=== PATIENT | male | born 1935 | race Caucasian/White ===

== ENCOUNTER 2018-07-26 07:53 | Emergency (ER) | payer OTHER, MEDICARE ==
--- OUTSIDE RECORDS SUMMARY | 2018-07-26 08:00 | XMS REPORT | Clinical Summary ---
:1935 Author Organization [facility] Address [address] [place] [address] Care Team Providers Name Role Phone Provider, Unknown Primary Care Provider Unavailable Allergies Active Allergy Reactions Severity Noted Date Comments Penicillins 07/14/2015 Medications Medication Sig Dispensed Refills Start Date End Date Status folic acid TAKE BY MOUTH 3 06/21/2015 Active (FOLVITE) 1 MG 1 TABLET DAILY tablet DIRECTED choline TAKE ONE 90 capsule 3 10/11/2016 Active fenofibrate CAPSULE BY (TRILIPIX) 45 mg MOUTH EVERY capsule DAY potassium chloride TAKE 1 TABLET 90 tablet 3 10/24/2016 Active (K-DUR) 20 MEQ CR BY MOUTH EVERY tablet DAY losartan (COZAAR) TAKE 1 TABLET 90 tablet 1 04/19/2017 Active 100 MG tablet BY MOUTH EVERY DAY metoprolol TAKE 1 TABLET 90 tablet 1 09/18/2017 Active succinate XL BY MOUTH EVERY (TOPROL-XL) 25 mg DAY 24 hr tablet furosemide (LASIX) TAKE 1 TABLET 90 tablet 3 10/12/2017 Active 20 mg tablet BY MOUTH EVERY DAY XARELTO 15 mg TAKE 1 TABLET 90 tablet 3 11/02/2017 Active tablet BY MOUTH AT BEDTIME fluticasone 2 sprays (100 15.8 mL 0 02/08/2018 Active (FLONASE ALLERGY mcg total) by RELIEF) 50 Each Nare mcg/actuation route daily. nasal spray CRESTOR 5 mg Take 5 mg by 3 08/10/2015 08/24/2017 Discontinued tablet mouth once daily. XARELTO 15 mg TAKE 1 TABLET 90 tablet 4 08/31/2016 11/01/2017 Discontinued tablet BY MOUTH AT BEDTIME furosemide (LASIX) TAKE 1 TABLET 90 tablet 3 10/24/2016 10/12/2017 Discontinued 20 mg tablet BY MOUTH EVERY DAY metoprolol TAKE 1 TABLET 90 tablet 1 02/16/2017 09/17/2017 Discontinued succinate XL BY MOUTH EVERY (TOPROL-XL) 25 mg DAY 24 hr tablet levoFLOXacin Take 1 tablet 7 tablet 0 02/08/2018 02/15/2018 (LEVAQUIN) 500 MG (500 mg total) tablet by mouth daily for 7 days. fluticasone 2 sprays (100 48 mL 0 03/02/2018 05/31/2018 (FLONASE) 50 mcg total) by mcg/actuation Each Nare nasal spray route daily for 90 days. levoFLOXacin Take 1 tablet 7 tablet 0 03/27/2018 04/03/2018 (LEVAQUIN) 500 MG (500 mg total) tablet by mouth daily for 7 days. Active Problems Problem Noted Date Pleural plaque 09/13/2016 ILD (interstitial lung disease) 01/07/2016 Chronic insomnia 01/07/2016 Cough 07/14/2015 SOB (shortness of breath) 07/14/2015 Wheezing 07/14/2015 Encounters Date Type Specialty Care Team Description 03/27/2018 Telephone Pulmonology Lawrence Sharpe MD 03/02/2018 Orders Only Pulmonology Sandy Albright MA 02/14/2018 Hospital Encounter Radiology Lawrence Sharpe, ILD ( interstitial lung MD disease) ([facility]) 02/08/2018 Clinical Support Pulmonology Lawrence Sharpe, ILD ( interstitial lung MD disease) ([facility]) Kevyn Oliva 02/08/2018 Office Visit Pulmonology Lawrence Sharpe, ILD (interstitial lung disease) ([facility]) (Primary Dx); Pleural plaque; Acute sinusitis, recurrence not specified, unspecified location 11/01/2017 Refill Pulmonology Lawrence Sharpe MD 10/12/2017 Refill PulmonLawrence Su MD 09/17/2017 Refill PulmonLawrence Su MD 08/24/2017 Office Visit Pulmonology Lawrence Sharpe, ILD (interstitial lung disease) (Primary Dx); Pleural plaque after 07/25/2017 Immunizations Name Dates Previously Given Next Due FLUZONE HIGH-DOSE PF 02/08/2017, 01/07/2016 Pneumococcal Conjugate 13-Valent 05/28/2015 Family History Medical History Relation Name Comments Heart attack Brother Cancer Father Stroke Father Heart attack Sister Relation Name Status Comments Brother Father Sister Social History Tobacco Use Types Packs/Day Years Used Date Never Smoker Smokeless Tobacco: Never Used Alcohol Use Drinks/Week oz/Week Comments No Sex Assigned at Date Recorded Not on file Job Start Date Occupation Industry Not on file Not on file Not on file Travel History Travel Start Travel End No recent travel history available. Last Filed Vital Signs Vital Sign Reading Time Taken Blood Pressure 137/67 02/08/2018 2:18 PM [employer] Pulse 56 02/08/2018 2:18 PM [employer]AL [employer]GER Temperature 36.4 C (97.6 F) 02/08/2018 2:18 PM [employer]STITUTIONAL ASSET [employer]NAGER Respiratory Rate 14 02/08/2018 2:18 PM [employer]STITUTIONAL [employer]ET [employer]NAGER Oxygen Saturation 97% 02/08/2018 2:18 PM INSTITUTIONAL ASSET MANAGER Inhaled Oxygen Concentration - - Weight 90.6 kg (199 lb 12.8 oz) 02/08/2018 2:18 PM [employer]STITUTIONAL ASSET MANAGER Height 180.3 cm (5' 11") 02/08/2018 2:18 PM INSTITUTIONAL ASSET MANAGER Body Mass Index 27.87 02/08/2018 2:18 PM INSTITUTIONAL ASSET MANAGER Plan of Treatment Date Type Specialty Care Team Description 08/17/2018 Office Visit Pulmonology Lawrence Sharpe MD [address] [place] [address] [phone] Health Maintenance Due Date Last Done Comments SHINGLES VACCINES (#1) 1983 65+ PNEUMOCOCCAL VACCINE (2 of 2 - 05/27/2016 05/28/2015 PPSV23) INFLUENZA VACCINE 09/06/2018 02/08/2017, 01/07/2016, 01/17/2012 Procedures Procedure Name Priority Date/Time Associated Diagnosis Comments CT CHEST WO Routine 02/14/2018 2:37 PM ILD (interstitial Results for this CONTRAST INSTITUTIONAL ASSET MANAGER lung disease) (HCC) procedure are in the results section. after 07/25/[address] Chest Wo Contrast (02/14/2018 2:37 PM INSTITUTIONAL ASSET MANAGER) Specimen Narrative Performed At EXAMINATION: CT CHEST WO CONTRAST [facility] CLINICAL HISTORY: J84.9 Interstitial pulmonary disease TECHNIQUE: Multi-detector computed axial tomography (CAT) of the chest was performed without IV iodinated contrast. Axial maximum intensity projections of the chest, and sagittal and coronal computerized reformatted images of the chest were created at a workstation and archived for review. DOSE REDUCTION: CT imaging was performed with iterative reconstruction technique and/or automated exposure control to reduce radiation dose. COMPARISON: CT chest 02/16/2017 IMPRESSION: 1.Stable fibrocalcific scarring and focal left calcific pleural thickening. 2.Minimal cylindrical bronchiectasis of subsegmental bronchi located within the posterior basal segments of the lower lobes probably represents senescent change. No air trapping or endobronchial impaction. FINDINGS: Stable multifocal linear, branching, and curvilinear calcific scarring demonstrating a peripheral and basilar distribution. Stable partially calcified pleural thickening measuring 1.2 cm in thickness within the posterolateral aspect of the left lung base. No edema, infiltrate, or suspicious pulmonary nodule. Minimal cylindrical bronchiectasis of subsegmental bronchi located within the posterior basal segments of the lower lobes probably represents senescent change. No evidence of air trapping. No bronchial wall thickening or endobronchial impaction. Heart is normal in size. Severe coronary artery calcifications status-post midline sternotomy and CABG. No pericardial effusion. Aorta is nonaneurysmal and diffusely atherosclerotic. Pulmonary artery is normal in diameter. No mediastinal mass, thoracic lymphadenopathy, or incidental thyroid nodule. Diffuse fatty infiltration of the liver. Few cysts are present, the largest measuring 2.8 cm. Chronic bilateral rib fractures and degenerative changes in the spine. [facility]-[id number] Procedure Note Hm Interface, Radiology Results Incoming - 02/14/2018 4:24 PM INSTITUTIONAL ASSET MANAGER EXAMINATION: CT CHEST WO CONTRAST CLINICAL HISTORY: J84.9 Interstitial pulmonary disease TECHNIQUE: Multi-detector computed axial tomography (CAT) of the chest was performed without IV iodinated contrast. Axial maximum intensity projections of the chest, and sagittal and coronal computerized reformatted images of the chest were created at a workstation and archived for review. DOSE REDUCTION: CT imaging was performed with iterative reconstruction technique and/or automated exposure control to reduce radiation dose. COMPARISON: CT chest 02/16/2017 IMPRESSION: 1. Stable fibrocalcific scarring and focal left calcific pleural thickening. 2. Minimal cylindrical bronchiectasis of subsegmental bronchi located within the posterior basal segments of the lower lobes probably represents senescent change. No air trapping or endobronchial impaction. FINDINGS: Stable multifocal linear, branching, and curvilinear calcific scarring demonstrating a peripheral and basilar distribution. Stable partially calcified pleural thickening measuring 1.2 cm in thickness within the posterolateral aspect of the left lung base. No edema, infiltrate, or suspicious pulmonary nodule. Minimal cylindrical bronchiectasis of subsegmental bronchi located within the posterior basal segments of the lower lobes probably represents senescent change. No evidence of air trapping. No bronchial wall thickening or endobronchial impaction. Heart is normal in size. Severe coronary artery calcifications status-post midline sternotomy and CABG. No pericardial effusion. Aorta is nonaneurysmal and diffusely atherosclerotic. Pulmonary artery is normal in diameter. No mediastinal mass, thoracic lymphadenopathy, or incidental thyroid nodule. Diffuse fatty infiltration of the liver. Few cysts are present, the largest measuring 2.8 cm. Chronic bilateral rib fractures and degenerative changes in the spine. [facility]-[id number] Performing Organization Address City/State/Zipcode Phone Number [facility] [address] [place] [address] after 07/25/2017 Insurance Payer Benefit Plan / Subscriber ID Effective Dates Phone Address Type Group MEDICARE MEDICARE PART A xxxxxxxxxxx 1998-Present [place], [place] Medicare AND B AARP AARP SUPPLEMENT xxxxxxxxxx 2015-Present Commercial Advance Directives Patient has advance care planning documents on file. For more information, please contact:[id number] [place] [address]
--- OUTSIDE RECORDS SUMMARY | 2018-07-26 08:00 | XMS REPORT | Summary of Care ---
:1935 Author Name EZEKIEL Lazaro, YENNY Address [facility] Unavailable , Care Team Providers Name Role Phone EZEKIEL Lazaro, YENNY Unavailable Unavailable Katiuska Lazaro, Brandin Unavailable Unavailable STEPHANIE Lazaro, HANSEL Unavailable Unavailable Yenny Ramirez MD Unavailable Unavailable EZEKIEL SIMS, YENNY Mejia Unavailable Unavailable STEPHANIE SIMS [place], HANSEL Unavailable Unavailable Unavailable Unavailable Unavailable Functional Status Name Dates Details Functional status health issues are not documented Status: Name Dates Details Cognitive status health issues are not documented Status: Problems Name Dates Details Elevated creatine kinase level (790.5, R74.8) Status: Active Tremor, unspecified (781.0, R25.1) Status: Active Cerebrovascular accident, old (V12.54, Z86.73) Status: Active Heart failure (428.9, I50.9) Status: Active CABG Status: Active 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, I25.10) Status: Active IN, old (412, I25.2) Status: Active Aftercare following surgery (V58.89, Z48.89) Status: Active Shortness of breath (786.05, R06.02) Status: Active 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, 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) Status: Active Left heart failure (428.1, I50.1) Status: Active Atrial fibrillation (427.31, I48.91) Status: Active Diabetes (250.00, E11.9) Status: Active CHF (congestive heart failure) (428.0, I50.9) Status: Active Hyperlipidemia (272.4, E78.5) Status: Active Primary hypertension (401.9, I10) Status: Active Bundle branch block, right (426.4, I45.10) Status: Active Angina pectoris (413.9, I20.9) Status: Active Atherosclerotic heart disease of [place] coronary artery without angina pectoris (414.01, I25.10) Status: Active Cerebral infarction, unspecified (434.91, I63.9) Status: Active 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 Start : 10-Jul-2012 Active Losartan Potassium 100 MG Oral Tablet TAKE 1 TABLET BY MOUTH EVERY DAY Quantity: 90 Refills: 3 YENNY RAMIREZ M.D. Start : 01-Jul-2011 Active Metoprolol Succinate ER 25 MG Oral Tablet Extended Release 24 Hour TAKE 1 TABLET BY MOUTH EVERY DAY Quantity: 90 Refills: 3 YENNY RAMIREZ M.D. Start : 01-Jul-2011 Active Xarelto 15 MG Oral Tablet TAKE 1 TABLET BY MOUTH AT BEDTIME Quantity: 90 Refills: 3 YENNY RAMIREZ M.D. Start : 02-Sep-2013 Active Fenofibric Acid 45 MG Oral Capsule Delayed Release TAKE 1 CAPSULE DAILY. Quantity: 90 Refills: 3 YENNY RAMIREZ M.D. Start : 24-Jul-2014 Active OneTouch Verio In Vitro Strip USE 4 STRIPS DAILY DX CODE E11.9 Quantity: 4 Refills: 0 Brandin Harp M.D. Start : 24-Aug-2015 Active 100 Strip Box Carbidopa-Levodopa 25-100 MG Oral Tablet TAKE 2 TABLET 3 TIMES DAILY Quantity: 540 Refills: 1 HANSEL BROWN M.D. Start : 08-Aug-2016 Active Allergies and Adverse Reactions Name Dates Details Penicillins (Allergy) Status: Active Past Medical History Name Dates Details Aftercare following surgery (V58.89, Z48.89) Status: Active Atrial fibrillation (427.31, I48.91) Status: Active History of essential hypertension (V12.59, Z86.79) Status: Resolved History of Occlusion and stenosis of cerebral artery (434.90, I66.9) Status : Resolved Procedures Procedure Dates Details [QL] CBC (INCLUDES DIFF/PLT) Date: 03-May-2018 [QL] CMP W/EGFR Date: 03-May-2018 [[facility]] CREATINE KINASE, TOTAL Date: 03-May-2018 [[facility]] LIPID PANEL Date: 03-May-2018 [[facility]] TSH, 3RD GENERATION W/REFLEX TO FT4 Date: 03-May-2018 History of CABG Completed History of CABG Completed CABG Immunization Name Dates Details Influenza on: 17-Jan-2012 Lot #: [id number] Family History Name Dates Details Family history of Coronary Artery Disease (V17.49) Comments: Family History Status: Active Family history of Lung Cancer (V16.1) Comments: Family History Status: Active Name Dates Details Family history of myocardial infarction (V17.3, Z82.49) Status: Active Name Dates Details No pertinent family history (V49.89, Z78.9) Status: Active Name Dates Details Family history of cerebrovascular accident (CVA) (V17.1, Z82.3) Status: Active Social History Name Dates Details - Status: Name Dates Details Never smoker Vital Signs Date Test Result Details [id number] BP Systolic 165 mm[Hg] Status: Comments: Location: LUE; Position: Sitting BP Diastolic 80 mm[Hg] Status: Comments: Location: LUE; Position: Sitting Height 71 in Status: Weight 206.25 lb Status: Body Mass Index Calculated 28.77 kg/m2 Status: Body Surface Area Calculated 2.14 m2 Status: Heart Rate 73 /min Status: Comments: Location: L Radial; O2 SAT 95 % Status: Comments: Source: Results Date Description Value Details [id number] [[facility]] CBC (INCLUDES DIFF/PLT) WBC 5.9 {K/CMM} Range: 3.7-10.4 RBC 4.09 {M/CMM} (Below low threshold) Range: 4.70-6.10 Hgb 13.2 g/dl (Below low threshold) Range: 14.0-18.0 Hct 39.3 % (Below low threshold) Range: 42.0-54.0 MCV 96.2 fL (Above high threshold) Range: 80.0-94.0 MCH 32.4 pg (Above high threshold) Range: 27.0-31.0 MCHC 33.7 g/dl Range: 32.0-36.0 RDW 14.8 % (Above high threshold) Range: 11.5-14.5 Platelet 219 {K/CMM} Range: 133-450 Mean Platelet Volume 9.1 fL Range: 7.4-10.4 :15 [QL] Differential Segmented Neutrophils 66.8 % Range: 45.0-75.0 Monocytes 9.7 % Range: 2.0-12.0 Lymphocytes 18.3 % (Below low threshold) Range: 20.0-40.0 Eosinophils 4.4 % (Above high threshold) Range: 0.0-4.0 Basophils 0.8 % Range: 0.0-1.0 Segs-Bands # 4.0 {K/CMM} Range: 1.5-8.1 Lymphocytes # 1.1 {K/CMM} Range: 1.0-5.5 Monocytes # 0.6 {K/CMM} Range: 0.0-0.8 Eosinophils # 0.3 {K/CMM} Range: 0.0-0.5 :15 [[facility]] CMP W/EGFR Sodium Level 139 {mEq/l} Range: 135-145 Potassium Level 4.2 {mEq/l} Range: 3.5-5.1 Chloride Level 103 {mEq/l} Range: 95-109 Carbon Dioxide 27 {mEq/l} Range: 24-32 AGAP 13.2 {mEq/l} Range: 10.0-20.0 Glucose Lvl 145 mg/dl (Above high Range: 70-99 threshold) Comments: Adult reference range values reflect the clinical guidelinesof the [place] [employer]. Creatinine Lvl 1.40 mg/dl Range: 0.50-1.40 Blood Urea Nitrogen 24 mg/dl (Above high Range: 7-22 threshold) BUN/Creatinine Ratio 17 Range: 6-25 Total Protein 7.7 g/dl Range: 6.4-8.4 Albumin Lvl 4.4 g/dl Range: 3.5-5.0 Globulin 3.3 g/dl Range: 2.7-4.2 A/G Ratio 1.3 Range: 0.7-1.6 Calcium Level Total 8.8 mg/dl Range: 8.5-10.5 ALT 16 u/l Range: 0-65 AST 14 u/l Range: 0-37 Bili Total 0.4 mg/dl Range: 0.2-1.3 Alk Phos 41 u/l Range: 39-136 eGFR 45 {ML/MIN/1.7} Comments: The eGFR is calculated using the CKD-EPI formula. In most young, healthyindividuals the eGFR will be >90 mL/min/1.73m2. The eGFR declines with age. AneGFR of 60-89 may be normal in some populations, particularly the elderly, forwhom the CKD-EPI formula has not been extensively validated. Use of the eGFR isnot recommended in the following populations:Individuals with unstable creatinine concentratio ns, including patients and those with serious co-morbid conditions.Patients with extremes in muscle mass or diet.The data above are obtained from the National Kidney Disease Education Program(NK DEP) which additionally recommends that when the eGFR is used in patientswith extremes of body mass index for purposes of drug dosing, the eGFR shouldbe multiplied by the estimated BMI. :15 [QL] CREATINE KINASE, TOTAL Creatine Kinase 203 u/l (Above high threshold) Range: 12-191 :15 [[facility]] LIPID PANEL Chol 165 mg/dl Range: <=199 Trig 119 mg/dl Range: <=149 HDL Cholesterol 38 mg/dl (Below low threshold) Range: >=61 CHD Risk 4.34 Range: 4.00-7.30 LDL 103 mg/dl (Above high threshold) Range: <=99 VLDL 24 :15 [[facility]] TSH, 3RD GENERATION TSH 25.000 {uIU/ml} (Above high threshold) Range: 0.360-3.740 :15 [[facility]] LIPOPROTEIN (a) Lipoprotein (a) 4 nmol/L Range: <75 Comments: Note: Values greater than or equal to 75 nmol/L may indicate an independent risk factor for CHD, but must be evaluated with caution when applied to non- populations due to th e influence of genetic factors on Lp(a) across ethnicities.Performed At: [facility] [id number] [place], [place] [id number] Mcdonald MD Ph:[phone] Plan of Care Name Dates Details Planned Observations Planned Goals not documented Planned Encounters Appointment; HANSEL BROWN M.D. On: 03-Aug-2018 9:30 Appointment; YENNY RAMIREZ M.D. On: 01-Nov-2018 14:00 Instructions Name Dates Details Instructions not documented Encounters Appointment; SYD DIALLO M.D. On: 23-Jun-2016 13:30 Encounter Diagnosis: Problem not documented Appointment; SYD DIALLO M.D. On: 30-Jun-2016 13:00 Encounter Diagnosis: Problem not documented Appointment; HANSEL BROWN M.D. On: 08-Aug-2016 15:00 Encounter Diagnosis: Problem not documented Appointment; HANSEL BROWN M.D. On: 30-Nov-2016 14:30 Encounter Diagnosis: Problem not documented Appointment; HANSEL BROWN M.D. On: 07-Dec-2016 14:30 Encounter Diagnosis: Problem not documented Appointment; SYD DIALLO M.D. On: 12-Jan-2017 14:00 Encounter Diagnosis: Problem not documented Appointment; HANSEL BROWN M.D. On: 05-Apr-2017 14:30 Encounter Diagnosis: Problem not documented Appointment; HANSEL BROWN M.D. On: 11-Aug-2017 11:00 Encounter Diagnosis: Problem not documented Appointment; YENNY RAMIRZE M.D. On: 28-Sep-2017 15:20 Encounter Diagnosis: Problem not documented Appointment; ALONDRA NIEVES On: 26-Oct-2017 13:30 Encounter Diagnosis: Problem not documented Appointment; YENNY RAMIREZ M.D. On: 02-Nov-2017 15:40 Encounter Diagnosis: Problem not documented Appointment; HANSEL BROWN M.D. On: 16-Nov-2017 11:30 Encounter Diagnosis: Problem not documented Appointment; HANSEL BROWN M.D. On: 16-Mar-2018 10:00 Encounter Diagnosis: Problem not documented Appointment; YENNY RAMIREZ M.D. On: 03-May-2018 14:00 Encounter Diagnosis: Problem not documented
--- NOTE | 2018-07-26 08:21 | EDPHYS ---
Physician Documentation [facility] Name: Brodie Hernadez Age: 83 yrs Sex: Male : 1935 Arrival Date: 07/26/2018 Time: 07:55 Bed 18 Private MD: ED Physician Gregor Rogers HPI: 07/26 08:18 This 83 yrs old Male presents to ER via Ambulatory with complaints of Back pm1 Pain, Rash. 08:27 The rash is located on the right flank. The rash can be described as vesicular. Onset: pm1 The symptoms/episode began/occurred noticed rash this AM but has had pain in the area of the rash for the past two days. Associated signs and symptoms: Pertinent negatives: fever, urinary symptoms. Severity of symptoms: in the emergency department the symptoms are unchanged. Treatment given at home: tylenol. The patient has experienced a previous episode, many years ago, and the symptoms today are exactly the same, in his 20s. The patient has not recently seen a physician, has an appointment scheduled, new PCP tomorrow or in a few days. 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 - Social history:: Smoking status: Patient/guardian denies using tobacco. - Ebola Screening: : No symptoms or risks identified at this time. ROS: 08:27 Constitutional: Negative for fever, chills, and weight loss, Eyes: Negative for injury, pm1 pain, redness, and discharge, ENT: Negative for injury, pain, and discharge, Neck: Negative for injury, pain, and swelling, Cardiovascular: Negative for chest pain, palpitations, and edema, Respiratory: Negative for shortness of breath, cough, wheezing, and pleuritic chest pain, Abdomen/GI: Negative for abdominal pain, nausea, vomiting, diarrhea, and constipation. 08:27 : Negative for injury, bleeding, discharge, and swelling, MS/Extremity: Negative for injury and deformity. 08:27 Neuro: Negative for headache, weakness, numbness, tingling, and seizure. 08:27 Back: Positive for flank pain, on the right. 08:27 Skin: Positive for rash, of the right flank to right lower quadrant. Exam: 08:27 Constitutional: This is a well developed, well nourished patient who is awake, alert, pm1 and in no acute distress. Head/Face: Normocephalic, atraumatic. Chest/axilla: Normal chest wall appearance and motion. Nontender with no deformity. No lesions are appreciated. Cardiovascular: Regular rate and rhythm with a normal S1 and S2. No gallops, murmurs, or rubs. Normal PMI, no JVD. No pulse deficits. Respiratory: Lungs have equal breath sounds bilaterally, clear to auscultation and percussion. No rales, rhonchi or wheezes noted. No increased work of breathing, no retractions or nasal flaring. 08:27 Back: No spinal tenderness. No costovertebral tenderness. Full range of motion. 08:27 Abdomen/GI: Inspection: abdomen appears normal, ostomy present, Bowel sounds: normal, Palpation: abdomen is soft and non-tender. 08:27 Skin: consistent with zoster, on the right flank to right lower quadrant. 08:27 Neuro: Orientation: is normal, Motor: is normal, moves all fours, Sensation: is normal, no obvious gross deficits, Gait: is steady, at a normal pace, without difficulty. Vital Signs: 08:20 BP 141 / 90; Pulse 45; Resp 18; Temp 97.9; Pulse Ox 98% on R/A; Weight 90.72 kg; Height ph 5 ft. 11 in. (180.34 cm); Pain 9/10; 08:20 Body Mass Index 27.89 (90.72 kg, 180.34 cm) ph MDM: 08:18 Patient medically screened. pm1 08:18 Counseling: I had a detailed discussion with the patient and/or guardian regarding: the pm1 historical points, exam findings, and any diagnostic results supporting the discharge/admit diagnosis, the need for outpatient follow up, to return to the emergency department if symptoms worsen or persist or if there are any questions or concerns that arise at home. 08:32 Data reviewed: vital signs. Data interpreted: Pulse oximetry: on room air is 98 %. pm1 Interpretation: normal. Administered Medications: 08:31 Drug: traMADol 50 mg Route: PO; ph 08:40 Follow up: Response: No adverse reaction; Medication administered at discharge. ph Disposition: 10:50 Co-signature as Attending Physician, Gregor Rogers MD I agree with the assessment and kdr plan of care. Disposition: 07/26/18 08:21 Discharged to Home. Impression: Zoster [herpes zoster]. - Condition is Stable. - Discharge Instructions: Shingles. - Prescriptions for Valtrex 1 g Oral Tablet - take 1 tablet by ORAL route every 8 hours for 7 days; 21 tablet. Tramadol 50 mg Oral Tablet - take 1 tablet by ORAL route every 8 hours as needed; 12 tablet. - Medication Reconciliation Form, Thank You Letter, Antibiotic Education, Prescription Opioid Use form. - Follow up: Emergency Department; When: As needed; Reason: Worsening of condition. Follow up: Private Physician; When: 2 - 3 days; Reason: Recheck today's complaints, Continuance of care, Re-evaluation by your physician. - Problem is new. - Symptoms have improved. Signatures: Gregor Rogers MD MD [facility] Yolanda Pickering RN RN Casey Macias, SHA SAFETY COMPLIANCE SPECIALIST pm1 María Bro Corrections: (The following items were deleted from the chart) 08:42 08:21 07/26/2018 08:21 Discharged to Home. Impression: Zoster [herpes zoster]. eb Condition is Stable. Forms are Medication Reconciliation Form, Thank You Letter, Antibiotic Education, Prescription Opioid Use. Follow up: Emergency Department; When: As needed; Reason: Worsening of condition. Follow up: Private Physician; When: 2 - 3 days; Reason: Recheck today's complaints, Continuance of care, Re-evaluation by your physician. Problem is new. Symptoms have improved. pm1
--- NOTE | 2018-07-26 08:21 | ER ---
Nurse's Notes [facility] Name: Brodie Hernadez Age: 83 yrs Sex: Male : 1935 Arrival Date: 07/26/2018 Time: 07:55 Bed 18 Private MD: Diagnosis: Zoster [herpes zoster] Presentation: 07/26 08:18 Presenting complaint: Patient states: R low back pain that began 2 days ago and rash in ph same area that was noticed this morning, vesicular rash noted to R flank, denies fever. Transition of care: patient was not received from another setting of care. Onset of symptoms was July 26, 2018. Risk Assessment: Do you want to hurt yourself or someone else? Patient reports no desire to harm self or others. Initial Sepsis Screen: Does the patient meet any 2 criteria? No. Patient's initial sepsis screen is negative. Does the patient have a suspected source of infection? No. Patient's initial sepsis screen is negative. Care prior to arrival: None. 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 - Social history:: Smoking status: Patient/guardian denies using tobacco. - Ebola Screening: : No symptoms or risks identified at this time. Screenin:25 Abuse screen: Denies threats or abuse. Denies injuries from another. Nutritional ph screening: No deficits noted. Tuberculosis screening: No symptoms or risk factors identified. Fall Risk None identified. Assessment: 08:26 General: Appears in no apparent distress. comfortable, well groomed, Behavior is calm, ph cooperative, appropriate for age, Denies fever, feeling ill. Pain: Complains of pain in right mid back and right low back Pain radiates to anterior aspect of right lateral abdomen, posterior aspect of right lateral abdomen and right lower quadrant Pain currently is 9 out of 10 on a pain scale. Quality of pain is described as burning, aching. Neuro: Level of Consciousness is awake, alert, obeys commands, Oriented to person, place, time, situation. Cardiovascular: Capillary refill < 3 seconds in bilateral fingers Patient's skin is warm and dry. Respiratory: Airway is patent Respiratory effort is even, unlabored, Respiratory pattern is regular, symmetrical. GI: Colostomy site is clean and dry. Ostomy appliance is intact. Patient currently denies abdominal pain, diarrhea, nausea, vomiting. Derm: Skin is healthy with good turgor, Skin is pink, warm \T\ dry. Rash noted that is red, raised, vesicular, on anterior aspect of right lateral abdomen, posterior aspect of right lateral abdomen and right lower quadrant. Musculoskeletal: Circulation, motion, and sensation intact. Range of motion: intact in all extremities. Vital Signs: 08:20 BP 141 / 90; Pulse 45; Resp 18; Temp 97.9; Pulse Ox 98% on R/A; Weight 90.72 kg; Height ph 5 ft. 11 in. (180.34 cm); Pain 9/10; 08:20 Body Mass Index 27.89 (90.72 kg, 180.34 cm) ph ED Course: 07:55 Patient arrived in ED. as 08:08 Casey Macias NP is [facility]. pm1 08:08 Gregor Rogers MD is Attending Physician. pm1 08:18 Yolanda Pickering RN is Primary Nurse. ph 08:20 Triage completed. ph 08:25 Arm band placed on Patient placed in an exam room, on a stretcher. ph 08:25 Patient has correct armband on for positive identification. Call light in reach. Side ph rails up X 1. Pulse ox on. NIBP on. Door closed. Noise minimized. 08:30 No provider procedures requiring assistance completed. Patient did not have IV access ph during this emergency room visit. Administered Medications: 08:31 Drug: traMADol 50 mg Route: PO; ph 08:40 Follow up: Response: No adverse reaction; Medication administered at discharge. ph Outcome: 08:21 Discharge ordered by MD. pm1 08:42 Patient left the ED. eb 08:42 Discharged to home ambulatory, with friend. ph 08:42 Condition: good 08:42 Discharge instructions given to patient, friend, Instructed on discharge instructions, follow up and referral plans. medication usage, Demonstrated understanding of instructions, follow-up care, medications, Prescriptions given X 2. Signatures: Monica Dennis as Yolanda Pickering, SUE RN Casey Macias NP [employer] ELECT[employer]ICIAN pm1 María Bro
[2018-07-26] MEDS ORDERED: TRAMADOL HCL 50 MG TAB ONE (08:49)
== END 2018-07-26 08:42 | disposition home or self-care (01) ==
LOC: ER 07:53
DX: B02.9 Zoster without complications (principal); Z88.0 Allergy status to penicillin
CPT/HCPCS: 99283

== ENCOUNTER 2020-07-24 21:32 | Inpatient (IN) | payer OTHER, MEDICARE ==
--- OUTSIDE RECORDS SUMMARY | 2020-07-24 21:38 | XMS REPORT | Continuity of Care Document ---
:1935 Author Organization [facility] t Address [address] [place] [address] Care Team Providers Name Role Phone Provider Primary Care Physician Unavailable Nithin Pavon Attending Clinician EZEKIEL Attending Clinician Unavailable STEPHANIE Attending Clinician Unavailable EZEQUIEL Attending Clinician Unavailable RENÉ Attending Clinician Unavailable Erlin Merritt Attending Clinician [place] Attending Clinician Unavailable EZEQUIEL Attending Clinician Unavailable Problems Condition Condition Condition Status Onset Resolution Last Treating Co mments Source Name Details Category Date Date Treatment Clinician Date R41.3 - Diagnosis Active 2019-022019-12-09 Me moria OTHER - 11:30:00 l AMNESIA R41.3 - 00:01: Ravi mcmillan R25.1 - OTHER 00 TREMOR, UN AMNESIA R25.1 - TREMOR, UN Active 12/07/2019 TODD [place] Pleural Pleural Disease Active [place] plaque plaque 8-08 Methodi 00:00: st 00 I10 - Diagnosis Active 2016-07-01 Mem oria ESSENTIAL - 12:19:00 l (PRIMARY) I10 - 00:01: Ravi mcmillan HYPERTENSI ESSENTIAL 00 (PRIMARY) HYPERTENSI Active 06/30/2016 TODD [place] 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 [place] (interstit (interstit 2-01 Me thodi ial lung ial lung 00:00: st disease) disease) 00 Chronic Chronic Disease Active 2015-02 [place] insomnia insomnia 2-01 Method i 00:00: st 00 DIABETES Diagnosis Active 2015-10-07 M emoria 7- 15:50:00 l DIABETES 00:00: Ravi mcmillan 00 Active 08/07/2015 [facility] Cough Cough Disease Active [place] 07-13 Methodi 00:00: st 00 SOB SOB Disease Active [place] (shortness (shortness 07-13 Tx thodi of breath) of breath) 00:00: st 00 Wheezing Wheezing Disease Active [place] 07-13 Methodi 00:00: st 00 STERNAL Diagnosis Active 2011-05-09 Tx moria WOUND 05-06 12:47:00 l INFECTION STERNAL 00:00: Herm lauro WOUND 00 INFECTION Active 05/07/2011 [facility] ABSCESS Diagnosis Active 2011-05-07 Tx moria 05-06 14:45:00 l ABSCESS 00:00: [place] 00 Active 05/07/2011 [facility] Coronary Problem Active 2020-06-08 Mem oria artery 04-05 00:32:23 l bypass Coronary 00:00: Ravi n grafts x 3 artery 00 (procedure bypass ) grafts x 3 (procedure ) Active 04/05/2011 Problem 06/08/2020 [facility], TODD Stewart, TODD Genao CABG x 3 - Problem Active 2011-12-02 M emoria Coronary - 08:17:06 l artery CABG x 3 00:00: Ravi mcmillan bypass - Coronary 00 grafts x 3 artery bypass grafts x 3 Active 04/05/2011 Problem 12/02/2011 [facility] CARDIAC Diagnosis Active 2011-07-28 Tx moria REHAB NEW 02-06 14:54:00 l PT CARDIAC 11:11: Terry REHAB NEW 00 PT Active 1 [facility] CARDIAC Diagnosis Active 2011-11-01 Tx moria REHAB 02-06 13:34:00 l CARDIAC 11:11: Terry REHAB 00 Active 02/07/2000 [facility] CABG CABG Problem Active [facility] [place] [facility] History of History of Problem Resolve Univers essential essential d ity of hypertens[place]ens[place] Physici ans History of History of Problem Resolve Univers Occlusion Occlusion d ity of and and [place] stenosis stenosis Physic i of of ans cerebral cerebral artery artery Aftercare Aftercare Problem Active Uni vers following following ity of surgery surgery [place] [facility] ans CHF CHF Problem Active Univers (congestiv (congestiv it y of e heart e heart [place] failure) failure) Physic i ans Shortness Shortness Problem Active Uni vers of breath of breath [facility]y [facility] [place] [facility] ans Cerebral Cerebral Problem Active Unive rs thrombosis thrombosis it y of with with [place] cerebral cerebral Physic i infarction infarction an s 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 [place]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 Physic i with with ans diabetic diabetic neuropathy neuropathy , without , without long-term long-term current current use of use of insulin insulin Cerebrovas Cerebrovas Problem Active U nivers cular cular ity of accident, [place], [place] old [place] Physici ans Tremor, Tremor, Problem Active Univers unspecifie unspecifie it y of d d [place] [facility]ici ans Elevated Elevated Problem Active Unive rs creatine creatine ity of kinase kinase [place] level level Physici ans Peripheral Peripheral Problem Active U nivers neuropathy neuropathy it y of [place] [facility] [facility] [place] old [place], old Problem Active [facility] [place] [facility] Parkinson Parkinson Problem Active Uni vers disease, disease, ity of symptomati symptomati [place] ans Atheroscle Atheroscle Problem Active U nivers rotic rotic ity of heart heart [place] disease of disease of Ph ysici [place]qual[place] ans coronary coronary artery artery without without angina angina pectoris pectoris Angina Angina Problem Active Univers pectoris pectoris [facility] [place] [facility] Bundle Bundle Problem Active Univers branch branch ity of block, block, [place] right right Physici ans Cerebral Cerebral Problem Active Unive rs infarction infarction it y of , , [place] unspecifie unspecifie Ph ysici d d ans Diabetes Diabetes Problem Active Unive rs [facility] [place] [facility] Hyperlipid Hyperlipid Problem Active U nivers emia emia [facility] [place] [facility] Left heart Left heart Problem Active U nivers failure failure [facility] [place] [facility] Primary Primary Problem Active Univers hypertensi hypertensi it y of on on [place] [facility] Atrial Atrial Problem Active Univers fibrillati fibrillati it y of on on [place] [facility]ici ans Amnesia Problem Active 2020-06-08 Wilbert noe (finding) 00:32:23 l Amnesia [place] (finding) Active Problem 06/08/2020 [facility], OPID [place] Angina Problem Active 2020-06-08 Memor ia (disorder) 00:32:23 l Angina [place] (disorder) Active Problem 06/08/[address] [facility], KEENAND [place], TODD Genao Atrial Problem Active 2020-06-08 Memor ia fibrillati 00:32:23 l on Atrial [place] (disorder) fibrillati on (disorder) Active Problem 06/08/[address] [facility], TODD Stewart, TODD Genao Hypertensi Problem Active 2020-06-08 M emoria ve 00:32:23 l disorder, Terry systemic Hypertensi arterial ve (disorder) disorder, systemic arterial (disorder) Active Problem 06/08/[address] [facility], TODD Genao Hyperlipid Problem Active 2020-06-08 M emoria emia 00:32:23 l (disorder) Ravi n Hyperlipid emia (disorder) Active Problem 06/08/[address] [facility], TODD Stewart, TODD Genao Impaired Problem Active 2020-06-08 Mem oria cognition 00:32:23 l (finding) Impaired Her segura cognition (finding) Active Problem 06/08/[address] [facility] Parkinson' Problem Active 2020-06-08 M emoria s disease 00:32:23 l (disorder) Ravi n Parkinson' s disease (disorder) Active Problem 06/08/[address] [facility], TODD [place] Tremor Problem Active 2020-06-08 Memor ia (finding) 00:32:23 l Tremor [place] (finding) Active Problem 06/08/2020 [facility] TODD [place] Angina Problem Active 2011-12-02 Memor ia 08:17:06 l Angina [place] Active Problem 12/02/2011 [facility] Atrial Problem Active 2011-12-02 Memor ia fibrillati 08:17:06 l on Atrial [place] fibrillati on Active Problem 2 [facility] Hyperlipid Problem Active 2011-12-02 M emoria emia 08:17:06 l [place] Hyperlipid emia Active Problem 12/02/2011 [facility] Ileostomy Problem Active 2011-12-02 Me moria - stoma 08:17:06 l [place] Ileostomy - stoma Active Problem 12/02/2011 [facility] OTHER Diagnosis Active 2011-05-09 Mem oria POSTOP 12:47:00 l INFECTION OTHER Ravi n POSTOP INFECTION Active [facility] Allergies, Adverse Reactions, Alerts Allergy Allergy Status Severity Reaction(s) Onset Inactive Treating Comm ents Source Name Type Date Date Clinician Penicill Propensi Active [place] ins ty to 07-13 Methodi adverse 00:00: st reaction 00 s to drug Penicill Allergy Active Univers ins to drug ity of (finding [place] ) Physici ans penicill penicill Active Memori a ins ins l [place] Family History Family Member Diagnosis Comments Start Date Stop Date Source Natural Heart attack [place] brother Christianity Natural Cancer [place] father Christianity Natural Stroke [place] father Christianity Natural Heart attack [place] sister Christianity Unknown Family history of Family History Uni versity of Family Member Coronary Artery [place] Physicians Disease Unknown Family history of Family History Uni versity of Family Member Lung Cancer [place] Phys icians Sibling Family history of Univers ity of myocardial infarction Omkar as Physicians Father Family history of Univers ity of cerebrovascular [place] Phy sicians accident (CVA) Social History Social Habit Start Date Stop Date Quantity Comments Source Tobacco use and 2018-02-08 2018-02-08 Never used [facility] ethodist exposure 00:00:00 00:00:00 Alcohol intake 2018-02-08 2018-02-08 Current [facility] thodist 00:00:00 00:00:00 non-drinker of alcohol (finding) Social History 2016-07-02 2016-07-02 [facility] 04:59:00 04:59:00 Sex Ass[birth year] At [birth year] [facility] ethodist 00:00:00 00:00:00 Smoking Status Start Date Stop Date Source Never smoker [facility] Medications Ordered Filled Start Stop Current Ordering Indication Dosage Frequency Signature Comments Components Source Medication Medication Date Date Medication? 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, Weight Carbidopa 2019-02 Yes 2 tab, PO, Me moria 25 MG / 0-29 TID, # 540 l Levodopa 23:52: tab, 3 [place] 100 MG Oral 00 Refill(s), Tablet Pharmacy: [email or web address] #[id number], 177.8, cm, 12/05/19 11:00:00 CDT, Height, 90, kg, 12/05/19 11:00:00 CDT, Weight Carbidopa 2019-02 No 0 Memoria 25 MG / 0-29 Refill(s) l Levodopa 23:51: Terry 100 MG Oral 00 Tablet fenofibric 2019-02 Yes 0 Memoria acid 45 mg 0-29 Refill(s) l oral 23:51: [place] delayed 00 release capsule gabapentin 2019-02 Yes 0 Memoria 400 MG Oral 0-29 Refill(s) l Capsule 23:51: [place] 00 levothyroxi 2019-02 Yes 0 Memori a ne 88 mcg 0-29 Refill(s) l (0.088 mg) 23:51: Terry oral tablet 00 losartan 2019-02 Yes 0 Memoria 100 mg oral 0-29 Refill(s) l tablet 23:51: [place] 00 Metoprolol 2019-02 Yes 0 Memoria Succinate 0-29 Refill(s) l ER 25 mg 23:51: Terry oral 00 tablet, extended release rosuvastati 2019-02 Yes 0 Memori a n 5 mg oral 0-29 Refill(s) l tablet 23:51: [place] 00 0.5 ML 2019-02 No 0 Memoria Varicella 0-29 Refill(s) l zoster 23:51: Terry virus 00 glycoprotei n E, recombinant 0.1 MG/ML Injection [Shingrix] rivaroxaban 2019-02 Yes 0 Memori a 15 MG Oral 0-29 Refill(s) l Tablet 23:51: Terry [Xarelto] 00 DULoxetine DULoxetine Yes 1 QD TAKE 1 Univers HCl - 30 MG HCl - 30 MG 9-26 CAPSULE ity of Oral Oral 00:00: DAILY [place] Capsule Capsule 00 Physici Delayed Delayed ans Release Release Particles Particles Gabapentin Gabapentin Yes Q0.3333D TAKE 1 Univers 400 MG Oral 400 MG Oral 9-26 CAPSULE 3 ity of Capsule Capsule 00:00: TIMES 00 DAILY. Physici ans Synthroid Synthroid Yes 1 QD TAKE 1 U nivers 75 MCG Oral 75 MCG Oral 9-26 TABLET ity of Tablet Tablet 00:00: DAILY. [place] 00 Physici ans fluticasone Yes 100ug QD 2 sprays [place] (FLONASE 1-03 (100 mcg Methodi ALLERGY 00:00: total) by [facility]) 50 00 Each Nare mcg/actuati route on nasal daily. spray XARELTO 15 Yes TAKE 1 [place] mg tablet 9-27 TABLET BY Metho di 00:00: MOUTH AT st 00 BEDTIME furosemide Yes TAKE 1 [place] (LASIX) 20 9-06 TABLET BY Meth joan mg tablet 00:00: MOUTH st 00 EVERY DAY metoprolol Yes TAKE 1 [place] succinate 8-13 TABLET BY Metho di XL 00:00: MOUTH st (TOPROL-XL) 00 EVERY DAY 25 mg 24 hr tablet losartan Yes TAKE 1 [place] (COZAAR) 3-14 TABLET BY Method i 100 MG 00:00: MOUTH st tablet 00 EVERY DAY potassium Yes TAKE 1 [place] chloride 9-18 TABLET BY Method i (K-DUR) 20 00:00: MOUTH st MEQ CR 00 EVERY DAY tablet choline Yes TAKE ONE [place] fenofibrate 9-05 CAPSULE BY Tx walter (TRILIPIX) 00:00: MOUTH st 45 mg 00 EVERY DAY capsule Carbidopa-L Carbidopa-L Yes RAJA 2 Q0.3333D TAKE 2 Univers evodopa evodopa 7-03 MEHANNA TABLETS BY ity of 25-100 MG 25-100 MG 00:00: M.D. MOUTH 3 [place] Oral Tablet Oral Tablet 00 TIMES Physici DAILY ans OneTouch OneTouch Yes Brandin QD USE 4 Un kwame Verio In Verio In 7-18 Orlander STRIPS i ty of Vitro Strip Vitro Strip 00:00: M.D. DAILY DX [place] 00 CODE E11.9 Physici ans folic acid Yes TAKE BY [place] (FOLVITE) 1 5-15 MOUTH 1 Metho di MG tablet 00:00: TABLET st 00 DAILY DIRECTED Fenofibric Fenofibric Yes YENNY 1 QD TAKE 1 Univers Acid 45 MG Acid 45 MG 6-18 FALCON CAPSULE BY ity of Oral Oral 00:00: M.D. MOUTH [place] Capsule Capsule 00 EVERY DAY Phys ici Delayed Delayed ans Release Release Rosuvastati Rosuvastati 2013-02 Yes YENNY TAKE 1 Univers n Calcium 5 n Calcium 5 0-17 FALCON TABLET BY ity of MG Oral MG Oral 00:00: M.D. MOUTH [place] Tablet Tablet 00 EVERY DAY Physic i ans Xarelto 15 Xarelto 15 Yes YENNY TAKE 1 Univers MG Oral MG Oral 7-28 FALCON TABLET BY i ty of Tablet Tablet 00:00: M.D. MOUTH [place] 00 EVERYDAY Physici AT BEDTIME ans Folic Acid Folic Acid Yes YENNY TAKE 1 Univers 1 MG Oral 1 MG Oral 6-04 FALCON TABLET BY ity of Tablet Tablet 00:00: M.D. MOUTH [place] 00 EVERY DAY Physici ans Losartan Losartan Yes YENNY TAKE 1 Univers Potassium Potassium 5-25 FALCON TABLET BY ity of 100 MG Oral 100 MG Oral 00:00: M.D. MOUTH [place] Tablet Tablet 00 EVERY DAY Physic i ans Metoprolol Metoprolol Yes YENNY TAKE 1 Univers Succinate Succinate 5-25 FALCON TABLET BY ity of ER 25 MG ER 25 MG 00:00: M.D. MOUTH [place] Oral Tablet Oral Tablet 00 EVERY DAY Physici Extended Extended ans Release 24 Release 24 Hour Hour diphenhydrA Yes Agnieszka 12.5 mg, 1 Memoria MINE 12.5 4-06 Alawadi tab, PO, l mg oral 16:39: Bedtime, Ravi n tablet, 28 PRN, 14 disintegrat tab, ing insomnia, Substituti on Allowed diphenhydrA No Agnieszka 12.5 mg, Memoria MINE 25 mg 4-06 Alawadi PO, l oral 16:37: Bedtime, Terry capsule 22 PRN, 14 doses or times, Insomnia, Substituti on Allowed, CAP doxycycline Yes Agnieszka 100 mg, M emoria 20 mg oral 4-06 Alawadi PO, Q12H, l tablet 16:15: 28 doses [place] 30 or times, Substituti on Allowed [place] Yes Agnieszka 2 tab, PO, Wilbert noe 7.5/325 4-06 Alawadi Q4H, PRN, l oral tablet 16:14: 40 tab, Her segura 41 Pain, Substituti on Allowed, Maintenanc e, TAB doxycycline No Agnieszka 100 mg, M emoria 20 mg oral 4-06 Alawadi PO, Q12H, l tablet 16:14: 28 doses [place] 35 or times, Substituti on Allowed [place] No Agnieszka 2 tab, PO, Wilbert noe 7.5/325 4-06 Alawadi Q4H, PRN, l oral tablet 15:59: 40 tab, Her segura 58 Pain, Substituti on Allowed, Maintenanc e, TAB doxycycline No Agnieszka 100 mg, M emoria 20 mg oral 4-06 Alawadi PO, Q12H, l tablet 15:59: 28 doses [place] 54 or times, Substituti on Allowed doxycycline No Agnieszka 100 mg, M emoria 20 mg oral 4-06 Alawadi PO, Q12H, l tablet 15:53: 28 doses [place] 03 or times, Substituti on Allowed Plavix No Ayana 75 mg, 1 Me moria [address] tab, l 14:00: Route: PO, [place] 00 Drug form: TAB, Daily, Start date: 05/13/11 9:00:00, Duration: 30 day, Stop date: 06/11/11 9:00:00 acetaminoph No Mian 15 mL, M emoria en-hydrocod 04 Robbin Route: PO, l one 325 15:55: [place] Q4H, PRN Her segura mg-10 mg/15 00 Pain Score mL oral 4-6, Start solution date: 05/11/11 10:55:00, Duration: 30 day, Stop date: 06/10/11 10:54:00 hydromorpho No Mian 0.5 mg, Memoria ne 05-10 Robbin Route: l 15:55: [place] IVP, Terry 00 Q5Min, PRN Pain Score 4-6, Start date: 05/11/11 10:55:00, Duration: 5 doses or times, Stop date: Limited # of times fentanyl No Mian 25 Memori a 05-10 Robbin microgram, l 15:55: [place] Route: [place] 00 IVP, Q5Min, PRN Pain Score 4-6, Start date: 05/11/11 10:55:00, Duration: 4 doses or times, Stop date: Limited # of times hydrALAZINE No Mian 5 mg, Me moria 05-10 Robbin Route: l 15:55: [place] IVP, Terry 00 Q5Min, PRN Elevated BP, Start date: 05/11/11 10:55:00, Duration: 4 doses or times, Stop date: Limited # of times ondansetron No Mian 4 mg, Me moria 05-10 Robbin Route: l 15:55: [place] IVP, ONCE, Herm lauro 00 PRN Nausea & Vomiting, Start date: 05/11/11 10:55:00 flumazenil No Mian 0.2 mg, M emoria 05-10 Robbin Route: l 15:55: [place] IVP, PRN, Debbie nn 00 PRN Benzodiaze pine Reversal, Initial dose, Start date: 05/11/11 10:55:00, Duration: 30 day, Stop date: 06/10/11 10:54:00 naloxone No Mian 0.04 mg, Me moria 05-10 Robbin Route: l 15:55: [place] IVP, [place] 00 Q2MIN, PRN Narcotic Reversal, Start date: 05/11/11 10:55:00, Duration: 8 doses or times, Stop date: Limited # of times metoprolol No Mian 1 mg, Mem oria tartrate 05-10 [place] Route: l 15:55: [place] IVP, Drug Debbie nn 00 form: TAB, Q5Min, PRN Elevated BP, Start date: 05/11/11 10:55:00, Duration: 5 doses or times, Stop date: Limited # of times D5W 1/2NS + No Agnieszka 1,000 mL, Memoria KCL 20mEq/L 05-09 Alawadi Rate: 60 l 1000ml 22:48: ml/hr, [place] (Premix) 00 Infuse 1,000 mL over: 16.7 hr, Route: IV, Dosing Weight 81.818 kg, Total Volume: 1,000, Start date: 05/10/11 17:48:00, Duration: 30 day, Stop date: 06/09/11 17:47:00 temazepam No Lamin 15 mg, 1 Mem oria 05-08 Elias cap, l 04:09: Sharpe Route: PO, [place] Drug form: CAP, Bedtime, PRN Insomnia, Start date: 05/08/11 23:09:00, Duration: 30 day, Stop date: 06/07/11 23:08:00 Protonix No Viktoriya Trudi 40 mg, 1 Memoria 4-01 tab, l 21:30: Route: PO, Terry Drug form: ECTAB, Before Dinner, Start date: 05/08/11 16:30:00, Duration: 30 day, Stop date: 06/06/11 16:30:00 Sodium No Lamin 1,000 mL, Memor ia Chloride 05-07 Elias Rate: 75 l 0.9% IV 18:44: Sharpe ml/hr, Terry 1000 mL 00 Infuse over: 13.3 hr, Route: IV, kg, Total Volume: 1,000, Start date: 05/08/11 13:44:00, Duration: 30 day, Stop date: 06/07/11 13:43:00 heparin No Viktoriya Trudi 5,000 Mem oria 4-01 unit, 1 l 05:00: mL, Route: [place] 00 SUB-Q, Drug form: INJ, Q8H, Start date: 05/08/11 0:00:00, Duration: 30 day, Stop date: 06/06/11 16:00:00 vancomycin 2011- No Viktoriya Trudi 1 gm, Memoria 4-01 Route: l 03:00: IVPB, Drug [place] 00 form: INJ, [id number], Start date: 05/07/11 22:00:00, Duration: 30 day, Stop date: 06/06/11 10:00:00 diphenhydrA 2011-0 No Silvio 25 mg, 1 Memoria MINE 4- Jcarlos cap, l 02:04: Esau Route: PO, Herm lauro 00 [place] Drug form: CAP, Bedtime, PRN Insomnia, Start date: 05/07/11 21:04:00, Duration: 30 day, Stop date: 06/06/11 21:03:00 Mucomyst 2011-0 No Michelle-Apncho 600 mg, 3 Memoria oral 4 [place] mL, Route: l solution 02:00: Esparza PO, Drug H ermann (mg) 00 Pu form: SOLN, Q12H, Start date: 05/07/11 21:00:00, Duration: 4 doses or times, Stop date: 05/09/11 9:00:00 [place] 2011-0 No 2 tab, PO, Memori a 7.5/325 3-31 Q4H, PRN, l oral tablet 23:28: as needed H ermann 16 for pain, Substituti on Allowed, Maintenanc e, TAB AMIODarone 2011-0 Yes 200 mg, 1 Me moria 200 mg oral 3-31 tab, PO, l tablet 23:19: BID, 60 [place] 22 tab, Substituti on Allowed, TAB aspirin 325 2012-0 Yes 325 mg, Mem oria mg tablet 3-31 PO, Daily, l 23:18: Substituti [place] 59 on Allowed, TAB clopidogrel 2011-0 Yes 75 mg, 1 Me moria 75 mg oral 3-31 tab, PO, l tablet 23:18: Daily, 30 Ravi n 46 tab, Substituti on Allowed, TAB docusate 2012-0 Yes 100 mg, 1 Wilbert noe sodium 100 3-31 cap, BID, l mg oral 23:18: Substituti Herm lauro capsule 32 on Allowed, CAP lisinopril 2011-0 Yes 2.5 mg, Wilbert noe 2.5 mg oral 3-31 Daily, l tablet 23:18: Substituti Debbie nn 08 on Allowed, TAB metoprolol 2011-0 Yes 50 mg, PO, M emoria 50 mg oral 3-31 Daily, 30 l tablet, 23:17: tab, [place] extended 54 Substituti release on Allowed Crestor 10 Yes 10 mg, 1 Mem oria mg oral 3-31 tab, PO, l tablet 23:16: Daily, 30 Ravi n 57 tab, Substituti on Allowed, TAB 1/2NS 1,000 No Agnieszka 1,000 mL, Memoria mL 3-31 Alawadi Rate: 75 l 19:20: ml/hr, [place] 00 Infuse over: 13.3 hr, Route: IV, Total Volume: 1,000, Start date: 05/07/11 14:20:00, Duration: 30 day, Stop date: 06/06/11 14:19:00 pneumococca No SYSTEM 0.5 ml, M emoria l 23-valent 2-28 SYSTEM Route: IM, l vaccine 15:00: Drug Form: Herm lauro 00 INJ, Start date: 04/05/11 9:00:00, Stop date: 04/05/11 9:00:00 Aspirin 81 Aspirin 81 Yes Uni vers MG TABS MG [facility]S [facility] ans Immunizations Ordered Filled Immunization Date Status Comments Sour e Immunization Name Name FLUZONE HIGH-DOSE 2017-02-08 Completed [place] [facility] PF 00:00:00 FLUZONE HIGH-DOSE 2016-01-07 Completed [place] [facility] PF 00:00:00 Pneumococcal 2015-05-28 [facility] Meth odist Conjugate 13-Valent 00:00:00 Influenza 2012-01-17 [facility] 00:00:00 [place] Phys[facility] ns Vital Signs Vital Name Observation Time Observation Value Comments Source Systolic (mm Hg) 2020-06-05 [facility] rmann 19:24:00 Diastolic (mm Hg) 2020-06-05 [facility] ermann 19:24:00 Heart Rate 2020-06-05 [facility] Ravi n 19:24:00 Respitory Rate 2020-06-05 [facility] Americo lauro 19:24:00 Height 2020-06-05 180.34 cm [facility] Ravi n 19:24:00 Weight 2020-06-05 [facility] Ravi n 19:24:00 BMI Calculated 2020-06-05 [facility] lauro 19:24:00 Systolic (mm Hg) 2020 [facility] 17:47:00 Diastolic (mm Hg) 2020 [facility] ermann 17:47:00 Heart Rate 2020 [facility] Ravi n 17:47:00 Respitory Rate 2020 [facility] lauro 17:47:00 Height 2020 180.34 cm Malgorzata Driscollan n 17:47:00 Weight 2020 [facility] Ravi n 17:47:00 BMI Calculated 2020 [facility] lauro 17:47:00 Systolic (mm Hg) 2020-01-09 [facility] 19:21:00 Diastolic (mm Hg) 2020-01-09 [facility] ermann 19:21:00 Heart Rate 2020-01-09 [facility] Ravi n 19:21:00 Respitory Rate 2020-01-09 [facility] lauro 19:21:00 Height 2020-01-09 175.26 cm [facility] Ravi n 19:21:00 Weight 2020-01-09 [facility] Ravi n 19:21:00 BMI Calculated 2020-01-09 [facility] lauro 19:21:00 Systolic (mm Hg) 2019-12-05 [facility] Mike rmann 15:47:00 Diastolic (mm Hg) 2019-12-05 [facility] Dolores ermann 15:47:00 Heart Rate 2019-12-05 [facility] Ravi n 15:47:00 Respitory Rate 2019-12-05 [facility] lauro 15:47:00 Height 2019-12-05 177.8 cm [facility] Ravi n 15:47:00 Weight 2019-12-05 [facility] Ravi n 15:47:00 BMI Calculated 2019-12-05 [facility] lauro 15:47:00 BP Systolic 2018-11-01 121 mm[Hg] Location: [facility] 14:14:00 Position: [place] Physician s Sitting BP Diastolic 2018-11-01 68 mm[Hg] [facility] 14:14:[facility] Position: [place] Physician s Sitting Height 2018-11-01 71 [in_us] [facility] 14:14:00 [place] Physician s Weight 2018-11-01 193.4 [lb_av] [facility] 14:14:00 [place] Physician s Body Mass Index 2018-11-01 26.97 kg/m2 University o f Calculated 14:14:00 [place] Physician s Heart Rate 2018-11-01 65 /min Location: [facility] 14:14:00 Brachial [place] Physician s Artery; O2 SAT 2018-11-01 99 % Source: [facility] 14:14:00 [place] Physician s BP Systolic 2018-05-03 165 mm[Hg] Location: [facility]; [facility] 13:55:00 Position: [place] Physician s Sitting BP Diastolic 2018-05-03 80 mm[Hg] Location: [facility]; [facility] 13:55:00 Position: [place] Physician s Sitting Height 2018-05-03 71 [in_us] [facility] 13:55:00 [place] Physician s Weight 2018-05-03 206.25 [lb_av] [facility] 13:55:00 [place] Physician s Body Mass Index 2018-05-03 28.77 kg/m2 University o f Calculated 13:55:00 [place] Physician s Heart Rate 2018-05-03 73 /min Location: [facility] 13:55:00 Radial; [place] Physician s O2 SAT 2018-05-03 95 % Source: [facility] 13:55:00 [place] [facility] BP Systolic 2018-03-16 126 mm[Hg] [facility] 09:21:00 [place] [facility] BP Diastolic 2018-03-16 68 mm[Hg] [facility] 09:21:00 [place] [facility] Height 2018-03-16 71 [in_us] [facility] 09:21:00 [place] [facility] Weight 2018-03-16 202 [lb_av] [facility] 09:21:00 [place] [facility] Body Mass Index 2018-03-16 28.17 kg/m2 University o f Calculated 09:21:00 [place] [facility] Heart Rate 2018-03-16 55 /min [facility] 09:21:00 [place] [facility] BP Systolic 2017-11-16 119 mm[Hg] Location: [place]; [facility] 11:37:00 Position: [place] [facility] Sitting BP Diastolic 2017-11-16 61 mm[Hg] Location: [place]; [facility] 11:37:00 Position: [place] [facility] Sitting Height 2017-11-16 71 [in_us] [facility] 11:37:00 [place] [facility] Weight 2017-11-16 196 [lb_av] [facility] of 11:37:00 [place] [facility] Body Mass Index 2017-11-16 27.34 kg/m2 University o f Calculated 11:37:00 [place] [facility] Temperature 2017-11-16 97.8 [degF] [facility] 11:37:00 [place] [facility] Heart Rate 2017-11-16 51 /min [facility] 11:37:00 [place] [facility] BP Systolic 2017-11-02 134 mm[Hg] [facility] Position: [place] [facility] S[facility] BP Diastolic 2017-11-02 74 mm[Hg] [facility] 15:00:[facility] Position: [place] [facility] Height 2017-11-02 71 [in_us] [facility] 15:00:00 [place] [facility] Weight 2017-11-02 193.125 [lb_av] University o f 15:00:00 [place] [facility] Body Mass Index 2017-11-02 26.94 kg/m2 University o f Calculated 15:00:00 [place] [facility] Heart Rate 2017-11-02 75 /min Location: [facility] 15:00:00 Radial; [place] [facility] O2 SAT 2017-11-02 96 % Source: [facility] 15:00:00 [place] [facility] BP Systolic 2017-09-28 147 mm[Hg] [facility] 16:16:00 Position: [place] [facility] Sitting BP Diastolic 2017-09-28 78 mm[Hg] [facility] 16:[facility] Position: [place] [facility] S[facility] Height 2017-09-28 71 [in_us] [facility] of 16:16:00 [place] [facility] Weight 2017-09-28 192.25 [lb_av] [place] [facility] 16:16:00 [place] [facility] Body Mass Index 2017-09-28 26.81 kg/m2 University o f Calculated 16:16:00 [place] [facility] Temperature 2017-09-28 98.4 [degF] Method: Oral [place] of 16:16:00 [place] [facility] Heart Rate 2017-09-28 51 /min Location: [facility] 16:16:00 Brachial [place] [facility] Artery; O2 SAT 2017-09-28 97 % Source: [facility] 16:16:00 [place] [facility] Diastolic (mm Hg) 2011-05-13 [facility] H ermann 13:00:00 Systolic (mm Hg) 2011-05-13 [facility] rmann 13:00:00 Respitory Rate 2011-05-13 [facility] Herm lauro 13:00:00 Respitory Rate 2011-05-13 [facility] Herm lauro 11:25:00 Systolic (mm Hg) 2011-05-13 [facility] rmann 11:25:00 Diastolic (mm Hg) 2011-05-13 [facility] ermann 11:25:00 Temperature Oral 2011-05-13 98.2 F [facility] Mike rmann (F) 09:38:00 Respitory Rate 2011-05-13 [facility] lauro 09:09:00 Systolic (mm Hg) 2011-05-13 [facility] rmann 09:09:00 Diastolic (mm Hg) 2011-05-13 [facility] Dolores ermann 09:09:00 Temperature Oral 2011-05-13 98.7 F [facility] Mike rmann (F) 06:52:00 Temperature Oral 2011-05-13 98.4 F [facility] Mike rmann (F) 02:12:00 Heart Rate 2011-05-07 Malgorzata Driscollan n 23:25:00 Height 2011-05-07 180.34 cm [facility] Ravi n 16:50:00 Weight 2011-05-07 Malgorzata Ravi n 16:50:00 Procedures Procedure Date / Time Performing Clinician Source Performed [QLH] CBC (INCLUDES 2018-11-01 [facility] [QLH] CMP W/EGFR 2018-11-01 00:00:00 [facility] [QLH] CREATINE KINASE, 2018-11-01 00:00:00 Unive [facility] TOTAL Physicians [QL] LIPID PANEL 2018-11-01 00:00:00 [facility] [QLH] TSH, 3RD 2018-11-01 00:00:00 [facility] [place] GENERATION Physicians [QLH] CBC (INCLUDES 2018-05-03 00:00:00 Universi [facility] DIFF/PLT) Physicians [QLH] CMP W/EGFR 2018-05-03 00:00:00 [facility] [place] [facility] [QLH] CREATINE KINASE, 2018-05-03 00:00:00 Unive [facility] TOTAL Physicians [QLH] LIPID PANEL 2018-05-03 00:00:00 [facility] [place] [facility] [QLH] TSH, 3RD 2018-05-03 00:00:00 [facility] [place] GENERATION W/REFLEX TO Physician s FT4 [QLH] CBC (INCLUDES 2017-11-02 00:00:00 [facility]i [facility] DIFF/PLT) Physicians [QLH] CMP W/EGFR 2017-11-02 00:00:00 [facility] [place] [facility] [QLH] CREATINE KINASE, 2017-11-02 00:00:00 Unive [facility] TOTAL Physicians [QL] LIPID PANEL 2017-11-02 00:00:00 [facility] [place] [facility] [QL] TSH, 3RD 2017-11-02 00:00:00 [facility] [place] GENERATION W/REFLEX TO Physician s FT4 [QLH] LIPOPROTEIN (a) 2017-11-02 [facility] [facility] CBC (INCLUDES 2017-09-28 00:00:00 [facility] DIFF/PLT) Physicians [QLH] CMP W/EGFR 2017-09-28 00:00:00 [facility] Physicians [QLH] TSH, 3RD 2017-09-28 00:00:00 [facility] [place] GENERATION W/REFLEX TO Physician s FT4 [QLH] B TYPE 2017-09-28 00:00:00 [facility] NATRIURETIC PEPTIDE Physicians (BNP) [N] 2D Echo complete, 2017-09-28 00:00:00 [facility] with Doppler [id number] Physicians [QL] CBC (INCLUDES 2017-09-18 00:00:00 [facility] DIFF/PLT) Physicians [QLH] CMP W/EGFR 2017-09-18 00:00:00 [facility] Physicians [REPLACED BY [facility]] CREATINE KINASE, 2017-09-18 00:00:00 Unive [facility] TOTAL Physicians [REPLACED BY [facility]] LIPID PANEL 2017-09-18 00:00:00 [facility] Physicians [QL] TSH, 3RD 2017-09-18 00:00:00 [place] [facility] GENERATION Physicians CABG [facility] Physicians Plan of Care Planned Activity Planned Date Details Comments Source Future Scheduled 2020-09-06 INFLUENZA VACCINE [place] [employer] [facility] 00:00:00 [code = INFLUENZA VACCINE] Diagnostic Test 2017-10-26 [N] 2D Echo [place] Pending 00:00:00 complete, with [place] [facility] Doppler 96518 [code = [N] 2D Echo complete, with Doppler 51233] Diagnostic Test 2017-10-26 [N] 2D Echo [facility] Pending 00:00:00 complete, with [place] [facility] Doppler 17862 [code = [N] 2D Echo complete, with Doppler 09655] Future Scheduled 2016-05-27 65+ PNEUMOCOCCAL [place] [facility] Test 00:00:00 VACCINE (2 of 2 - PPSV23) [code = 65+ PNEUMOCOCCAL VACCINE (2 of 2 - PPSV23)] Future Scheduled 1983 SHINGLES VACCINES [place] [facility] 00:00:00 (#1) [code = SHINGLES VACCINES (#1)] Future Scheduled 1947 COVID-19 VACCINE (1) [facility] Test 00:00:00 [code = COVID-19 VACCINE (1)] Future Scheduled [QLH] CBC (INCLUDES ONE WEEK BEFORE U niversity of Test DIFF/PLT) [code = 05/03/18 [place] [facility] [QLH] CBC (INCLUDES DIFF/PLT)] Future Scheduled [QLH] CMP W/EGFR ONE WEEK BEFORE Univ ersity of Test [code = [QLH] CMP 05/03/18 [place] [facility] W/EGFR] Future Scheduled [QLH] CREATINE ONE WEEK BEFORE Univer sity of Test KINASE, TOTAL [code 05/03/18 [facility] [place] ysicians = [QLH] CREATINE KINASE, TOTAL] Future Scheduled [QLH] LIPID PANEL ONE WEEK BEFORE Uni versity of Test [code = [QLH] LIPID 05/03/18 [facility] [place] ysicians PANEL] Future Scheduled [QLH] TSH, 3RD ONE WEEK BEFORE Univer sity of Test GENERATION W/REFLEX 05/03/18 [facility] [place] ysicians TO FT4 [code = [QLH] TSH, 3RD GENERATION W/REFLEX TO FT4] Future Scheduled [QLH] LIPOPROTEIN ONE WEEK BEFORE Uni versity of Test (a) [code = [QLH] 05/03/18 [place] [facility] LIPOPROTEIN (a)] Future Scheduled [QLH] CBC (INCLUDES ONE WEEK BEFORE U niversity of Test DIFF/PLT) [code = 05/03/18 [place] [facility] [QLH] CBC (INCLUDES DIFF/PLT)] Future Scheduled [QLH] CMP W/EGFR ONE WEEK BEFORE Univ ersity of Test [code = [QLH] CMP 05/03/18 [place] [facility] W/EGFR] Future Scheduled [QLH] CREATINE ONE WEEK BEFORE Univer sity of Test KINASE, TOTAL [code 05/03/18 [facility] [place] ysicians = [QLH] CREATINE KINASE, TOTAL] Future Scheduled [QLH] LIPID PANEL ONE WEEK BEFORE Uni versity of Test [code = [QLH] LIPID 05/03/18 [facility] [place] ysicians PANEL] Future Scheduled [QLH] TSH, 3RD ONE WEEK BEFORE Univer sity of Test GENERATION W/REFLEX 05/03/18 [place] ysicians TO FT4 [code = [QLH] TSH, 3RD GENERATION W/REFLEX TO FT4] Future Scheduled [QLH] LIPOPROTEIN ONE WEEK BEFORE Uni versity of Test (a) [code = [QLH] 05/03/18 [place] [facility] LIPOPROTEIN (a)] Future Scheduled [QLH] CBC (INCLUDES ONE WEEK BEFORE U niversity of Test DIFF/PLT) [code = [facility] [employer] [facility] [QLH] CBC (INCLUDES DIFF/PLT)] Future Scheduled [QLH] CMP W/EGFR ONE WEEK BEFORE Univ ersity of Test [code = [QLH] CMP [facility] [employer] [facility] W/EGFR] Future Scheduled [QLH] CREATINE ONE WEEK BEFORE Univer sity of Test KINASE, TOTAL [code [facility] [employer] ysicians = [QLH] CREATINE KINASE, TOTAL] Future Scheduled [QLH] LIPID PANEL ONE WEEK BEFORE Uni versity of Test [code = [QLH] LIPID [facility] [employer] ysicians PANEL] Future Scheduled [QLH] TSH, 3RD ONE WEEK BEFORE Univer sity of Test GENERATION W/REFLEX [facility] [employer] ysicians TO FT4 [code = [QLH] TSH, 3RD GENERATION W/REFLEX TO FT4] Future Scheduled [QLH] CBC (INCLUDES ONE WEEK BEFORE U niversity of Test DIFF/PLT) [code = [facility] [employer] [facility] [QLH] CBC (INCLUDES DIFF/PLT)] Future Scheduled [QLH] CMP W/EGFR ONE WEEK BEFORE Univ ersity of Test [code = [QLH] CMP [facility] [employer] icians W/EGFR] Future Scheduled [QLH] CREATINE ONE WEEK BEFORE Univer sity of Test KINASE, TOTAL [code [facility] [employer] ysicians = [QLH] CREATINE KINASE, TOTAL] Future Scheduled [QLH] LIPID PANEL ONE WEEK BEFORE Uni versity of Test [code = [QLH] LIPID [facility] [employer] ysicians PANEL] Future Scheduled [QLH] TSH, 3RD ONE WEEK BEFORE Univer sity of Test GENERATION W/REFLEX [facility] [employer] ysicians TO FT4 [code = [QLH] TSH, 3RD GENERATION W/REFLEX TO FT4] Encounters Start End Encounter Admission Attending Care Care Encounter Source Date/Time Date/Time Type Type Clinicians Facility Department ID 2020-06-05 2020-06-05 Outpatient KELLIE PavonSCHER MHMISCHER [id number] 14:30:00 23:59:59 Elder 03 Nithin 2020 2020 Outpatient KELLIE PavonSCHER MHMISCHER [id number] 11:45:00 23:59:59 Elder Nithin 2020-01-09 2020-01-09 Outpatient KELLIE PavonSCHER MHMISCHER [id number] 13:30:00 23:59:59 Elder Nithin 2019-12-09 2019-12-09 Outpatient Savanah MHOIP MHOIP [id number] 11:20:00 23:59:00 Elder Nithin 2019-12-05 2019-12-05 Outpatient KELLIE PavonSCHER MHMISCHER [id number] 10:30:00 23:59:59 Elder 00 Nithin 2018-11-01 2018-11-01 JAMES Story Cardiology [id number] Univers 14:00:00 14:00:00 t; YENNY [facility] Shawn M.D. [facility] Physi deyanira Lazaro ans 2018-07-18 2018-07-18 JAMES Guillermo [facility] [id number] Univers 11:30:00 11:30:00 t; Tejsa HAMM [place] [facility] 2018-05-03 2018-05-03 JAMES Story Cardiology [id number] Univers 14:00:00 14:00:00 t; Shawn RAMON M.D. [facility] Physi deyanira Lazaro ans 2018-03-16 2018-03-16 JAMES Guillermo Neurology [id number] Univers 10:00:00 10:00:00 t; [place] [facility] 2017-11-16 2017-11-16 JAMES Guillermo Neurology [id number] Univers 11:30:00 11:30:00 t; [place] HAM[facility] of [place] [facility] ans 2017-11-02 2017-11-02 Appointmen JAMES FALCON Cardiology [id number] Univers 15:40:00 15:40:00 t; Shawn RAMON M.D. [place] YENNY Physi ci M.DAngi ans 2017-10-26 2017-10-26 Appointmen EZEQUIEL [facility] Cardiology [id number] Univers 13:30:00 13:30:00 t; WALESKA NIEVES1 ity of ECHO1 [place] Physici ans 2017-09-28 2017-09-28 Appointmen EZEKIEL [facility] Cardiology [id number] Univers 15:20:00 15:20:00 t; Shawn RAMON M.D. [place] YENNY Physi ci MAngiDAngi ans 2017-08-11 2017-08-11 Appointmen STEPHANIE [facility] [id number] Univers 11:00:00 11:00:00 t; [place] H[facility] of [place] [facility] [facility] ans 2017-04-05 2017-04-05 Appointmen STEPHANIE [facility] Neurology [id number] Univers 14:30:00 14:30:00 t; [place] [facility] of [place] [facility] [facility] ans 2017-01-12 2017-[facility] [id number] Univers 14:00:00 14:00:00 t; [place] V[place]ARDE [place] [facility] [facility] Physi ci ans 2016-12-07 2016-12-07 [facility] [id number] Univers 14:30:00 14:30:00 t; [place] H[facility] of [place], [place] [facility] [facility]i [facility] ans 2016-11-30 2016-11-30 Appointmen STEPHANIE [facility] [id number] Univers 14:30:00 14:30:00 t; [place] [facility] of [place], [place] [facility] [facility]i [facility] ans 2016-08-08 2016-08-08 Appointmen STEPHANIE [facility] [id number] Univers 15:00:00 15:00:00 t; [place] [facility] [facility] Physi ci ans 2016-07-01 2016-07-01 [facility] René [facility] [id number] 12:10:00 23:59:00 Donnie R 00 2016-06-30 2016-06-30 Appointmen RENÉ, JAMES UTP [id number] Univers 13:00:00 13:00:00 t; [place] V[place] [facility] [facility] Physi ci ans 2016-06-23 2016-06-23 Appointmen HAFSARADHIKA, JAMES UTP [id number] Univers 13:30:00 13:30:00 t; [place] V[place] [facility] [facility] Physi ci ans 2016-03-31 2016-03-31 [facility] JAMES UTP [id number] Univers 14:00:00 14:00:00 t; Shawn RAMON M.D. [place] YENNY Physi deyanira Lazaro ans 2016-01-08 2016-01-08 Appointmen Katiuska, JAMES UTP [id number] Univers 14:15:00 14:15:00 t; Key Ghotra M.D. [place] Esperanza Ghotra M.D. ans 2015-12-03 2015-12-03 Appointaugusto FALCON, JAMES UTP [id number] Univers 15:20:00 15:20:00 t; Shawn RAMON M.D. [place] Fabián RAMON M.D. ans 2015-08-24 2015-08-24 Appointmen Katiuska, JAMES UTP [id number] Univers 15:45:00 15:45:00 t; Key hGotra M.D. [place] Esperanza Ghotra M.D. ans 2015-07-30 2015-07-30 Appointaugusto FALCON, JAMES UTP [id number] Univers 13:40:00 13:40:00 t; Shawn RAMON M.D. [place] YENNY Physi deyanira Lazaro ans 2015-03-26 2015-03-26 Appointmen JAMES FALCON UTP [id number] Univers 14:20:00 14:20:00 t; Shawn RAMON M.D. [place] Fabián RAMON M.D. ans 2015-03-26 2015-03-26 Appointmen JAMES NIEVES UTP [id number] Univers 13:00:00 13:00:00 t; BRENNON NIEVES of [facility] Physici ans Results Test Description Test Time Test Comments Results Result Comments Source [QL] CBC (INCLUDES DIFF/PLT) 2019-04-01 09:31:01 Test Item Value Reference Range Interpretation Comme nts WBC (test code = 6690-2) 6.3 {K/CMM} 3.7-10.4 RBC; Below Low Threshold (test code = 789-8) 4.17 {M/CMM} 4.70-6.10 Hgb; Below Low Threshold (test code = 718-7) 13.3 g/dl 14.0-18.0 Hct; Below Low Threshold (test code = 74849-5) 39.4 % 42.0-54 .0 MCV; Above High Threshold (test code = 787-2) 94.5 fL 80.0-94. 0 MCH; Above High Threshold (test code = 785-6) 31.8 pg 27.0-31. 0 MCHC (test code = 786-4) 33.6 g/dl 32.0-36.0 RDW (test code = 788-0) 14.3 % 11.5-14.5 Platelet (test code = 04421-8) 225 {K/CMM} 133-450 Mean Platelet Volume (test code = 09183-3) 8.8 fL 7.4-10.4 [facility] [place] [facility][REPLACED BY [facility]] [id number] 09:31:01 Test Item Value Reference Range Interpretation Comments Segmented Neutrophils (test code 65.0 % 45.0-75.0 = 02868-1) Monocytes (test code = 81403-8) 9.7 % 2.0-12.0 Lymphocytes (test code = 66973-4) 21.9 % 20.0-40.0 Eosinophils (test code = 68688-8) 2.8 % 0.0-4.0 Basophils (test code = 706-2) 0.6 % 0.0-1.0 Segs-Bands # (test code = 4.1 {K/CMM} 1.5-8.1 89376-3) Lymphocytes # (test code = 1.4 {K/CMM} 1.0-5.5 95840-6) Monocytes # (test code = 45617-7) 0.6 {K/CMM} 0.0-0.8 Eosinophils # (test code = 0.2 {K/CMM} 0.0-0.5 64316-2) [facility] Physicians[REPLACED BY [facility]] CMP [id number] 09:31:01 Test Item Value Reference Range Interpretation Comments Sodium Level 141 {mEq/l} 135-145 (test code = 2951-2) Potassium Level 4.5 {mEq/l} 3.5-5.1 (test code = 2823-3) Chloride Level 109 {mEq/l} 95-109 (test code = 5-0) Carbon Dioxide 27 {mEq/l} 24-32 (test code = 2027-9) AGAP; Below Low 9.5 {mEq/l} 10.0-20.0 Threshold (test code = 85155-6) Glucose Lvl; 59 mg/dl 70-99 Adult reference range Below Low values reflect the Threshold (test clinical mauricio delinesof the code = 2345-7) [employer]. Creatinine Lvl; 1.50 mg/dl 0.50-1.40 Above High Threshold (test code = 2160-0) Blood Urea 23 mg/dl 7-22 Nitrogen; Above High Threshold (test code = 3094-0) BUN/Creatinine 15 6-25 Ratio (test code = 3097-3) Total Protein 7.8 g/dl 6.4-8.4 (test code = 2885-2) Albumin Lvl (test 4.2 g/dl 3.5-5.0 code = 1751-7) Globulin (test 3.6 g/dl 2.7-4.2 code = 55461-0) A/G Ratio (test 1.2 0.7-1.6 code = 1759-0) Calcium Level 9.0 mg/dl 8.5-10.5 Total (test code = 40804-9) ALT (test code = 12 u/l 0-65 1743-4) AST (test code = 19 u/l 0-37 09436-1) Alk Phos; Below 38 u/l 39-136 The pediatri c reference Low Threshold ranges for thi s test (test code = represent a 1783-0) CLSI-basedtrans ference of the CALIPER rishi abase of pediatric refer ence intervals to [facility] [place] analyzer (Clinical Biochemistry 46 (2013): 5081-0309). [facility] has not internally validated these reference ranges and therefore they should be used only in th e context of a thoroughcl inical assessment. Bili Total (test 0.7 mg/dl 0.2-1.3 code = 1975-2) eGFR (test code = 42 The eGFR i s calculated 80459-6) {ML/MIN/1.7} using the CKD-E PI formula. In mos t young, healthyindividu als the eGFR will be >9 0 mL/min/1.73m2. The eGFR declines with a ge. AneGFR of 60-89 may be normal in some population s, particularly th e elderly, forwhom the CKD -EPI formula has not been extensively meghann idated. Use of the eGFR isnot recommended in the following populations:Ind ividuals with unstable c reatinine concentrations, including patient s and those with seri ous co-morbid conditions.Beryl ents with extremes in mus cecily mass or diet.The rishi a above are obtained fr om the National Kidney Disease Education Progr am(NKDEP) which darryl al recommends that when the eGFR is used in patientswith ex tremes of body mass index for purposes of john g dosing, the eGFR should be multiplied by t he estimated BMI. [facility] Physicians[REPLACED BY [facility]] CREATINE KINASE, [id number] 09:31:01 Test Item Value Reference Range Interpretation Comments Creatine Kinase (test code = 2157-6) 166 u/l 12-191 [facility] [place] [facility][REPLACED BY [facility]] LIPID [id number] 09:31:01 Test Item Value Reference Range Interpretation Comments Chol (test code = 2093-3) 144 mg/dl <=199 Trig; Above High Threshold (test 163 mg/dl <=149 code = 2571-8) HDL Cholesterol; Below Low 31 mg/dl >=61 Threshold (test code = 2085-9) CHD Risk (test code = 20400-7) 4.65 4.00-7.30 LDL (test code = 34434-2) 80 mg/dl <=99 VLDL (test code = VLDL) 33 [facility]] TSH, 3RD [id number] 09:31:01 Test Item Value Reference Range Interpretation Comments TSH; Above High Threshold 4.950 {uIU/ml} 0.360-3.740 (test code = 85344-7) [facility]] [id number] 08:15:01 Test Item Value Reference Range Interpretation Comments Segmented Neutrophils (test code 66.8 % 45.0-75.0 = 79242-6) Monocytes (test code = 37185-6) 9.7 % 2.0-12.0 Lymphocytes; Below Low Threshold 18.3 % 20.0-40.0 (test code = 63167-0) Eosinophils; Above High Threshold 4.4 % 0.0-4.0 (test code = 59538-4) Basophils (test code = 706-2) 0.8 % 0.0-1.0 Segs-Bands # (test code = 4.0 {K/CMM} 1.5-8.1 71039-9) Lymphocytes # (test code = 1.1 {K/CMM} 1.0-5.5 87764-8) Monocytes # (test code = 61273-7) 0.6 {K/CMM} 0.0-0.8 Eosinophils # (test code = 0.3 {K/CMM} 0.0-0.5 93259-3) [facility][REPLACED BY [facility]] CMP [id number] 08:15:01 Test Item Value Reference Range Interpretation Comments Sodium Level 139 {mEq/l} 135-145 (test code = 2951-2) Potassium Level 4.2 {mEq/l} 3.5-5.1 (test code = 2823-3) Chloride Level 103 {mEq/l} 95-109 (test code = 5-0) Carbon Dioxide 27 {mEq/l} 24-32 (test code = 2027-9) AGAP (test code = 13.2 {mEq/l} 10.0-20.0 44995-1) Glucose Lvl; 145 mg/dl 70-99 Adult reference range Above High values reflect the Threshold (test clinical mauricio delinesof the code = 2345-7) [employer]. Creatinine Lvl 1.40 mg/dl 0.50-1.40 (test code = 2160-0) Blood Urea 24 mg/dl 7-22 Nitrogen; Above High Threshold (test code = 3094-0) BUN/Creatinine 17 6-25 Ratio (test code = 3097-3) Total Protein 7.7 g/dl 6.4-8.4 (test code = 2885-2) Albumin Lvl (test 4.4 g/dl 3.5-5.0 code = 1751-7) Globulin (test 3.3 g/dl 2.7-4.2 code = 58423-7) A/G Ratio (test 1.3 0.7-1.6 code = 1759-0) Calcium Level 8.8 mg/dl 8.5-10.5 Total (test code = 65307-3) ALT (test code = 16 u/l 0-65 1743-4) AST (test code = 14 u/l 0-37 48601-8) Bili Total (test 0.4 mg/dl 0.2-1.3 code = 1975-2) Alk Phos (test 41 u/l 39-136 code = 1783-0) eGFR (test code = 45 The eGFR i s calculated 69189-2) {ML/MIN/1.7} using the CKD-E PI formula. In mos t young, healthyindividu als the eGFR will be >9 0 mL/min/1.73m2. The eGFR declines with a ge. AneGFR of 60-89 may be normal in some population s, particularly th e elderly, forwhom the CKD -EPI formula has not been extensively meghann idated. Use of the eGFR isnot recommended in the following populations:Ind ividuals with unstable c reatinine concentrations, including patient s and those with seri ous co-morbid conditions.Beryl ents with extremes in mus cecily mass or diet.The rishi a above are obtained fr om the National Kidney Disease Education Progr am(NKDEP) which additiona lly recommends that when the eGFR is used in patientswith ex tremes of body mass index for purposes of john g dosing, the eGFR should be multiplied by t he estimated BMI. [facility]] CREATINE KINASE, [id number] 08:15:01 Test Item Value Reference Range Interpretation Comments Creatine Kinase; Above High Threshold 203 u/l 12-191 (test code = 2157-6) [facility]] LIPID [id number] 08:15:01 Test Item Value Reference Range Interpretation Comments Chol (test code = 2093-3) 165 mg/dl <=199 Trig (test code = 2571-8) 119 mg/dl <=149 HDL Cholesterol; Below Low 38 mg/dl >=61 Threshold (test code = 2085-9) CHD Risk (test code = 91438-6) 4.34 4.00-7.30 LDL; Above High Threshold (test 103 mg/dl <=99 code = 44431-1) VLDL (test code = VLDL) 24 [facility]] TSH, 3RD [id number] 08:15:01 Test Item Value Reference Range Interpretation Comments TSH; Above High Threshold 25.000 {uIU/ml} 0.360-3.740 (test code = 75359-0) [facility][REPLACED BY [facility]] LIPOPROTEIN (a)2018-05-02 08:15:01 Test Item Value Reference Range Interpretation Comments Lipoprotein (a) (test 4 nmol/L <75 Note: Values greater code = Lipoprotein (a)) than or equal to 75 nmol/L may indicate an independent ris k factor for CHD, but must be yaima luated with caution wh en applied t o non- populations due to the influence of genetic factors on Lp(a) across ethnicities.Per formed At: [facility] [id number] [place], [place] [id number] ra Tamara SIMS Ph:[phone] [facility][REPLACED BY [facility]] CBC (INCLUDES DIFF/PLT)2018-05-02 08:15:01 Test Item Value Reference Range Interpretation Comments WBC (test code = 6690-2) 5.9 {K/CMM} 3.7-10.4 RBC; Below Low Threshold (test 4.09 {M/CMM} 4.70-6.10 code = 789-8) Hgb; Below Low Threshold (test 13.2 g/dl 14.0-18.0 code = 718-7) Hct; Below Low Threshold (test 39.3 % 42.0-54.0 code = 72474-0) MCV; Above High Threshold (test 96.2 fL 80.0-94.0 code = 787-2) MCH; Above High Threshold (test 32.4 pg 27.0-31.0 code = 785-6) MCHC (test code = 786-4) 33.7 g/dl 32.0-36.0 RDW; Above High Threshold (test 14.8 % 11.5-14.5 code = 788-0) Platelet (test code = 19656-6) 219 {K/CMM} 133-450 Mean Platelet Volume (test code 9.1 fL 7.4-10.4 = 51972-2) [facility][REPLACED BY [facility]] CMP [id number] 10:32:01 Test Item Value Reference Range Interpretation Comments Sodium Level 139 {mEq/l} 135-145 (test code = 2951-2) Potassium Level 4.3 {mEq/l} 3.5-5.1 (test code = 2823-3) Chloride Level 106 {mEq/l} 95-109 (test code = 2075-0) Carbon Dioxide; 22 {mEq/l} 24-32 Below Low Threshold (test code = 8-9) AGAP (test code = 15.3 {mEq/l} 10.0-20.0 05334-6) Glucose Lvl; 108 mg/dl 70-99 Adult reference range Above High values reflect the Threshold (test clinical mauricio delinesof the code = 2345-7) [employer]. Creatinine Lvl; 1.60 mg/dl 0.50-1.40 Above High Threshold (test code = 2160-0) Blood Urea 29 mg/dl 7-22 Nitrogen; Above High Threshold (test code = 3094-0) BUN/Creatinine 18 6-25 Ratio (test code = 3097-3) Total Protein 7.7 g/dl 6.4-8.4 (test code = 2885-2) Albumin Lvl (test 4.3 g/dl 3.5-5.0 code = 1751-7) Globulin (test 3.4 g/dl 2.7-4.2 code = 99036-5) A/G Ratio (test 1.3 0.7-1.6 code = 1759-0) Calcium Level 9.1 mg/dl 8.5-10.5 Total (test code = 39863-3) ALT (test code = 22 u/l 0-65 1743-4) AST (test code = 14 u/l 0-37 05521-8) Alk Phos; Below 34 u/l 39-136 Low Threshold (test code = 1783-0) Bili Total (test 0.5 mg/dl 0.2-1.3 code = 1975-2) eGFR (test code = 39 The eGFR i s calculated 52509-0) {ML/MIN/1.7} using the CKD-E PI formula. In mos t young, healthyindividu als the eGFR will be >9 0 mL/min/1.73m2. The eGFR declines with a ge. AneGFR of 60-89 may be normal in some population s, particularly th e elderly, forwhom the CKD -EPI formula has not been extensively meghann idated. Use of the eGFR isnot recommended in the following populations:Ind ividuals with unstable c reatinine concentrations, including patient s and those with seri ous co-morbid conditions.Beryl ents with extremes in mus cecily mass or diet.The rishi a above are obtained fr om the National Kidney Disease Education Progr am(NKDEP) which darryl hugoy recommends that when the eGFR is used in patientswith ex tremes of body mass index for purposes of john g dosing, the eGFR should be multiplied by t he estimated BMI. [facility][REPLACED BY [facility]] TSH, 3RD GENERATION W/REFLEX TO FT4 2017-10-26 10:32:01 Test Item Value Reference Range Interpretation Comments TSH; Above High Threshold 11.300 {uIU/ml} 0.360-3.740 (test code = 29226-5) [facility][REPLACED BY [facility]] CBC (INCLUDES DIFF/PLT)2017-10-26 10:32:01 Test Item Value Reference Range Interpretation Comments WBC (test code = 6690-2) 5.6 {K/CMM} 3.7-10.4 RBC; Below Low Threshold (test 4.30 {M/CMM} 4.70-6.10 code = 789-8) Hgb; Below Low Threshold (test 13.5 g/dl 14.0-18.0 code = 718-7) Hct; Below Low Threshold (test 39.6 % 42.0-54.0 code = 63006-2) MCV (test code = 787-2) 92.2 fL 80.0-94.0 MCH; Above High Threshold (test 31.3 pg 27.0-31.0 code = 785-6) MCHC (test code = 786-4) 34.0 g/dl 32.0-36.0 RDW; Above High Threshold (test 15.2 % 11.5-14.5 code = 788-0) Platelet (test code = 30286-7) 243 {K/CMM} 133-450 Mean Platelet Volume (test code 9.1 fL 7.4-10.4 = 07396-2) [facility][REPLACED BY [facility]] Vgauhljabmla0256-38-50 10:32:01 Test Item Value Reference Range Interpretation Comments Segmented Neutrophils (test code 61.6 % 45.0-75.0 = 05765-5) Monocytes (test code = 19147-3) 9.9 % 2.0-12.0 Lymphocytes (test code = 29972-4) 24.5 % 20.0-40.0 Eosinophils (test code = 28480-9) 3.5 % 0.0-4.0 Basophils (test code = 706-2) 0.5 % 0.0-1.0 Segs-Bands # (test code = 3.5 {K/CMM} 1.5-8.1 36775-2) Lymphocytes # (test code = 1.4 {K/CMM} 1.0-5.5 38494-1) Monocytes # (test code = 41077-5) 0.6 {K/CMM} 0.0-0.8 Eosinophils # (test code = 0.2 {K/CMM} 0.0-0.5 73465-0) [facility][REPLACED BY [facility]] T4, [id number] 10:32:01 Test Item Value Reference Range Interpretation Comments T4 Free; Below Low Threshold (test 0.63 ng/dl 0.76-1.46 code = 3024-7) [facility][REPLACED BY [facility]] B TYPE NATRIURETIC PEPTIDE (BNP)2017-10-26 10:32:01 Test Item Value Reference Range Interpretation Comments Natriuretic Peptide; 184 pg/ml <=100 Elevate d results are Above High Threshold in line with (test code = 35036-9) increa sing severity ofcongestive he art failure. Minor elevations betw een 100 and 300may be s een with Myocardial Ischemia, Sodiu m retaining drugs ,and compensated/maria de jesus ated heart failure. [facility][REPLACED BY [facility]] CBC (INCLUDES DIFF/PLT)2017-09-19 10:06:01 Test Item Value Reference Range Interpretation Comments WBC (test code = 6690-2) 6.5 {K/CMM} 3.7-10.4 RBC; Below Low Threshold (test 4.28 {M/CMM} 4.70-6.10 code = 789-8) Hgb; Below Low Threshold (test 13.3 g/dl 14.0-18.0 code = 718-7) Hct; Below Low Threshold (test 39.6 % 42.0-54.0 code = 39817-7) MCV (test code = 787-2) 92.5 fL 80.0-94.0 MCH; Above High Threshold (test 31.1 pg 27.0-31.0 code = 785-6) MCHC (test code = 786-4) 33.6 g/dl 32.0-36.0 RDW; Above High Threshold (test 15.4 % 11.5-14.5 code = 788-0) Platelet (test code = 15374-5) 273 {K/CMM} 133-450 Mean Platelet Volume (test code 8.8 fL 7.4-10.4 = 10760-3) [facility]] Hyaqegdbphyd5127-95-37 10:06:01 Test Item Value Reference Range Interpretation Comments Segmented Neutrophils (test code 60.9 % 45.0-75.0 = 05103-0) Monocytes (test code = 76299-1) 8.9 % 2.0-12.0 Lymphocytes (test code = 62616-8) 27.4 % 20.0-40.0 Eosinophils (test code = 88504-0) 2.4 % 0.0-4.0 Basophils (test code = 706-2) 0.4 % 0.0-1.0 Segs-Bands # (test code = 4.0 {K/CMM} 1.5-8.1 57376-8) Lymphocytes # (test code = 1.8 {K/CMM} 1.0-5.5 24779-0) Monocytes # (test code = 72035-9) 0.6 {K/CMM} 0.0-0.8 Eosinophils # (test code = 0.2 {K/CMM} 0.0-0.5 69665-2) [facility][REPLACED BY [facility]] CMP W/[id number] 10:06:01 Test Item Value Reference Range Interpretation Comments Sodium Level 139 {mEq/l} 135-145 (test code = 2951-2) Potassium Level 4.5 {mEq/l} 3.5-5.1 (test code = 2823-3) Chloride Level 107 {mEq/l} 95-109 (test code = 5-0) Carbon Dioxide 25 {mEq/l} 24-32 (test code = 8-9) AGAP (test code = 11.5 {mEq/l} 10.0-20.0 46679-4) Glucose Lvl; 107 mg/dl 70-99 Adult reference range Above High values reflect the Threshold (test clinical mauricio delinesof the code = 2345-7) [employer]. Creatinine Lvl; 1.80 mg/dl 0.50-1.40 Above High Threshold (test code = 2160-0) Blood Urea 26 mg/dl 7-22 Nitrogen; Above High Threshold (test code = 3094-0) BUN/Creatinine 14 6-25 Ratio (test code = 3097-3) Total Protein 8.1 g/dl 6.4-8.4 (test code = 2885-2) Albumin Lvl (test 4.3 g/dl 3.5-5.0 code = 1751-7) Globulin (test 3.8 g/dl 2.7-4.2 code = 59768-6) A/G Ratio (test 1.1 0.7-1.6 code = 1759-0) Calcium Level 9.3 mg/dl 8.5-10.5 Total (test code = 37793-9) ALT (test code = 20 u/l 0-65 1743-4) AST (test code = 17 u/l 0-37 93211-2) Alk Phos (test 40 u/l 39-136 code = 1783-0) Bili Total (test 0.6 mg/dl 0.2-1.3 code = 1974-) eGFR (test code = 34 The eGFR i s calculated 67566-0) {ML/MIN/1.7} using the CKD-E PI formula. In mos t young, healthyindividu als the eGFR will be >9 0 mL/min/1.73m2. The eGFR declines with a ge. AneGFR of 60-89 may be normal in some population s, particularly th e elderly, forwhom the CKD -EPI formula has not been extensively meghann idated. Use of the eGFR isnot recommended in the following populations:Ind ividuals with unstable c reatinine concentrations, including patient s and those with seri ous co-morbid conditions.Beryl ents with extremes in mus cecily mass or diet.The rishi a above are obtained fr om the National Kidney Disease Education Progr am(NKDEP) which darryl al recommends that when the eGFR is used in patientswith ex tremes of body mass index for purposes of john g dosing, the eGFR should be multiplied by t he estimated BMI. [facility][REPLACED BY [facility]] CREATINE KINASE, [id number] 10:06:01 Test Item Value Reference Range Interpretation Comments Creatine Kinase; Above High Threshold 253 u/l 12-191 (test code = 2157-6) [facility][REPLACED BY [facility]] LIPID [id number] 10:06:01 Test Item Value Reference Range Interpretation Comments Chol (test code = 2093-3) 170 mg/dl <=199 Trig (test code = 2571-8) 148 mg/dl <=149 HDL Cholesterol; Below Low 38 mg/dl >=61 Threshold (test code = 2085-9) CHD Risk (test code = 47318-4) 4.47 4.00-7.30 LDL; Above High Threshold (test 102 mg/dl <=99 code = 94845-3) VLDL (test code = VLDL) 30 [facility]] TSH, 3RD GTSKSCYTHF0714-47-18 10:06:01 Test Item Value Reference Range Interpretation Comments TSH; Above High Threshold 7.270 {uIU/ml} 0.360-3.740 (test code = 68215-9) [facility] PXEXGPF6100-47-74 11:05:23238 [facility] DthucujWEYBUJVNF2112-19-40 10:00:97521Exvcrtaw HermannHEMATOLOGY 2011-05-13 10:00:0015.8[facility] AlgtceuEWDSRXDFBA5188-68-71 10:00:007.3[facility] AblfdnqFJRYUVSWNY1543-61-44 10:00:06393Vxhinmdi UvilnitZLCVTSJRZS7550-41-93 10:00:009.3[facility] CdgotupQBEZFNRCKQ5240-06-57 10:00:0027.6[facility] VTHMUMLRWN5108-00-80 10:00:003.19[facility] JywukfmOKADKONZKW7285-58-65 10:00:00 86.6[facility] GxwkiawFKLBGRRKPP3700-82-79 10:00:0033.6[facility] HermannHEMATOLOGY 2011-05-13 10:00:00 Test Item Value Reference Range Interpretation Comments MCH (test code = MCH) 29.1 pg 27.0-31.0 N [facility] SlfbqpuBWHQGDOMKH8321-35-41 10:00:004.8[facility] HermannHEMATOLOGY 2011-05-13 10:00:00 Test Item Value Reference Range Interpretation Comments PTT (test code = PTT) 37.3 s 22.9-35.8 H [facility] TuebszsMGKRJVDJIN0786-40-19 10:00:00 Test Item Value Reference Range Interpretation Comments PT (test code = PT) 15.1 s 12.0-14.7 H [facility] UfvttfqGUNTIAJDPI7352-44-86 10:00:001.19[facility] HermannCHEMISTRY 2011-05-13 10:00:002.1[facility] NejmzvlHJWZMYNWO3185-18-36 10:00:0015.1[facility] AbckykhPWPZGDYNV7071-36-07 10:00:007.9[facility] BmivwxpWZFVCFSAD8242-91-65 10:00:89516Vgiuonbr WovkrikTDLFGJWMX9426-77-72 10:00:0021[facility] DRMYYAXAM7615-19-34 10:00:001.1[facility] PrndmryBTMPNVIZD6422-21-95 10:00:0011 [facility] LyhdnyrTGHSJEUJY0280-22-90 10:00:42042Trebrnpp HermannCHEMISTRY 2011-05-13 10:00:004.1[facility] HermannBEDSIDE GLUCOSE YIEWILV5634-47-08 03:20:00 176[facility] HermannBEDSIDE GLUCOSE YQUEOOZ5818-93-67 22:41:53809Zvllfegp [place] BODY IRXVFY0086-37-90 20:14:00Pleural (05/12/2011 15:14:00)[facility] HermannBODY RIKPYU9569-41-17 20:14:008.34[facility] HermannBODY SXFXBU1250-65-75 20:14:00 Pleural *NA*(05/12/2011 15:14:00)[facility] HermannBODY RLCGLF0142-90-75 20:14:00 4.3[facility] HermannBODY TDTUPW3464-84-11 20:14:00Pleural (05/12/2011 15:14:00) [facility] HermannBODY KXBHAX8433-68-43 20:14:29625Ptjvbivu HermannBODY FLUIDS 2011-05-12 20:14:00xxxxxxx (05/12/2011 15:14:00)[facility] HermannBODY FLUIDS 2011-05-12 20:14:00Pleural (05/12/2011 15:14:00)[facility] HermannBODY FLUIDS 2011-05-12 20:14:00Yellow *ABN*(05/12/2011 15:14:00)[facility] HermannBODY FLUIDS 2011-05-12 20:14:00Yellow (05/12/2011 15:14:00)[facility] HermannBODY FLUIDS 2011-05-12 20:14:00Clear (05/12/2011 15:14:00)[facility] HermannBODY FLUIDS 2011-05-12 20:14:006[facility] HermannBODY IXPFPG0957-36-24 20:14:0042[facility] HermannBODY LKOTLA6819-14-62 20:14:981523Hbgkegpu HermannBODY JJDJCJ9266-75-70 20:14:0052[facility] HermannBODY OLFSFF4356-28-04 20:14:0021[facility] [place] XNINGVHVC4799-55-63 09:20:0097[facility] QiuxlawXQXCHISCC2353-49-27 09:20:007.5 [facility] XiaagtlADKVNORGF5520-56-57 09:20:0019[facility] HermannCHEMISTRY 2011-05-12 09:20:89030Hupovcks EdipzrfGRFOZAFNA3533-59-85 09:20:004.3[facility] GsouzgiAHRXQDTIE5769-80-61 09:20:34760Gqqjzmfn TdedgufLLASYEODK7876-13-85 09:20:000.9[facility] IjqpcasEFACUZILU9282-48-49 09:20:0014[facility] [place] GBHINHXSR1123-44-91 09:20:0018.3[facility] VhqphfmRJSQOHIMP8310-91-10 09:20:67409 [facility] NyrmlqrJJBMEVGCI1432-49-60 09:20:006.3[facility] HermannHEMATOLOGY 2011-05-12 09:20:000.0[facility] XhnbitnNWQBTXWDZT4082-06-82 09:20:000.1[facility] GwmmasyNOSPTUVYBC3026-53-90 09:20:000.5[facility] GagfaapXAXPYYWKMP6993-44-59 09:20:0071.0[facility] VspmmtrKCNFHPRHKK6611-60-13 09:20:0017.7[facility] XPFBCPOUFI9962-79-29 09:20:000.5[facility] NvbxvniJBERPDWKKT8278-45-60 09:20:001.6 [facility] ApbvvtuWTMAHYBMRS9223-91-37 09:20:009.2[facility] HermannHEMATOLOGY 2011-05-12 09:20:000.9[facility] OkucxjsPPVHFRSNXJ8107-97-38 09:20:003.8[facility] AsywhkvPZLZJDJVMZ6877-84-51 09:20:0086.1[facility] DqyavhwWXIWPQZNRY5221-86-70 09:20:0033.5[facility] KahjiffDEJZQLLRRY1599-24-55 09:20:00 Test Item Value Reference Range Interpretation Comments MCH (test code = MCH) 28.8 pg 27.0-31.0 N [facility] ShdxujjNFHXMAIHSD7135-33-78 09:20:16273Fqzgnnrw HermannHEMATOLOGY 2011-05-12 09:20:0016.1[facility] ZdlbahuPOHFFSUVKM6220-94-68 09:20:007.5[facility] ZaeufvpRDTMGTEIJD7906-08-67 09:20:0027.5[facility] YpvnzpfIHFMAHMUYT9764-27-13 09:20:005.3[facility] DjrzwinKZKHOZMJXL8014-01-85 09:20:009.2[facility] [place] AJLAEOOUJO0425-49-08 09:20:003.19[facility] KeobhdlVGGAZULZTK3887-71-74 08:57:00 Test Item Value Reference Range Interpretation Comments PTT (test code = PTT) 31.2 s 22.9-35.8 N [facility] FtkxpstCWDDMAQLRJ7561-79-29 08:57:00 Test Item Value Reference Range Interpretation Comments PT (test code = PT) 15.6 s 12.0-14.7 H [facility] FvgduqmTDBHSISBES6474-23-33 08:57:001.24[facility] HermannCHEMISTRY 2011-05-11 07:31:003.5[facility] VwyqjzbQRMNDGIAF5509-80-16 07:31:002.2[facility] IlgvplcZPCTVYDXL8040-51-06 07:31:35342Kgmbbxyk MuhwlxyUTWNMJJOJ9167-02-02 07:31:005.0[facility] JotmsqrMDCTQRDAI6587-66-17 07:31:008.2[facility] YHXRRXOTJ0275-82-96 07:31:0019[facility] AmypaucATBFVWIOZ1522-83-88 07:31:0013 [facility] VmqpahqAIMKUHVWE7252-59-07 07:31:0092[facility] HermannCHEMISTRY 2011-05-11 07:31:000.8[facility] HcwutazVSLDUQUKC2037-62-13 07:31:10897Jaaeucyj BhtkeaxVRXCPYLJY4785-90-54 07:31:0021.0[facility] MezpmswQBSRQHSMRS5079-69-83 07:31:000.0[facility] YbxdlhyLIWIRGLPNP2747-06-77 07:31:000.5[facility] [place] IQYOQIGSGR2215-96-14 07:31:000.2[facility] FqbdspjCFRWASXXSM2590-44-16 07:31:001.5 [facility] CpjdycbRSISGMJZRN2818-34-22 07:31:004.3[facility] HermannHEMATOLOGY 2011-05-11 07:31:002.5[facility] GqkzkgnPRZEQATDUM3091-26-64 07:31:000.5[facility] PkpcpwqOJMUMPDWZW3711-69-87 07:31:0022.8[facility] YtkgqgoNNBIMDYYGC0816-31-68 07:31:008.1[facility] PlkowgpZRLLEFOCRT4565-16-18 07:31:0066.1[facility] NVBIRXRZPH6881-82-75 07:31:00 Test Item Value Reference Range Interpretation Comments MCH (test code = MCH) 29.2 pg 27.0-31.0 N [facility] VmzofgbOCQQVGCHKR0074-04-00 07:31:007.9[facility] HermannHEMATOLOGY 2011-05-11 07:31:0033.3[facility] WsojwzbXKEKTZNROT8908-13-77 07:31:0016.1[facility] VuyjjuuKZYAHTSYCL0415-76-40 07:31:59564Sxdzmtyq VyacxkmMTCGJJSBVV2160-21-79 07:31:0031.9[facility] EpzvgpzKFXCJNVROP3430-85-35 07:31:0087.6[facility] SNYQUVDTUM7542-46-00 07:31:006.6[facility] GtyevkiJAPODQCGJI9436-41-90 07:31:00 3.65[facility] OkerzktBIPPPNBJBT8317-85-34 07:31:0010.6[facility]annBLOOD BANK ZUYYTLB6165-47-91 07:00:00Positive (05/11/2011 02:00:00)[facility]BL[facility] BANK DICNIGM7747-17-99 21:57:00Product available (05/10/2011 16:57:00)[facility]BL[facility] JMWGLDZ4032-87-37 21:57:00Product available (05/10/2011 16:57:00)[facility] XoxmplrIBNHISPPGZ3805-61-18 21:16:00Clear (05/10/2011 16:16:00)[facility]ohnpsaVHEUZJCAYL4480-06-41 21:16:00Occasional /HPF *NA*(05/10/2011 16:16:00)[facility] CenterUyuzqjoKJXPZUUAGV7477-02-73 21:16:00<1 [facility] ZehclesTMOSDAQSDF3037-79-04 21:16:001[facility] HermannURINALYSIS 2011-05-10 21:16:00Negative *NA*(05/10/2011 16:16:00)[facility] 2011-05-10 21:16:00Negative mg/dL *NA*(05/10/2011 16:16:00)[facility] MUMZCRQIGQ9554-06-46 21:16:00Negative (05/10/2011 16:16:00)[facility] HPHZAYBMXW1624-65-39 21:16:00Negative (05/10/2011 16:16:00)[facility] BIPQUJTRDM7257-33-29 21:16:00Yellow *NA*(05/10/2011 16:16:00)[facility] TVQZQPULYM0652-68-01 21:16:00Negative mg/dL *NA*(05/10/2011 16:16:00)[facility] CenterDeiwhgwXWXTJYBVVK0251-52-11 21:16:00Few /LPF *NA*(05/10/2011 16:16:00)[facility] CenterPijffhhPQBQISEHYL7494-85-96 21:16:00Negative (05/10/2011 16:16:00)[facility] CenterXmwqdjrLPMRHZQSGH3722-25-79 21:16:006.5[facility] PetmoobPNAPPGYKKG5218-24-18 21:16:001.014[facility] RqmokesVRFDDRAWUM5394-70-92 21:16:00Negative mg/dL (05/10/2011 16:16:00)[facility] CenterSciosszRSSTMWQMX3880-16-23 13:43:147183Gtiwflbs VfivvexADHUPFLNO8539-41-13 13:43:0011.5[facility] HjabqvkZWUDAPKVQX6784-20-84 05:51:000.0[facility] EqylqosNRHFIVPDTI9139-67-72 05:51:000.2[facility] [place] RLJXWGPIOV9727-71-88 05:51:000.5[facility] BnlmlwfTXNQBQOWDL9353-26-83 05:51:000.9 [facility] SvtvfmlKROVJNVOUX7476-38-03 05:51:008.3[facility] HermannHEMATOLOGY 2011-05-10 05:51:0015.3[facility] FznkmshIKABCDJIED5244-37-27 05:51:004.3[facility] LqfpulgJEGDCBEUHC6148-56-48 05:51:000.6[facility] StmptrdEDDMZIKPAK2716-83-15 05:51:002.7[facility] VmiqkolLHRAOEBRGS9549-36-35 05:51:0073.1[facility] [place] SYASWAOJQR5838-40-33 10:12:00 Test Item Value Reference Range Interpretation Comments PT (test code = PT) 15.9 s 12.0-14.7 H [facility] QtegoybPUBVGFWEFC7819-59-39 10:12:001.27[facility] HermannHEMATOLOGY 2011-05-08 10:12:00 Test Item Value Reference Range Interpretation Comments PTT (test code = PTT) 36.8 s 22.9-35.8 H [facility] OOAVMZK4180-85-49 23:55:00Positive (05/07/2011 18:55:00)[facility] YYABQCF4191-32-05 23:55:00Result Note 11(05/07/2011 18:55:00)[facility] HermannBACTERIAL - LQMLUVWS5566-30-21 19:15:00 Negative 1(05/07/2011 14:15:00)[facility] NklkazsRXOSPVMZAF5557-38-81 17:17:00 Negative *NA*(05/07/2011 12:17:00)[facility] QbrjdvzSSDNLNYZD4099-98-57 17:15:00 1.9[facility] YisiznyUZWJAVBAT4124-59-11 17:15:003.2[facility] [place]
[2020-07-24 22:42] LABS: Urine Blood 3+ (Negative); Urine Glucose Negative (Negative); Urine Protein 2+ (Negative); Urine Specific Gravity 1.025 (1.005-1.030)
[2020-07-24 22:47] LABS: Absolute Lymphocytes (CBC) 0.8 K/uL (0.7-4.9); Basophils % 0.4 % (0-1.3); Hematocrit 38.6 % (39.6-49.0); Lymphocytes % 7.3 % (15.3-44.8); MPV 9.1 fL (7.6-11.3); RBC Red Blood Cell Count 4.46 M/uL (4.33-5.43)
[2020-07-24 22:56] LABS: Protime INR 1.41
[2020-07-24 23:06] LABS: Albumin 3.8 g/dL (3.4-5.0); Bilirubin Direct 0.3 mg/dL (0-0.2); Bilirubin Total 1.4 mg/dL (0.2-1.0); Magnesium 2.1 mg/dL (1.8-2.4); Potassium 4.1 mmol/L (3.5-5.1); Protein, Total 7.8 g/dL (6.4-8.2); Troponin (Emerg Dept Use Only) 0.03 ng/mL (0.0-0.045)
[2020-07-25] MEDS ORDERED: Levofloxacin 250mg IV 250 MG/50 ML BAG IV ONE (00:01)
--- NOTE | 2020-07-25 01:55 | ER ---
Nurse's Notes [facility] Name: Brodie Hernadez Age: 85 yrs Sex: Male : 1935 Arrival Date: 07/24/2020 Time: 21:37 Bed 5 Private MD: Diagnosis: Altered mental status, unspecified;Urinary tract infection, site not specified;Acute combined systolic (congestive) and diastolic (congestive) heart failure Presentation: 07/24 21:49 Chief complaint: Patient's son or daughter states: High BP at home. He seems ca1 disorientated and confused this evening. He's been urinating a lot, burning with urination and he has a R foot that seems infected. Coronavirus screen: Client denies travel out of the [place] in the last 14 days. At this time, the client does not indicate any symptoms associated with coronavirus-19. Ebola Screen: Patient negative for fever greater than or equal to 101.5 degrees Fahrenheit, and additional compatible Ebola Virus Disease symptoms Patient denies exposure to infectious person. Patient denies travel to an Ebola-affected area in the 21 days before illness onset. No symptoms or risks identified at this time. Initial Sepsis Screen: Does the patient meet any 2 criteria? No. Patient's initial sepsis screen is negative. Does the patient have a suspected source of infection? No. Patient's initial sepsis screen is negative. Risk Assessment: Do you want to hurt yourself or someone else? Patient reports no desire to harm self or others. Onset of symptoms was July 24, 2020. 21:49 Method Of Arrival: Wheelchair ca1 21:49 Acuity: VLADIMIR 2 ca1 Historical: - Allergies: 21:53 PENICILLINS; ca1 - Home Meds: 21:53 Xarelto oral oral [Active]; ca1 - PMHx: 21:53 asbestosis; CAD; ulcerative colitis; Atrial Fib; Hypertension; ca1 - PSHx: 21:53 Colostomy; ca1 21:53 CABG; Appendectomy; ca1 - Immunization history:: Client reports receiving the 2nd dose of the Covid vaccine, Client reports receiving the 1st dose of the Covid vaccine, Pneumococcal vaccine is up to date, Flu vaccine is up to date. - Social history:: Smoking status: Patient denies any tobacco usage or history of. Screenin:00 Abuse screen: Denies threats or abuse. Nutritional screening: No deficits noted. jb4 Tuberculosis screening: No symptoms or risk factors identified. Fall Risk None identified. Assessment: 22:00 General: Appears in no apparent distress. comfortable, Behavior is calm, cooperative, jb4 appropriate for age. Pain: Denies pain. Neuro: Level of Consciousness is awake, alert, obeys commands, Oriented to person, place, time, situation. Cardiovascular: Patient's skin is warm and dry. Respiratory: Airway is patent Respiratory effort is even, unlabored, Respiratory pattern is regular, symmetrical. GI: No signs and/or symptoms were reported involving the gastrointestinal system. : No signs and/or symptoms were reported regarding the genitourinary system. EENT: No signs and/or symptoms were reported regarding the EENT system. Derm: Skin is intact, Skin is pink, warm \T\ dry. Musculoskeletal: Circulation, motion, and sensation intact. Range of motion: intact in all extremities. 22:16 Reassessment: Provider at the bedside. jb4 23:00 Reassessment: Patient appears in no apparent distress at this time. Patient and/or jb4 family updated on plan of care and expected duration. Pain level reassessed. Patient is alert, oriented x 3, equal unlabored respirations, skin warm/dry/pink. 07/25 00:15 Reassessment: Patient appears in no apparent distress at this time. Patient and/or jb4 family updated on plan of care and expected duration. Pain level reassessed. Patient is alert, oriented x 3, equal unlabored respirations, skin warm/dry/pink. 01:15 Reassessment: Patient appears in no apparent distress at this time. Patient and/or jb4 family updated on plan of care and expected duration. Pain level reassessed. Patient is alert, oriented x 3, equal unlabored respirations, skin warm/dry/pink. Vital Signs: 07/24 21:49 BP 150 / 74; Pulse 72; Resp 16 S; Temp 99.4; Pulse Ox 98% on R/A; Weight 83.91 kg (R); ca1 Height 5 ft. 11 in. (180.34 cm) (R); Pain 0/10; 23:16 BP 142 / 85; Pulse 84; Resp 18; Temp 99.7(O); Pulse Ox 97% on R/A; ak2 07/25 00:15 BP 114 / 58; Pulse 103; Resp 16; Pulse Ox 97% on R/A; jb4 00:45 BP 122 / 88; Pulse 73; Resp 18; Pulse Ox 95% on R/A; jb4 02:15 BP 101 / 76; Pulse 106; Resp 18; Pulse Ox 94% on R/A; jb4 07/24 21:49 Body Mass Index 25.80 (83.91 kg, 180.34 cm) ca1 ED Course: 07/24 21:37 Patient arrived in ED. am4 21:52 Triage completed. ca1 21:53 Arm band placed on right wrist. ca1 22:00 Patient has correct armband on for positive identification. Bed in low position. Call jb4 light in reach. Side rails up X 1. Pulse ox on. NIBP on. 22:00 Initial lab(s) drawn, by me. Inserted saline lock: 18 gauge in right forearm, using jb4 aseptic technique. Blood collected. 22:02 Rodrick Pereyra MD is Attending Physician. 7 22:03 Fitz Mata RN is Primary Nurse. jb4 22:56 CT Head Brain wo Cont In Process Unspecified. EDMS 22:56 XRAY Chest (1 view) In Process Unspecified. EDMS 23:17 No provider procedures requiring assistance completed. ak2 07/25 01:52 Sonia Hyatt MD is Hospitalizing Provider. 7 02:43 Patient admitted, IV remains in place. jb4 Administered Medications: 00:10 Drug: LevaQUIN (levofloxacin) 250 mg Volume: 50 ml; Route: IVPB; Infused Over: 60 mins; jb4 Site: right antecubital; 01:10 Follow up: Response: No adverse reaction; IV Status: Completed infusion; IV Intake: 50hahb7 02:28 Drug: Lasix (furosemide) 20 mg Route: IVP; Site: right forearm; jb4 02:43 Follow up: Response: No adverse reaction jb4 Intake: 01:10 IV: 50ml; Total: 50ml. jb4 Outcome: 01:54 Decision to Hospitalize by Provider. 7 02:40 Admitted to Tele accompanied by nurse, via wheelchair, room 409, with chart, Report jb4 called to SUE Lopez 02:40 Condition: stable 02:40 Discharge instructions given to patient, family, Instructed on the need for admit, Demonstrated understanding of instructions. 02:44 Patient left the ED. jb4 Signatures: Dispatcher [employer] EDMS Fitz Mata RN RN jb4 Cara Barragan RN RN ca1 Rodrick Pereyra MD MD 7 Shikha Dennis Anthony ak2 Corrections: (The following items were deleted from the chart) 07/24 21:40 21:40 Method Of Arrival: Ambulatory ca1 ca1 07/25 02:22 00:45 BP 122 / 88; Pulse 73bpm; Resp 18bpm; Pulse Ox 75% RA; jb4 jb4
--- NOTE | 2020-07-25 01:55 | EDPHYS ---
Physician Documentation [facility] Name: Brodie Hernadez Age: 85 yrs Sex: Male : 1935 Arrival Date: 07/24/2020 Time: 21:37 Bed 5 Private MD: ED Physician Rodrick Pereyra HPI: 07/24 23:48 This 85 yrs old Male presents to ER via Wheelchair with complaints of mh7 DISORIENTATED, High Blood Pressure, Urinary Frequency. 23:49 The patient presents with disorientation, to time. Onset: The symptoms/episode mh7 began/occurred today, at 12:00. Possible causes: unknown. Associated signs and symptoms: Pertinent positives: confusion, nausea, Elevated blood pressure, urinary frequency, Pertinent negatives: abdominal pain, agitation, ataxia, blurred vision, chest pain, combativeness, diaphoresis, diarrhea, dizziness, headache, lightheadedness, numbness, palpitations, seizure, shortness of breath, tingling, vertigo, weakness. Current symptoms: In the emergency department the patient's symptoms have improved, markedly, is less confused. Patient's baseline: Neuro: alert and fully oriented, Motor: no deficits, Ambulation: walks without assistance, Speech: normal. Historical: - Allergies: 21:53 PENICILLINS; ca1 - Home Meds: 21:53 Xarelto oral oral [Active]; ca1 - PMHx: 21:53 asbestosis; CAD; ulcerative colitis; Atrial Fib; Hypertension; ca1 - PSHx: 21:53 Colostomy; ca1 21:53 CABG; Appendectomy; ca1 - Immunization history:: Client reports receiving the 2nd dose of the Covid vaccine, Client reports receiving the 1st dose of the Covid vaccine, Pneumococcal vaccine is up to date, Flu vaccine is up to date. - Social history:: Smoking status: Patient denies any tobacco usage or history of. ROS: 23:49 Eyes: Negative for injury, pain, redness, and discharge, ENT: Negative for injury, mh7 pain, and discharge, Neck: Negative for injury, pain, and swelling, Cardiovascular: Negative for chest pain, palpitations, and edema, Respiratory: Negative for shortness of breath, cough, wheezing, and pleuritic chest pain, Abdomen/GI: Negative for abdominal pain, nausea, vomiting, diarrhea, and constipation, Back: Negative for injury and pain, MS/Extremity: Negative for injury and deformity, Skin: Negative for injury, rash, and discoloration, Psych: Negative for depression, anxiety, suicide ideation, homicidal ideation, and hallucinations, Allergy/Immunology: Negative for hives, rash, and allergies, Endocrine: Negative for neck swelling, polydipsia, polyuria, polyphagia, and marked weight changes, Hematologic/Lymphatic: Negative for swollen nodes, abnormal bleeding, and unusual bruising. 23:49 Constitutional: Positive for fever. Exam: 23:49 Constitutional: This is a well developed, well nourished patient who is awake, alert, mh7 and in no acute distress. Head/Face: Normocephalic, atraumatic. Eyes: Pupils equal round and reactive to light, extra-ocular motions intact. Lids and lashes normal. Conjunctiva and sclera are non-icteric and not injected. Cornea within normal limits. Periorbital areas with no swelling, redness, or edema. Neck: Trachea midline, no thyromegaly or masses palpated, and no cervical lymphadenopathy. Supple, full range of motion without nuchal rigidity, or vertebral point tenderness. No Meningismus. Chest/axilla: Normal chest wall appearance and motion. Nontender with no deformity. No lesions are appreciated. 23:49 Respiratory: Lungs have equal breath sounds bilaterally, clear to auscultation and percussion. No rales, rhonchi or wheezes noted. No increased work of breathing, no retractions or nasal flaring. Back: No spinal tenderness. No costovertebral tenderness. Full range of motion. Skin: Warm, dry with normal turgor. Normal color with no rashes, no lesions, and no evidence of cellulitis. MS/ Extremity: Pulses equal, no cyanosis. Neurovascular intact. Full, normal range of motion. Neuro: Awake and alert, GCS 15, oriented to person, place, time, and situation. Cranial nerves II-XII grossly intact. Motor strength 5/5 in all extremities. Sensory grossly intact. Cerebellar exam normal. Normal gait. Psych: Awake, alert, with orientation to person, place and time. Behavior, mood, and affect are within normal limits. 23:49 Cardiovascular: Rate: normal, Rhythm: irregularly irregular, Pulses: no pulse deficits are appreciated, Heart sounds: normal, normal S1and S2, Edema: is not appreciated, JVD: is not appreciated. Vital Signs: 21:49 BP 150 / 74; Pulse 72; Resp 16 S; Temp 99.4; Pulse Ox 98% on R/A; Weight 83.91 kg (R); ca1 Height 5 ft. 11 in. (180.34 cm) (R); Pain 0/10; 23:16 BP 142 / 85; Pulse 84; Resp 18; Temp 99.7(O); Pulse Ox 97% on R/A; ak2 07/25 00:15 BP 114 / 58; Pulse 103; Resp 16; Pulse Ox 97% on R/A; jb4 00:45 BP 122 / 88; Pulse 73; Resp 18; Pulse Ox 95% on R/A; jb4 02:15 BP 101 / 76; Pulse 106; Resp 18; Pulse Ox 94% on R/A; jb4 07/24 21:49 Body Mass Index 25.80 (83.91 kg, 180.34 cm) ca1 MDM: 01:50 Differential Diagnosis: CVA, electrolyte abnormality, hypoglycemia, intracranial bleed, mh7 pneumonia, seizure, sepsis, TIA, UTI, volume depletion. Data reviewed: vital signs, nurses notes, old medical records, lab test result(s), cardiac enzymes, CBC, electrolytes, urinalysis, EKG, radiologic studies, CT scan, plain films. Data interpreted: Pulse oximetry: on room air is 96 %. Interpretation: normal. Counseling: I had a detailed discussion with the patient and/or guardian regarding: the historical points, exam findings, and any diagnostic results supporting the discharge/admit diagnosis, lab results, radiology results, the need for further work-up and treatment in the hospital. Response to treatment: the patient's symptoms have resolved after treatment, the patient's blood pressure is in an acceptable range, mental status has returned to baseline, the patient no longer shows bradycardia, the patient is not short of breath, the patient is not tachycardic, the patient's pain is gone, the patient's temperature has normalized. 01:54 Patient medically screened. [facility] 07/24 22:25 Order name: Basic Metabolic Panel; Complete Time: 23:27 [facility] 07/24 22:25 Order name: CBC with Diff; Complete Time: 22:57 [facility] 07/24 22:25 Order name: LFT's; Complete Time: 23:27 [facility] 07/24 22:25 Order name: Magnesium; Complete Time: 23:27 [facility] 07/24 22:25 Order name: NT PRO-BNP; Complete Time: 23:27 [facility] 07/24 22:25 Order name: PT-INR; Complete Time: 23:06 [facility] 07/24 22:25 Order name: Troponin (emerg Dept Use Only); Complete Time: 23:27 [facility] 07/24 22:25 Order name: Influenza Screen (a \T\ B); Complete Time: 01:11 [facility] 07/24 22:42 Order name: Urine Dipstick-Ancillary [facility] 07/24 22:57 Order name: Urine Culture [facility] 07/24 23:06 Order name: Blood Culture Adult (2) [facility] 07/25 00:34 Order name: Lactate; Complete Time: 01:50 [facility] 07/25 00:49 Order name: SARS-COV-2 RT PCR; Complete Time: 01:11 [facility] 07/24 22:25 Order name: XRAY Chest (1 view) [facility] 07/24 22:25 Order name: EKG; Complete Time: 22:41 [facility] 07/24 22:25 Order name: Cardiac monitoring; Complete Time: 22:26 [facility] 07/24 22:25 Order name: EKG - Nurse/Tech; Complete Time: 22:35 [facility] 07/24 22:25 Order name: IV Saline Lock; Complete Time: 22:26 [facility] 07/24 22:25 Order name: Labs collected and sent; Complete Time: 22:26 [facility] 07/24 22:25 Order name: O2 Per Protocol; Complete Time: 22:26 [facility] 07/24 22:25 Order name: O2 Sat Monitoring; Complete Time: 22:26 [facility] 07/24 22:25 Order name: Urine Dipstick-Ancillary (obtain specimen); Complete Time: 22:39 [facility] 07/24 22:25 Order name: CT Head Brain wo Cont [facility] 07/25 02:07 Order name: CONS Physician Consult [facility] 07/25 02:07 Order name: Consistent Carb (ADA) [address] [facility] 07/25 02:07 Order name: Troponin I [facility] 07/25 02:07 Order name: Troponin I [facility] Administered Medications: 00:10 Drug: LevaQUIN (levofloxacin) 250 mg Volume: 50 ml; Route: IVPB; Infused Over: 60 mins; jb4 Site: right antecubital; 01:10 Follow up: Response: No adverse reaction; IV Status: Completed infusion; IV Intake: 23hogs6 02:28 Drug: Lasix (furosemide) 20 mg Route: IVP; Site: right forearm; jb4 02:43 Follow up: Response: No adverse reaction jb4 Disposition: 07/25/20 01:54 Hospitalization ordered by Sonia Hyatt for Inpatient Admission. Preliminary diagnosis are Altered mental status, unspecified, Urinary tract infection, site not specified, Acute combined systolic (congestive) and diastolic (congestive) heart failure. - Bed requested for Telemetry/MedSurg (Inpatient). - Status is Inpatient Admission. jb4 - Condition is Stable. - Problem is new. - Symptoms have improved. Signatures: Dispatcher [employer] [facility] Chasidy Mckeon RN RN mw Bryson, James, RN RN jb Cara Barragan RN RN [facility] Rodrick Pereyra MD MD mh7 Corrections: (The following items were deleted from the chart) 07/24 23:21 22:41 CORONAVIRUS+MR.LAB.BRZ ordered. [facility] 07/25 02:03 01:54 Hospitalization Ordered by A Olena SIMS for Inpatient Admission. Preliminary mw diagnosis is Altered mental status, unspecified; Urinary tract infection, site not specified; Acute combined systolic (congestive) and diastolic (congestive) heart failure. Bed requested for Telemetry/MedSurg (Inpatient). Status is Inpatient Admission. Condition is Stable. Problem is new. Symptoms have improved. mh7 02:44 02:03 07/25/2020 01:54 Hospitalization Ordered by A Olena SIMS for Inpatient Admission. jb4 Preliminary diagnosis is Altered mental status, unspecified; Urinary tract infection, site not specified; Acute combined systolic (congestive) and diastolic (congestive) heart failure. Bed requested for Telemetry/MedSurg (Inpatient). Status is Inpatient Admission. Condition is Stable. Problem is new. Symptoms have improved. mw
[2020-07-25] MEDS ORDERED: ACETAMINOPHEN 325 MG TABLET PO PRN (01:58)
[2020-07-25] MEDS ORDERED: MORPHINE 2 MG/ML SYR IV PRN (01:58)
[2020-07-25] MEDS ORDERED: ONDANSETRON 4 MG/2 ML VIAL IV PRN (01:58)
[2020-07-25] MEDS ORDERED: FUROSEMIDE 20 MG/ 2ML VIAL ONE (02:22)
[2020-07-25 02:53] VITALS: BMI 25.7
[2020-07-25] MEDS: IPRATROPIUM BROM 0.5MG/2.5ML NEB SCH ×4 (03:20→20:25)
[2020-07-25] MEDS ORDERED: VANCOMYCIN/NS 1 gm 1 GM/250 ML BAG IVPB SCH (11:00)
--- NOTE | 2020-07-25 11:34 | CON ---
Date of Consultation: 07/25/2020 History Of Present Illness: Altered mental status, elevated troponin. History Of Present Illness: Mr. Hernadez is an 85-year-old white male. He has a history of coronary ar fuad disease. He is status post CABG. 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 He has a history of dyslipidemia for which he takes Crestor and severe parkinsonism. He sees Dr. Pavon. Has had a history of asbestosis exposure, ulcerative co litis, and hypertension. Has had an appendectomy in the past. His CABG was many years ago. He coul d not recall the surgeon's name. Came in mostly with agitation and Parkinson type of symptoms, alter ed mental status. The son said that he may not have been taking his Parkinson's medicine like he preet mariajosed. He never really had any chest pain. His chest x-ray showed possible mild congestive heart fail ure. His troponin was slightly elevated. His BNP was 2318. He was in sinus rhythm when I saw him. He is asymptomatic now. Allergies: HE IS ALLERGIC TO PENICILLIN. Review of Systems: Negative. Social History: Negative. Family History: Noncontributory. Medications: Were listed earlier. Physical Examination: General: This morning, he has no symptoms, in the sinus rhythm. No acute distress. Vital Signs: Stable, afebrile. HEENT: Negative. Neck: Supple without any bruit, lymphadenopathy, JVD, or thyromegaly. Chest: Clear to auscultation and percussion. Cardiac: Revealed a regular rhythm and rate. No murmurs, gallops, or rubs. Abdomen: Benign. Extremities: Revealed no clubbing, cyanosis, or edema. Diagnostic Data: As stated earlier. Impression And Plan: 1.Congestive heart failure, probably acute on chronic, diastolic. He is on Lasix. I will continue his by his present regimen otherwise. 2.History of atrial fibrillation, status post cerebrovascular accident in the past. He is on Xarelt o and aspirin for now and I will continue that. 3.Elevated troponin and BNP, probably secondary to mild congestive heart failure. This is not an ac manda coronary syndrome. I will get an echocardiogram later. 4.Parkinsonism. He sees Dr. Pavon. 5.History of asbestosis. 6.History of coronary artery disease, status post coronary artery bypass graft. 7.History of hypertension, well controlled. 8.History of dyslipidemia, well controlled. 9.History of ulcerative colitis. The patient is feeling better on inhalers, Lasix, and home medicat ion. He does not take Lasix at home and I think it may be reasonable to put him on a low-dose when h e goes home. Continue the Xarelto for sure and Crestor and aspirin. Get an echocardiogram as an out patient and I will see him also as an outpatient. I will discuss the case further with Dr. Hyatt. De finitely no need for coronary intervention at this point. LEA/ZOHRA Voice ID: [id number] Report ID: [id number]
[2020-07-25] MEDS: RIVAROXABAN 15 MG TABLET PO SCH (12:05)
[2020-07-25] MEDS: VANCOMYCIN 1.5 GM in NA CHLORIDE 0.9% 500 ML IV SCH (12:05)
[2020-07-25] MEDS: ASPIRIN 81 MG CHEWABLE TABLET PO SCH (12:05)
[2020-07-25] MEDS: FUROSEMIDE 20 MG/ 2ML VIAL IV SCH ×2 (13:56→17:13)
[2020-07-25] MEDS: CARBIDOPA/LEVODOPA 25/100 TAB PO SCH ×2 (13:56→19:59)
--- NOTE | 2020-07-25 14:54 | HP ---
Date of Admission: 07/25/2020 Chief Complaint: High blood pressure, not feeling good, shaking, and fever. History Of Present Illness: This is an 85-year-old male patient, who lives at home, was in his devin l usual state of health until yesterday evening for about 2 hours or so. He started to have frequent urinary urination with slight burning on urination and then started to have chills and he was shakin g. He started texting his son and he had hard time texting it, but as soon as son received the text, he realized that the patient probably was in some type of trouble, so he called him right away and w ent over to his house and the patient had fever of 101, blood pressure was elevated, he was shaking a nd not feeling good at all. The patient refused to come into the hospital via ambulance. So, son br ought him in his private car. He had some nausea on his way to the emergency room, but no vomiting. After he was evaluated, he was admitted to the hospital. There was no headache. No focal neurologi liza deficits. When I saw him this morning, he was feeling somewhat better. Denied any other complai nts like chest pain, palpitation. No tingling, numbness. Son says that since yesterday he is very r estless and he had trouble sleeping last night and also today. He is not able to stay in one positio n for more than 10 to 15 minutes and gets in and out of bed, sit in the chair and just feeling restle ss, but denies any other specific complaints. Allergies: ACCORDING TO HOSPITAL RECORD, HE IS LISTED ALLERGIC TO PENICILLIN. ACCORDING TO OFFIC E RECORD, HE IS LISTED NO KNOWN ALLERGIES. Medications: Aspirin 81 mg daily, carbidopa/levodopa 25/100 takes 2 tablets by mouth 3 times a day, fenofibrate 45 mg daily, folic acid 1 mg daily, gabapentin 100 mg 3 times a day, levothyroxine 88 mcg daily, losartan 100 mg daily, metoprolol succinate 25 mg daily, Xarelto 15 mg daily. 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 Constitutional: As mentioned. Genitourinary: As mentioned above. All other systems reviewed and negative. Past Medical History: Significant for coronary artery disease, Parkinson disease, prior history of s troke, postherpetic neuralgia, hypothyroidism, type 2 diabetes mellitus which is diet controlled, hyp ertension, hyperlipidemia, paroxysmal atrial fibrillation, and chronic kidney disease stage 3A. Past Surgical History: Cataract surgery, coronary artery bypass surgery, appendectomy, and colectomy . Family History: Father , had lung cancer. Mother , had unknown type of cancer. Siblings di ed with myocardial infarction. Social History: Negative for smoking and alcohol use. Physical Examination: Vital Signs: Temperature 99.1 this morning, pulse 71, respiratory rate 18, blood pressure 126/61, ox ygen saturation 95%. Height 5 feet 10 inches, weight 179 pounds. General: Awake, alert, oriented, not in distress. HEENT: Head atraumatic, normocephalic. Conjunctivae nonerythematous. Sclerae white. Mouth, no thr ush or edema noted. Ears/Nose, no mass, lesion, discharge noted. Neck: Supple. No JVD, lymph nodes, bruit, thyromegaly noted. Lungs: Presence of basal rales, more on right side than the left side. Heart: Normal heart sounds, no murmur or gallop. Abdomen: Soft, bowel sounds normal. No guarding, rigidity, tenderness, mass, hepatosplenomegaly, dis tention, or bruit noted. Extremities: No leg edema. No calf tenderness. Skin: No rash, ulcer, cellulitis. Lymphatics: No lymph node enlargement in neck, supraclavicular, infraclavicular region. Neuro: No focal neurological deficit. Chest: Unremarkable. External Genitalia: Deferred. Rectal: Deferred. Laboratory Data: White count 10.7, hemoglobin 12.5, platelets 221. INR 1.4. Sodium 137, potassium 4.1, chloride 105, bicarb 23, BUN 25, creatinine 1.21, glucose 136. Lactic acid 2.1. Liver function tests unremarkable. BNP 2318. Initial troponin 0.03, second troponin 0.27, third troponin 0.80. U rinalysis; 3+ blood, 3+ leukocyte esterase, 2+ protein, trace ketones. Influenza A and influenza B a nd COVID-19 tests negative. Impression: 1.Urinary tract infection. 2.Rule out sepsis. 3.Abnormal cardiac enzymes. 4.Coronary artery disease. 5.Paroxysmal atrial fibrillation. 6.Chronic anticoagulation therapy. 7.Hypertension. 8.Hyperlipidemia. 9.Chronic kidney disease, stage 3A. 10.Type 2 diabetes mellitus. 11.Congestive heart failure. 12.Hypothyroidism. 13.Parkinson disease. Plan: Admit the patient to hospital for further evaluation and management of this problem. The mike ent is appropriate for inpatient and is expected to spend 2 midnights in hospital. We will continue his home medications per order including his Xarelto. The patient was started on Levaquin, we will c ontinue that. We will add vancomycin as the patient has a history of UTI with MRSA in the past. We will go ahead and follow up on the urine culture, blood culture, get echo with Doppler. The patient has some minimal problem with congestive heart failure. We will go ahead and treat it with IV Lasix. I suspect that it is probably diastolic dysfunction from this acute infectious illness and very lik stu that is the reason why his cardiac enzymes have slightly gone up also. We will follow up with ca rdiologist to get his recommendation and follow up on echocardiogram results. Details were discussed with the patient and the patient's son, and I will see him tomorrow for followup. For his insomnia and restlessness, we will start him on alprazolam 0.25 mg at bedtime. NELSY/MODL Voice ID: [id number]
[2020-07-25] MEDS: ATORVASTATIN 40 MG TAB PO SCH (19:58)
[2020-07-25] MEDS: DONEPEZIL HCL 5 MG TAB PO SCH (19:59)
[2020-07-25] MEDS ORDERED: HOME MED 1 EA UNK (Donepezil Hcl [Donepezil Hcl] 10 MG Tablet) PO SCH (21:00)
[2020-07-25] MEDS: ALPRAZOLAM 0.25 MG TABLET PO SCH (21:24)
[2020-07-26] MEDS: Levofloxacin 250mg IV 250 MG/50 ML BAG IV SCH (00:07)
[2020-07-26] MEDS: IPRATROPIUM BROM 0.5MG/2.5ML NEB SCH ×4 (01:30→20:00)
[2020-07-26 04:12] LABS: Absolute Lymphocytes (CBC) 0.9 K/uL (0.7-4.9); Basophils % 0.5 % (0-1.3); Hematocrit 36.4 % (39.6-49.0); MPV 8.6 fL (7.6-11.3); RBC Red Blood Cell Count 4.24 M/uL (4.33-5.43)
[2020-07-26 04:37] LABS: Albumin 3.2 g/dL (3.4-5.0); Bilirubin Total 1.4 mg/dL (0.2-1.0); Potassium 3.7 mmol/L (3.5-5.1); Protein, Total 7.3 g/dL (6.4-8.2)
[2020-07-26] MEDS: LEVOTHYROXINE SOD 0.088 MG TAB PO SCH (05:19)
--- NOTE | 2020-07-26 07:03 | RAD REPORT ---
EXAM DESCRIPTION: RAD - Chest Single View - 07/26/2020 6:21 am CLINICAL HISTORY: CHF COMPARISON: July 24February 2011 TECHNIQUE: AP portable chest image was obtained 07/26/2020 6:21 am . FINDINGS: Diffuse interstitial opacification is again noted. Patchy opacification is present lateral left lung base with costophrenic angle blunting. There is focal opacification in the upper right alberto g field. Heart size and vasculature are not outside of normal range. Sternotomy wires are in place. N o pneumothorax or large pleural effusion. There minimal right costophrenic angle blunting as well. No acute bony abnormality seen. No acute aortic findings suspected. IMPRESSION: Developing pneumonia right upper lobe with possible lateral left base pneumonia. Patient does have diffuse interstitial opacification from fibrosis, interstitial edema, infiltrate or a combination. Pattern has shown slight improvement from prior day imaging.
[2020-07-26] MEDS: ALBUTEROL 2.5 MG/3 ML NEB SOL NEB PRN ×2 (08:10→13:30)
[2020-07-26] MEDS: FENOFIBRIC ACID 45 MG PO SCH (09:00)
[2020-07-26] MEDS ORDERED: RIVAROXABAN 15 MG TABLET PO SCH (09:00)
[2020-07-26] MEDS: RIVAROXABAN 15 MG TABLET PO SCH (09:40)
[2020-07-26] MEDS: CARBIDOPA/LEVODOPA 25/100 TAB PO SCH ×3 (09:40→20:33)
[2020-07-26] MEDS: FUROSEMIDE 20 MG/ 2ML VIAL IV SCH ×2 (09:41→16:54)
[2020-07-26] MEDS: FOLIC ACID 1 MG TABLET PO SCH (09:41)
[2020-07-26] MEDS: METOPROLOL XL 25 MG TAB PO SCH (09:41)
[2020-07-26] MEDS: ASPIRIN 81 MG CHEWABLE TABLET PO SCH (09:41)
[2020-07-26] MEDS: VANCOMYCIN 1.5 GM in NA CHLORIDE 0.9% 500 ML IV SCH (11:54)
--- NOTE | 2020-07-26 15:35 | PN ---
Date of Progress Note: 07/26/2020 Subjective: The patient was seen this morning for followup. He was lying in bed, slept very well wi th the use of alprazolam last night, and denies any dysuria. No abdominal pain. No nausea. No vomi ting. Objective: Vital Signs: Reviewed. HEENT: Unremarkable. Lungs: Bilateral good equal air entry with presence of basal rales in both lungs. Not in any distre ss. Heart: Sounds normal. Abdomen: Soft. Bowel sounds normoactive. No guarding, rigidity, tenderness, or distention. Presen ce of colostomy in right lower quadrant. Extremities: No leg edema. Laboratory Data: White count 7.2, hemoglobin 12.1, platelets 208. Sodium 140, potassium 3.7, chlori de 105, bicarb 27, BUN 28, creatinine 1.29, glucose 112. Urine culture and blood culture negative so far. Impression: 1.Urinary tract infection. 2.Pneumonia. 3.Paroxysmal atrial fibrillation. 4.Coronary artery disease. 5.Anemia, unspecified. Plan: Chest x-ray today has shown some infiltrate and we will continue current antibiotic, which is Levaquin and vancomycin. He had low-grade fever when he came in. Now, he is afebrile. White count is normal. We will continue both of his current antibiotics. Pharmacy to manage vancomycin trough l evel and dosing. I will see him tomorrow for followup. We will get an echocardiogram and repeat [facility] st x-ray tomorrow. Today's chest x-ray results reviewed and discussed with the patient. NELSY/MODL Voice ID: [id number] Report ID: [id number]
--- NOTE | 2020-07-26 19:54 | RAD REPORT ---
EXAM DESCRIPTION: Yvrose Single View07/24/2020 10:58 pm CLINICAL HISTORY: The patient is 85 years old and is Male; FEVER TECHNIQUE: Frontal view of the chest. COMPARISON: No relevant prior studies available. FINDINGS: Lungs: Diffuse interstitial opacities bilaterally suggestive of interstitial edema or pn eumonia. Pleural space: Blunting of the left costophrenic angle; cannot exclude left pleural effusion. No pneumothorax. Heart: Unremarkable. Mediastinum: Unremarkable. Bones/joints: Median sternotomy wires. IMPRESSION: 1. Diffuse interstitial opacities bilaterally suggestive of interstitial edema or pneu monia. 2. Blunting of the left costophrenic angle; cannot exclude left pleural effusion. Electronically signed by: Ruben Mckeon MD 07/25/2020 1:27 AM CDT Due to temporary technical issues with the PACS/Fluency reporting system, reports are being signed by the in house radiologists without review as a courtesy to insure prompt reporting. The interpreting radiologist is fully responsible for the content of the report.
[2020-07-26] MEDS: DONEPEZIL HCL 5 MG TAB PO SCH (20:33)
[2020-07-26] MEDS: ALPRAZOLAM 0.25 MG TABLET PO SCH (20:33)
[2020-07-26] MEDS: ATORVASTATIN 40 MG TAB PO SCH (20:33)
--- NOTE | 2020-07-26 21:45 | RAD REPORT ---
EXAM DESCRIPTION: CT - Head Brain Wo Cont - 07/25/2020 6:25 am CLINICAL HISTORY: CONFUSED. TECHNIQUE: Axial, coronal, and sagittal images through the brain were performed in the absence of in travenous contrast. This exam was performed according to our departmental dose-optimization program w hich includes use of Automated Exposure Control, adjustment of the mA and/or kV according to patient size and/or use of iterative reconstruction technique. COMPARISON: None. FINDINGS: There is diffuse age-appropriate atrophy throughout the brain parenchyma. Moderate periven tricular white matter changes are present, and there is moderate ex vacuo dilatation of the ventricul ar system. There is no intra-axial or extra-axial bleed. There is no mass or mass effect. The visualized paranasal sinuses and mastoid air cells are patent. No acute fracture is identified. IMPRESSION: 1. No acute intracranial abnormality identified. 2. Chronic age-related and microvascular ischemic changes. Electronically signed by: Genoveva Mar MD 07/24/2020 11:20 PM CDT Due to temporary technical issues with the PACS/Fluency reporting system, reports are being signed by the in house radiologists without review as a courtesy to insure prompt reporting. The interpreting radiologist is fully responsible for the content of the report.
[2020-07-27] MEDS: Levofloxacin 250mg IV 250 MG/50 ML BAG IV SCH (01:00)
[2020-07-27] MEDS: IPRATROPIUM BROM 0.5MG/2.5ML NEB SCH ×4 (01:02→20:00)
[2020-07-27] MEDS: LEVOTHYROXINE SOD 0.088 MG TAB PO SCH (06:10)
[2020-07-27] MEDS: FENOFIBRIC ACID 45 MG PO SCH (08:13)
[2020-07-27] MEDS: CARBIDOPA/LEVODOPA 25/100 TAB PO SCH ×3 (08:15→21:32)
[2020-07-27] MEDS: FOLIC ACID 1 MG TABLET PO SCH (08:15)
[2020-07-27] MEDS: METOPROLOL XL 25 MG TAB PO SCH (08:15)
[2020-07-27] MEDS: FUROSEMIDE 20 MG/ 2ML VIAL IV SCH ×2 (08:15→16:03)
[2020-07-27] MEDS: RIVAROXABAN 15 MG TABLET PO SCH (08:15)
[2020-07-27] MEDS: ASPIRIN 81 MG CHEWABLE TABLET PO SCH (08:15)
--- NOTE | 2020-07-27 09:43 | RAD REPORT ---
EXAM DESCRIPTION: RAD - Chest Pa And Lat (2 Views) - 07/27/2020 9:34 am CLINICAL HISTORY: pneumonia COMPARISON: Portable July 26, portable July 24 TECHNIQUE: Frontal and lateral views of the chest were obtained. FINDINGS: The lungs are fibrotic as a baseline. Focal infiltrate or masslike density in the lateral right upper lobe has not changed. Lateral left base parenchymal opacification and costophrenic angle blunting also seen as stable. No new or progressive chest finding. Trachea is midline. Sternotomy wires in place. Heart size is normal and central vasculature is with in normal limits. No pleural effusion or pneumothorax seen. No acute bony finding noted. No aortic abnormality. IMPRESSION: Focal infiltrate or masslike density in the lateral right upper lung field may be remnan t pneumonia. Mass lesion cannot be excluded and continued radiographic follow-up is needed to assure complete clearing. Pleural and parenchymal opacity lateral left base is probably chronic. This has not change from prior imaging.
[2020-07-27] MEDS: VANCOMYCIN 1.5 GM in NA CHLORIDE 0.9% 500 ML IV SCH (11:00)
--- NOTE | 2020-07-27 18:34 | RAD REPORT ---
EXAM DESCRIPTION: CT - Thorax Wo Con CLINICAL HISTORY: Chest pain pneumonia, r/o lung mass COMPARISON: Chest Pa And Lat (2 Views) dated 07/27/2020; Stone Protocol dated 06/25/2020 FINDINGS: 4.5 centimeter area of airspace consolidation in the anterior right upper lobe with air br onchograms has the appearance of infiltrate/pneumonia rather than mass lesion. Mild atelectasis in wang th lung bases is present. No pneumothorax. Calcified pleural plaque is seen along the left inferolate ral hemithorax. No axillary, mediastinal or hilar adenopathy. Mild thoracic degenerative changes. 28 mm low-density lesion in the liver is unchanged. All CT scans are performed using dose optimization technique as appropriate and may include automated exposure control or mA/KV adjustment according to patient size. IMPRESSION: Area of consolidation in the anterior right upper lobe has the appearance infiltrate/pne umonia rather than a mass. However, follow-up imaging after appropriate treatment would be recommende d to ensure complete clearance.
[2020-07-27] MEDS: ALPRAZOLAM 0.25 MG TABLET PO SCH (21:32)
[2020-07-27] MEDS: DONEPEZIL HCL 5 MG TAB PO SCH (21:32)
[2020-07-27] MEDS: ATORVASTATIN 40 MG TAB PO SCH (21:32)
--- NOTE | 2020-07-27 23:35 | PN ---
Date of Progress Note: 07/27/2020 Subjective: The patient was seen this morning for followup. He was lying in bed, not in any distres s. Denies any new complaints. Objective: Vital Signs: Reviewed. HEENT: Unremarkable. Lungs: Minimum rales noted in lung bases. Not in respiratory distress. Heart: Sounds normal. Abdomen: Soft. Bowel sounds normal. No guarding, rigidity, tenderness. No distention. Right lowe r quadrant colostomy bag present. Extremities: No leg edema. Laboratory Data: Chest x-ray results reviewed. Impression: 1.Urinary tract infection. 2.Pneumonia. 3.Rule out lung mass. 4.Hypertension. Plan: We will continue current antibiotics. Chest x-ray results reviewed, raising possibility of ri ght upper lobe mass. We will get a CAT scan of the chest without contrast today. Continue current a ntibiotics. I will see him tomorrow for followup. Echo will be done today. Possible discharge to g o home tomorrow depending on his condition. NELSY/MODL Voice ID: [id number] Report ID: [id number]
[2020-07-28] MEDS: Levofloxacin 250mg IV 250 MG/50 ML BAG IV SCH (00:08)
[2020-07-28] MEDS: IPRATROPIUM BROM 0.5MG/2.5ML NEB SCH ×2 (02:35→08:27)
[2020-07-28 04:08] LABS: Absolute Lymphocytes (CBC) 1.1 K/uL (0.7-4.9); Basophils % 0.6 % (0-1.3); Hematocrit 36.9 % (39.6-49.0); Lymphocytes % 15.1 % (15.3-44.8); MPV 8.9 fL (7.6-11.3); RBC Red Blood Cell Count 4.34 M/uL (4.33-5.43)
[2020-07-28 04:24] LABS: Magnesium 2.2 mg/dL (1.8-2.4); Potassium 3.7 mmol/L (3.5-5.1)
[2020-07-28] MEDS: LEVOTHYROXINE SOD 0.088 MG TAB PO SCH (07:12)
--- NOTE | 2020-07-28 07:58 | ECHO ---
HEIGHT: 5 ft 10 in WEIGHT: 179 lb 0 oz DATE OF STUDY: 07/27/[address]: Randy Mccoy MD 2-DIMENSIONAL: YES M.MODE: YES DOPPLER: YES COLOR FLOW: YES TDS: NO PORTABLE: NO DEFINITY: NO BUBBLE STUDY: NO DIAGNOSIS: CONGESTIVE HEART FAILURE CARDIAC HISTORY: CATHERIZATION: NO SURGERY: YES PROSTHETIC VALVE: NO PACEMAKER: NO MEASUREMENTS (cm) DIASTOLIC (NORMALS) SYSTOLIC (NORMALS) IVSd 0.9 (0.6-1.2) LA Diam 2.6 (1.9-4.0) LVEF 51% LVIDd 3.4 (3.5-5.7) LVIDs 2.6 (2.0-3.5) %FS 25% LVPWd 1.0 (0.6-1.2) Ao Diam 2.9 (2.0-3.7) 2 DIMENSIONAL ASSESSMENT: RIGHT ATRIUM: NORMAL LEFT ATRIUM: NORMAL RIGHT VENTRICLE: NORMAL LEFT VENTRICLE: NORMAL TRICUSPID VALVE: NORMAL MITRAL VALVE: MILD MITRAL REGURGITATION PULMONIC VALVE: NORMAL AORTIC VALVE: MILD AORTIC REGURGITATION PERICARDIAL EFFUSION: NONE AORTIC ROOT: NORMAL LEFT VENTRICULAR WALL MOTION: UNABLE TO EVALUATE (POOR WINDOWS). DOPPLER/COLOR FLOW: SEE BELOW. COMMENTS: POOR WINDOWS, EJECTION FRACTION APPEARS NORMAL 55-60%. MILD MITRAL REGURGITATION. MILD AORTIC REGURGITATION. TECHNOLOGIST: STEFANIE HOWARD
[2020-07-28] MEDS: ASPIRIN 81 MG CHEWABLE TABLET PO SCH (08:33)
[2020-07-28] MEDS: RIVAROXABAN 15 MG TABLET PO SCH (08:33)
[2020-07-28] MEDS: FOLIC ACID 1 MG TABLET PO SCH (08:33)
[2020-07-28] MEDS: METOPROLOL XL 25 MG TAB PO SCH (08:33)
[2020-07-28] MEDS: CARBIDOPA/LEVODOPA 25/100 TAB PO SCH (08:33)
[2020-07-28 08:34] VITALS: BP 141/58
[2020-07-28] MEDS: FENOFIBRIC ACID 45 MG PO SCH (08:34)
[2020-07-28 08:39] VITALS: TEMP 97
[2020-07-28 09:02] VITALS: O2SAT 96
--- NOTE | 2020-07-29 06:50 | DS ---
Date of Discharge: 07/28/2020 Disposition: Discharged to go home. Physical Examination: HEENT: Examination unremarkable. Lungs: Clear to auscultation. Heart: Sounds normal. Abdomen: Soft. Bowel sounds normal. No guarding, rigidity, tenderness, or distention. Extremities: No leg edema. Laboratory Data: Upon admission, on 07/24/2020, white count 10.7, hemoglobin 12.5, platelets 221. T roman, white count 7.2, hemoglobin 12.2, platelets 259. Today, chemistry: Sodium 138, potassium 3.7, chloride 106 bicarb 26, BUN 33, creatinine 1.37 glucose 102. Upon admission, sodium 137, potassium 4.1, chloride 105, bicarb 23, BUN 25, creatinine 1.21, glucose 136. Lactic acid 2.1. Troponin 0.27 on the first set, second set 0.8. Liver function tests unremarkable. ProBNP 2318. His urinalysis p ositive for 3+ blood, trace ketones, 3+ leukocyte esterase, 2+ protein. Urine culture, blood culture remained negative. Chest x-ray shows right upper lobe pneumonia. Hospital Course: This 85-year-old pleasant male patient came into emergency room with complaints of not feeling good, fever, shaking, and high blood pressure. Please see dictated H and P for more info rmation. After patient was evaluated in the emergency room, he was admitted to the hospital. His ur inalysis was abnormal, consistent with urinary tract infection. Cardiac enzymes were abnormal. No e vidence of any acute myocardial infarction. This was nonspecific elevation due to other acute illnes s. Cardiology consultation was obtained from Dr. Mccoy, and he has not suggested any intervention at this time. Echocardiogram was done during this hospitalization, and it came back showing normal e jection fraction. No evidence of wall motion abnormality. Patient will have a followup with cardiol ogist on outpatient basis, and kst operator will consider elective stress test on outpatient basis. Meanwhile, during this hospitalization, we treated him with antibiotics. He received IV vancomycin a nd Levaquin, and his condition overall improved very well. He remained afebrile. His breathing impr melvin, started ambulating very well, and we also did a CAT scan of the chest and repeat chest x-ray. Chest x-ray has shown evidence of pneumonia. We will continue to follow up with a chest x-ray on out patient basis over next 6 to 8 weeks, and if the right upper lobe density persists, then obviously we will have to pursue further workup to rule out any pulmonary mass. Patient was discharged to [facility] in stable and improved condition with following discharge medications and instructions. Discharge Medication And Instructions: 1.Continue all prior home medications. 2.Take doxycycline 100 mg 2 times a day for 10 days. 3.Take Augmentin 500 mg 2 times a day for 10 days. 4.Follow up at my office next week on Monday, which is 08/03/2020. Discharge Diagnoses: 1.Pneumonia. 2.Urinary tract infection. 3.Coronary artery disease. 4.Paroxysmal atrial fibrillation. 5.Chronic anticoagulation therapy. 6.Hypertension. 7.Hyperlipidemia. 8.Chronic kidney disease, stage 3. 9.Type 2 diabetes mellitus. 10.Congestive heart failure, chronic, diastolic. 11.Hypothyroidism. 12.Parkinson disease. NELSY/MODL Voice ID: [id number] Report ID: [id number]
== END 2020-07-28 09:15 | disposition home or self-care (01) | DRG 193 ==
LOC: ER 21:32 → 4TH 07-25 01:57
PROVIDERS: ADMIT Internal Medicine; ATTEND Internal Medicine
DX: J18.9 Pneumonia, unspecified organism (principal); I50.33 Acute on chronic diastolic (congestive) heart failure; N39.0 Urinary tract infection, site not specified; I13.0 Hypertensive heart and chronic kidney disease with heart failure and stage 1 through stage 4 chronic kidney disease, or unspecified chronic kidney disease; I25.10 Atherosclerotic heart disease of native coronary artery without angina pectoris; I48.0 Paroxysmal atrial fibrillation; E11.22 Type 2 diabetes mellitus with diabetic chronic kidney disease; N18.31 Chronic kidney disease, stage 3a; G20 Parkinson's disease; E03.9 Hypothyroidism, unspecified; E78.5 Hyperlipidemia, unspecified; D64.9 Anemia, unspecified; Z79.01 Long term (current) use of anticoagulants; Z93.3 Colostomy status; Z86.73 Personal history of transient ischemic attack (TIA), and cerebral infarction without residual deficits; Z95.1 Presence of aortocoronary bypass graft; Z20.822 Contact with and (suspected) exposure to COVID-19
CPT/HCPCS: 36415; 70450; 71045; 71046; 71250; 80048; 80053; 80076; 81003; 82947; 83605; 83735; 83880; 84484; 85025; 85610; 87040; 87086; 87088; 87804; 93306; 94640; 94760; 96365; 96375; 99285; J1940; J3370; J7040; U0003

== ENCOUNTER 2021-09-14 12:37 | Inpatient (IN) | payer OTHER, MEDICARE ==
--- OUTSIDE RECORDS SUMMARY | 2021-09-14 12:50 | XMS REPORT | Continuity of Care Document ---
:1935 Author Organization [facility] t Address [address] [place] [address] Dr. Mcneil [address] [place] [id number] Care Team Providers Name Role Phone Darrick Hyatt Christian Primary Care Physician YENNY RAMIREZ Attending Clinician Unavailable MARIA TERESA BARTON Attending Clinician Unavailable MIR OJEDA Attending Clinician Unavailable YENNY RAMIREZ M.D. Attending Clinician Unavailable HANSEL BROWN M.D. Attending Clinician Unavailable ALONDRA NIEVES Attending Clinician Unavailable SYD DIALLO M.D. Attending Clinician Unavailable Brandin Harp M.D. 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 He alth ial lung ial lung 00:00: disease) disease) 00 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 2-17 Health with with 00:00: preserved preserved 00 ejection ejection fraction fraction 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 2-17 Health disease disease 00:00: without without 00 angina angina pectoris pectoris Atrial Atrial Disease Active 2022-0 UT fibrillati fibrillati 2-17 He alth on on 00:00: 00 CABG CABG Problem Active UT Physici ans History of History of Problem Resolve UT essential essential d Phys ici hypertensi hypertensi an s on on History of History of Problem Resolve UT Occlusion Occlusion d Phys ici and and ans stenosis 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 Aftercare Aftercare Problem Active UT following following Phys ici surgery surgery ans CHF CHF Problem Active UT (congestiv (congestiv Ph ysici e heart e heart ans failure) failure) Shortness Shortness Problem Active UT of breath of breath Phys ici ans 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 diabetes ans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 with with diabetic diabetic neuropathy neuropathy , without , without long-term long-term current current use of use of insulin insulin Cerebrovas Cerebrovas Problem Active 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 cular cular Physici accident, accident, ans old old Tremor, Tremor, Problem Active UT unspecifie unspecifie Ph ysici d d ans Elevated Elevated Problem Active UT creatine creatine Physic i kinase kinase ans level level 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 ans DE, 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, 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 Active UT Physici ans Parkinson Parkinson Problem Active UT disease, disease, Physic i symptomati symptomati an s c c 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 of disease of [place] coronary coronary artery artery without without angina angina pectoris pectoris 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 Physic i ans 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, block, ans right right Cerebral Cerebral Problem Active UT infarction infarction Ph ysici , , ans unspecifie unspecifie d d Diabetes Diabetes Problem Active UT Physici ans Hyperlipid Hyperlipid Problem Active U T emia emia Physici ans Left heart Left heart Problem Active U T failure failure Physici ans Primary Primary Problem Active UT hypertensi hypertensi Ph ysici on on ans Atrial Atrial Problem Active UT fibrillati fibrillati Ph ysici on on ans Allergies, Adverse Reactions, Alerts Allergy Allergy Status Severity Reaction(s) Onset Inactive Treating Comm ents Source Name Type Date Date Clinician Penicill Allergy Active Swelling Other UT ins to 07-13 reaction( Health substanc 00:00: s): e 00 Anaphylax is Penicill Allergy Active UT ins to drug Physici (finding ans ) Family History Family Member Diagnosis Comments Start Date Stop Date Source Unknown Family Family history of Family History [facility] Member Coronary Artery Disease Unknown Family Family history of Lung Family History [facility] Member Cancer Sibling Family history of [facility] myocardial infarction Father Family history of [facility] cerebrovascular accident (CVA) Social History Social Habit Start Date Stop Date Quantity Comments Source Exposure to SARS-CoV-2 Not sure [facility] (event) Sex Assigned At [birth year] M [facility] 00:00:00 00:00:00 Smoking Status Start Date Stop Date Source Never smoked tobacco (finding) [facility] Tobacco smoking consumption unknown [facility] Medications Ordered Filled Start Stop Current Ordering Indication Dosage Frequency Signature Comments Components Source Medication Medication Date Date Medication? Clinician (SIG) Name Name traZODone Yes 50mg QD Take 50 mg UT (Desyrel) 3-17 by mouth 1 Heal th 50 MG 12:51: (one) time tablet 10 each day. aspirin 81 Yes 81mg QD Take 81 mg U T MG EC -17 by mouth 1 Health tablet 12:51: (one) time 10 each day. spironolact 2022- No [id number] 25mg QD Take 1 UT one 3-17 03-18 tablet (25 Health (Aldactone) 00:00: 04:59 mg total) 25 MG 00 :00 by mouth 1 tablet (one) time each day. potassium 2022- No [id number] 20meq QD TAKE 1 UT chloride CR 3-12 03-13 TABLET (20 H ealth (K-Tab) 20 00:00: 04:59 MEQ TOTAL) MEQ ER 00 :00 BY MOUTH 1 tablet (ONE) TIME EACH DAY. DO NOT CRUSH, CHEW, OR SPLIT. TAKE ONLY IF TAKING FUROSEMIDE THAT DAY. technetium Yes 4001 8mCi UT Tc-99m 3-10 Health sestamibi 17:22: (Cardiolite 19 ) radio-isoto pe injection 8-18 millicurie technetium 0 Yes 4001 18mCi UT Tc-99m 3-10 Health sestamibi 17:22: (Cardiolite 17 ) radio-isoto pe injection 18-45 millicurie losartan 2021- No [id number] 25mg QD Take 1 UT (Cozaar) 25 3 05-01 tablet (25 H ealth MG tablet 00:00: 04:59 mg total) 00 :00 by mouth 1 (one) time each day. furosemide 2022- No [id number] 20mg Q.5D Take 1 UT (Lasix) 20 18 -19 tablet (20 He alth MG tablet 00:00: 05:59 mg total) 00 :00 by mouth 2 (two) times a day. aspirin 81 Yes 81mg QD Take 81 mg U T MG EC 2-17 by mouth 1 Health tablet 15:48: (one) time 50 each day. traZODone Yes 50mg QD Take 50 mg UT (Desyrel) 17 by mouth 1 Heal th 50 MG 15:13: (one) time tablet 51 each day. metoprolol 2022- No [id number] 25mg QD Take 1 UT succinate 03-25 tablet (25 Hea lth XL 00:00: 05:59 mg total) (Toprol-XL) 00 :00 by mouth 1 25 MG 24 hr (one) time tablet each day. atorvastati 2022- No [id number] 40mg QD Take 1 UT n (Lipitor) 03-25- tablet (40 H ealth 40 MG 00:00: 05:59 mg total) tablet 00 :00 by mouth 1 (one) time each day. furosemide 2022- No [id number] 20mg Q.5D Take 1 UT (Lasix) 20 03-25-18 tablet (20 He alth MG tablet 00:00: 05:59 mg total) 00 :00 by mouth 2 (two) times a day. potassium 2022- No [id number] 20meq QD Take 1 UT chloride CR 03-25- tablet (20 H ealth (K-Tab) 20 00:00: 05:59 mEq total) MEQ ER 00 :00 by mouth 1 tablet (one) time each day. Do not crush, chew, or split. Take only if taking furosemide that day. Xarelto 15 2022- No [id number] 15mg Take 1 UT MG tablet 03-25-18 tablet (15 Hea lth 00:00: 05:59 mg total) 00 :00 by mouth 1 (one) time each day with dinner. metoprolol 2022- No [id number] 25mg QD Take 1 UT succinate -25 03-18 tablet (25 Hea lth XL 00:00: 05:59 mg total) (Toprol-XL) 00 :00 by mouth 1 25 MG 24 hr (one) time tablet each day. atorvastati 2022- No [id number] 40mg QD Take 1 UT n (Lipitor) 03-25-18 tablet (40 H ealth 40 MG 00:00: 05:59 mg total) tablet 00 :00 by mouth 1 (one) time each day. Xarelto 15 2022- No [id number] 15mg Take 1 UT MG tablet 03-25-18 tablet (15 Hea lth 00:00: 05:59 mg total) 00 :00 by mouth 1 (one) time each day with dinner. furosemide 2021- No [id number] 20mg Q.5D Take 1 UT (Lasix) 20 03-25- tablet (20 He alth MG tablet 00:00: 00:00 mg total) 00 :00 by mouth 2 (two) times a day. potassium 2021- No [id number] 20meq QD Take 1 UT chloride CR 03-25- tablet (20 H ealth (K-Tab) 20 00:00: 00:00 mEq total) MEQ ER 00 :00 by mouth 1 tablet (one) time each day. Do not crush, chew, or split. Take only if taking furosemide that day. atorvastati 2021- No [id number] 40mg QD Take 1 UT n (Lipitor) -25 03-17 tablet (40 H ealth 40 MG 00:00: 00:00 mg total) tablet 00 :00 by mouth 1 (one) time each day. Xarelto 15 2021- No [id number] 15mg Take 1 UT MG tablet 03-25-17 tablet (15 Hea lth 00:00: 00:00 mg total) 00 :00 by mouth 1 (one) time each day with dinner. metoprolol No [id number] 25mg QD Take 1 UT succinate 03-25- tablet (25 Hea lth XL 00:00: 00:00 mg total) (Toprol-XL) 00 :00 by mouth 1 25 MG 24 hr (one) time tablet each day. Xarelto 15 2021- No [id number] 15mg Take 1 UT MG tablet 03-25 tablet (15 Hea lth 00:00: 00:00 mg total) 00 :00 by mouth 1 (one) time each day with dinner. carbidopa-l Yes TAKE BY UT evodopa 1-03 MOUTH 2 Health (Sinemet) 00:00: TABLETS 3 25-100 MG 00 TIMES A tablet DAY FOR 90 DAYS donepezil Yes 10mg Take 10 mg UT (Aricept) 1-03 by mouth Health 10 MG 00:00: every tablet 00 night. carbidopa-l Yes TAKE BY UT evodopa 1-03 MOUTH 2 Health (Sinemet) 00:00: TABLETS 3 25-100 MG 00 TIMES A tablet DAY FOR 90 DAYS donepezil Yes 10mg Take 10 mg UT (Aricept) 1-03 by mouth Health 10 MG 00:00: every tablet 00 night. Xarelto 15 2021- No 15mg Take 15 mg UT MG tablet 02-08 by mouth Healt h 00:00: 00:00 every 00 :00 night. metoprolol 2020-02- No 25mg QD Take 25 mg UT succinate 03-29 by mouth 1 Hea lth XL 00:00: 00:00 (one) time (Toprol-XL) 00 :00 each day. 25 MG 24 hr tablet DULoxetine DULoxetine Yes 1 QD TAKE 1 UT HCl - 30 MG HCl - 30 MG 9-26 CAPSULE Physici Oral Oral 00:00: DAILY ans Capsule Capsule 00 Delayed Delayed Release Release Particles Particles Gabapentin Gabapentin 2018-0 Yes Q0.3333D TAKE 1 UT 400 MG Oral 400 MG Oral 9-26 CAPSULE 3 Physici Capsule Capsule 00:00: TIMES ans 00 DAILY. Synthroid Synthroid 2018- Yes 1 QD TAKE 1 U T 75 MCG Oral 75 MCG Oral 9-26 TABLET Physici Tablet Tablet 00:00: DAILY. ans 00 Carbidopa-L Carbidopa-L Yes RAJA 2 Q0.3333D TAKE 2 UT evodopa evodopa 7-03 MEHANNA TABLETS BY Physici 25-100 MG 25-100 MG 00:00: M.D. MOUTH 3 ans Oral Tablet Oral Tablet 00 TIMES DAILY OneTouch OneTouch Yes Brandin QD USE 4 UT Verio In Verio In 7-18 Orlander STRIPS P hysici Vitro Strip Vitro Strip 00:00: M.D. DAILY DX ans 00 CODE E11.9 Fenofibric Fenofibric Yes YENNY 1 QD TAKE 1 UT Acid 45 MG Acid 45 MG 6-18 RAMIREZ CAPSULE BY Physici Oral Oral 00:00: M.D. MOUTH ans Capsule Capsule 00 EVERY DAY Delayed Delayed Release Release Rosuvastati Rosuvastati 2013-02 Yes YENNY TAKE 1 UT n Calcium 5 n Calcium 5 0-17 RAMIREZ TABLET BY Physici MG Oral MG Oral 00:00: M.D. MOUTH ans Tablet Tablet 00 EVERY DAY Xarelto 15 Xarelto 15 Yes YENNY TAKE 1 UT MG Oral MG Oral 7-28 RAMIREZ TABLET BY P hysici Tablet Tablet 00:00: M.D. MOUTH ans 00 EVERYDAY AT BEDTIME Folic Acid Folic Acid Yes YENNY TAKE 1 UT 1 MG Oral 1 MG Oral 6-04 RAMIREZ TABLET BY Physici Tablet Tablet 00:00: M.D. MOUTH ans 00 EVERY DAY Losartan Losartan Yes YENNY TAKE 1 UT Potassium Potassium 5-25 RAMIREZ TABLET BY Physici 100 MG Oral 100 MG Oral 00:00: M.D. MOUTH ans Tablet Tablet 00 EVERY DAY Metoprolol Metoprolol Yes YENNY TAKE 1 UT Succinate Succinate 5-25 RAMIREZ TABLET BY Physici ER 25 MG ER 25 MG 00:00: M.D. MOUTH ans Oral Tablet Oral Tablet 00 EVERY DAY Extended Extended Release 24 Release 24 Hour Hour Aspirin 81 Aspirin 81 Yes UT MG TABS MG TABS Physici ans Immunizations Ordered Immunization Filled Immunization Date Status Commen ts Source Name Name Influenza 2012-01-17 Completed [facility] 00:00:00 Vital Signs Vital Name Observation Time Observation Value Comments Source Systolic blood 2021-04-22 17:51:00 136 mm[Hg] [facility] pressure Diastolic blood 2021-04-22 17:51:00 85 mm[Hg] UT [facility] al[facility] pressure Heart rate 2021-04-22 17:51:00 79 /min [facility] Respiratory rate 2021-04-22 17:51:00 16 /min [facility] Body height 2021-04-22 17:51:00 180.3 cm [facility] Body weight 2021-04-22 17:51:00 82.01 kg [facility] BMI 2021-04-22 17:51:00 25.22 kg/m2 [facility] Oxygen saturation 2021-04-22 17:51:00 91 /min [facility] in Arterial blood by Pulse oximetry Systolic blood 2021-03-25 21:14:00 173 mm[Hg] [facility] l[facility] pressure Diastolic blood 2021-03-25 21:14:00 69 mm[Hg] UT He alth pressure Heart rate 2021-03-25 21:14:00 79 /min [facility] Respiratory rate 2021-03-25 21:14:00 16 /min [facility] e[facility] Body height 2021-03-25 21:14:00 180.3 cm [facility] Body weight 2021-03-25 21:14:00 86.183 kg [facility] BMI 2021-03-25 21:14:00 26.50 kg/m2 [facility] Oxygen saturation 2021-03-25 21:14:00 95 /min [facility] in Arterial blood by Pulse oximetry BP Systolic 2018-11-01 14:14:00 121 mm[Hg] Location: [facility] Position: Sitting BP Diastolic 2018-11-01 14:14:00 68 mm[Hg] Location: [facility]; [facility] Position: Sitting Height 2018-11-01 14:14:00 71 [in_us] [facility] Weight 2018-11-01 14:14:00 193.4 [lb_av] [facility] Body Mass Index 2018-11-01 14:14:00 26.97 kg/m2 [facility] Calculated Heart Rate 2018-11-01 14:14:00 65 /min Location: L [facility] Brachial Artery; O2 SAT 2018-11-01 14:14:00 99 % Source: RA [facility] BP Systolic 2018-05-03 13:55:00 165 mm[Hg] Location: [facility]; [facility] Position: Sitting BP Diastolic 2018-05-03 13:55:00 80 mm[Hg] Location: [facility]; [facility] Position: Sitting Height 2018-05-03 13:55:00 71 [in_us] [facility] Weight 2018-05-03 13:55:00 206.25 [lb_av] [facility] Body Mass Index 2018-05-03 13:55:00 28.77 kg/m2 [facility] Calculated Heart Rate 2018-05-03 13:55:00 73 /min Location: L [facility] Radial; O2 SAT 2018-05-03 13:55:00 95 % Source: RA [facility] BP Systolic 2018-03-16 09:21:00 126 mm[Hg] [facility] BP Diastolic 2018-03-16 09:21:00 68 mm[Hg] [facility] Height 2018-03-16 09:21:00 71 [in_us] [facility] Weight 2018-03-16 09:21:00 202 [lb_av] [facility] Body Mass Index 2018-03-16 09:21:00 28.17 kg/m2 [facility] Calculated Heart Rate 2018-03-16 09:21:00 55 /min [facility] BP Systolic 2017-11-16 11:37:00 119 mm[Hg] Location: [facility]; [facility] Position: Sitting BP Diastolic 2017-11-16 11:37:00 61 mm[Hg] Location: [facility]; [facility] Position: Sitting Height 2017-11-16 11:37:00 71 [in_us] [facility] Weight 2017-11-16 11:37:00 196 [lb_av] [facility] Body Mass Index 2017-11-16 11:37:00 27.34 kg/m2 [facility] Calculated Temperature 2017-11-16 11:37:00 97.8 [degF] [facility] Heart Rate 2017-11-16 11:37:00 51 /min [facility] BP Systolic 2017-11-02 15:00:00 134 mm[Hg] Location: [facility]; [facility] Position: Sitting BP Diastolic 2017-11-02 15:00:00 74 mm[Hg] Location: [facility]; [facility] Position: Sitting Height 2017-11-02 15:00:00 71 [in_us] [facility] Weight 2017-11-02 15:00:00 193.125 [lb_av] [facility] Body Mass Index 2017-11-02 15:00:00 26.94 kg/m2 [facility] Calculated Heart Rate 2017-11-02 15:00:00 75 /min Location: L [facility] Radial; O2 SAT 2017-11-02 15:00:00 96 % Source: RA [facility] BP Systolic 2017-09-28 16:16:00 147 mm[Hg] Location: [facility]; [facility] Position: Sitting BP Diastolic 2017-09-28 16:16:00 78 mm[Hg] Location: [facility]; [facility] Position: Sitting Height 2017-09-28 16:16:00 71 [in_us] [facility] Weight 2017-09-28 16:16:00 192.25 [lb_av] [facility] Body Mass Index 2017-09-28 16:16:00 26.81 kg/m2 [facility] Calculated Temperature 2017-09-28 16:16:00 98.4 [degF] Method: Oral [facility] Heart Rate 2017-09-28 16:16:00 51 /min Location: L [facility] Brachial Artery; O2 SAT 2017-09-28 16:16:00 97 % Source: RA [facility] Procedures Procedure Date / Time Performed Performing Clinician Sourc e [QLH] CBC (INCLUDES 2018-11-01 00:00:00 [facility] DIFF/PLT) [QLH] CMP W/EGFR 2018-11-01 00:00:00 [facility] ns [QLH] CREATINE KINASE, TOTAL 2018-11-01 00:00:00 [facility] [QL] LIPID PANEL 2018-11-01 00:00:00 [facility] [QLH] TSH, 3RD GENERATION 2018-11-01 00:00:00 [facility] [QLH] CBC (INCLUDES 2018-05-03 00:00:00 [facility] DIFF/PLT) [QLH] CMP W/EGFR 2018-05-03 00:00:00 [facility] ns [QLH] CREATINE KINASE, TOTAL 2018-05-03 00:00:00 [facility] [QLH] LIPID PANEL 2018-05-03 00:00:00 [facility] ans [QLH] TSH, 3RD GENERATION 2018-05-03 00:00:00 [facility] W/REFLEX TO FT4 [QLH] CBC (INCLUDES 2017-11-02 00:00:00 [facility] DIFF/PLT) [QLH] CMP W/EGFR 2017-11-02 00:00:00 [facility] ns [QLH] CREATINE KINASE, TOTAL 2017-11-02 00:00:00 [facility] [QLH] LIPID PANEL 2017-11-02 00:00:00 [facility] ans [QLH] TSH, 3RD GENERATION 2017-11-02 00:00:00 [facility] W/REFLEX TO FT4 [QLH] LIPOPROTEIN (a) 2017-11-02 00:00:00 [facility] [QLH] CBC (INCLUDES 2017-09-28 00:00:00 [facility] DIFF/PLT) [QLH] CMP W/EGFR 2017-09-28 00:00:00 [facility] [QLH] TSH, 3RD GENERATION 2017-09-28 00:00:00 [facility] W/REFLEX TO FT4 [QLH] B TYPE NATRIURETIC 2017-09-28 00:00:00 [facility] PEPTIDE (BNP) [N] 2D Echo complete, with 2017-09-28 00:00:00 [facility] Doppler [id number] [QLH] CBC (INCLUDES 2017-09-18 00:00:00 [facility] DIFF/PLT) [QLH] CMP W/EGFR 2017-09-18 00:00:00 [facility] ns [QLH] CREATINE KINASE, TOTAL 2017-09-18 00:00:00 [facility] [QLH] LIPID PANEL 2017-09-18 00:00:00 [facility] [QLH] TSH, 3RD GENERATION 2017-09-18 00:00:00 [facility] CABG [facility] Plan of Care Planned Activity Planned Date Details Comments Source Diagnostic Test 2017-10-26 [N] 2D Echo [facility] Pending 00:00:00 complete, with Doppler 08111 [code = [N] 2D Echo complete, with Doppler 01237] Diagnostic Test 2017-10-26 [N] 2D Echo [facility] Pending 00:00:00 complete, with Doppler [id number] [code = [N] 2D Echo complete, with Doppler 45065] Future Scheduled [QLH] CBC (INCLUDES ONE WEEK BEFORE U [facility] Test DIFF/PLT) [code = 05/03/18 [QLH] CBC (INCLUDES DIFF/PLT)] Future Scheduled [QLH] CMP W/EGFR ONE WEEK BEFORE UT P [facility]ysicians Test [code = [QLH] CMP 05/03/18 W/EGFR] Future Scheduled [QLH] CREATINE ONE WEEK BEFORE [facility] Test KINASE, TOTAL [code 05/03/18 = [QLH] CREATINE KINASE, TOTAL] Future Scheduled [QLH] LIPID PANEL ONE WEEK BEFORE [facility] Test [code = [QLH] LIPID 05/03/18 PANEL] Future Scheduled [QLH] TSH, 3RD ONE WEEK BEFORE [facility] Test GENERATION W/REFLEX 05/03/18 TO FT4 [code = [QLH] TSH, 3RD GENERATION W/REFLEX TO FT4] Future Scheduled [QLH] LIPOPROTEIN ONE WEEK BEFORE [facility] Test (a) [code = [QLH] 05/03/18 LIPOPROTEIN (a)] Future Scheduled [QLH] CBC (INCLUDES ONE WEEK BEFORE U [facility] Test DIFF/PLT) [code = 05/03/18 [QLH] CBC (INCLUDES DIFF/PLT)] Future Scheduled [QLH] CMP W/EGFR ONE WEEK BEFORE UT [facility] Test [code = [QLH] CMP 05/03/18 W/EGFR] Future Scheduled [QLH] CREATINE ONE WEEK BEFORE [facility] Test KINASE, TOTAL [code 05/03/18 = [QLH] CREATINE KINASE, TOTAL] Future Scheduled [QLH] LIPID PANEL ONE WEEK BEFORE [facility] Test [code = [QLH] LIPID 05/03/18 PANEL] Future Scheduled [QLH] TSH, 3RD ONE WEEK BEFORE [facility] Test GENERATION W/REFLEX 05/03/18 TO FT4 [code = [QLH] TSH, 3RD GENERATION W/REFLEX TO FT4] Future Scheduled [QLH] LIPOPROTEIN ONE WEEK BEFORE [facility] Test (a) [code = [QLH] 05/03/18 LIPOPROTEIN (a)] Future Scheduled [QLH] CBC (INCLUDES ONE WEEK BEFORE U [facility] Test DIFF/PLT) [code = SEPT APPT [QLH] CBC (INCLUDES DIFF/PLT)] Future Scheduled [QLH] CMP W/EGFR ONE WEEK BEFORE UT [facility] Test [code = [QLH] CMP SEPT APPT W/EGFR] Future Scheduled [QLH] CREATINE ONE WEEK BEFORE [facility] Test KINASE, TOTAL [code SEPT APPT = [QLH] CREATINE KINASE, TOTAL] Future Scheduled [QLH] LIPID PANEL ONE WEEK BEFORE [facility] Test [code = [QLH] LIPID SEPT APPT PANEL] Future Scheduled [QLH] TSH, 3RD ONE WEEK BEFORE [facility] Test GENERATION W/REFLEX SEPT APPT TO FT4 [code = [QLH] TSH, 3RD GENERATION W/REFLEX TO FT4] Future Scheduled [QLH] CBC (INCLUDES ONE WEEK BEFORE U [facility] Test DIFF/PLT) [code = SEPT APPT [QLH] CBC (INCLUDES DIFF/PLT)] Future Scheduled [QLH] CMP W/EGFR ONE WEEK BEFORE [facility] Test [code = [QLH] CMP SEPT APPT W/EGFR] Future Scheduled [QLH] CREATINE ONE WEEK BEFORE [facility] Test KINASE, TOTAL [code SEPT APPT = [QLH] CREATINE KINASE, TOTAL] Future Scheduled [QLH] LIPID PANEL ONE WEEK BEFORE [facility] Test [code = [QLH] LIPID SEPT APPT PANEL] Future Scheduled [QLH] TSH, 3RD ONE WEEK BEFORE [facility] Test GENERATION W/REFLEX SEPT APPT TO FT4 [code = [QLH] TSH, 3RD GENERATION W/REFLEX TO FT4] Encounters Start End Encounter Admission Attending Care Care Encounter Source Date/Time Date/Time Type Type Clinicians Facility Department ID 2021-07-22 Outpatient RAMIREZ, [facility] [id number] [place] 11:57:17 YENNY [id number] [facility] 2021-07-15 Outpatient RAMIREZ, [facility] [id number] UT 15:52:52 YENNY [id number] [facility] 2021-04-28 Outpatient [facility] [id number] UT 16:34:59 [id number] [facility] 2021-04-22 Outpatient RAMIREZ, [facility] [id number] UT 13:11:23 YENNY [facility] 2021-04-22 Outpatient [facility], [facility] [id number] UT 11:11:08 [facility] Health 2021-04-13 Outpatient [facility] [id number] UT 16:05:55 Health 2021-03-25 Outpatient [facility] [id number] UT 16:10:01 Health 2021-04-22 2021-04-22 Office JAMES Ramirez [id number] [place] 13:00:00 13:11:42 Visit Yenny CAMEJO [id number] Health [id number] 2021-04-08 2021-04-08 Outpatient RUSTY, [facility] [id number] [place] 00:00:00 00:00:[address] 2021-03-27 2021-03-27 Outpatient OJEDA, [facility] [id number] [place] 00:00:00 00:00:00 MIR [address] 2021-03-25 2021-03-25 Office JAMES Ramirez [id number] [place] 15:20:00 16:10:19 Visit Yenny CAMEJO [id number] Health [id number] 2021-03-18 2021-03-18 Outpatient OJEDA, [facility] [id number] [place] 00:00:00 00:00:00 MIR [address] 2021-03-09 2021-03-09 Outpatient OJEDA, [facility] [id number] [place] 00:00:00 00:00:00 MIR [address] 2018-11-01 2018-11-01 [facility] [id number] [place] 14:00:00 14:00:00 t; Trey RAMON M.D. Medical ans FRANCISCO, Center M.D. 2018-07-18 2018-07-18 JAMES Guillermo UTP [id number] [place] 11:30:00 11:30:00 t; Tejas HAMM ans RAJA, M.D. 2018-05-03 2018-05-03 [facility] Cardiology [id number] [place] 14:00:00 14:00:00 t; Donavon RAMON M.D. ans FRANCISCO, M.D. 2018-03-16 2018-03-16 [facility] STEPHANIE, [facility] Neurology [id number] [place] 10:00:00 10:00:00 t; Tejas HAMM ans RAJA, M.D. 2017-11-16 2017-11-16 [facility] STEPHANIE, [facility] Neurology [id number] [place] 11:30:00 11:30:00 t; Tejas HAMM ans RAJA, M.D. 2017-11-02 2017-11-02 [facility] EZEKIELRUST Cardiology [id number] [place] 15:40:00 15:40:00 t; Donavon RAMON M.D. ans FRANCISCO, M.D. 2017-10-26 2017-10-26 [facility] EZEQUIELRUST Cardiology [id number] [place] 13:30:00 13:30:00 t; EZEQUIEL ECHO1 Donavon alan ECHO1 ans 2017-09-28 2017-09-28 [facility] [id number] [place] 15:20:00 15:20:00 t; Donavon RAMON M.D. ans FRANCISCO, M.D. 2017-08-11 2017-08-11 [facility] [id number] [place] 11:00:00 11:00:00 t; [place] HAMM ans RAJA, M.D. 2017-04-05 2017-04-05 [facility] [id number] [place] 14:30:00 14:30:00 t; [place] HAMM ans RAJA, M.D. 2017-01-12 2017-01-12 [facility] [id number] [place] 14:00:00 14:00:00 t; [place] VELARDE ans JOHN, M.D. 2016-12-07 2016-12-07 [facility], UTP UTP [id number] [place] 14:30:00 14:30:00 t; [place] HAMM ans RAJA, M.D. 2016-11-30 2016-11-30 Appointmen STEPHANIE, UTP UTP [id number] [place] 14:30:00 14:30:00 t; Tejas HAMM ans RAJA, M.D. 2016-08-08 2016-08-[facility]IE, UTP UTP [id number] [place] 15:00:00 15:00:00 t; Tejas HAMM ans RAJA, M.D. 2016-06-30 2016-06-30 [facility] [place]EL, UTP UTP [id number] [place] 13:00:00 13:00:00 t; Tejas VELARDE ans JOHN, M.D. 2016-06-23 2016-06-23 [facility] [place], [facility] UTP [id number] [place] 13:30:00 13:30:00 t; Tejas VELARDE ans JOHN, M.D. 2016-03-31 2016-03-31 [facility] RAMIREZ, [facility] UTP [id number] UT 14:00:00 14:00:00 t; Donavon RAMON M.D. ans FRANCISCO, M.D. 2016-01-08 2016-01-08 [facility] [place], [facility] UTP [id number] [place] 14:15:00 14:15:00 t; Everton Ghotra i, M.D. ans Philip, M.D. 2015-12-03 2015-12-03 Appointmen EZEKIEL, UTP UTP [id number] UT 15:20:00 15:20:00 t; Donavon RAMON M.D. ans FRANCISCO, M.D. 2015-08-24 2015-08-24 Appointmen [place], UTP UTP [id number] [place] 15:45:00 15:45:00 t; Everton Ghotra i, M.D. ans Philip, M.D. 2015-07-30 2015-07-30 Appointaugusto RAMIREZ, [facility] UTP [id number] UT 13:40:00 13:40:00 t; Donavon RAMON M.D. ans FRANCISCO, M.D. 2015-03-26 2015-03-26 AppointJAMES [place] UTP [id number] UT 14:20:00 14:20:00 t; Donavon RAMON M.D. ans FRANCISCO, M.D. 2015-03-26 2015-03-26 Appointaugusto NIEVES [facility] UTP [id number] UT 13:00:00 13:00:00 t; BRENNON NIEVES Results Test Description Test Time Test Comments Results Result Comments Source [QL] CBC (INCLUDES DIFF/PLT) 2019-04-01 09:31:01 Test Item Value Reference Range Interpretation Comme nts WBC (test code = 6690-2) 6.3 {K/CMM} 3.7-10.4 RBC; Below Low Threshold (test code = 789-8) 4.17 {M/CMM} 4.70-6.10 Hgb; Below Low Threshold (test code = 718-7) 13.3 g/dl 14.0-18.0 Hct; Below Low Threshold (test code = 30307-9) 39.4 % 42.0-54 .0 MCV; Above High Threshold (test code = 787-2) 94.5 fL 80.0-94. 0 MCH; Above High Threshold (test code = 785-6) 31.8 pg 27.0-31. 0 MCHC (test code = 786-4) 33.6 g/dl 32.0-36.0 RDW (test code = 788-0) 14.3 % 11.5-14.5 Platelet (test code = 04494-0) 225 {K/CMM} 133-450 Mean Platelet Volume (test code = 27888-4) 8.8 fL 7.4-10.4 [facility]] [id number] 09:31:01 Test Item Value Reference Range Interpretation Comments Segmented Neutrophils (test code 65.0 % 45.0-75.0 = 94764-2) Monocytes (test code = 99589-0) 9.7 % 2.0-12.0 Lymphocytes (test code = 87691-9) 21.9 % 20.0-40.0 Eosinophils (test code = 61123-4) 2.8 % 0.0-4.0 Basophils (test code = 706-2) 0.6 % 0.0-1.0 Segs-Bands # (test code = 4.1 {K/CMM} 1.5-8.1 85540-9) Lymphocytes # (test code = 1.4 {K/CMM} 1.0-5.5 52966-2) Monocytes # (test code = 24545-0) 0.6 {K/CMM} 0.0-0.8 Eosinophils # (test code = 0.2 {K/CMM} 0.0-0.5 09527-8) [facility]] CMP [id number] 09:31:01 Test Item Value Reference Range Interpretation Comments Sodium Level 141 {mEq/l} 135-145 (test code = 2951-2) Potassium Level 4.5 {mEq/l} 3.5-5.1 (test code = 2823-3) Chloride Level 109 {mEq/l} 95-109 (test code = 5-0) Carbon Dioxide 27 {mEq/l} 24-32 (test code = 2027-9) AGAP; Below Low 9.5 {mEq/l} 10.0-20.0 Threshold (test code = 11041-8) Glucose Lvl; 59 mg/dl 70-99 Adult reference range Below Low values reflect the Threshold (test clinical mauricio delinesof the code = 2345-7) [employer]. Creatinine Lvl; 1.50 mg/dl 0.50-1.40 Above High Threshold (test code = 2160-0) Blood Urea 23 mg/dl 7-22 Nitrogen; Above High Threshold (test code = 3094-0) BUN/Creatinine 15 6-25 Ratio (test code = 3097-3) Total Protein 7.8 g/dl 6.4-8.4 (test code = 2885-2) Albumin Lvl (test 4.2 g/dl 3.5-5.0 code = 1751-7) Globulin (test 3.6 g/dl 2.7-4.2 code = 08425-2) A/G Ratio (test 1.2 0.7-1.6 code = 1759-0) Calcium Level 9.0 mg/dl 8.5-10.5 Total (test code = 34756-2) ALT (test code = 12 u/l 0-65 1743-4) AST (test code = 19 u/l 0-37 81594-3) Alk Phos; Below 38 u/l 39-136 The pediatri c reference Low Threshold ranges for thi s test (test code = represent a 1783-0) CLSI-basedtrans ference of the CALIPER rishi abase of pediatric refer ence intervals to [facility] [place] analyzer (Clinical Biochemistry 46 (2013): 1467-2363). [facility] [employer] [facility] has not internally validated these reference ranges and therefore they should be used only in th e context of a thoroughcl inical assessment. Bili Total (test 0.7 mg/dl 0.2-1.3 code = 1975-2) eGFR (test code = 42 The eGFR i s calculated 15346-9) {ML/MIN/1.7} using the CKD-E PI formula. In [...] be multiplied by t he estimated BMI. [facility]] CREATINE KINASE, [id number] 09:31:01 Test Item Value Reference Range Interpretation Comments Creatine Kinase (test code = 2157-6) 166 u/l 12-191 [facility]] LIPID [id number] 09:31:01 Test Item Value Reference Range Interpretation Comments Chol (test code = 2093-3) 144 mg/dl <=199 Trig; Above High Threshold (test 163 mg/dl <=149 code = 2571-8) HDL Cholesterol; Below Low 31 mg/dl >=61 Threshold (test code = 2085-9) CHD Risk (test code = 67842-9) 4.65 4.00-7.30 LDL (test code = 61848-7) 80 mg/dl <=99 VLDL (test code = VLDL) 33 [facility]] TSH, 3RD [id number] 09:31:01 Test Item Value Reference Range Interpretation Comments TSH; Above High Threshold 4.950 {uIU/ml} 0.360-3.740 (test code = 09809-1) [facility]] CBC (INCLUDES DIFF/PLT)2018-05-02 08:15:01 Test Item Value Reference Range Interpretation Comments WBC (test code = 6690-2) 5.9 {K/CMM} 3.7-10.4 RBC; Below Low Threshold (test 4.09 {M/CMM} 4.70-6.10 code = 789-8) Hgb; Below Low Threshold (test 13.2 g/dl 14.0-18.0 code = 718-7) Hct; Below Low Threshold (test 39.3 % 42.0-54.0 code = 87791-1) MCV; Above High Threshold (test 96.2 fL 80.0-94.0 code = 787-2) MCH; Above High Threshold (test 32.4 pg 27.0-31.0 code = 785-6) MCHC (test code = 786-4) 33.7 g/dl 32.0-36.0 RDW; Above High Threshold (test 14.8 % 11.5-14.5 code = 788-0) Platelet (test code = 93303-5) 219 {K/CMM} 133-450 Mean Platelet Volume (test code 9.1 fL 7.4-10.4 = 98105-6) [facility]] [id number] 08:15:01 Test Item Value Reference Range Interpretation Comments Segmented Neutrophils (test code 66.8 % 45.0-75.0 = 51071-8) Monocytes (test code = 66307-9) 9.7 % 2.0-12.0 Lymphocytes; Below Low Threshold 18.3 % 20.0-40.0 (test code = 47122-1) Eosinophils; Above High Threshold 4.4 % 0.0-4.0 (test code = 77026-7) Basophils (test code = 706-2) 0.8 % 0.0-1.0 Segs-Bands # (test code = 4.0 {K/CMM} 1.5-8.1 39026-4) Lymphocytes # (test code = 1.1 {K/CMM} 1.0-5.5 89444-5) Monocytes # (test code = 16641-3) 0.6 {K/CMM} 0.0-0.8 Eosinophils # (test code = 0.3 {K/CMM} 0.0-0.5 87946-2) [facility]] CMP [id number] 08:15:01 Test Item Value Reference Range Interpretation Comments Sodium Level 139 {mEq/l} 135-145 (test code = 2951-2) Potassium Level 4.2 {mEq/l} 3.5-5.1 (test code = 2823-3) Chloride Level 103 {mEq/l} 95-109 (test code = 2075-0) Carbon Dioxide 27 {mEq/l} 24-32 (test code = 8-9) AGAP (test code = 13.2 {mEq/l} 10.0-20.0 61295-2) Glucose Lvl; 145 mg/dl 70-99 Adult reference range Above High values reflect the Threshold (test clinical mauricio delinesof the code = 2345-7) [employer]. Creatinine Lvl 1.40 mg/dl 0.50-1.40 (test code = 2160-0) Blood Urea 24 mg/dl 7-22 Nitrogen; Above High Threshold (test code = 3094-0) BUN/Creatinine 17 6-25 Ratio (test code = 3097-3) Total Protein 7.7 g/dl 6.4-8.4 (test code = 2885-2) Albumin Lvl (test 4.4 g/dl 3.5-5.0 code = 1751-7) Globulin (test 3.3 g/dl 2.7-4.2 code = 05199-5) A/G Ratio (test 1.3 0.7-1.6 code = 1759-0) Calcium Level 8.8 mg/dl 8.5-10.5 Total (test code = 72526-1) ALT (test code = 16 u/l 0-65 1743-4) AST (test code = 14 u/l 0-37 11102-5) Bili Total (test 0.4 mg/dl 0.2-1.3 code = 1975-2) Alk Phos (test 41 u/l 39-136 code = 1783-0) eGFR (test code = 45 The eGFR i s calculated 19166-0) {ML/MIN/1.7} using the CKD-E PI formula. In [...] be multiplied by t he estimated BMI. [facility][QL] CREATINE KINASE, [id number] 08:15:01 Test Item Value Reference Range Interpretation Comments Creatine Kinase; Above High Threshold 203 u/l 12-191 (test code = 2157-6) [facility][QL] LIPID [id number] 08:15:01 Test Item Value Reference Range Interpretation Comments Chol (test code = 2093-3) 165 mg/dl <=199 Trig (test code = 2571-8) 119 mg/dl <=149 HDL Cholesterol; Below Low 38 mg/dl >=61 Threshold (test code = 5-9) CHD Risk (test code = 02952-0) 4.34 4.00-7.30 LDL; Above High Threshold (test 103 mg/dl <=99 code = 07604-0) VLDL (test code = VLDL) 24 [facility]] TSH, 3RD [id number] 08:15:01 Test Item Value Reference Range Interpretation Comments TSH; Above High Threshold 25.000 {uIU/ml} 0.360-3.740 (test code = 75464-4) [facility]] LIPOPROTEIN (a)2018-05-02 08:15:01 Test Item Value Reference Range Interpretation Comments Lipoprotein (a) (test 4 nmol/L <75 Note: Values greater code = Lipoprotein (a)) than or equal to 75 nmol/L may susan lyndsey an independent ris k factor for CHD, but must be evaluat ed with caution when ap plied to non-[place] n populations due to the influence of ge netic factors on Lp(a ) across ethnicities.Per formed At: [facility] [address] [id number] ra Tamara SIMS Ph:[phone] [facility]] CMP [id number] 10:32:01 Test Item Value Reference Range Interpretation Comments Sodium Level 139 {mEq/l} 135-145 (test code = 2951-2) Potassium Level 4.3 {mEq/l} 3.5-5.1 (test code = 2823-3) Chloride Level 106 {mEq/l} 95-109 (test code = 5-0) Carbon Dioxide; 22 {mEq/l} 24-32 Below Low Threshold (test code = 2027-9) AGAP (test code = 15.3 {mEq/l} 10.0-20.0 24924-6) Glucose Lvl; 108 mg/dl 70-99 Adult reference range Above High values reflect the Threshold (test clinical mauricio delinesof the code = 2345-7) [employer]. Creatinine Lvl; 1.60 mg/dl 0.50-1.40 Above High Threshold (test code = 2160-0) Blood Urea 29 mg/dl 7-22 Nitrogen; Above High Threshold (test code = 3094-0) BUN/Creatinine 18 6-25 Ratio (test code = 3097-3) Total Protein 7.7 g/dl 6.4-8.4 (test code = 2885-2) Albumin Lvl (test 4.3 g/dl 3.5-5.0 code = 1751-7) Globulin (test 3.4 g/dl 2.7-4.2 code = 45533-2) A/G Ratio (test 1.3 0.7-1.6 code = 1759-0) Calcium Level 9.1 mg/dl 8.5-10.5 Total (test code = 37544-1) ALT (test code = 22 u/l 0-65 1743-4) AST (test code = 14 u/l 0-37 03191-3) Alk Phos; Below 34 u/l 39-136 Low Threshold (test code = 1783-0) Bili Total (test 0.5 mg/dl 0.2-1.3 code = 1974-) eGFR (test code = 39 The eGFR i s calculated 24170-6) {ML/MIN/1.7} using the CKD-E PI formula. In [...] be multiplied by t he estimated BMI. [facility]] TSH, 3RD GENERATION W/REFLEX TO [id number] 10:32:01 Test Item Value Reference Range Interpretation Comments TSH; Above High Threshold 11.300 {uIU/ml} 0.360-3.740 (test code = 62808-8) [facility][QL] CBC (INCLUDES DIFF/PLT)2017-10-26 10:32:01 Test Item Value Reference Range Interpretation Comments WBC (test code = 6690-2) 5.6 {K/CMM} 3.7-10.4 RBC; Below Low Threshold (test 4.30 {M/CMM} 4.70-6.10 code = 789-8) Hgb; Below Low Threshold (test 13.5 g/dl 14.0-18.0 code = 718-7) Hct; Below Low Threshold (test 39.6 % 42.0-54.0 code = 85547-7) MCV (test code = 787-2) 92.2 fL 80.0-94.0 MCH; Above High Threshold (test 31.3 pg 27.0-31.0 code = 785-6) MCHC (test code = 786-4) 34.0 g/dl 32.0-36.0 RDW; Above High Threshold (test 15.2 % 11.5-14.5 code = 788-0) Platelet (test code = 98998-7) 243 {K/CMM} 133-450 Mean Platelet Volume (test code 9.1 fL 7.4-10.4 = 06430-2) [facility]] [id number] 10:32:01 Test Item Value Reference Range Interpretation Comments Segmented Neutrophils (test code 61.6 % 45.0-75.0 = 82133-1) Monocytes (test code = 14370-3) 9.9 % 2.0-12.0 Lymphocytes (test code = 42939-3) 24.5 % 20.0-40.0 Eosinophils (test code = 36161-8) 3.5 % 0.0-4.0 Basophils (test code = 706-2) 0.5 % 0.0-1.0 Segs-Bands # (test code = 3.5 {K/CMM} 1.5-8.1 58313-7) Lymphocytes # (test code = 1.4 {K/CMM} 1.0-5.5 77718-4) Monocytes # (test code = 12626-3) 0.6 {K/CMM} 0.0-0.8 Eosinophils # (test code = 0.2 {K/CMM} 0.0-0.5 60862-5) [facility]] T4, [id number] 10:32:01 Test Item Value Reference Range Interpretation Comments T4 Free; Below Low Threshold (test 0.63 ng/dl 0.76-1.46 code = 3024-7) [facility]] B TYPE NATRIURETIC PEPTIDE (BNP)2017-10-26 10:32:01 Test Item Value Reference Range Interpretation Comments Natriuretic Peptide; 184 pg/ml <=100 Elevate d results are Above High Threshold in line with (test code = 74662-5) increa sing severity ofcongestive he art failure. Minor elevations betw een 100 and 300may be s een with Myocardial Ischemia, Sodiu m retaining drugs ,and compensated/maria de jesus ated heart failure. [facility]] CBC (INCLUDES DIFF/PLT)2017-09-19 10:06:01 Test Item Value Reference Range Interpretation Comments WBC (test code = 6690-2) 6.5 {K/CMM} 3.7-10.4 RBC; Below Low Threshold (test 4.28 {M/CMM} 4.70-6.10 code = 789-8) Hgb; Below Low Threshold (test 13.3 g/dl 14.0-18.0 code = 718-7) Hct; Below Low Threshold (test 39.6 % 42.0-54.0 code = 35738-8) MCV (test code = 787-2) 92.5 fL 80.0-94.0 MCH; Above High Threshold (test 31.1 pg 27.0-31.0 code = 785-6) MCHC (test code = 786-4) 33.6 g/dl 32.0-36.0 RDW; Above High Threshold (test 15.4 % 11.5-14.5 code = 788-0) Platelet (test code = 06873-9) 273 {K/CMM} 133-450 Mean Platelet Volume (test code 8.8 fL 7.4-10.4 = 62500-7) [facility]] [id number] 10:06:01 Test Item Value Reference Range Interpretation Comments Segmented Neutrophils (test code 60.9 % 45.0-75.0 = 95510-8) Monocytes (test code = 85076-7) 8.9 % 2.0-12.0 Lymphocytes (test code = 11650-0) 27.4 % 20.0-40.0 Eosinophils (test code = 39207-1) 2.4 % 0.0-4.0 Basophils (test code = 706-2) 0.4 % 0.0-1.0 Segs-Bands # (test code = 4.0 {K/CMM} 1.5-8.1 31802-3) Lymphocytes # (test code = 1.8 {K/CMM} 1.0-5.5 62950-3) Monocytes # (test code = 11470-9) 0.6 {K/CMM} 0.0-0.8 Eosinophils # (test code = 0.2 {K/CMM} 0.0-0.5 33915-9) [facility]] CMP [id number] 10:06:01 Test Item Value Reference Range Interpretation Comments Sodium Level 139 {mEq/l} 135-145 (test code = 2951-2) Potassium Level 4.5 {mEq/l} 3.5-5.1 (test code = 2823-3) Chloride Level 107 {mEq/l} 95-109 (test code = 5-0) Carbon Dioxide 25 {mEq/l} 24-32 (test code = 2027-9) AGAP (test code = 11.5 {mEq/l} 10.0-20.0 57270-7) Glucose Lvl; 107 mg/dl 70-99 Adult reference range Above High values reflect the Threshold (test clinical mauricio delinesof the code = 2345-7) [employer]. Creatinine Lvl; 1.80 mg/dl 0.50-1.40 Above High Threshold (test code = 2160-0) Blood Urea 26 mg/dl 7-22 Nitrogen; Above High Threshold (test code = 3094-0) BUN/Creatinine 14 6-25 Ratio (test code = 3097-3) Total Protein 8.1 g/dl 6.4-8.4 (test code = 2885-2) Albumin Lvl (test 4.3 g/dl 3.5-5.0 code = 1751-7) Globulin (test 3.8 g/dl 2.7-4.2 code = 48601-4) A/G Ratio (test 1.1 0.7-1.6 code = 1759-0) Calcium Level 9.3 mg/dl 8.5-10.5 Total (test code = 61701-9) ALT (test code = 20 u/l 0-65 1743-4) AST (test code = 17 u/l 0-37 10233-0) Alk Phos (test 40 u/l 39-136 code = 1783-0) Bili Total (test 0.6 mg/dl 0.2-1.3 code = 1974-) eGFR (test code = 34 The eGFR i s calculated 55390-0) {ML/MIN/1.7} using the CKD-E PI formula. In [...] Kidney Disease Education Progr am(NKDEP) which darryl la recommends that when the eGFR is used in patientswith ex tremes of body mass index for purposes of john g dosing, the eGFR should be multiplied by t he estimated BMI. [facility]] CREATINE KINASE, [id number] 10:06:01 Test Item Value Reference Range Interpretation Comments Creatine Kinase; Above High Threshold 253 u/l 12-191 (test code = 2157-6) [facility]] LIPID [id number] 10:06:01 Test Item Value Reference Range Interpretation Comments Chol (test code = 3-3) 170 mg/dl <=199 Trig (test code = 2571-8) 148 mg/dl <=149 HDL Cholesterol; Below Low 38 mg/dl >=61 Threshold (test code = 5-9) CHD Risk (test code = 42650-7) 4.47 4.00-7.30 LDL; Above High Threshold (test 102 mg/dl <=99 code = 56604-1) VLDL (test code = VLDL) 30 [facility]] TSH, 3RD [id number] 10:06:01 Test Item Value Reference Range Interpretation Comments TSH; Above High Threshold 7.270 {uIU/ml} 0.360-3.740 (test code = 39282-8) [facility]
--- NOTE | 2021-09-14 13:08 | RAD REPORT ---
EXAM DESCRIPTION: CT - Head C Spine Cap Wo Con - 09/14/2021 12:52 pm CLINICAL HISTORY: Trauma, head and neck injury. Chest, abdomen and pelvis pain. FALL COMPARISON: No comparisons TECHNIQUE: CT head without contrast. CT cervical spine without contrast with coronal and sagittal reformatted images. CT chest, abdomen and pelvis without contrast with coronal and sagittal reformatted images of the [facility] [place]. All CT scans are performed using dose optimization technique as appropriate and may include automated exposure control or mA/KV adjustment according to patient size. FINDINGS: CT HEAD WITHOUT CONTRAST: No intracranial hemorrhage, hydrocephalus or extra-axial fluid collection. Advanced generalized brain atrophy is present with moderate periventricular and deep white matter chronic microvascular ischemi c changes. No areas of brain edema or midline shift. The paranasal sinuses and mastoids are clear. The calvarium is intact. Heavy vertebral atherosclerosi s. CT CERVICAL SPINE WITHOUT CONTRAST: No fracture or traumatic subluxation. Degenerative anterolisthesis of C4 on 5 x 4 mm is suspected. Mo derate lower cervical degenerative changes with posterior osteophyte. The prevertebral soft tissues a re normal in thickness.Bilateral carotid atherosclerosis. CT CHEST, ABDOMEN, PELVIS WITHOUT CONTRAST: NOTE: Lack of contrast is a significant limitation in the assessment of trauma related findings. Spec ifically, solid organ, vascular and bowel evaluation is significantly limited. 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 No evidence of intra-abdominal visceral injury, free fluid or free air is seen within the above detai led limitations. Low-density hepatic lesions most compatible with cysts. Right lower quadrant ostomy. Moderate fat containing right inguinal hernia. No concerning pelvic findings. Moderate spinal degenerative changes. Aortic atherosclerosis. No acute fracture is seen. IMPRESSION: Negative for acute traumatic findings within the above detailed limitations.
[2021-09-14 13:13] LABS: Absolute Lymphocytes (CBC) 1.2 K/uL (0.7-4.9); Hematocrit 44.3 % (39.6-49.0); Lymphocytes % 13.1 % (15.3-44.8); MCV 91.6 fL (80-100); MPV 8.7 fL (7.6-11.3); RBC Red Blood Cell Count 4.84 M/uL (4.33-5.43)
[2021-09-14 13:14] LABS: Protime INR 1.73
[2021-09-14] MEDS ORDERED: NA CHLORIDE 0.9% 500 ML ONE (13:20)
[2021-09-14] MEDS ORDERED: FOLIC ACID 5 MG/ML VIAL ONE (13:20)
[2021-09-14] MEDS ORDERED: NA CHLORIDE 0.9% 1,000 ML ONE (13:21)
[2021-09-14 13:29] LABS: SARS-CoV-2 Antigen Rapid Res Negative (Negative)
[2021-09-14 13:31] LABS: Albumin 3.6 g/dL (3.4-5.0); Bilirubin Direct 0.3 mg/dL (0-0.2); Magnesium 1.9 mg/dL (1.8-2.4); Potassium 4.5 mmol/L (3.5-5.1); Protein, Total 7.1 g/dL (6.4-8.2); Troponin High Sensitivity 14.7 pg/mL (<58.9)
--- NOTE | 2021-09-14 14:07 | RAD REPORT ---
EXAM DESCRIPTION: RAD - Chest Single View - 09/14/2021 1:51 pm CLINICAL HISTORY: COUGH Chest pain. COMPARISON: Chest Single View dated 05/15/2021; Chest Single View dated 05/14/2021; Chest Pa And Lat (2 Views) dated 08/24/2020; Chest Pa And Lat (2 Views) dated 07/27/2020 FINDINGS: Portable technique limits examination quality. The lungs are mildly emphysematous but grossly clear. The heart is mildly enlarged in size. 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
[2021-09-14 14:50] LABS: Urine Blood 3+ (Negative); Urine Glucose Negative (Negative); Urine Protein Negative (Negative); Urine Specific Gravity >=1.030 (1.005-1.030); Urine pH 5.5 (5.0-7.0)
--- NOTE | 2021-09-14 15:23 | EDPHYS ---
Physician Documentation [facility] Name: Brodie Hernadez Age: 86 yrs Sex: Male : 1935 Arrival Date: 09/14/2021 Time: 12:43 Bed 13 Private MD: ED Physician Jayden Rich HPI: 09/14 15:14 This 86 yrs old Male presents to ER via EMS with complaints of S/S of tamara Possible Stroke, Fall Injury. Historical: - Allergies: 13:22 PENICILLINS; eh3 - Home Meds: 13:22 Xarelto 15 mg oral tab 1 tab once daily [Active]; spironolactone 25 mg Oral tab 1 tab eh3 once daily [Active]; atorvastatin 40 mg oral tab 1 tab once daily [Active]; metoprolol succinate 25 mg oral Tb24 1 tab once daily [Active]; furosemide 20 mg Oral tab 1 tab 2 times per day [Active]; Entresto 24-26 mg oral tab 1 tab 2 times per day [Active]; carbidopa-levodopa 25-100 mg Oral tab 2 tabs 3 times per day [Active]; pramipexole 0.125 mg oral tab 1 tab 3 times per day [Active]; trazodone 50 mg Oral tab 1 tab once daily [Active]; donepezil 10 mg oral tab 1 tab once daily [Active]; Xarelto 15 mg oral tab 1 tab once daily [Active]; - PMHx: 13:22 asbestosis; Atrial Fib; CAD; Congestive heart failure; Hypertension; ulcerative eh3 colitis; Parkinson's disease; - Immunization history:: Adult Immunizations up to date. - Social history:: Smoking status: Patient denies any tobacco usage or history of. Patient/guardian denies using alcohol, street drugs. ROS: 15:16 Constitutional: Negative for fever, chills, and weight loss, Eyes: Negative for injury, tamara pain, redness, and discharge, ENT: Negative for injury, pain, and discharge, Neck: Negative for injury, pain, and swelling, Respiratory: Negative for shortness of breath, cough, wheezing, and pleuritic chest pain, Abdomen/GI: Negative for abdominal pain, nausea, vomiting, diarrhea, and constipation, Back: Negative for injury and pain, : Negative for injury, bleeding, discharge, and swelling, MS/Extremity: Negative for injury and deformity, Skin: Negative for injury, rash, and discoloration, Psych: Negative for depression, anxiety, suicide ideation, homicidal ideation, and hallucinations, Allergy/Immunology: Negative for hives, rash, and allergies, Endocrine: Negative for neck swelling, polydipsia, polyuria, polyphagia, and marked weight changes, Hematologic/Lymphatic: Negative for swollen nodes, abnormal bleeding, and unusual bruising. 15:16 Cardiovascular: Positive for palpitations. 15:16 Neuro: Positive for dizziness, weakness, of the right leg. Exam: 15:16 Radiologist reports: ROBERT mcdonald 15:16 Constitutional: This is a well developed, well nourished patient who is awake, alert, and in no acute distress. Head/Face: Normocephalic, atraumatic. Eyes: Pupils equal round and reactive to light, extra-ocular motions intact. Lids and lashes normal. Conjunctiva and sclera are non-icteric and not injected. Cornea within normal limits. Periorbital areas with no swelling, redness, or edema. ENT: Nares patent. No nasal discharge, no septal abnormalities noted. Tympanic membranes are normal and external auditory canals are clear. Oropharynx with no redness, swelling, or masses, exudates, or evidence of obstruction, uvula midline. Mucous membranes moist. Neck: Trachea midline, no thyromegaly or masses palpated, and no cervical lymphadenopathy. Supple, full range of motion without nuchal rigidity, or vertebral point tenderness. No Meningismus. Chest/axilla: Normal chest wall appearance and motion. Nontender with no deformity. No lesions are appreciated. Cardiovascular: Regular rate and rhythm with a normal S1 and S2. No gallops, murmurs, or rubs. Normal PMI, no JVD. No pulse deficits. Respiratory: Lungs have equal breath sounds bilaterally, clear to auscultation and percussion. No rales, rhonchi or wheezes noted. No increased work of breathing, no retractions or nasal flaring. Abdomen/GI: Soft, non-tender, with normal bowel sounds. No distension or tympany. No guarding or rebound. No evidence of tenderness throughout. Back: No spinal tenderness. No costovertebral tenderness. Full range of motion. Male : Normal genitalia with no discharge or lesions. MS/ Extremity: Pulses equal, no cyanosis. Neurovascular intact. Full, normal range of motion. Psych: Awake, alert, with orientation to person, place and time. Behavior, mood, and affect are within normal limits. 15:16 Skin: induration, injury, abrasion(s), moderate sized abrasion noted. 15:22 ECG was reviewed by the Attending Physician. [facility] Vital Signs: 12:51 BP 116 / 56; Pulse 70; Resp 15; Temp 97.6; Pulse Ox 95% on R/A; Weight 74.84 kg; Height eh3 5 ft. 10 in. (177.80 cm); Pain 0/10; 13:16 BP 147 / 80; Pulse 83; Resp 15; Pulse Ox 96% on R/A; Pain 0/10; eh3 13:45 BP 123 / 64; Pulse 77; Resp 19; Pulse Ox 96% on R/A; Pain 0/10; eh3 14:45 BP 128 / 42; Pulse 90; Resp 18; Pulse Ox 94% on R/A; Pain 0/10; eh3 16:21 BP 122 / 109; Pulse 92; Resp 18; Pulse Ox 94% on R/A; ld1 20:45 BP 116 / 98; Pulse 97; Resp 17; Pulse Ox 92% ; Pain 0/10; ke1 12:51 Body Mass Index 23.67 (74.84 kg, 177.80 cm) 3 NIH Stroke Scale Scores: 13:08 NIHSS Score: 2 eh3 15:43 NIHSS Score: 2 tamara Deming Coma Score: 15:23 Eye Response: spontaneous(4). Verbal Response: oriented(5). Motor Response: obeys tamara commands(6). Total: 15. MDM: 12:43 Patient medically screened. tamara 15:19 Differential diagnosis: CVA, TIA. Data reviewed: vital signs, nurses notes, lab test [facility] result(s), EKG, radiologic studies, CT scan, MRI, plain films. 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 Test interpretation: by ED physician or midlevel provider: ECG, plain radiologic studies. Counseling: I had a detailed discussion with the patient and/or guardian regarding: the historical points, exam findings, and any diagnostic results supporting the discharge/admit diagnosis, lab results, radiology results, the need for further work-up and treatment in the hospital. 15:23 ED course: 615AM RIGHT LEG WEAKNESS, ER ARRIVAL 1243 PM, ON XARELTO. [facility] 09/14 12:46 Order name: Basic Metabolic Panel; Complete Time: 13:53 [facility] 09/14 12:46 Order name: CBC with Diff; Complete Time: 13:53 [facility] 09/14 12:46 Order name: LFT's; Complete Time: 13:53 [facility] 09/14 12:46 Order name: Magnesium; Complete Time: 13:53 [facility] 09/14 12:46 Order name: NT PRO-BNP; Complete Time: 13:53 [facility] 09/14 12:46 Order name: PT-INR; Complete Time: 13:53 [facility] 09/14 12:46 Order name: Troponin HS; Complete Time: 13:53 [facility] 09/14 12:46 Order name: XRAY Chest (1 view); Complete Time: 15:14 [facility] 09/14 12:46 Order name: Lipase; Complete Time: 13:53 [facility] 09/14 12:46 Order name: SARS RAPID; Complete Time: 13:53 [facility] 09/14 12:51 Order name: Head C Spine Cap Wo Con; Complete Time: 13:53 [facility] 09/14 13:20 Order name: Glucose, Ancillary Testing; Complete Time: 13:53 [facility] 09/14 14:51 Order name: Urine Dipstick-Ancillary; Complete Time: 15:14 [facility] 09/14 12:46 Order name: EKG; Complete Time: 12:50 [facility] 09/14 12:46 Order name: Cardiac monitoring; Complete Time: 13:10 [facility] 09/14 12:46 Order name: EKG - Nurse/Tech; Complete Time: 13:10 [facility] 09/14 12:46 Order name: IV Saline Lock; Complete Time: 13:18 [facility] 09/14 12:46 Order name: Labs collected and sent; Complete Time: 13:19 [facility] 09/14 12:46 Order name: O2 Per Protocol; Complete Time: 13:10 [facility] 09/14 15:14 Order name: MRI Stroke Protocol [facility] 09/14 15:27 Order name: Carotid Artery Bilateral US; Complete Time: 19:00 09/14 15:32 Order name: CONS Physician Consult [facility] 09/14 18:17 Order name: MRI; Complete Time: 19:00 [facility] 09/14 12:46 Order name: O2 Sat Monitoring; Complete Time: 13:10 [facility] 09/14 12:46 Order name: Urine Dipstick-Ancillary (obtain specimen); Complete Time: 14:48 [facility] 09/14 15:19 Order name: Wound Care; Complete Time: 17:08 [facility] 09/14 15:25 Order name: Misc. Order: CLEAN AND DRESS ALL WOUNDS; Complete Time: 17:42 [facility] EC: Rate is 88 beats/min. Rhythm is irregularly irregular. QRS [place] is Normal. FL interval tamara is normal. QRS interval is normal. QT interval is normal. No Q waves. T waves are Inverted in leads II, III, aVF, V3, V4, V5, V6. Administered Medications: 13:18 Drug: foLIC Acid 1 mg Route: IVPB; Site: right antecubital; ld1 13:18 Drug: NS 0.9% 500 ml Route: IV; Rate: bolus; Site: right antecubital; ld1 13:18 Drug: NS 0.9% 1000 ml Route: IV; Rate: 125 ml/hr; Site: right antecubital; ld1 16:13 Drug: Ancef (cefazolin) 1 grams Route: IVPB; Site: right forearm; eh3 16:13 Drug: Tetanus Toxoid,Adsorbed 0.5 ml {Trans Router: GetBack. Exp: 06/12/2023. Lot 3 #: [id number]. } Route: IM; Site: right deltoid; 19:08 Follow up: Response: (VIS) Vaccine information sheet provided today. Questions and/or 3 concerns addressed. VIS edition date: Sep 11, 2020.; No adverse reaction 16:13 Drug: Xarelto (rivaroxaban) 15 mg Route: PO; eh3 19:08 Follow up: Response: No adverse reaction eh3 Point of Care Testing: Blood Glucose: 13:13 Blood Glucose: 180 mg/dL; Test Strip: Lot #: [id number]; Expiration: 10/06/2022; 3 Ranges: Critical Glucose Levels:Adult <50 mg/dl or >400 mg/dl <40 mg/dl or >180 mg/dl Disposition Summary: 09/14/21 15:22 Hospitalization Ordered Hospitalization Status: Inpatient Admission tamara Provider: Darrick Hyatt cha Location: Telemetry/MedSurg (Inpatient) tamara Condition: Fair tamara Problem: new tamara Symptoms: have improved tamara Bed/Room Type: Standard [facility] Room Assignment: 221(09/14/21 19:56) cg Diagnosis - Chronic atrial fibrillation tamara - Fall on same level, unspecified tamara - Cerebral infarction, unspecified tamara - Contusion of knee tamara - Abrasion, left knee tamara - Abrasion, right knee tamara - Abrasion of other part of head tamara - COPD/ Chronic obstructive pulmonary disease, unspecified tamara Forms: - Medication Reconciliation Form tamara - SBAR form tamara NIH Stroke Scale - NIH Stroke Score Date: 09/14/2021 Time: 13:08 Total Score = 2 1a. Level of Consciousness (LOC) - 0(Alert) 1b. Level of Consciousness (LOC) (Month \T\ Age) - 0(Both) 1c. LOC Commands (Open \T\ Closes Eyes/Cessation Systems Outreach Specialist) - 0(Both) 2. Best Gaze (Lateral Gaze Paresis) - 0(Normal) 3. Visual Field Loss - 0(No visual loss) 4. Facial Palsy - 0(Normal) 5a. Left Arm: Motor (10-second hold) - 0(No drift) 5b. Right Arm: Motor (10-second hold) - 0(No drift) 6a. Left Leg: Motor (5-second hold - always test supine) - 0(No drift) 6b. Right Leg: Motor (5-second hold - always test supine) - 0(No drift) 7. Limb Ataxia (finger/nose \T\ heel/borden - test with eyes open) - 0(Absent) 8. Sensory Loss (pinprick arms/legs/face) - 2(Severe to total loss) 9. Best Language: Aphasia (description/naming/reading) - 0(No aphasia) 10. Dysarthria (speech clarity - read or repeat words) - 0(Normal) 11. Extinction and Inattention (visual/tactile/auditory/spatial/personal) - 0(No abnormality) Initials: eh3 NIH Stroke Scale - NIH Stroke Score Date: 09/14/2021 Time: 15:43 Total Score = 2 1a. Level of Consciousness (LOC) - 0(Alert) 1b. Level of Consciousness (LOC) (Month \T\ Age) - 0(Both) 1c. LOC Commands (Open \T\ Closes Eyes/Cessation Systems Outreach Specialist) - 0(Both) 2. Best Gaze (Lateral Gaze Paresis) - 0(Normal) 3. Visual Field Loss - 0(No visual loss) 4. Facial Palsy - 0(Normal) 5a. Left Arm: Motor (10-second hold) - 0(No drift) 5b. Right Arm: Motor (10-second hold) - 0(No drift) 6a. Left Leg: Motor (5-second hold - always test supine) - 0(No drift) 6b. Right Leg: Motor (5-second hold - always test supine) - 1(Drift) 7. Limb Ataxia (finger/nose \T\ heel/borden - test with eyes open) - 1(Present in one limb) 8. Sensory Loss (pinprick arms/legs/face) - 0(Normal) 9. Best Language: Aphasia (description/naming/reading) - 0(No aphasia) 10. Dysarthria (speech clarity - read or repeat words) - 0(Normal) 11. Extinction and Inattention (visual/tactile/auditory/spatial/personal) - 0(No abnormality) Initials: [facility] Signatures: Dispatcher [employer] EDCO Jayden Rich MD MD cha Garcia, Cindy, RN RN cg Yola Jerry, RN RN ld1 Vilma Pickering, SUE RN eh3 Corrections: (The following items were deleted from the chart) 12:57 12:54 Head C Spine Cap Wo Con+CT.RAD.BRZ ordered. [facility] EDCO 15:16 15:15 Social history: Smoking status: Patient denies any tobacco usage or 3 history of. Patient/guardian denies using alcohol, street drugs, eh3 19:56 15:22 [facility][note 2]
--- NOTE | 2021-09-14 15:23 | ER ---
Nurse's Notes [facility] Name: Brodie Hernadez Age: 86 yrs Sex: Male : 1935 Arrival Date: 09/14/2021 Time: 12:43 Bed 13 Private MD: Diagnosis: Chronic atrial fibrillation;Fall on same level, unspecified;Cerebral infarction, unspecified;Contusion of knee;Abrasion, left knee;Abrasion, right knee;Abrasion of other part of head;COPD/ Chronic obstructive pulmonary disease, unspecified Presentation: 09/14 12:51 No acute neurological deficit is noted. The patients blood glucose was checked prior to 3 arriving to the hospital and was found to be hyperglycemic. The charge nurse has been notified. Initial Sepsis Screen: Does the patient meet any 2 criteria? No. Patient's initial sepsis screen is negative. Does the patient have a suspected source of infection? No. Patient's initial sepsis screen is negative. Risk Assessment: Do you want to hurt yourself or someone else? Patient reports no desire to harm self or others. Onset of symptoms is unknown. 12:51 Acuity: VLADIMIR 2 3 12:51 Coronavirus screen: Vaccine status: Patient reports being unvaccinated. [facility] 13:17 Chief complaint: Patient states: R side weakness and tremors since waking up at 0730 3 today. Coronavirus screen:. Ebola Screen: No symptoms or risks identified at this time. 13:17 Method Of Arrival: EMS: [place] [id number] Triage Assessment: 13:22 The onset of the patients symptoms was September 14, 2021 at 07:30. General: Appears in no 3 apparent distress. comfortable, Behavior is calm, cooperative, appropriate for age. Pain: Denies pain. Neuro: Level of Consciousness is awake, alert, obeys commands, Oriented to person, place, time, situation, Mess Attendant are equal bilaterally Moves all extremities. Gait is unsteady, Speech is normal, Facial symmetry appears normal, Pupils are PERRLA, Numbness in left hand, left foot, left arm and left leg Reports numbness weakness in right hand, right foot, right arm and right leg. Cardiovascular: Capillary refill < 3 seconds Patient's skin is warm and dry. Respiratory: Airway is patent Respiratory effort is even, unlabored. GI: No signs and/or symptoms were reported involving the gastrointestinal system. : No signs and/or symptoms were reported regarding the genitourinary system. Derm: No signs and/or symptoms reported regarding the dermatologic system. Musculoskeletal: Capillary refill < 3 seconds, Range of motion: intact in all extremities. Injury Description: Bruise Laceration sustained to forehead, right eye and right cheek. Stroke Activation: Symptom onset > 6 hours Physician: Stroke Attending; Name: ; Notified At: 12:42; Arrived At: Physician: Chief Stroke Resident; Name: ; Notified At: 12:42; Arrived At: Physician: Stroke Resident; Name: ; Notified At: 12:42; Arrived At: Physician: ED Attending; Name: ; Notified At: 12:42; Arrived At: Physician: ED Resident; Name: ; Notified At: 12:42; Arrived At: Historical: - Allergies: 13:22 PENICILLINS; eh3 - Home Meds: 13:22 Xarelto 15 mg oral tab 1 tab once daily [Active]; spironolactone 25 mg Oral tab 1 tab eh3 once daily [Active]; atorvastatin 40 mg oral tab 1 tab once daily [Active]; metoprolol succinate 25 mg oral Tb24 1 tab once daily [Active]; furosemide 20 mg Oral tab 1 tab 2 times per day [Active]; Entresto 24-26 mg oral tab 1 tab 2 times per day [Active]; carbidopa-levodopa 25-100 mg Oral tab 2 tabs 3 times per day [Active]; pramipexole 0.125 mg oral tab 1 tab 3 times per day [Active]; trazodone 50 mg Oral tab 1 tab once daily [Active]; donepezil 10 mg oral tab 1 tab once daily [Active]; Xarelto 15 mg oral tab 1 tab once daily [Active]; - PMHx: 13:22 asbestosis; Atrial Fib; CAD; Congestive heart failure; Hypertension; ulcerative eh3 colitis; Parkinson's disease; - Immunization history:: Adult Immunizations up to date. - Social history:: Smoking status: Patient denies any tobacco usage or history of. Patient/guardian denies using alcohol, street drugs. Screenin:06 Abuse screen: Denies threats or abuse. Denies injuries from another. eh3 15:20 Nutritional screening: No deficits noted. Tuberculosis screening: No symptoms or risk eh3 factors identified. Fall Risk Fall in past 12 months (25 points). Secondary diagnosis (15 points) IV access (20 points). Ambulatory Aid- None/Bed Rest/Nurse Assist (0 pts). Gait- Weak (10 pts.). Mental Status- Oriented to own ability (0 pts). Total Knapp Fall Scale indicates High Risk Score (45 or more points). Fall prevention measures have been instituted. Side Rails Up X 2 Placed Close to Nursing Station Frequent Obs/Assessments Occuring Family Present and informed to notify staff if the need to leave the bedside As available patient and family educated on Fall Prevention Program and Strategies. Assessment: 13:08 VAN Scoring: Arm Drift: Patients demonstrates NO arm weakness. Patient is VAN Negative. eh3 Visual Disturbance: No visual disturbance noted. Aphasia: No aphasia noted. Neglect: Patient is noted to be ignoring one of side of their body. Provider notified of +VAN scoring. Patient has been NPO before screening. The patient is alert, and able to follow commands. The patient does not exhibit slurred or garbled speech. The patient is not exhibiting difficulty speaking. The patient does not exhibit difficulty understanding words. The patient is able to swallow own secretions with no drooling or need for suction. Patient tolerated one teaspoon of water. No drooling, immediate coughing, gurgling, or clearing of the throat was noted. The patient tolerated 90mL of water. No drooling, immediate coughing, gurgling, or clearing of the throat was noted. The patient passed the bedside swallow screening. Oral medications may be given as ordered. Contact Physician for further diet orders. Provider notified of bedside swallow screening results: Jayden Rich MD. TNKase (Tenecteplase) Screening: Indications: No evidence of intracranial hemorrhage or CT of head and no evidence of peripheral hemorrhage or recent CVA: Yes. Contraindications: Rapidly improving condition or minor deficit: Yes. 15:06 Reassessment: No changes from previously documented assessment. eh3 Vital Signs: 12:51 BP 116 / 56; Pulse 70; Resp 15; Temp 97.6; Pulse Ox 95% on R/A; Weight 74.84 kg; Height eh3 5 ft. 10 in. (177.80 cm); Pain 0/10; 13:16 BP 147 / 80; Pulse 83; Resp 15; Pulse Ox 96% on R/A; Pain 0/10; eh3 13:45 BP 123 / 64; Pulse 77; Resp 19; Pulse Ox 96% on R/A; Pain 0/10; eh3 14:45 BP 128 / 42; Pulse 90; Resp 18; Pulse Ox 94% on R/A; Pain 0/10; eh3 16:21 BP 122 / 109; Pulse 92; Resp 18; Pulse Ox 94% on R/A; ld1 20:45 BP 116 / 98; Pulse 97; Resp 17; Pulse Ox 92% ; Pain 0/10; ke1 12:51 Body Mass Index 23.67 (74.84 kg, 177.80 cm) eh3 [place] Coma Score: 15:23 Eye Response: spontaneous(4). Verbal Response: oriented(5). Motor Response: obeys tamara commands(6). Total: 15. NIH Stroke Scale Scores: 13:08 NIHSS Score: 2 eh3 15:43 NIHSS Score: 2 [facility] ED Course: 12:43 Patient arrived in ED. ss 12:43 Jayden Rich MD is Attending Physician. tamara 12:52 Head C Spine Cap Wo Con In Process Unspecified. EDMS 13:09 EKG completed in triage. Results shown to MD. eh3 13:09 Arm band placed on right wrist. eh3 13:17 Vilma Pickering is Primary Nurse. eh3 13:22 Triage completed. eh3 13:53 XRAY Chest (1 view) In Process Unspecified. EDMS 15:20 Darrick Hyatt MD is Hospitalizing Provider. tamara 15:20 Patient has correct armband on for positive identification. Placed in gown. Bed in low eh3 position. Call light in reach. Side rails up X2. 15:20 No provider procedures requiring assistance completed. eh3 16:01 Carotid Artery Bilateral US In Process Unspecified. EDMS 19:04 Dressings: non-adherent dressing x 3 right leg and left leg Tube gauze X 2; right leg jw7 and left leg. Irrigation of laceration on right leg and left leg irrigated with normal saline Patient tolerated well. 21:27 Patient admitted, IV remains in place. ke1 Administered Medications: 13:18 Drug: foLIC Acid 1 mg Route: IVPB; Site: right antecubital; ld1 13:18 Drug: NS 0.9% 500 ml Route: IV; Rate: bolus; Site: right antecubital; ld1 13:18 Drug: NS 0.9% 1000 ml Route: IV; Rate: 125 ml/hr; Site: right antecubital; ld1 16:13 Drug: Ancef (cefazolin) 1 grams Route: IVPB; Site: right forearm; eh3 16:13 Drug: Tetanus Toxoid,Adsorbed 0.5 ml {Newspaper Vendor: [employer]. Exp: 06/12/2023. Lot 3 #: [id number]. } Route: IM; Site: right deltoid; 19:08 Follow up: Response: (VIS) Vaccine information sheet provided today. Questions and/or 3 concerns addressed. VIS edition date: Sep 11, 2020.; No adverse reaction 16:13 Drug: Xarelto (rivaroxaban) 15 mg Route: PO; eh3 19:08 Follow up: Response: No adverse reaction eh3 Medication: 15:06 VIS not applicable for this client. eh3 Point of Care Testing: Blood Glucose: 13:13 Blood Glucose: 180 mg/dL; Test Strip: Lot #: [id number]; Expiration: 10/06/2022; 3 Ranges: Outcome: 15:22 Decision to Hospitalize by Provider. tamara 21:26 Admitted to Med/surg accompanied by tech. ke 21:26 Condition: stable 21:26 Discharge instructions given to Instructed on the need for admit. 21:29 Patient left the ED. ke1 NIH Stroke Scale - NIH Stroke Score Date: 09/14/2021 Time: 13:08 Total Score = 2 1a. Level of Consciousness (LOC) - 0(Alert) 1b. Level of Consciousness (LOC) (Month \T\ Age) - 0(Both) 1c. LOC Commands (Open \T\ Closes Eyes/Corrections Sergeant) - 0(Both) 2. Best Gaze (Lateral Gaze Paresis) - 0(Normal) 3. Visual Field Loss - 0(No visual loss) 4. Facial Palsy - 0(Normal) 5a. Left Arm: Motor (10-second hold) - 0(No drift) 5b. Right Arm: Motor (10-second hold) - 0(No drift) 6a. Left Leg: Motor (5-second hold - always test supine) - 0(No drift) 6b. Right Leg: Motor (5-second hold - always test supine) - 0(No drift) 7. Limb Ataxia (finger/nose \T\ heel/borden - test with eyes open) - 0(Absent) 8. Sensory Loss (pinprick arms/legs/face) - 2(Severe to total loss) 9. Best Language: Aphasia (description/naming/reading) - 0(No aphasia) 10. Dysarthria (speech clarity - read or repeat words) - 0(Normal) 11. Extinction and Inattention (visual/tactile/auditory/spatial/personal) - 0(No abnormality) Initials: 3 NIH Stroke Scale - NIH Stroke Score Date: 09/14/2021 Time: 15:43 Total Score = 2 1a. Level of Consciousness (LOC) - 0(Alert) 1b. Level of Consciousness (LOC) (Month \T\ Age) - 0(Both) 1c. LOC Commands (Open \T\ Closes Eyes/Corrections Sergeant) - 0(Both) 2. Best Gaze (Lateral Gaze Paresis) - 0(Normal) 3. Visual Field Loss - 0(No visual loss) 4. Facial Palsy - 0(Normal) 5a. Left Arm: Motor (10-second hold) - 0(No drift) 5b. Right Arm: Motor (10-second hold) - 0(No drift) 6a. Left Leg: Motor (5-second hold - always test supine) - 0(No drift) 6b. Right Leg: Motor (5-second hold - always test supine) - 1(Drift) 7. Limb Ataxia (finger/nose \T\ heel/borden - test with eyes open) - 1(Present in one limb) 8. Sensory Loss (pinprick arms/legs/face) - 0(Normal) 9. Best Language: Aphasia (description/naming/reading) - 0(No aphasia) 10. Dysarthria (speech clarity - read or repeat words) - 0(Normal) 11. Extinction and Inattention (visual/tactile/auditory/spatial/personal) - 0(No abnormality) Initials: tamara Signatures: Dispatcher [employer] EDJayden Gatica MD MD cha Smirch, Shelby, RN RN ss Yola Jerry RN RN [email or web address] Kristina Benson7 Roberta Barnes RN RN ke1 Vilma Pickering RN RN eh3 Corrections: (The following items were deleted from the chart) 13:36 13:09 EKG completed in triage. Results shown to 3 3 13:36 13:09 EKG completed in triage. Results shown to . 3 3 15:16 15:15 Social history: Smoking status: Patient denies any tobacco usage or 3 history of. Patient/guardian denies using alcohol, street drugs, 3 15:16 13:16 BP 147 / 80; Pulse 83bpm; Resp 15bpm; Pulse Ox 96% RA; Pain 0/10; eh3 eh3 15:17 12:51 BP 116 / 56; Pulse 70bpm; Resp 15bpm; Pulse Ox 95% RA; Temp 97.6F; Pain eh3 0/10; eh3 15:19 15:01 BP 128 / 42; Pulse 90bpm; Resp 18bpm; Pulse Ox 94% RA; ld1 eh3 15:19 13:16 BP 147 / 80; Pulse 83bpm; Resp 15bpm; Pulse Ox 96% RA; 74.84 kg; Height 5 eh3 ft. 10 in.; BMI: 23.6; Pain 0/10; eh3
[2021-09-14] MEDS ORDERED: CEFAZOLIN SODIUM 1 GM/VIAL ONE (15:55)
[2021-09-14] MEDS ORDERED: TETANUS & DIPHTHERIA TOX,ADULT 0.5 ML VIAL ONE (15:56)
[2021-09-14] MEDS ORDERED: NA CHLORIDE 0.9% 50 ML ONE (16:06)
[2021-09-14] MEDS ORDERED: RIVAROXABAN 15 MG TABLET PO ONE (16:08)
--- NOTE | 2021-09-14 16:16 | RAD REPORT ---
EXAM DESCRIPTION: US - CP - 09/14/2021 4:00 pm CLINICAL HISTORY: WEAKNESS Headache, drowsiness COMPARISON: CAROTID ARTERY BILATERAL dated 02/18/2011 TECHNIQUE: Real-time sonographic evaluation of both carotid systems was performed. Doppler interroga tion was performed with waveform tracing bilaterally. FINDINGS: Normal high resistance waveforms are noted in both external carotid arteries. The common c arotid arteries and internal carotid arteries show normal low resistance waveforms. Mild to moderate hard plaque is seen in both carotid bulbs, greater on the left. Peak systolic and en d diastolic velocity values and the ICA/CCA ratios are in the non-hemodynamically significant range. Visually stenosis of 50-70% suspected left carotid bulb. Antegrade flow seen in both vertebral arteries. IMPRESSION: Moderate plaquing is seen in both carotid bulbs, greater on the left. No evidence of a hemodynamically significant stenosis. However, visually, stenosis of 50-70% is likel y present left carotid bulb based on NASCET criteria.
--- NOTE | 2021-09-14 18:16 | RAD REPORT ---
EXAM DESCRIPTION: MRI - Brain Wo Cont - 09/14/2021 6:06 pm CLINICAL HISTORY: CVA Headache, drowsiness COMPARISON: Head Brain Wo Cont dated 07/24/2020 TECHNIQUE: Multi-sequence, multiplanar MR imaging of the brain was performed without contrast. FINDINGS: No intracranial hemorrhage, hydrocephalus or extra-axial fluid collections.Mild brain atro phy with mild periventricular and deep white matter chronic microvascular ischemic changes. No edema or shift of midline structures. No findings to suspect brain mass. DWI is negative for acute CVA. Midline structures are normally formed. Mastoid air cells and paranasal sinuses are clear. IMPRESSION: Negative for acute CVA or other acute intracranial process.
[2021-09-14] MEDS ORDERED: ACETAMINOPHEN 500 MG TAB PO PRN (19:20)
[2021-09-14] MEDS: RIVAROXABAN 15 MG TABLET PO SCH (19:20)
[2021-09-14] MEDS ORDERED: NA CHLORIDE 0.9% 1,000 ML IV SCH (19:20)
[2021-09-14] MEDS ORDERED: ONDANSETRON 4 MG/2 ML VIAL IV PRN (19:20)
[2021-09-14] MEDS ORDERED: FAMOTIDINE 20 MG/2 ML VIAL IV SCH (21:00)
[2021-09-14 21:32] VITALS: BMI 25.1
[2021-09-15 04:26] LABS: Absolute Lymphocytes (CBC) 0.7 K/uL (0.7-4.9); Hematocrit 38.7 % (39.6-49.0); Lymphocytes % 11.4 % (15.3-44.8); MCV 89.5 fL (80-100); MPV 8.7 fL (7.6-11.3); RBC Red Blood Cell Count 4.32 M/uL (4.33-5.43)
--- NOTE | 2021-09-15 07:55 | EKG ---
Test Date: 2021-09-14 Test Time: 12:59:51 Wheel And Axle Inspector: BELLA MEASUREMENT RESULTS: Intervals: Rate: 88 MO: QRSD: 174 QT: 448 QTc: 542 [place]: P: MO: QRS: 104 T: -69 INTERPRETIVE STATEMENTS: Atrial fibrillation Right bundle branch block Possible Inferior infarct, age undetermined T wave abnormality, consider lateral ischemia Abnormal ECG Compared to ECG 05/14/2021 17:48:15 Left posterior fascicular block no longer present Bifascicular block no longer present Myocardial infarct finding still present T-wave abnormality still present Possible ischemia still present Electronically Signed On 09-15-21 07:52:39 CDT by Randy Mccoy
[2021-09-15] MEDS: POTASSIUM CL SA 10 MEQ TAB PO SCH (08:25)
[2021-09-15] MEDS: FUROSEMIDE 40 MG TABLET PO SCH ×2 (08:25→16:15)
[2021-09-15] MEDS: SACUBITRIL/VALSARTAN 24/26 MG TAB PO SCH ×2 (08:26→21:36)
[2021-09-15] MEDS: CARBIDOPA/LEVODOPA 25/100 TAB PO SCH ×3 (08:26→21:36)
--- NOTE | 2021-09-15 08:47 | RAD REPORT ---
EXAM DESCRIPTION: MRI - Lumbar Spine Wo Juan - 09/15/2021 8:20 am CLINICAL HISTORY: Right leg weakness COMPARISON: None. TECHNIQUE: Sagittal T1-weighted, T2-weighted and T2-STIR weighted sequences were obtained. Axial T1 -weighted and heavily T2-weighted sequenceswere obtained through the lumbar disc levels. FINDINGS: Lumbar bodies are normal in height and alignment. No suspicious marrow signal. No paraspin al masses. Conus is normal with no clumping or thickening of the cauda equina. T12-L1 level: No significant findings. L1-2 level: Mild facet and ligamentum flavum hypertrophy without significant neural foraminal narrowi ng or central spinal stenosis. L2-3 level: Mild facet and ligamentum flavum hypertrophy without significant neural foraminal narrowi ng or central spinal stenosis . L3-4 level: Broad-based disc bulge with ligamentum flavum facet hypertrophy results in mild right jean ral foraminal narrowing. Mild central spinal stenosis. The left neural foramen is adequate. L4-5 level: Broad-based disc bulge with ligamentum flavum and facet hypertrophy. Ligamentum flavum hy pertrophy is particularly pronounced. This results in moderate central spinal stenosis and left later al recess stenosis with compression of the traversing left L5 nerve root. L5-S1 level: Facet and ligamentum flavum hypertrophy with mild bilateral neural foraminal narrowing. No central spinal stenosis. Large far lateral right-sided osteophyte at L5-S1 likely encroaches on th e exiting right L5 nerve root. IMPRESSION: Multilevel degenerative disc disease with symptomatic level probably at L4-5 where a com bination of factors results in moderate central spinal stenosis. Notable left lateral recess stenosis results in compression of the traversing left L5 nerve root. A large far lateral osteophyte at L5-S1 approaches on the exiting right L5 nerve root.
[2021-09-15] MEDS ORDERED: FOLIC ACID 1 MG in NA CHLORIDE 0.9% 50 ML IV SCH (09:00)
[2021-09-15] MEDS ORDERED: METOPROLOL XL 25 MG TAB PO SCH (09:00)
--- NOTE | 2021-09-15 11:04 | HP ---
Date of Admission: 09/14/2021 Chief Complaint: Fall and leg weakness. History Of Present Illness: This is an 86-year-old pleasant male patient, who lives at home. He fel l down sometime yesterday evening and he really does not know what caused the fall, but he ended up h aving injury over his right side of the face in the periorbital region with some abrasion and contusi on. This morning when he woke up, he found out that as he was trying to walk in the house, he found out that his right leg was weak and was not able to support and he actually ended up falling down aga in and he was brought into emergency room. After he was evaluated, he was admitted to the hospital. I saw him in emergency room, his daughter was present with him at bedside. Allergies: TO PENICILLIN CAUSING RASH. Medications: Aspirin 81 mg daily, atorvastatin 40 mg daily, carbidopa/levodopa 25/100 takes 2 tablet s 3 times a day, furosemide 20 mg 2 times a day, metoprolol succinate 25 mg daily, potassium chloride 20 mEq daily, Xarelto 15 mg daily, Entresto 24/26 mg 2 times a day, and trazodone 50 mg takes half t o 1 tablet at bedtime. Review of Systems: Musculoskeletal: As mentioned above. CONSTRUCTION CONTROLLER: As mentioned above. All other systems reviewed and negative. Past Medical History: Significant for Parkinson disease, prior history of stroke, postherpetic neura lgia, hypothyroidism, type 2 diabetes mellitus, hypertension, hyperlipidemia, paroxysmal atrial fibri llation, chronic kidney disease stage 3A, coronary artery disease. Past Surgical History: Cataract surgery, coronary artery bypass surgery, appendectomy, and colectomy . Family History: Father , had lung cancer. Mother due to unknown type of cancer. Brother a nd sister with myocardial infarction. Social History: Negative for smoking and alcohol use. Physical Examination: Vital Signs: Temperature 97.6, pulse 70, respiratory rate 15, blood pressure 116/56, oxygen saturati on 95% on 2 L nasal cannula oxygen. Height 5 feet 10 inches, weight 165 pounds. General: Awake, alert, oriented, not in distress. HEENT: Head atraumatic, normocephalic. Conjunctivae nonerythematous. Sclerae white. Mouth, no thr ush or edema noted. Ears/Nose, no mass, lesion, discharge noted. Examination of face shows evidence of some contusion, abrasion, and bruising around right periorbital region. No active bleeding. Neck: Supple. No JVD, lymph nodes, bruit, thyromegaly noted. Lungs: Bilateral good equal air entry. Clear to auscultation. No rhonchi. No rales. Heart: Normal heart sounds, no murmur or gallop. Abdomen: Soft, bowel sounds normal. No guarding, rigidity, tenderness, mass, hepatosplenomegaly, dis tention, or bruit noted. Extremities: No leg edema. No calf tenderness. Skin: No rash, ulcer, cellulitis. Lymphatics: No lymph node enlargement in neck, supraclavicular, infraclavicular region. Neuro: No focal neurological deficit. Chest: Unremarkable. External Genitalia: Deferred. Rectal: Deferred. CONSTRUCTION CONTROLLER: Power in right lower extremity is 4/5. Left lower extremity power is normal, which is 5/5. Se nsation to lower extremities intact. Laboratory Data: White count 8.8, hemoglobin 14.8, platelets 172. Sodium 140, potassium 4.5, chlori de 107, bicarb 24, BUN 31, creatinine 1.38, glucose 190. Liver function tests unremarkable. COVID-1 9 test negative. Urinalysis negative. CAT scan of the head, cervical spine, chest, abdomen and pelv is did not show any acute changes, no fractures. Presence of degenerative joint disease of cervical spine, presence of liver cyst and aortic atherosclerosis. MRI of the brain was negative for any acut e changes. No evidence of any stroke. Chest x-ray shows changes of COPD, otherwise unremarkable. C arotid Doppler shows moderate plaquing bilateral left more than right, approximately 50% to 70% steno sis. No hemodynamically significant stenotic lesion. Impression: 1.Right leg weakness. 2.Head injury. 3.Chronic systolic congestive heart failure. 4.Type 2 diabetes mellitus. 5.Hypothyroidism. 6.Hypertension. 7.Hyperlipidemia. 8.Paroxysmal atrial fibrillation. 9.Chronic anticoagulation therapy. 10.Chronic kidney disease, stage 3A. 11.Postherpetic neuropathy. 12.Insomnia. Plan: We will admit the patient to hospital for further evaluation and management of this problem. The patient is appropriate for inpatient and is expected to spend 2 midnights in hospital. Home medi cations will be continued per order for his congestive heart failure, hypertension, and hyperlipidemi a problem. We will also continue his Parkinson's medication which is carbidopa/levodopa. Fall preca ution was ordered. We will continue his anticoagulation therapy, which is Xarelto. Consult neurolog ist, Dr. Carmona. The patient does not have any evidence of stroke on MRI and we will go ahead and tomorrow plan to do MRI of lumbar spine. Consult Physical Therapy and plan of treatment discussed wi th the patient and the patient's daughter who was at bedside. NELSY/MODL Voice ID: [id number]
[2021-09-15] MEDS: RIVAROXABAN 15 MG TABLET PO SCH (16:14)
[2021-09-15] MEDS: ATORVASTATIN 40 MG TAB PO SCH (21:36)
--- NOTE | 2021-09-15 22:56 | CON ---
Reason For Consultation: Consultation called because of right lower extremity weakness. History Of Present Illness: Mr. Hernadez is an 86-year-old right-handed patient with Parkinso n disease, stroke, hypertension, dyslipidemia, atrial fibrillation, stage 3 kidney disease, coronary artery disease, who lives at home alone, but has someone who checks in on him daily. He said yesterd ay he was when his right leg suddenly gave out, he fell hitting his face. He was able to get himself back up, but noted that his right leg tended to just buckle without warning. He woke up the following morning and as he tried to walk, his right leg again suddenly gave out and he actually thought he somehow got down to the floor, but woke up about an hour later, possibly because of hittin g the floor and suffering loss of consciousness. He was unable to get up and waited until a friend lynette quintero checks in on him and who comes in around 7:30 in the morning came by, eventually tried to help him , but at that point, he had been on the floor for a couple of hours. He eventually came to [facility] and was seen in the emergency room on the . He had trauma series that showed no fractu res of the orbit despite having periorbital edema with redness and infraorbital swelling. The head, spine, pelvis, abdomen CT scan again was negative. His brain MRI was negative for any acute ischemic or hemorrhagic findings. The study did show mild brain atrophy due to chronic small vessel ischemic disease. An MRI of his lumbar spine, however, was more significant. The study identified multileve l moderate canal stenosis at L4-5 and at L5-S1 with a large far right osteophyte encroaching the L5 n erve root. In addition, there was symptomatic issues at L4-5 with moderate central canal stenosis. The findings in the MRI appear consistent with the patient's weakness in the right lower extremity, w hich resulted in his falls. Laboratory Studies: Showed essentially unremarkable complete blood count with differential. INR 1.7 3. His basic metabolic panel showed elevated glucose of 190. Creatinine was 1.38 initially, after h ydration 1.09. Liver function studies unremarkable. Beta natriuretic peptide elevated at 1462. Sherif cium was normal at 9.2. Urinalysis was showing 3+, but otherwise unremarkable. COVID-19 was negativ e. Past Medical History: As noted. Allergies: PENICILLIN CAUSES A RASH. Medications: At home, aspirin 81 mg daily, atorvastatin 40 mg daily, carbidopa-levodopa 25-100 two t ablets 3 times daily. Furosemide 20 mg twice daily. Metoprolol 25 mg daily. Potassium 20 mEq daily . Xarelto 50 mg daily. Entresto 24 two times a day. Trazodone 50 mg at bedtime. Family History: Father had lung cancer. Mother had cancer. Brother and sister had myocardial infar ction. Social History: Again lives alone. No alcohol, tobacco, or IV drug use. Review of Systems: Aside from mentioned, no recent fevers or chills, nausea, vomiting, myalgias, arthralgias. No signif icant headache, weight change, or rash. Physical Examination: Vital Signs: Blood pressure 104/55, pulse 69, respiratory rate 14, temperature 97.3, oxygen saturati on 94% to 98% on room air. Weight 165 pounds, height 5 feet 10 inches, BMI 23.7. General: Mr. Hernadez is resting in bed. He is in no significant distress . HEENT: He does have a significant bruising of the right forehead and right periorbital region with h yperemia and edema, otherwise intact cranial nerves. Neurologic: Motor in the left upper and lower extremity 5/5, in the right upper extremity proximally and distally 5/5, in right lower extremity 4/5 proximally and distally. Sensation slightly decrease d in the right leg compared to the left. Otherwise, stocking-glove loss. Reflexes are absent in the lower extremities and trace in the upper extremities. Coordination is intact in upper and lower ext remities. Gait: In terms of gait, he will be ambulated with physical therapist with a gait belt. Assessment: Mr. Hernadez is an 86-year-old patient with multiple medical problems including Parkinson d isease, atrial fibrillation, diabetes mellitus, hypertension, and significant lumbar canal and nerve root stenosis, worse on the right at L5 along with L4, which are likely the reason the right lower ex tremity is giving out. This was discussed with the patient and Dr. Hyatt and the patient wanted to tr y aggressive physical therapy prior to any possible surgery. He was given Dr. Byrnes infor yomi for possible surgical intervention and he may at some point. Plan: 1.If the patient's insurance allow, he should have aggressive inpatient physical and occupational th erapy. 2.Continue his Sinemet for Parkinson disease. 3.Continue anticoagulation for atrial fibrillation and continue management of hypertension and diabe abbe as indicated. Other medications as needed will be continued and of course managed by Dr. Hyatt. DANIEL/ZOHRA Voice ID: [id number] Report ID: [id number]
[2021-09-15] MEDS: TRAZODONE 50 MG TABLET PO SCH (22:58)
[2021-09-16] MEDS ORDERED: METOPROLOL XL 25 MG TAB PO SCH (07:45)
--- NOTE | 2021-09-16 07:50 | EKG ---
Test Date: 2021-09-15 Test Time: 08:55:44 Yard Engineer: DILCIA MEASUREMENT RESULTS: Intervals: Rate: 70 DE: QRSD: 172 QT: 484 QTc: 522 [place]: P: DE: QRS: 106 T: -43 INTERPRETIVE STATEMENTS: Atrial fibrillation Right bundle branch block Cannot rule out Inferior infarct, age undetermined Abnormal ECG Compared to ECG 09/14/2021 12:59:51 T-wave abnormality no longer present Possible ischemia no longer present Myocardial infarct finding still present Electronically Signed On 09-16-21 07:49:23 CDT by Randy Mccoy
[2021-09-16] MEDS ORDERED: predniSONE 10 MG TAB PO SCH (09:00)
--- NOTE | 2021-09-16 09:28 | ECHO ---
HEIGHT: 5 ft 10 in WEIGHT: 165 lb 0 oz DATE OF STUDY: 09/15/[address]: Jayden Rich MD 2-DIMENSIONAL: YES M.MODE: YES DOPPLER: YES COLOR FLOW: YES TDS: PORTABLE: YES DEFINITY: BUBBLE STUDY: DIAGNOSIS: ATRIAL FIBRILLATION, CEREBRAL VASCULAR ACCIDENT CARDIAC HISTORY: CATHERIZATION: YES SURGERY: YES PROSTHETIC VALVE: NO PACEMAKER: NO MEASUREMENTS (cm) DIASTOLIC (NORMALS) SYSTOLIC (NORMALS) IVSd 1.0 (0.6-1.2) LA Diam 3.3 (1.9-4.0) LVEF 51% LVIDd 5.5 (3.5-5.7) LVIDs 4.1 (2.0-3.5) %FS 26% LVPWd 1.1 (0.6-1.2) Ao Diam 2.6 (2.0-3.7) 2 DIMENSIONAL ASSESSMENT: RIGHT ATRIUM: NORMAL LEFT ATRIUM: NORMAL RIGHT VENTRICLE: NORMAL LEFT VENTRICLE: NORMAL SIZE TRICUSPID VALVE: NORMAL MITRAL VALVE: NORMAL PULMONIC VALVE: NORMAL AORTIC VALVE: SCLEROSIS PERICARDIAL EFFUSION: NONE AORTIC ROOT: NORMAL LEFT VENTRICULAR WALL MOTION: NORMAL EJECTION FRACTION DOPPLER/COLOR FLOW: MILD AORTIC AND TRICUSPID REGURGITATION. RIGHT VENTRICULAR SYSTOLIC PRESSURE. 55 mmHg. COMMENTS: MODERATE PULMONARY HYPERTENSION. MILD AORTIC REGURGITATION. ATRIAL FIBRILLATION. NORMAL LEFT ATRIAL SIZE. NO THORMBUS. AORTIC SCLEROSIS. TECHNOLOGIST: STEFANIE SOLITARIO
[2021-09-16] MEDS: CARBIDOPA/LEVODOPA 25/100 TAB PO SCH ×3 (09:55→20:06)
[2021-09-16] MEDS: SACUBITRIL/VALSARTAN 24/26 MG TAB PO SCH ×2 (09:56→20:06)
[2021-09-16] MEDS: FUROSEMIDE 40 MG TABLET PO SCH ×2 (09:56→16:47)
[2021-09-16] MEDS: POTASSIUM CL SA 10 MEQ TAB PO SCH (09:57)
--- NOTE | 2021-09-16 10:51 | PN ---
Date of Progress Note: 09/15/2021 Subjective: The patient was seen this morning for followup. No new complaints or problems reported by the patient. Overall, he reports that his right leg weakness is much better today than yesterday. Denies any new complaints overnight. Objective: Vital Signs: Reviewed. HEENT: Unremarkable. Lungs: Clear to auscultation. Heart: Sounds normal. Abdomen: Soft. Bowel sounds normal. No guarding, rigidity, tenderness, or distention. Extremities: No leg edema. Laboratory Data: Today; white count 6.3, hemoglobin 13.3, platelets 141. Sodium 139, potassium 4, chloride 109, bicarb 26, BUN 20, creatinine 1.09. MRI of lumbar spine done today, results reviewed. Impression: 1. Lumbar spondylosis. 2. Lumbar spinal stenosis. 3. Parkinson disease. 4. Atrial fibrillation. 5. Chronic systolic heart failure. 6. Anemia, unspecified. Plan: We will go ahead and continue current medications. At this point, there is no evidence of stroke and his right leg weakness is the result of his lumbar spondylosis and spinal stenosis problem. The patient symptomatically has improved and starting tomorrow, we will start him on a short course of oral steroid therapy. Physical Therapy to continue to work with the patient. Details were discussed with Dr. Carmona, neurologist. I will discuss with the patient regarding options of rehab therapy and depending on the patient's decision, we will assist with any arrangements if that needs to be made. NELSY/MODL Voice ID: [id number] Report ID: [id number] HAZEL
[2021-09-16 16:34] VITALS: BP 104/51; TEMP 97.5
[2021-09-16 16:44] VITALS: O2SAT 95
[2021-09-16] MEDS: RIVAROXABAN 15 MG TABLET PO SCH (16:47)
[2021-09-16] MEDS: ATORVASTATIN 40 MG TAB PO SCH (20:06)
[2021-09-16] MEDS: TRAZODONE 50 MG TABLET PO SCH (20:06)
[2021-09-16] MEDS ORDERED: JUVEN PACKET PO SCH (21:00)
--- NOTE | 2021-09-17 08:29 | DS ---
Date of Discharge: 09/16/2021 Disposition: Discharged to go to inpatient rehab. Physical Examination: HEENT: Unremarkable. Lungs: Clear to auscultation. Heart: Heart sounds normal. Abdomen: Soft, bowel sounds normal. No guarding, rigidity, tenderness, or distention. Extremities: No leg edema. Hospital Course: Mr. Hernadez is an 86-year-old very pleasant male patient, who came into the emergency room with 2 falls and weakness of the right lower extremity. Please see dictated H and P for more i nformation. After the patient arrived in the emergency room, his stroke workup was negative. No deandre dence of any stroke on CAT scan and MRI. I was concerned about lumbar spondylosis and radiculopathy type of problem causing right leg weakness, so after I evaluated in the emergency room, I ordered MRI of the lumbar spine and that has shown significant lumbar spondylosis, foraminal stenosis, spinal st enosis, and this would explain his right leg weakness that caused 2 falls and 1 fall resulted in head injury. His leg weakness has improved. Physical therapy was consulted and neurologist, Dr. Paula reddy, was consulted. Overall, the patient's condition has improved and his home medications were contin ued and we did discuss different options about doing outpatient physical therapy versus trying inpati ent rehab physical therapy and the patient has elected to go to fifth floor rehab for inpatient physi liza therapy, so Social Service was consulted and inpatient rehab was consulted to help make arrangeme nts. After the patient was evaluated and accepted today, he was transferred to inpatient rehab floor in stable condition. Discharge Medications: See copy of transfer order for details and we will continue all his current m edications per order including prednisone, which was started this morning. Our plan is to start pred nisone 30 mg daily for 3 days, then 20 mg daily for 3 days, then 10 mg daily for 3 days, then discont inue. Final Diagnoses: 1.Lumbar spinal stenosis. 2.Lumbar spondylosis with radiculopathy. 3.Chronic systolic heart failure. 4.Hypertension. 5.Hyperlipidemia. 6.Paroxysmal atrial fibrillation. 7.Chronic anticoagulation therapy. 8.Osteoarthritis, multiple sites. NELSY/MODL Voice ID: [id number] Report ID: [id number]
== END 2021-09-16 20:20 | DRG 552 ==
LOC: ER 12:37 → ERHOLD 15:29 → OBSVTOIN 15:29 → 2ND 21:04
PROVIDERS: ADMIT Internal Medicine; ATTEND Internal Medicine
DX: M48.061 Spinal stenosis, lumbar region without neurogenic claudication (principal); I13.0 Hypertensive heart and chronic kidney disease with heart failure and stage 1 through stage 4 chronic kidney disease, or unspecified chronic kidney disease; I50.22 Chronic systolic (congestive) heart failure; M47.26 Other spondylosis with radiculopathy, lumbar region; S00.91XA Abrasion of unspecified part of head, initial encounter; S80.211A Abrasion, right knee, initial encounter; S80.212A Abrasion, left knee, initial encounter; G20 Parkinson's disease; E03.9 Hypothyroidism, unspecified; E78.5 Hyperlipidemia, unspecified; E11.22 Type 2 diabetes mellitus with diabetic chronic kidney disease; N18.31 Chronic kidney disease, stage 3a; I48.0 Paroxysmal atrial fibrillation; G62.9 Polyneuropathy, unspecified; G47.00 Insomnia, unspecified; M15.9 Polyosteoarthritis, unspecified; W17.89XA Other fall from one level to another, initial encounter; Y92.009 Unspecified place in unspecified non-institutional (private) residence as the place of occurrence of the external cause; Z86.73 Personal history of transient ischemic attack (TIA), and cerebral infarction without residual deficits; Z88.0 Allergy status to penicillin; Z79.01 Long term (current) use of anticoagulants; Z20.822 Contact with and (suspected) exposure to COVID-19; Z23 Encounter for immunization
CPT/HCPCS: 36415; 70450; 70551; 71045; 71250; 72125; 72148; 80048; 80076; 81003; 82947; 83690; 83735; 83880; 84484; 85025; 85610; 87811; 90471; 90714; 93005; 93306; 93880; 97110; 97112; 97161; 97530; 99285; J0690; J7030; J7040; J7512

== ENCOUNTER 2021-09-16 12:27 | Inpatient (IN) | payer OTHER, MEDICARE ==
--- NOTE | 2021-09-16 14:11 | R.PREADM ---
PRE-ADMISSION SCREENING FORM SCREENING DATE AND TIME 09/16/2021 12:40 (CDT) ANTICIPATED REHAB ADMISSION DATE 09/18/2021 REFERRING FACILITY [facility] REFERRAL DATE AND TIME 09/16/2021 12:40 (CDT) ACUTE ADMIT DATE 09/13/2021 Previous Rehabilitation(s): No. ACUTE MANAGER PROPERTY/DC EX CHEF Rosetta Fletcher REFERRING PHYSICIAN Darrick Hyatt REHAB FACILITY [facility] CLINICAL LIAISON Tomeka Douglas PHYSICIAN REVIEWER Dr. Edmar Carmona M.D. MR# [id number] NAME TONY ARELLANO ADDRESS [address] [place] [address] PHONE [facility] [id number] DATE OF 1935 AGE 86 SSN# [id number] GENDER male MARITAL STATUS white ADMIT FROM 02 - [facility] PRE-HOSPITAL LIVING SETTING 01 - Home (private home/apt. board/care, assisted living, [place] [facility], transitional living) HOME TYPE AND DETAILS Type of home: single family house # of levels in the residence: 1 # of steps within the residence: 0 # of steps to enter the residence: 0 PRE-HOSPITAL LIVING WITH Alone FAMILY SUPPORT No PHONE PRIMARY FAMILY CONTACT ON ADM.? no IS PRIMARY FAMILY CONTACT AUTH. REP.? no PHONE 1ST CONTACT ON ADM. no IS 1ST CONTACT AUTH. REP.? no PHONE 2ND CONTACT ON ADM.? no PATIENT EMPLOYMENT STATUS Retired (for age) PATIENT EMPLOYER No Employer PAYOR INFORMATION: 1ST PAYOR NAME MEDICARE 1ST PAYOR PHONE 1ST PAYOR INJURY/ILLNESS DUE TO ACCIDENT? No ANOTHER GREEN PARTY RESPONSIBLE? No PRIMARY REHAB/ACUTE DIAGNOSIS: Spinal stenosis, lumbar region (M48.06) Lumbar Spondylosis M47.816 ONSET DATE 09/13/2021 REHAB IMPAIRMENT CATEGORY (ZORAIDA): 05 Nontraumatic spinal cord injury (NTSCI) MEETS 60% rule AFFECTED EXTREMITIES: RLE PRIMARY DIAGNOSIS-RELATED SURGERIES: None COMORBID REHAB/ACUTE DIAGNOSES: - Tier 3 Chronic systolic (congestive) heart failure (I50.22) - Non-Tiered Parkinson's disease (G20) Paroxysmal atrial fibrillation (I48.0) Anemia, unspecified (D64.9) INTERVENTIONS: - Lumbar Spondylosis Aggressive PT/OT Assist pt will OOB activity to reduce risk for injury Reposition pt q2h Assess/Monitor pt for pain and administer prescribed pain medications and monitor effectiveness Assess/Monitor pt motor function - Lumbar Stenosis Aggressive PT/OT Assist pt will OOB activity to reduce risk for injury Assess/Monitor pt for pain and administer prescribed pain medications and monitor effectiveness Reposition pt q2h Assess/Monitor pt motor function - Parkinson's Disease Assess respiratory status for rate, depth, ease, use of accessory muscles, and work of breathing Assess ambulation and movement Assist with Self-care deficits (feeding, dressing, hygiene, and toileting) related to tremors and mot or disturbances - Afib Assess/Monitor pt cardiac and respiratory status regularly Mojitor pt labs Vitals will be monitored/assessed regularly Administer prescribed anticoagulants and monitor for effectiveness - Chronic systolic heart failure Administer medications as indicated by MD and monitor for effectiveness Assess/Monitor pt cardiac status - Anemia Monitor for bleeding Monitor pt labs Treat with IV medications and MARQUEZ RISK FOR COMPLICATIONS: - DVT Active and Passive ROM exercises Administer medications per MD order Assist patient with frequent position changes Elevate BLE - Skin Breakdown Encourage ambulation as tolerated Repositioning q 2 hours Use of pillows or foam wedges while in bed - Pain Anticipate the need for pain medication for optimal pain managment Administer prescribed pain medication as needed Educate patient on relaxation and deep breathing techniques Assess pt for pain and Administer prescribed pain medication as needed Assist patient with frequent position changes at least every 2 hours - Falls Assess for medication side effects Maintain call light within patient reach for easy access to nursing assistance Provide assistance getting out of bed and with ambulation Provide assistive devices - Bleeding Assess/ Monitor pt for injury Maintain pt safety - Stroke Assess/ Monitor and maintain patient pain level Assess/ Monitor patient blood pressure SUMMARY OF ACUTE HOSPITALIZATION: Pt. is a 86 yo white male. On 09/13/2021 he was admitted to [facility] with diagnosis Spinal stenosis, lumbar region (M48.06). His impairment category is Spinal Cord Dysfunction 04 - Other Non-traumatic Spinal Cord Dysfunction (04.130). Pre-morbidly, Pt. was independent/mod-I in Locomotion and Self-Care; and he had good Safety Awareness , Balance, Transfers Control, and Endurance. Currently, he has deficits of Locomotion, Safety Awareness, Balance, Transfers Control, Self-Care, an d Endurance. Pt. is now referred to [facility] for acute in-patient rehabilitation in order to maximize patient's functional independence in activities of daily living, strength, ROM, and mobi lity. Patient has realistic goal of being discharged at assistance level 6-Philomena to reside at Home with Pt self. PAST MEDICAL HISTORY Anemia, unspecified (D64.9) Chronic systolic (congestive) heart failure (I50.22) Parkinson's disease (G20) Paroxysmal atrial fibrillation (I48.0) PAST SURGICAL HISTORY: Cataract Surgery Coronary Artery Bypass Surgery Appendectomy Colectomy MEDICATION ALLERGIES: Penicillin ENVIRONMENTAL ALLERGIES: - Substance Allergies None Known - Other Allergies None Known CODE STATUS: Full code WEIGHT/HEIGHT/BMI: WEIGHT 165 lbs HEIGHT 5' 10" BMI 23.7 DIET: - Diet Type Regular - Diet - Solid Texture Regular - Diet - Liquid Texture Regular - Tube Feed N/A SKIN DIAGRAM: Abrasion on Face; extent - small; stage - NS(Not Stageable). Treatment - Per Physician's Orders. REVIEW OF SYSTEMS: - Gen Alert and awake Lying in bed No apparent distress Oriented to: person, time, and place - Vital Signs Temperature: 97.6 F SBP/DBP: 116/56 Pulse: 70 Resp: 15 Vital signs stable, afebrile - CVS RRR VITAL SIGNS Temperature: 97.6 F SBP/DBP: 116/56 Pulse: 70 Resp: 15 Vital signs stable, afebrile MEDICATIONS/TREATMENT: Other- See attached MAR (Medication Administration Record). CURRENT SPHINCTER CONTROL: Pre-hospital bladder status: unspecified # of bladder accidents in the last 7 days prior to screenin Pre-hospital bowel status: unspecified # of bowel accidents in the last 7 days prior to screenin Last Bowel Movement Date: 09/16/2021 CURRENT LOCOMOTION STATUS: distance walked 0 feet DETAILED CURRENT FUNCTIONAL STATUS: - Bladder accident frequency: 7-Ind - No accidents in the past 7 days - Bowel accident frequency: 7-Ind - No accidents in the past 7 days - Walking score based on distance walked: 0(N/A) - Wheelchair score based on distance traveled: 0(N/A) QI SCORES: - Self-Care A. Eating 05-Setup or clean-up assistance B. Oral hygiene 05-Setup or clean-up assistance C. Toileting hygiene 03-Partial/moderate assistance E. Shower/bathe self 88-Not attempted due to medical condition or safety concerns F. Upper body dressing 05-Setup or clean-up assistance G. Lower body dressing 88-Not attempted due to medical condition or safety concerns H. Putting on/taking off footwear 88-Not attempted due to medical condition or safety concerns - Mobility A. Roll left and right 03-Partial/moderate assistance B. Sit to lying 03-Partial/moderate assistance C. Lying to sitting on side of bed 03-Partial/moderate assistance D. Sit to stand 03-Partial/moderate assistance E. Chair/pgu-we-[id number] transfer 03-Partial/moderate assistance F. Toilet transfer 88-Not attempted due to medical condition or safety concerns G. Car transfer 88-Not attempted due to medical condition or safety concerns I. Walk 10 feet 88-Not attempted due to medical condition or safety concerns J. Walk 50 feet with two turns 88-Not attempted due to medical condition or safety concerns K. Walk 150 feet 88-Not attempted due to medical condition or safety concerns L. Walking 10 feet on uneven surfaces 88-Not attempted due to medical condition or safety concerns M. 1 step (curb) 88-Not attempted due to medical condition or safety concerns N. 4 steps 88-Not attempted due to medical condition or safety concerns O. 12 steps 88-Not attempted due to medical condition or safety concerns P. Picking up object 88-Not attempted due to medical condition or safety concerns R. Wheel 50 feet with two turns 09-Not applicable S. Wheel 150 feet 09-Not applicable - Bladder and Bowel Bladder continence 0-Always continent Bowel continence 0-Always continent - Endurance Poor - Balance Poor - Safety Awareness Poor CURRENT FUNC. DEFICITS: Self-Care, Mobility, Endurance, Balance, and Safety Awareness CURRENT / PREVIOUS ASSISTIVE DEVICES: Rolling Walker HISTORY OF FALLS. HAS THE PATIENT HAD TWO OR MORE FALLS IN THE PAST YEAR OR ANY FALL WITH INJURY IN T HE PAST YEAR?: Yes PRIOR SURGERY. DID THE PATIENT HAVE MAJOR SURGERY DURING THE 100 DAYS PRIOR TO ADMISSION?: No THERAPY NOTES FROM ACUTE CARE: Attached. SPECIAL NEEDS: - Safety Concerns Skin breakdown and Fall precautions needed due to skin breakdown risk, Poor balance, Risk of injury, High fall risk, and Fall history - Fall Precautions Due to poor balance PRECAUTIONS: - Weight Bearing Precaution WBAT right LE - Fall Precaution Bed alarm TABS alarm Wheel chair alarm - Cardiac Precaution Monitor blood pressure, heart rate, lower extremity edema, notify MD for shortness of breath or chest pain Monitor patient for excessive elevation of heart rate and blood pressure during therapy PATIENT NEEDS ACTIVE AND ONGOING THERAPEUTIC INTERVENTION OF MULTIPLE THERAPY DISCIPLINES, INCLUDING: - Orthotics/Prosthetics Orthotic Evaluation. Splinting/Casting. - Dietary and Nutrition Adequate Nutrition. Nutritional Education. Nutritional Supplements. - Occupational Therapy Cognitive Retraining. Patient needs Occupational Therapy for a daily minimum of 1.5 hours at least 5 out of 7 days, to improve Activities of Daily Living, including: Eating, Grooming, Bathing, Dressing, Toileting, Toilet Transfers, Community Reintegration, Higher functional activities, Adaptive Equipme nt, Splinting, Household Tasks, and Other activities as determined. Visual Perceptual Training. - Physical Therapy Patient needs Physical Therapy for a daily minimum of 1.5 hours at least 5 out of 7 days, to improve: Mobility, Strengthening, Transfers, Stretching, ROM, Endurance, Ability to manage stairs, Gait, and Balance. PATIENT NEEDS CLOSE MEDICAL SUPERVISION BY A REHABILITATION PHYSICIAN FOR: Coordination of Treatment Team Medical and Co-Morbidity Management Wound Care Bowel and Bladder Management Pain Management PATIENT REQUIRES 24X7 REHAB NURSING FOR MEDICAL AND FUNCTIONAL MGT. OF THE FOLLOWING DEFICITS: Patient requires 24x7 Rehabilitation Nursing for: Pain Issues, Identifying and preventing risk factor s, Monitoring and reporting current medical conditions, Assisting with ambulation and transfer, Humble ting with all ADL-s, Teaching patients about disease process and medications, Family teaching, Provid ing safe environment, Bowel and Bladder Issues, Skin Integrity, and Medication Management PATIENT REQUIRES INTENSIVE, COORDINATED INTERDISCIPLINARY APPROACH TO REHAB: Patient needs Dietary and Nutrition Services for: Adequate Nutrition, Nutritional Supplements, and Nu tritional Education Patient needs Customer Support Specialist and/or Case Management for: Discharge Planning, Arranging Home Equipmen t or Services, and Family Interventions PATIENT REHAB POTENTIAL: Aftab ARELLANO is able and expected to receive 3 hours of individualized therapy daily on at least 5 of sheridan ry 7 days Aftab ARELLANO's prognosis for significant practical improvement within a reasonable period of time appears Good Expected level of measurable improvement will be of a practical value to Aftab ARELLANO's functional capaci ty or adaptations to impairments Has a viable Discharge Plan Medically appropriate; condition is sufficiently stable to participate in intensive rehab program DISCHARGE PLAN: - Estimated Length of Stay (days) 16. - Consensus on plan Discharge plan has been discussed with primary caregiver. Patient/Family is in agreement with the jazmin n. Primary caregiver is in agreement with the plan. - Patient/Family Goals Return home independently. - Planned Living Setting Upon Discharge Home, to live alone. Transitional Living. Primary caregiver: Pt self. RECOMMENDED CARE LEVEL: IRF RECOMMENDATION DETAILS: Recommended Admission to Comprehensive Rehabilitation Program to Increase Functional [place] SCREENER'S COMPLETENESS CONFIRMATION: - Screening Confirmation The patient data collection on this preadmission screening form is finished PHYSICIANS REVIEW AND ADMISSION DETERMINATION Admit - Based on my review of the Pre-Admission Screening results, in my medical judgment and experie nce, I concur with the findings and recommend admission to [facility], as this patient requires an IRF level of care. SIGNATURE PANEL: Clinical Liaison - [electronically] signed by Tomeka Douglas on 09/16/2021 at 13:44 (CDT) Physician Reviewer - [electronically] signed by Dr. Edmar Carmona M.D. on 09/16/2021 at 14:11 (CDT )
--- OUTSIDE RECORDS SUMMARY | 2021-09-16 20:44 | XMS REPORT | Continuity of Care Document ---
:1935 Author Organization [facility] t Address [address] [place] [address] Dr. 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 Clinician (SIG) Name Name traZODone Yes 50mg QD Take 50 mg UT (Desyrel) 3-17 by mouth 1 Heal th 50 MG 12:51: (one) time tablet 10 each day. aspirin 81 Yes 81mg QD Take 81 mg U T MG EC 3-17 by mouth 1 Health tablet 12:51: (one) time 10 each day. spironolact 2022- No [id number] 25mg QD Take 1 UT one 3-17 03-18 tablet (25 Health (Aldactone) 00:00: 04:59 mg total) 25 MG 00 :00 by mouth 1 tablet (one) time each day. potassium 2022- No [id number] 20meq QD TAKE 1 UT chloride CR 3-12 03-13 TABLET (20 H ealth (K-Tab) 20 00:00: 04:59 MEQ TOTAL) MEQ ER 00 :00 BY MOUTH 1 tablet (ONE) TIME EACH DAY. DO NOT CRUSH, CHEW, OR SPLIT. TAKE ONLY IF TAKING FUROSEMIDE THAT DAY. technetium Yes 4001 8mCi UT Tc-99m 3-10 Health sestamibi 17:22: (Cardiolite 19 ) radio-isoto pe injection 8-18 millicurie technetium Yes 4001 18mCi UT Tc-99m 3-10 Health sestamibi 17:22: (Cardiolite 17 ) radio-isoto pe injection 18-45 millicurie losartan 2021- No [id number] 25mg QD Take 1 UT (Cozaar) 25 3- 05-01 tablet (25 H ealth MG tablet 00:00: 04:59 mg total) 00 :00 by mouth 1 (one) time each day. furosemide 2022- No [id number] 20mg Q.5D Take 1 UT (Lasix) 20 18 -19 tablet (20 He alth MG tablet 00:00: 05:59 mg total) 00 :00 by mouth 2 (two) times a day. aspirin 81 Yes 81mg QD Take 81 mg U T MG EC -17 by mouth 1 Health tablet 15:48: (one) time 50 each day. traZODone Yes 50mg QD Take 50 mg UT (Desyrel) 17 by mouth 1 Heal th 50 MG 15:13: (one) time tablet 51 each day. metoprolol 2022- No [id number] 25mg QD Take 1 UT succinate 03-25 tablet (25 Hea lth XL 00:00: 05:59 mg total) (Toprol-XL) 00 :00 by mouth 1 25 MG 24 hr (one) time tablet each day. atorvastati 2022- No [id number] 40mg QD Take 1 UT n (Lipitor) 03-25 tablet (40 H ealth 40 MG 00:00: 05:59 mg total) tablet 00 :00 by mouth 1 (one) time each day. furosemide 2022- No [id number] 20mg Q.5D Take 1 UT (Lasix) 20 03-25-18 tablet (20 He alth MG tablet 00:00: 05:59 mg total) 00 :00 by mouth 2 (two) times a day. potassium 2022- No [id number] 20meq QD Take 1 UT chloride CR 03-25 tablet (20 H ealth (K-Tab) 20 00:00: 05:59 mEq total) MEQ ER 00 :00 by mouth 1 tablet (one) time each day. Do not crush, chew, or split. Take only if taking furosemide that day. Xarelto 15 2022- No [id number] 15mg Take 1 UT MG tablet 03-25-18 tablet (15 Hea lth 00:00: 05:59 mg total) 00 :00 by mouth 1 (one) time each day with dinner. metoprolol 2022- No [id number] 25mg QD Take 1 UT succinate 03-25-18 tablet (25 Hea lth XL 00:00: 05:59 mg total) (Toprol-XL) 00 :00 by mouth 1 25 MG 24 hr (one) time tablet each day. atorvastati 2022- No [id number] 40mg QD Take 1 UT n (Lipitor) 03-25- tablet (40 H ealth 40 MG 00:00: 05:59 mg total) tablet 00 :00 by mouth 1 (one) time each day. Xarelto 15 2022- No [id number] 15mg Take 1 UT MG tablet 03-25- tablet (15 Hea lth 00:00: 05:59 mg total) 00 :00 by mouth 1 (one) time each day with dinner. furosemide 2021- No [id number] 20mg Q.5D Take 1 UT (Lasix) 20 03-25- tablet (20 He alth MG tablet 00:00: 00:00 mg total) 00 :00 by mouth 2 (two) times a day. potassium 2021- No [id number] 20meq QD Take 1 UT chloride CR 03-25 tablet (20 H ealth (K-Tab) 20 00:00: 00:00 mEq total) MEQ ER 00 :00 by mouth 1 tablet (one) time each day. Do not crush, chew, or split. Take only if taking furosemide that day. atorvastati 2021- No [id number] 40mg QD Take 1 UT n (Lipitor) 03-25- tablet (40 H ealth 40 MG 00:00: 00:00 mg total) tablet 00 :00 by mouth 1 (one) time each day. Xarelto 15 2021- No [id number] 15mg Take 1 UT MG tablet 03-25-17 tablet (15 Hea lth 00:00: 00:00 mg total) 00 :00 by mouth 1 (one) time each day with dinner. metoprolol No [id number] 25mg QD Take 1 UT succinate 03-25- tablet (25 Hea lth XL 00:00: 00:00 mg total) (Toprol-XL) 00 :00 by mouth 1 25 MG 24 hr (one) time tablet each day. Xarelto 15 2021- No [id number] 15mg Take 1 UT MG tablet 03-25- tablet (15 Hea lth 00:00: 00:00 mg [...] Delayed Release Release Particles Particles Gabapentin Gabapentin 2018- Yes Q0.3333D TAKE 1 UT 400 MG Oral 400 MG Oral 9-26 CAPSULE 3 Physici Capsule Capsule 00:00: TIMES ans 00 DAILY. Synthroid Synthroid Yes 1 QD TAKE 1 U T [...] Systolic 2018-11-01 14:14:00 121 mm[Hg] Location: [facility] Position: Sitting BP Diastolic 2018-11-01 14:14:00 68 mm[Hg] Location: [facility]; [facility] Position: Sitting Height 2018-11-01 14:14:00 71 [in_us] [facility] Weight 2018-11-01 14:14:00 193.4 [lb_av] [facility] Body Mass Index 2018-11-01 14:14:00 26.97 kg/m2 [facility] Calculated Heart Rate 2018-11-01 14:14:00 65 /min Location: [facility] Brachial Artery; O2 SAT 2018-11-01 [...] with 2017-09-28 00:00:00 [facility] Doppler 19290 [QLH] CBC (INCLUDES 2017-09-18 00:00:00 [facility] Physi [...] Physician s Pending 00:00:00 complete, with Doppler 52532 [code = [N] 2D Echo complete, with Doppler 63628] Diagnostic Test 2017-10-26 [N] 2D Echo [facility] Physician s Pending 00:00:00 complete, with Doppler 85703 [code = [N] 2D Echo complete, with Doppler 95385] Future Scheduled [QLH] CBC (INCLUDES ONE WEEK [...] Clinicians Facility Department ID 2021-07-22 Outpatient RAMIREZ, [facility] [id number] UT 11:57:17 YENNY [id number] [facility] 2021-07-15 Outpatient RAMIREZ, [facility] [id number] UT 15:52:52 YENNY [id number] [facility] 2021-04-28 Outpatient [facility] [id number] UT 16:34:59 [id number] [facility] 2021-04-22 Outpatient RAMIREZ, [facility] [id number] UT 13:11:23 YENNY [facility] 2021-04-22 Outpatient ATAALL, [facility] [id number] UT 11:11:08 [facility] 2021-04-13 Outpatient [facility] [id number] UT 16:05:55 Health 2021-03-25 Outpatient [facility] [id number] UT 16:10:01 Health 2021-04-22 2021-04-22 Office JAMES Ramirez [id number] UT 13:00:00 13:11:42 Visit Yenny CAMEJO [id number] Health [id number] 2021-04-08 2021-04-08 Outpatient RUSTY, [facility] [id number] [address] [place] 00:00:00 00:00:00 MIR [address] 2021-03-27 2021-03-27 Outpatient OJEDA, [facility] [id number] [address] [place] 00:00:00 00:00:00 MIR [address] 2021-03-25 2021-03-25 Office JAMES Ramirez [id number] [place] 15:20:00 16:10:19 Visit Yenny CAMEJO [id number] Health [id number] 2021-03-18 2021-03-18 Outpatient OJEDA, [facility] [id number] [address] [place] 00:00:00 00:00:00 MIR [address] 2021-03-09 2021-03-09 Outpatient OJEDA, [facility] [id number] [address] [place] 00:00:00 00:00:00 MIR [address] 2018-11-01 2018-11-01 JAMES Story [facility] [id number] [place] 14:00:00 14:00:00 t; Trey RAMON M.D. Medical ans FRANCISCO, Center M.D. 2018-07-18 2018-07-18 JAMES Guillermo UTP [id number] UT 11:30:00 11:30:00 t; Tejas HAMM ans RAJA, M.D. 2018-05-03 2018-05-03 [facility] [id number] [place] 14:00:00 14:00:00 t; Donavon RAMON M.D. ans FRANCISCO, M.D. 2018-03-16 2018-03-16 [facility] [id number] UT 10:00:00 10:00:00 t; Tejas HAMM ans RAJA, M.D. 2017-11-16 2017-11-16 [facility] STEPHANIE, [facility] Neurology [id number] UT 11:30:00 11:30:00 t; Tejas HAMM ans RAJA, M.D. 2017-11-02 2017-11-02 [facility] [id number] [place] 15:40:00 15:40:00 t; Donavon RAMON M.D. ans FRANCISCO, M.D. 2017-10-26 2017-10-26 [facility] [id number] UT 13:30:00 13:30:00 t; EZEQUIEL ECHO1 Donavon alan ECHO1 ans 2017-09-28 2017-09-28 [facility] [id number] [place] 15:20:00 15:20:00 t; Donavon RAMON M.D. ans FRANCISCO, M.D. 2017-08-11 2017-08-11 [facility] [id number] 11:00:00 11:00:00 t; Tejas HAMM ans RAJA, M.D. 2017-04-05 2017-04-05 [facility] [id number] UT 14:30:00 14:30:00 t; Tejas HAMM ans RAJA, M.D. 2017-01-12 2017-01-12 [facility] [id number] [place] 14:00:00 14:00:00 t; Tejas VELARDE ans JOHN, M.D. 2016-12-07 2016-[facility]-07 [facility] UTP UTP [id number] UT 14:30:00 14:30:00 t; Tejas HAMM ans RAJA, M.D. 2016-11-30 2016-11-30 [facility]oint[facility] STEPHANIE, UTP UTP [id number] UT 14:30:00 14:30:00 t; Tejas HAMM ans RAJA, M.D. 2016-08-08 2016-08-08 [facility] DANILOMT, UTP UTP [id number] UT 15:00:00 15:00:00 t; Tejas HAMM ans RAJA, M.D. 2016-06-30 2016-06-30 [facility] YOEL, UTP UTP [id number] UT 13:00:00 13:00:00 t; Tejas VELARDE maria e Montero M.D. 2016-06-23 2016-06-23 [facility] YOEL, [facility] UTP [id number] UT 13:30:00 13:30:00 t; Tejas VELARDE maria e Montero M.D. 2016-03-31 2016-03-31 [facility] RAMIREZ, [facility] UTP [id number] UT 14:00:00 14:00:00 t; Donavon RAMON M.D. ans FRANCISCO, M.D. 2016-01-08 2016-01-08 [facility] [place], [facility] UTP [id number] [place] 14:15:00 14:15:00 t; Everton Ghotra i, M.D. ans Philip, M.D. 2015-12-03 2015-12-03 [facility] EZEKIEL, UTP UTP [id number] UT 15:20:00 15:20:00 t; Donavon RAMON M.D. ans FRANCISCO, M.D. 2015-08-24 2015-08-24 Appointmen [place], UTP UTP [id number] UT 15:45:00 15:45:00 t; Everton Ghorta i, M.D. ans Philip, M.D. 2015-07-30 2015-07-30 [facility] RAMIREZ, [facility] UTP [id number] UT 13:40:00 13:40:00 t; Donavon RAMON M.D. ans FRANCISCO, M.D. 2015-03-26 2015-03-26 [facility] RAM[facility] UTP [id number] UT 14:20:00 14:20:00 t; Donavon RAMON M.D. ans FRANCISCO, M.D. 2015-03-26 2015-03-26 [facility] NIEVES [facility] UTP [id number] UT 13:00:00 13:00:00 t; BRENNON NIEVES [...] Hct; Below Low Threshold (test code = 80854-0) 39.4 % 42.0-54 .0 MCV; Above High Threshold (test code = 787-2) 94.5 fL 80.0-94. 0 MCH; Above High Threshold (test code = 785-6) 31.8 pg 27.0-31. 0 MCHC (test code = 786-4) 33.6 g/dl 32.0-36.0 RDW (test code = 788-0) 14.3 % 11.5-14.5 Platelet (test code = 38746-6) 225 {K/CMM} 133-450 Mean Platelet Volume (test code = 00486-2) 8.8 fL 7.4-10.4 [facility]] [id number] 09:31:01 Test Item Value Reference Range Interpretation Comments Segmented Neutrophils (test code 65.0 % 45.0-75.0 = 55834-2) Monocytes (test code = 26662-4) 9.7 % 2.0-12.0 Lymphocytes (test code = 32870-0) 21.9 % 20.0-40.0 Eosinophils (test code = 01950-0) 2.8 % 0.0-4.0 Basophils (test code = 706-2) 0.6 % 0.0-1.0 Segs-Bands # (test code = 4.1 {K/CMM} 1.5-8.1 68273-7) Lymphocytes # (test code = 1.4 {K/CMM} 1.0-5.5 64948-3) Monocytes # (test code = 40274-6) 0.6 {K/CMM} 0.0-0.8 Eosinophils # (test code = 0.2 {K/CMM} 0.0-0.5 60140-8) [facility]] CMP [id number] 09:31:01 Test Item Value Reference Range Interpretation Comments Sodium Level 141 {mEq/l} 135-145 (test code = 2951-2) Potassium Level 4.5 {mEq/l} 3.5-5.1 (test code = 2823-3) Chloride Level 109 {mEq/l} 95-109 (test code = 5-0) Carbon Dioxide 27 {mEq/l} 24-32 (test code = 2027-9) AGAP; Below Low 9.5 {mEq/l} 10.0-20.0 Threshold (test code = 81522-1) Glucose Lvl; 59 mg/dl 70-99 Adult reference range Below Low values reflect the Threshold (test clinical mauricio delinesof the code = 2345-7) [place] [employer]. Creatinine Lvl; 1.50 mg/dl 0.50-1.40 Above High Threshold (test code = 2160-0) Blood Urea 23 mg/dl 7-22 Nitrogen; Above High Threshold (test code = 3094-0) BUN/Creatinine 15 6-25 Ratio (test code = 3097-3) Total Protein 7.8 g/dl 6.4-8.4 (test code = 2885-2) Albumin Lvl (test 4.2 g/dl 3.5-5.0 code = 1751-7) Globulin (test 3.6 g/dl 2.7-4.2 code = 14752-8) A/G Ratio (test 1.2 0.7-1.6 code = 1759-0) Calcium Level 9.0 mg/dl 8.5-10.5 Total (test code = 06104-2) ALT (test code = 12 u/l 0-65 1743-4) AST (test code = 19 u/l 0-37 11414-3) Alk Phos; Below 38 u/l 39-136 The pediatri c reference Low Threshold ranges for thi s test (test code = represent a 1783-0) CLSI-basedtrans ference of the CALIPER rishi abase of pediatric refer ence intervals to e[employer]ieme Exeter analyzer (Clinical Biochemistry 46 (2013): 7675-9975). [facility] Digital Folio [facility] has not internally validated these reference ranges and therefore they should be used only in th e context of a thoroughcl inical assessment. Bili Total (test 0.7 mg/dl 0.2-1.3 code = 1975-2) eGFR (test code = 42 The eGFR i s calculated 05414-0) {ML/MIN/1.7} using the CKD-E PI formula. In [...] be multiplied by t he estimated BMI. [facility]] CREATINE KINASE, [id number] 09:31:01 Test Item Value Reference Range Interpretation Comments Creatine Kinase (test code = 2157-6) 166 u/l 12-191 [facility][QL] LIPID [id number] 09:31:01 Test Item Value Reference Range Interpretation Comments Chol (test code = 2093-3) 144 mg/dl <=199 Trig; Above High Threshold (test 163 mg/dl <=149 code = 2571-8) HDL Cholesterol; Below Low 31 mg/dl >=61 Threshold (test code = 2085-9) CHD Risk (test code = 30626-8) 4.65 4.00-7.30 LDL (test code = 77995-3) 80 mg/dl <=99 VLDL (test code = VLDL) 33 [facility]] TSH, 3RD [id number] 09:31:01 Test Item Value Reference Range Interpretation Comments TSH; Above High Threshold 4.950 {uIU/ml} 0.360-3.740 (test code = 19833-9) [facility]] CBC (INCLUDES DIFF/PLT)2018-05-02 08:15:01 Test Item Value Reference Range Interpretation Comments WBC (test code = 6690-2) 5.9 {K/CMM} 3.7-10.4 RBC; Below Low Threshold (test 4.09 {M/CMM} 4.70-6.10 code = 789-8) Hgb; Below Low Threshold (test 13.2 g/dl 14.0-18.0 code = 718-7) Hct; Below Low Threshold (test 39.3 % 42.0-54.0 code = 87281-4) MCV; Above High Threshold (test 96.2 fL 80.0-94.0 code = 787-2) MCH; Above High Threshold (test 32.4 pg 27.0-31.0 code = 785-6) MCHC (test code = 786-4) 33.7 g/dl 32.0-36.0 RDW; Above High Threshold (test 14.8 % 11.5-14.5 code = 788-0) Platelet (test code = 76310-3) 219 {K/CMM} 133-450 Mean Platelet Volume (test code 9.1 fL 7.4-10.4 = 67512-6) [facility]] [id number] 08:15:01 Test Item Value Reference Range Interpretation Comments Segmented Neutrophils (test code 66.8 % 45.0-75.0 = 30860-0) Monocytes (test code = 93319-2) 9.7 % 2.0-12.0 Lymphocytes; Below Low Threshold 18.3 % 20.0-40.0 (test code = 88797-2) Eosinophils; Above High Threshold 4.4 % 0.0-4.0 (test code = 54569-4) Basophils (test code = 706-2) 0.8 % 0.0-1.0 Segs-Bands # (test code = 4.0 {K/CMM} 1.5-8.1 18711-6) Lymphocytes # (test code = 1.1 {K/CMM} 1.0-5.5 88405-1) Monocytes # (test code = 11672-2) 0.6 {K/CMM} 0.0-0.8 Eosinophils # (test code = 0.3 {K/CMM} 0.0-0.5 32624-6) [facility]] CMP [id number] 08:15:01 Test Item Value Reference Range Interpretation Comments Sodium Level 139 {mEq/l} 135-145 (test code = 2951-2) Potassium Level 4.2 {mEq/l} 3.5-5.1 (test code = 2823-3) Chloride Level 103 {mEq/l} 95-109 (test code = 2075-0) Carbon Dioxide 27 {mEq/l} 24-32 (test code = 8-9) AGAP (test code = 13.2 {mEq/l} 10.0-20.0 95837-3) Glucose Lvl; 145 mg/dl 70-99 Adult reference range Above High values reflect the Threshold (test clinical mauricio delinesof the code = 2345-7) [place] [employer] etes [employer]. Creatinine Lvl 1.40 mg/dl 0.50-1.40 (test code = 2160-0) Blood Urea 24 mg/dl 7-22 Nitrogen; Above High Threshold (test code = 3094-0) BUN/Creatinine 17 6-25 Ratio (test code = 3097-3) Total Protein 7.7 g/dl 6.4-8.4 (test code = 2885-2) Albumin Lvl (test 4.4 g/dl 3.5-5.0 code = 1751-7) Globulin (test 3.3 g/dl 2.7-4.2 code = 41666-0) A/G Ratio (test 1.3 0.7-1.6 code = 1759-0) Calcium Level 8.8 mg/dl 8.5-10.5 Total (test code = 02235-7) ALT (test code = 16 u/l 0-65 1743-4) AST (test code = 14 u/l 0-37 25629-4) Bili Total (test 0.4 mg/dl 0.2-1.3 code = 1975-2) Alk Phos (test 41 u/l 39-136 code = 1783-0) eGFR (test code = 45 The eGFR i s calculated 49180-8) {ML/MIN/1.7} using the CKD-E PI formula. In [...] National Kidney Disease Education Progr am(NKDEP) which shirleya bethely recommends that when the eGFR is used in patientswith ex tremes of body mass index for purposes of john g dosing, the eGFR should be multiplied by t he estimated BMI. [facility]] CREATINE KINASE, [id number] 08:15:01 Test Item Value Reference Range Interpretation Comments Creatine Kinase; Above High Threshold 203 u/l 12-191 (test code = 2157-6) [facility]] LIPID [id number] 08:15:01 Test Item Value Reference Range Interpretation Comments Chol (test code = 2093-3) 165 mg/dl <=199 Trig (test code = 2571-8) 119 mg/dl <=149 HDL Cholesterol; Below Low 38 mg/dl >=61 Threshold (test code = 2085-9) CHD Risk (test code = 62973-4) 4.34 4.00-7.30 LDL; Above High Threshold (test 103 mg/dl <=99 code = 30145-7) VLDL (test code = VLDL) 24 [facility]] TSH, 3RD [id number] 08:15:01 Test Item Value Reference Range Interpretation Comments TSH; Above High Threshold 25.000 {uIU/ml} 0.360-3.740 (test code = 30709-5) [facility]] LIPOPROTEIN (a)2018-05-02 08:15:01 Test Item Value Reference [...] Lp(a ) across ethnicities.Per formed At: [facility] [address] [id number] ra Tamara SIMS Ph:[phone] [facility]] CMP [id number] 10:32:01 Test Item Value Reference Range Interpretation Comments Sodium Level 139 {mEq/l} 135-145 (test code = 2951-2) Potassium Level 4.3 {mEq/l} 3.5-5.1 (test code = 2823-3) Chloride Level 106 {mEq/l} 95-109 (test code = 5-0) Carbon Dioxide; 22 {mEq/l} 24-32 Below Low Threshold (test code = 2027-9) AGAP (test code = 15.3 {mEq/l} 10.0-20.0 63371-6) Glucose Lvl; 108 mg/dl 70-99 Adult reference range Above High values reflect the Threshold (test clinical mauricio delinesof the code = 2345-7) [place] [employer] etes [employer]. Creatinine Lvl; 1.60 mg/dl 0.50-1.40 Above High Threshold (test code = 2160-0) Blood Urea 29 mg/dl 7-22 Nitrogen; Above High Threshold (test code = 3094-0) BUN/Creatinine 18 6-25 Ratio (test code = 3097-3) Total Protein 7.7 g/dl 6.4-8.4 (test code = 2885-2) Albumin Lvl (test 4.3 g/dl 3.5-5.0 code = 1751-7) Globulin (test 3.4 g/dl 2.7-4.2 code = 02723-9) A/G Ratio (test 1.3 0.7-1.6 code = 1759-0) Calcium Level 9.1 mg/dl 8.5-10.5 Total (test code = 02720-2) ALT (test code = 22 u/l 0-65 1743-4) AST (test code = 14 u/l 0-37 38711-9) Alk Phos; Below 34 u/l 39-136 Low Threshold (test code = 1783-0) Bili Total (test 0.5 mg/dl 0.2-1.3 code = 1974-) eGFR (test code = 39 The eGFR i s calculated 51023-0) {ML/MIN/1.7} using the CKD-E PI formula. In [...] be multiplied by t he estimated BMI. [facility]] TSH, 3RD GENERATION W/REFLEX TO [id number] 10:32:01 Test Item Value Reference Range Interpretation Comments TSH; Above High Threshold 11.300 {uIU/ml} 0.360-3.740 (test code = 52354-5) [facility]] CBC (INCLUDES DIFF/PLT)2017-10-26 10:32:01 Test Item Value Reference Range Interpretation Comments WBC (test code = 6690-2) 5.6 {K/CMM} 3.7-10.4 RBC; Below Low Threshold (test 4.30 {M/CMM} 4.70-6.10 code = 789-8) Hgb; Below Low Threshold (test 13.5 g/dl 14.0-18.0 code = 718-7) Hct; Below Low Threshold (test 39.6 % 42.0-54.0 code = 39633-2) MCV (test code = 787-2) 92.2 fL 80.0-94.0 MCH; Above High Threshold (test 31.3 pg 27.0-31.0 code = 785-6) MCHC (test code = 786-4) 34.0 g/dl 32.0-36.0 RDW; Above High Threshold (test 15.2 % 11.5-14.5 code = 788-0) Platelet (test code = 74931-3) 243 {K/CMM} 133-450 Mean Platelet Volume (test code 9.1 fL 7.4-10.4 = 40055-9) [facility]] [id number] 10:32:01 Test Item Value Reference Range Interpretation Comments Segmented Neutrophils (test code 61.6 % 45.0-75.0 = 84272-9) Monocytes (test code = 90153-5) 9.9 % 2.0-12.0 Lymphocytes (test code = 41019-9) 24.5 % 20.0-40.0 Eosinophils (test code = 88704-6) 3.5 % 0.0-4.0 Basophils (test code = 706-2) 0.5 % 0.0-1.0 Segs-Bands # (test code = 3.5 {K/CMM} 1.5-8.1 81388-3) Lymphocytes # (test code = 1.4 {K/CMM} 1.0-5.5 35500-7) Monocytes # (test code = 94121-2) 0.6 {K/CMM} 0.0-0.8 Eosinophils # (test code = 0.2 {K/CMM} 0.0-0.5 78192-0) [facility]] T4, [id number] 10:32:01 Test Item Value Reference Range Interpretation Comments T4 Free; Below Low Threshold (test 0.63 ng/dl 0.76-1.46 code = 3024-7) [facility]] B TYPE NATRIURETIC PEPTIDE (BNP)2017-10-26 10:32:01 Test Item Value Reference Range Interpretation Comments Natriuretic Peptide; 184 pg/ml <=100 Elevate d results are Above High Threshold in line with (test code = 20366-2) increa sing severity ofcongestive he art failure. Minor elevations betw een 100 and 300may be s een with Myocardial Ischemia, Sodiu m retaining drugs ,and compensated/maria de jesus ated heart failure. [facility]] CBC (INCLUDES DIFF/PLT)2017-09-19 10:06:01 Test Item Value Reference Range Interpretation Comments WBC (test code = 6690-2) 6.5 {K/CMM} 3.7-10.4 RBC; Below Low Threshold (test 4.28 {M/CMM} 4.70-6.10 code = 789-8) Hgb; Below Low Threshold (test 13.3 g/dl 14.0-18.0 code = 718-7) Hct; Below Low Threshold (test 39.6 % 42.0-54.0 code = 32114-2) MCV (test code = 787-2) 92.5 fL 80.0-94.0 MCH; Above High Threshold (test 31.1 pg 27.0-31.0 code = 785-6) MCHC (test code = 786-4) 33.6 g/dl 32.0-36.0 RDW; Above High Threshold (test 15.4 % 11.5-14.5 code = 788-0) Platelet (test code = 00443-8) 273 {K/CMM} 133-450 Mean Platelet Volume (test code 8.8 fL 7.4-10.4 = 73969-8) [facility]] [id number] 10:06:01 Test Item Value Reference Range Interpretation Comments Segmented Neutrophils (test code 60.9 % 45.0-75.0 = 14444-1) Monocytes (test code = 57555-2) 8.9 % 2.0-12.0 Lymphocytes (test code = 71155-8) 27.4 % 20.0-40.0 Eosinophils (test code = 73723-1) 2.4 % 0.0-4.0 Basophils (test code = 706-2) 0.4 % 0.0-1.0 Segs-Bands # (test code = 4.0 {K/CMM} 1.5-8.1 76869-3) Lymphocytes # (test code = 1.8 {K/CMM} 1.0-5.5 28517-6) Monocytes # (test code = 65681-1) 0.6 {K/CMM} 0.0-0.8 Eosinophils # (test code = 0.2 {K/CMM} 0.0-0.5 66566-4) [facility]] CMP [id number] 10:06:01 Test Item Value Reference Range Interpretation Comments Sodium Level 139 {mEq/l} 135-145 (test code = 2951-2) Potassium Level 4.5 {mEq/l} 3.5-5.1 (test code = 2823-3) Chloride Level 107 {mEq/l} 95-109 (test code = 5-0) Carbon Dioxide 25 {mEq/l} 24-32 (test code = 2027-9) AGAP (test code = 11.5 {mEq/l} 10.0-20.0 60444-5) Glucose Lvl; 107 mg/dl 70-99 Adult reference range Above High values reflect the Threshold (test clinical mauricio delinesof the code = 2345-7) [employer] [place] [employer]. Creatinine Lvl; 1.80 mg/dl 0.50-1.40 Above High Threshold (test code = 2160-0) Blood Urea 26 mg/dl 7-22 Nitrogen; Above High Threshold (test code = 3094-0) BUN/Creatinine 14 6-25 Ratio (test code = 3097-3) Total Protein 8.1 g/dl 6.4-8.4 (test code = 2885-2) Albumin Lvl (test 4.3 g/dl 3.5-5.0 code = 1751-7) Globulin (test 3.8 g/dl 2.7-4.2 code = 81053-1) A/G Ratio (test 1.1 0.7-1.6 code = 1759-0) Calcium Level 9.3 mg/dl 8.5-10.5 Total (test code = 09034-5) ALT (test code = 20 u/l 0-65 1743-4) AST (test code = 17 u/l 0-37 51243-3) Alk Phos (test 40 u/l 39-136 code = 1783-0) Bili Total (test 0.6 mg/dl 0.2-1.3 code = 1974-) eGFR (test code = 34 The eGFR i s calculated 48378-5) {ML/MIN/1.7} using the CKD-E PI formula. In [...] be multiplied by t he estimated BMI. [facility][QL] CREATINE KINASE, [id number] 10:06:01 Test Item Value Reference Range Interpretation Comments Creatine Kinase; Above High Threshold 253 u/l 12-191 (test code = 2157-6) [facility][QL] LIPID [id number] 10:06:01 Test Item Value Reference Range Interpretation Comments Chol (test code = 3-3) 170 mg/dl <=199 Trig (test code = 2571-8) 148 mg/dl <=149 HDL Cholesterol; Below Low 38 mg/dl >=61 Threshold (test code = 5-9) CHD Risk (test code = 39633-1) 4.47 4.00-7.30 LDL; Above High Threshold (test 102 mg/dl <=99 code = 16458-9) VLDL (test code = VLDL) 30 [facility]] TSH, 3RD [id number] 10:06:01 Test Item Value Reference Range Interpretation Comments TSH; Above High Threshold 7.270 {uIU/ml} 0.360-3.740 (test code = 59083-7) [facility]
[2021-09-16] MEDS ORDERED: ONDANSETRON 4 MG/2 ML VIAL IV PRN (20:52)
[2021-09-16 20:53] VITALS: BMI 23.6
[2021-09-16] MEDS: ATORVASTATIN 40 MG TAB PO SCH (21:00)
[2021-09-16] MEDS: TRAZODONE 50 MG TABLET PO SCH (21:00)
[2021-09-16] MEDS: CARBIDOPA/LEVODOPA 25/100 TAB PO SCH (21:00)
[2021-09-16] MEDS ORDERED: ACETAMINOPHEN 325 MG TABLET PO PRN (21:22)
[2021-09-17 04:00] LABS: Specific Gravity 1.015 (1.005-1.030); Urine Bilirubin Negative (Negative); Urine Blood 3+ (Negative); Urine Clarity Clear (Clear); Urine Color Yellow (Yellow); Urine Glucose 2+ (Negative); Urine Protein Negative (Negative); Urine Urobilinogen 0.2 mg/dL (0.2-1.0)
[2021-09-17 04:23] LABS: Urine Bacteria 20-50 /HPF (<20); Urine Mucus 1+ /HPF (None Seen); Urine RBC 21-50 /HPF (None Seen)
[2021-09-17 06:54] LABS: Absolute Lymphocytes (CBC) 1.1 K/uL (0.7-4.9); Lymphocytes % 11.9 % (15.3-44.8); MCV 89.2 fL (80-100); MPV 8.6 fL (7.6-11.3)
[2021-09-17 07:08] LABS: Albumin 3.2 g/dL (3.4-5.0); Magnesium 1.9 mg/dL (1.8-2.4); Potassium 3.9 mmol/L (3.5-5.1); Prealbumin 14.8 mg/dL (20-40)
[2021-09-17] MEDS: METOPROLOL XL 25 MG TAB PO SCH ×2 (08:00→12:47)
[2021-09-17] MEDS: predniSONE 10 MG TAB PO SCH (08:27)
[2021-09-17] MEDS: CARBIDOPA/LEVODOPA 25/100 TAB PO SCH ×3 (08:28→20:21)
[2021-09-17] MEDS: SACUBITRIL/VALSARTAN 24/26 MG TAB PO SCH ×2 (08:29→20:21)
[2021-09-17] MEDS: POTASSIUM CL SA 10 MEQ TAB PO SCH (08:29)
[2021-09-17] MEDS: JUVEN PACKET PO SCH ×2 (08:32→20:21)
[2021-09-17] MEDS: FUROSEMIDE 40 MG TABLET PO SCH ×2 (08:36→16:44)
--- NOTE | 2021-09-17 09:47 | P.RH.PN ---
Estimated Length of Stay: 11 Expected Discharge Date: 09/27/21 Discharge Disposition Plan: Home Family Support: Yes Alf Goal: Mobility, Transfers, Self Care Vital Signs: Last Vital Signs Temp 97.0 F 09/17/21 07:00 Pulse 87 09/17/21 08:39 Resp 18 09/17/21 07:00 BP 109/57 L 09/17/21 08:39 Pulse Ox 98 09/17/21 07:00 Laboratory: Laboratory Last Values WBC 9.2 K/uL (4.3-10.9) D 09/17/21 06:31 RBC 4.60 M/uL (4.33-5.43) 09/17/21 06:31 Hgb 14.4 g/dL (13.6-17.9) 09/17/21 06:31 Hct 41.0 % (39.6-49.0) 09/17/21 06:31 MCV 89.2 fL (80-100) 09/17/21 06:31 MCH 31.2 pg (27.0-35.0) 09/17/21 06:31 MCHC 35.0 g/dL (32.0-36.0) 09/17/21 06:31 RDW 14.4 % (12.1-15.2) 09/17/21 06:31 Plt Count 166 K/uL (152-406) 09/17/21 06:31 MPV 8.6 fL (7.6-11.3) 09/17/21 06:31 Neutrophils % 77.0 % (41.7-73.7) H 09/17/21 06:31 Lymphocytes % 11.9 % (15.3-44.8) L 09/17/21 06:31 Monocytes % 10.0 % (3.3-12.3) 09/17/21 06:31 Eosinophils % 0.6 % (0-4.4) 09/17/21 06:31 Basophils % 0.5 % (0-1.3) 09/17/21 06:31 Absolute Neutrophils 7.0 K/uL (1.8-8.0) 09/17/21 06:31 Absolute Lymphocytes 1.1 K/uL (0.7-4.9) 09/17/21 06:31 Absolute Monocytes 0.9 K/uL (0.1-1.3) 09/17/21 06:31 Absolute Eosinophils 0.1 K/uL (0-0.5) 09/17/21 06:31 Absolute Basophils 0.0 K/uL (0-0.5) 09/17/21 06:31 Sodium 139 mmol/L (136-145) 09/17/21 06:31 Potassium 3.9 mmol/L (3.5-5.1) 09/17/21 06:31 Chloride 107 mmol/L (98-107) 09/17/21 06:31 Carbon Dioxide 25 mmol/L (21-32) 09/17/21 06:31 Anion Gap 10.9 mEq/L (5.0-15.0) 09/17/21 06:31 BUN 31 mg/dL (7-18) H 09/17/21 06:31 Creatinine 1.21 mg/dL (0.55-1.3) 09/17/21 06:31 Est GFR (CKD-EPI) 58 ml/min (=/>90) L 09/17/21 06:31 Glucose 178 mg/dL (74-106) H 09/17/21 06:31 Calcium 8.4 mg/dL (8.5-10.1) L 09/17/21 06:31 Magnesium 1.9 mg/dL (1.8-2.4) 09/17/21 06:31 Albumin 3.2 g/dL (3.4-5.0) L 09/17/21 06:31 Prealbumin 14.8 mg/dL (20-40) L 09/17/21 06:31 Urine Color Yellow (Yellow) 09/17/21 03:56 Urine Clarity Clear (Clear) 09/17/21 03:56 Urine pH 5.0 (5.0-7.0) 09/17/21 03:56 Ur Specific Watkins 1.015 (1.005-1.030) 09/17/21 03:56 Glucose (UA)(Auto) 2+ (Negative) H 09/17/21 03:56 Urine Ketones Negative (Negative) 09/17/21 03:56 Urine Blood 3+ (Negative) H 09/17/21 03:56 Urine Nitrite Negative (Negative) 09/17/21 03:56 Urine Bilirubin Negative (Negative) 09/17/21 03:56 Urine Urobilinogen 0.2 mg/dL (0.2-1.0) 09/17/21 03:56 Ur Leukocyte Esterase Negative (Negative) 09/17/21 03:56 Urine RBC 21-50 /HPF (None Seen) H 09/17/21 03:56 Urine Red Cell Clumps Cancelled 09/17/21 03:25 Urine Red Cell Clumps Cancelled 09/17/21 03:25 Urine WBC <5 /HPF (<5) 09/17/21 03:56 Urine WBC Clumps Cancelled 09/17/21 03:25 Urine WBC Clumps Cancelled 09/17/21 03:25 Ur Squamous Epith Cells <5 /HPF (None Seen) 09/17/21 03:56 U Non-Squamous Epi Cells Cancelled 09/17/21 03:25 U Non-Squamous Epi Cells Cancelled 09/17/21 03:25 Ur Transition Epith Cell Cancelled 09/17/21 03:25 Ur Transition Epith Cell Cancelled 09/17/21 03:25 Ur Renal Epithelial Cell Cancelled 09/17/21 03:25 Ur Renal Epithelial Cell Cancelled 09/17/21 03:25 Calcium Carbonate Cryst Cancelled 09/17/21 03:25 Calcium Carbonate Cryst Cancelled 09/17/21 03:25 Calcium Oxalate Crystal Cancelled 09/17/21 03:25 Calcium Oxalate Crystal Cancelled 09/17/21 03:25 Leucine Crystals Cancelled 09/17/21 03:25 Leucine Crystals Cancelled 09/17/21 03:25 Cystine Crystals Cancelled 09/17/21 03:25 Cystine Crystals Cancelled 09/17/21 03:25 Uric Acid Crystals Cancelled 09/17/21 03:25 Uric Acid Crystals Cancelled 09/17/21 03:25 Triple Phos Crystals Cancelled 09/17/21 03:25 Triple Phos Crystals Cancelled 09/17/21 03:25 Tyrosine Crystals Cancelled 09/17/21 03:25 Tyrosine Crystals Cancelled 09/17/21 03:25 Unidentified Crystals Cancelled 09/17/21 03:25 Unidentified Crystals Cancelled 09/17/21 03:25 Amorphous Crystals Cancelled 09/17/21 03:25 Amorphous Crystals Cancelled 09/17/21 03:25 Urine Bacteria 20-50 /HPF (<20) H 09/17/21 03:56 Hyaline Casts Cancelled 09/17/21 03:25 Hyaline Casts Cancelled 09/17/21 03:25 Granular Casts Cancelled 09/17/21 03:25 Granular Casts Cancelled 09/17/21 03:25 Waxy Casts Cancelled 09/17/21 03:25 Waxy Casts Cancelled 09/17/21 03:25 RBC Casts Cancelled 09/17/21 03:25 RBC Casts Cancelled 09/17/21 03:25 WBC Casts Cancelled 09/17/21 03:25 WBC Casts Cancelled 09/17/21 03:25 Urine Mucus 1+ /HPF (None Seen) 09/17/21 03:56 Urine Trichomonas Cancelled 09/17/21 03:25 Urine Trichomonas Cancelled 09/17/21 03:25 Ur Yeast w Hyphae Cancelled 09/17/21 03:25 Ur Yeast w Hyphae Cancelled 09/17/21 03:25 Urine Yeast (Budding) Cancelled 09/17/21 03:25 Urine Yeast (Budding) Cancelled 09/17/21 03:25 Urine Sperm Cancelled 09/17/21 03:25 Urine Sperm Cancelled 09/17/21 03:25 Ur Oval Fat Bodies Cancelled 09/17/21 03:25 Ur Oval Fat Bodies Cancelled 09/17/21 03:25 Urine Total Protein Negative (Negative) 09/17/21 03:56 Urine Ascorbic Acid Cancelled 09/17/21 03:25 Urine Ascorbic Acid Cancelled 09/17/21 03:25 Urine Fat Cancelled 09/17/21 03:25 Urine Fat Cancelled 09/17/21 03:25 Weight: 165 lb Wound Present: Yes Closed Surgical Incision Present: No Negative Pressure Wound Therapy Present: No Physician Update: Supervision for occupational and physical therapy. Walked 30' with 4/10 pain in the right posterior hip. Right knee may give away. His labs are stable. 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 Please see the Rehabilitation Signature page for all necessary signatures.
--- NOTE | 2021-09-17 14:22 | R.HP ---
HISTORY AND PHYSICAL FACILITY: [facility] ENCOUNTER DATE AND TIME: 09/17/2021 14:11 (CDT) MR#: [id number] NAME TONY ARELLANO ADDRESS: [address] [place] [address] CITY: [place]IP [id number] PHONE: DATE OF : 1935 AGE: 86 SSN# [id number] GENDER: Male DEXTERITY Unknown dexterity MARITAL STATUS White PRE-HOSPITAL LIVING SETTING 01 - Home (private home/apt. board/care, assisted living, usp, transitional living) PRE-HOSPITAL LIVING WITH Alone ENCOUNTER PHYSICIAN: Dr. Edmar Carmona M.D. REFERRING DOCTOR: Darrick Hyatt DATE OF ADMISSION: 09/16/2021 20:40 (CDT) REFERRING FACILITY [facility] HOME TYPE AND DETAILS: Type of home: single family house # of levels in the residence: 1 # of steps within the residence: 0 # of steps to enter the residence: 0 ONSET DATE: 09/13/2021 PRIMARY DIAGNOSIS-RELATED SURGERIES: None SECONDARY/COMORBID DIAGNOSES (TIERED): - Tier 3 Chronic systolic (congestive) heart failure (I50.22) - Non-Tiered Parkinson's disease (G20) Paroxysmal atrial fibrillation (I48.0) Anemia, unspecified (D64.9) HISTORY OF PRESENT ILLNESS (HPI): Pt. is a 86 yo white male. On 09/13/2021 he was admitted to [facility] with diagnosis Spinal stenosis, lumbar region (M48.06). His impairment category is Spinal Cord Dysfunction 04 - Other Non-traumatic Spinal Cord Dysfunction (04.130). Pre-morbidly, Pt. was independent/mod-I in Locomotion and Self-Care; and he had good Safety Awareness , Balance, Transfers Control, and Endurance. Currently, he has deficits of Locomotion, Safety Awareness, Balance, Transfers Control, Self-Care, an d Endurance. Pt. is now referred to [facility] for acute in-patient rehabilitation in order to maximize patient's functional independence in activities of daily living, strength, ROM, and mobi lity. Patient has realistic goal of being discharged at assistance level 6-Philomena to reside at Home with Pt self. MEDICATION ALLERGIES: Penicillin ENVIRONMENTAL ALLERGIES: - Substance Allergies None Known - Other Allergies None Known PAST MEDICAL HISTORY: Anemia, unspecified (D64.9) Chronic systolic (congestive) heart failure (I50.22) Parkinson's disease (G20) Paroxysmal atrial fibrillation (I48.0) PAST SURGICAL HISTORY: Cataract Surgery Coronary Artery Bypass Surgery Appendectomy Colectomy SOCIAL HISTORY: - Home Living Alone REVIEW OF SYSTEMS: - Gen No Chills Fatigue No Fever - Eyes No Double Vision No itchiness - ENMT No Difficulty Swallowing - CVS No Chest Discomfort No Chest Pain Fatigue No Weight Gain - Resp No Cough No Shortness of Breath - GI Continent No Abdominal Pain No Constipation No Diarrhea - Continent No Kidney Pain No Painful Urination No Urinary Urgency - MSK No Joint Pain No Muscle Cramps Stiffness - Skin No Itching No Rash No Suspicious Lesions - Neuro Coordination Difficulty No Difficulty with Concentration No Memory Loss No Seizures Weakness - Psych No Anxiety No Depression No HIV Exposure No Persistent Infections No Seasonal Allergies - Endo No Cold/Heat Intolerance No Excessive Hunger No Excessive Thirst No Excessive Urination PHYSICAL EXAM - Gen Alert and awake Lying in bed No apparent distress Oriented to: person, time, and place - Skin No breakdown No abnormalities - Eyes Hematoma around right eye. - ENMT No abnormalities - Neck No abnormalities - CVS RRR - Chest No abnormalities - Resp No wheezing - Abd + bowel sounds - GI nondistended Deferred - No abnormalities - Ext No significant edema. - MSK 4+/5 weakness in right lower extremity - Neuro 4/5 strength right lower extremity. - Psych No abnormalities VITAL SIGNS Temperature: 97.0 F SBP/DBP: 116/60 Pulse: 70 Resp: 16 NURSING: - Shower allowing shower - Bladder care per protocol - Skin care per protocol PRECAUTIONS: - Weight Bearing Precaution WBAT right LE - Fall Precaution Bed alarm TABS alarm Wheel chair alarm - Cardiac Precaution Monitor blood pressure, heart rate, lower extremity edema, notify MD for shortness of breath or chest pain Monitor patient for excessive elevation of heart rate and blood pressure during therapy ACTIVITIES OOB only with supervision QI SCORES: - Self-Care A. Eating 05-Setup or clean-up assistance B. Oral hygiene 05-Setup or clean-up assistance C. Toileting hygiene 03-Partial/moderate assistance E. Shower/bathe self 88-Not attempted due to medical condition or safety concerns F. Upper body dressing 05-Setup or clean-up assistance G. Lower body dressing 88-Not attempted due to medical condition or safety concerns H. Putting on/taking off footwear 88-Not attempted due to medical condition or safety concerns - Mobility A. Roll left and right 03-Partial/moderate assistance B. Sit to lying 03-Partial/moderate assistance C. Lying to sitting on side of bed 03-Partial/moderate assistance D. Sit to stand 03-Partial/moderate assistance E. Chair/iyl-pw-[id number] transfer 03-Partial/moderate assistance F. Toilet transfer 88-Not attempted due to medical condition or safety concerns G. Car transfer 88-Not attempted due to medical condition or safety concerns I. Walk 10 feet 88-Not attempted due to medical condition or safety concerns J. Walk 50 feet with two turns 88-Not attempted due to medical condition or safety concerns K. Walk 150 feet 88-Not attempted due to medical condition or safety concerns L. Walking 10 feet on uneven surfaces 88-Not attempted due to medical condition or safety concerns M. 1 step (curb) 88-Not attempted due to medical condition or safety concerns N. 4 steps 88-Not attempted due to medical condition or safety concerns O. 12 steps 88-Not attempted due to medical condition or safety concerns P. Picking up object 88-Not attempted due to medical condition or safety concerns R. Wheel 50 feet with two turns 09-Not applicable S. Wheel 150 feet 09-Not applicable - Bladder and Bowel Bladder continence 0-Always continent Bowel continence 0-Always continent - Endurance Poor - Balance Poor - Safety Awareness Poor CURRENT FUNC. DEFICITS: Self-Care, Mobility, Endurance, Balance, and Safety Awareness MEDICATIONS: - Other See attached MAR (Medication Administration Record) ASSESSMENT: Pt. is a 86 yo white male.On 09/13/2021 he was admitted to [facility] with diagnosis Spina l stenosis, lumbar region (M48.06).His impairment category is Spinal Cord Dysfunction 04 - Other Non -traumatic Spinal Cord Dysfunction (04.130).Pre-morbidly, Pt. was independent/mod-I in Locomotion and Self-Care; and he had good Safety Awareness, Balance, Transfers Control, and Endurance.Currently, he has deficits of Locomotion, Safety Awareness, Balance, Transfers Control, Self-Care, and Endurance.Dwayne poe is now referred to [facility] for acute in-patient rehabilitation in order to maximize patient's functional independence in activities of daily living, strength, ROM, and mobil ity.- Rehab Goal Patient has realistic goal of being discharged at assistance level 6-Philomena to reside at Home with Pt self. - Physical Therapy Gait dysfunction - to improve, our physical therapists will perform initial evaluation of pt's status upon admission and devise an individualized program for Gait Training, and Wheel Chair mobility Inability to transfer - to improve, our physical therapists will perform initial evaluation of pt's s tatus upon admission and devise an individualized program for Bed mobility Need for home safety evaluation - to improve, our physical therapists will perform initial evaluation of pt's status upon admission and devise an individualized program for Home Evaluation Need in caregiver upon discharge - to improve, our physical therapists will perform initial evaluatio n of pt's status upon admission and devise an individualized program for Caregiver Training New precaution - to improve, our physical therapists will perform initial evaluation of pt's status u bev admission and devise an individualized program for Patient precaution education Edema - to improve, our physical therapists will perform initial evaluation of pt's status upon admi ssion and devise an individualized program for Elevation Training, and Lymphedema Therapy Poor balance - to improve, our physical therapists will perform initial evaluation of pt's status upo n admission and devise an individualized program for Balance Training Poor endurance - to improve, our physical therapists will perform initial evaluation of pt's status u bev admission and devise an individualized program for Endurance Training Weakness - to improve, our physical therapists will perform initial evaluation of pt's status upon ad mission and devise an individualized program for Aquatic Therapy, Neuromuscular Reeducation, and Stre ngthening Achieving independence - to improve, our physical therapists will perform initial evaluation of pt's status upon admission and devise an individualized program for Community Reintegration Activities - Occupational Therapy ADL deficits - to improve, our occupation therapists will perform initial evaluation of pt's status u bev admission and devise an individualized program for Bathing, Bed mobility, Community Reintegration , Cooking, Dressing, Eating, Fine Motor Skills, Grooming, Homemaking, Kitchen Mobility, Laundry, Beryl ent Education, Safety Awareness, Splinting - Positioning, Transfers(Toilet, Tub, Shower), and Wheel C hair Management Need for acute care assistant - to improve, our occupation therapists will perform initial evaluation of pt's s tatus upon admission and devise an individualized program for Caregiver Training Weakness - to improve, our occupation therapists will perform initial evaluation of pt's status upon admission and devise an individualized program for Aquatic Therapy, Balance, Endurance, UE ROM, and U E strengthening MEDICAL PLAN: - Diet Type Start Regular - Diet - Liquid Texture Start Regular - Tube Feed Start N/A - Bladder care per protocol - Cardiac Precaution Monitor blood pressure, heart rate, lower extremity edema, notify MD for shortness of breath or ches t pain Monitor patient for excessive elevation of heart rate and blood pressure during therapy - Weight Bearing Precaution WBAT right LE - Fall Precaution Bed alarm TABS alarm Wheel chair alarm - Skin care per protocol - Other See attached MAR (Medication Administration Record) - Diet - Solid Texture Regular - Shower shower DISCHARGE PLAN: - Estimated Length of Stay (days) 16. - Consensus on plan Discharge plan has been discussed with primary caregiver. Patient/Family is in agreement with the jazmin n. Primary caregiver is in agreement with the plan. - Patient/Family Goals Return home independently. - Planned Living Setting Upon Discharge Home, to live alone. Transitional Living. Primary caregiver: Pt self. SIGNATURE PANEL: (CDT)
--- NOTE | 2021-09-17 14:27 | PAPE ---
POST ADMISSION PHYSICIAN EVALUATION PATIENT: [facility] MR# [id number] REFERRING DOCTOR Darrick Hyatt EVALUATION DATE AND TIME 09/17/2021 14:25 (CDT) NAME TONY ARELLANO DATE OF 1935 AGE 86 PHONE SSN# [id number] GENDER male EVALUATING PHYSICIAN Dr. Edmar Carmona M.D. ADMISSION DIAGNOSIS: Spinal stenosis, lumbar region (M48.06) Lumbar Spondylosis M47.816 ONSET DATE 09/13/2021 SECONDARY/COMORBID DIAGNOSES TIERED: - Tier 3 Chronic systolic (congestive) heart failure (I50.22) - Non-Tiered Parkinson's disease (G20) Paroxysmal atrial fibrillation (I48.0) Anemia, unspecified (D64.9) POST-ADMISSION FUNCTIONAL/MEDICAL STATUS: - Bladder Same accident frequency: 7-Ind - No accidents in the past 7 days - Bowel Same accident frequency: 7-Ind - No accidents in the past 7 days - Walking Same score based on distance walked: 0(N/A) - Wheelchair Same score based on distance traveled: 0(N/A) STATUS CHANGE EVALUATION: No change in Functional or Medical Status is identified compared with Pre-Admission screening. PATIENT NEEDS CLOSE MEDICAL SUPERVISION BY A REHABILITATION PHYSICIAN FOR: Coordination of Treatment Team Medical and Co-Morbidity Management Wound Care Bowel and Bladder Management Pain Management PATIENT REQUIRES 24X7 REHAB NURSING FOR MEDICAL AND FUNCTIONAL MGT. OF THE FOLLOWING DEFICITS: Patient requires 24x7 Rehabilitation Nursing for: Pain Issues, Identifying and preventing risk factor s, Monitoring and reporting current medical conditions, Assisting with ambulation and transfer, Humble ting with all ADL-s, Teaching patients about disease process and medications, Family teaching, Provid ing safe environment, Bowel and Bladder Issues, Skin Integrity, and Medication Management PATIENT REQUIRES INTENSIVE, COORDINATED INTERDISCIPLINARY APPROACH TO REHAB: Patient needs Dietary and Nutrition Services for: Adequate Nutrition, Nutritional Supplements, and Nu tritional Education Patient needs Engraving Operator and/or Case Management for: Discharge Planning, Arranging Home Equipmen t or Services, and Family Interventions LIST OF IDENTIFIED AND POTENTIAL PROBLEMS: Alteration in leisure activities Bladder, Incontinence Bowel, Incontinence Falls, Actual or Potential Infection, Actual or Potential Mobility Impaired Pain, Alteration in Comfort Self Care Deficit Skin Integrity, Actual or Potential Urinary Tract Infection (UTI), Actual or Potential RISK FOR COMPLICATIONS - DVT Active and Passive ROM exercises. Administer medications per MD order. Assist patient with frequent p osition changes. Elevate BLE. - Skin Breakdown Encourage ambulation as tolerated. Repositioning q 2 hours. Use of pillows or foam wedges while in be d. - Pain Anticipate the need for pain medication for optimal pain managment. Administer prescribed pain medica tion as needed. Educate patient on relaxation and deep breathing techniques. Assess pt for pain and A dminister prescribed pain medication as needed. Assist patient with frequent position changes at leas t every 2 hours. - Falls Assess for medication side effects. Maintain call light within patient reach for easy access to nursi ng assistance. Provide assistance getting out of bed and with ambulation. Provide assistive devices. - Bleeding Assess/ Monitor pt for injury. Maintain pt safety. - Stroke Assess/ Monitor and maintain patient pain level. Assess/ Monitor patient blood pressure. INTERVENTIONS - Lumbar Spondylosis Aggressive PT/OT. Assist pt will OOB activity to reduce risk for injury. Reposition pt q2h. Assess/Mo nitor pt for pain and administer prescribed pain medications and monitor effectiveness. Assess/Monito r pt motor function. - Lumbar Stenosis Aggressive PT/OT. Assist pt will OOB activity to reduce risk for injury. Assess/Monitor pt for pain a nd administer prescribed pain medications and monitor effectiveness. Reposition pt q2h. Assess/Monito r pt motor function. - Parkinson's Disease Assess respiratory status for rate, depth, ease, use of accessory muscles, and work of breathing. Ass ess ambulation and movement. Assist with Self-care deficits (feeding, dressing, hygiene, and toiletin g) related to tremors and motor disturbances. - Afib Assess/Monitor pt cardiac and respiratory status regularly. Mojitor pt labs. Vitals will be monitored /assessed regularly. Administer prescribed anticoagulants and monitor for effectiveness. - Chronic systolic heart failure Administer medications as indicated by MD and monitor for effectiveness. Assess/Monitor pt cardiac st atus. - Anemia Monitor for bleeding. Monitor pt labs. Treat with IV medications and MARQUEZ. PATIENT COULD BE AT RISK FOR COMPLICATIONS FROM ADVERSE MEDICAL CONDITIONS DUE TO HIS/HER COMORBIDITI ES AND THE RIGORS OF THE INTENSIVE REHABILLITATION PROGRAM. METHODS OR INTERVENTIONS TO AVOID COMPLIC ATIONS INCLUDE: - Bleeding Assess lab values and manage abnormalities. Nursing to teach precautions for anti-coagulation therapy . Wound to be assessed every shift. - Infection Clinical staff to assess and manage the signs and symptoms of infection including fever, redness, war mth, etc. - Urinary Tract Infection - Falls Patient will be evaluated for Fall Precautions and will be placed on Fall Precautions as indicated pe r protocol. - Skin Breakdown Nursing will assess skin daily using assessment tool and will place on Skin Breakdown Precautions as indicated per protocol. - Pain Clinical staff may employ non-medication methods such as massage, distraction, decrease stimulus, etc . as needed. Clinical staff will assess patient's pain level every shift per protocol to assess and e nsure pain management effectiveness. Medications will be given and the pain level re-assessed. PRELIMINARY PLAN OF CARE: - Physical Therapy Patient needs Physical Therapy for a daily minimum of 1.5 hours at least 5 out of 7 days, to improve: Mobility, Strengthening, Transfers, Stretching, ROM, Endurance, Ability to manage stairs, Gait, and Balance. - Speech Therapy Patient needs Speech Therapy for a daily minimum of 0.5 hours at least 5 out of 7 days, to improve: S wallowing, Cognition, Language Skills, and Compensatory Strategies. - Rehabilitation Nursing Patient requires 24x7 Rehabilitation Nursing for: Pain Issues, Identifying and preventing risk factor s, Monitoring and reporting current medical conditions, Assisting with ambulation and transfer, Humble ting with all ADL-s, Teaching patients about disease process and medications, Family teaching, Provid ing safe environment, Bowel and Bladder Issues, Skin Integrity, and Medication Management. Patient needs Engraving Operator and/or Case Management for: Discharge Planning, Arranging Home Equipmen t or Services, and Family Interventions. - Dietary and Nutrition Services Patient needs Dietary and Nutrition Services for: Adequate Nutrition, Nutritional Supplements, and Nu tritional Education. - Occupational Therapy Patient needs Occupational Therapy for a daily minimum of 1.5 hours at least 5 out of 7 days, to impr ove Activities of Daily Living, including: Eating, Grooming, Bathing, Dressing, Toileting, Toilet Tra nsfers, Community Reintegration, Higher functional activities, Adaptive Equipment, Splinting, Househo ld Tasks, and Other activities as determined. QI SCORES: - Self-Care A. Eating 05-Setup or clean-up assistance B. Oral hygiene 05-Setup or clean-up assistance C. Toileting hygiene 03-Partial/moderate assistance E. Shower/bathe self 88-Not attempted due to medical condition or safety concerns F. Upper body dressing 05-Setup or clean-up assistance G. Lower body dressing 88-Not attempted due to medical condition or safety concerns H. Putting on/taking off footwear 88-Not attempted due to medical condition or safety concerns - Mobility A. Roll left and right 03-Partial/moderate assistance B. Sit to lying 03-Partial/moderate assistance C. Lying to sitting on side of bed 03-Partial/moderate assistance D. Sit to stand 03-Partial/moderate assistance E. Chair/oia-ls-emxda transfer 03-Partial/moderate assistance F. Toilet transfer 88-Not attempted due to medical condition or safety concerns G. Car transfer 88-Not attempted due to medical condition or safety concerns I. Walk 10 feet 88-Not attempted due to medical condition or safety concerns J. Walk 50 feet with two turns 88-Not attempted due to medical condition or safety concerns K. Walk 150 feet 88-Not attempted due to medical condition or safety concerns L. Walking 10 feet on uneven surfaces 88-Not attempted due to medical condition or safety concerns M. 1 step (curb) 88-Not attempted due to medical condition or safety concerns N. 4 steps 88-Not attempted due to medical condition or safety concerns O. 12 steps 88-Not attempted due to medical condition or safety concerns P. Picking up object 88-Not attempted due to medical condition or safety concerns R. Wheel 50 feet with two turns 09-Not applicable S. Wheel 150 feet 09-Not applicable - Bladder and Bowel Bladder continence 0-Always continent Bowel continence 0-Always continent - Endurance Poor - Balance Poor - Safety Awareness Poor POTENTIAL FUNCTIONAL GOALS FOR PATIENT TO ACHIEVE BY DISCHARGE: - Safety Precaution Patient will remain free from falls or injury at time of discharge. - Bed Mobility Patient will perform bed mobility at 4-Cam level of assistance. - Transfers Patient will complete transfers from bed to chair at 4-Cam level of assistance. - Mobility Patient will ambulate 150 ft with 4-Cam level of assistance with RW. PATIENT REHAB POTENTIAL Aftab ARELLANO is able and expected to receive 3 hours of individualized therapy daily on at least 5 of sheridan ry 7 days JensenAngi ARELLANO's prognosis for significant practical improvement within a reasonable period of time appears Good Expected level of measurable improvement will be of a practical value to Aftab ARELLANO's functional capaci ty or adaptations to impairments Has a viable Discharge Plan Medically appropriate; condition is sufficiently stable to participate in intensive rehab program DISCHARGE PLAN: - Estimated Length of Stay (days) 16. - Consensus on plan Discharge plan has been discussed with primary caregiver. Patient/Family is in agreement with the jazmin n. Primary caregiver is in agreement with the plan. - Patient/Family Goals Return home independently. - Planned Living Setting Upon Discharge Home, to live alone. Transitional Living. Primary caregiver: Pt self. CONCLUSION ON REHABILITATION NECESSITY: I have evaluated patient's pre-admission functional status and, comparing it to the patient's post-ad mission functional status now, I conclude that the pre-admission assessment was accurate. Patient's c ondition on admission supports the medical necessity of admission to [facility]. It is safe to proceed with patient's therapy program. SIGNATURE PANEL: (CDT)
[2021-09-17] MEDS: RIVAROXABAN 15 MG TABLET PO SCH (16:44)
--- NOTE | 2021-09-17 17:01 | PN ---
Date of Progress Note: 09/17/2021 Subjective: The patient was seen this morning for followup. He was sitting at bedside, not in distr ess. Denies any complaints overnight. Slept well. Objective: Vital Signs: Reviewed. HEENT: Examination unremarkable. Lungs: Clear to auscultation. Heart: Sounds normal. Abdomen: Soft. Bowel sounds normal. No guarding, rigidity, tenderness, distention. Extremities: No leg edema. Skin: The patient has multiple abrasions on both lower extremities. Laboratory Data: White count 9.2, hemoglobin 14.4, platelets 166. Sodium 139, potassium 3.9, chlori de 107, bicarb 25, BUN 31, creatinine 1.21, glucose 178. Urinalysis 3+ blood, RBC 21-50, WBC less th an 5, bacteria 20-50. Impression: 1.Lumbar spinal stenosis. 2.Lumbar radiculopathy. 3.Chronic systolic heart failure. 4.Paroxysmal atrial fibrillation. Plan: We will continue current medication. Continue current anticoagulation therapy and current maria de jesus atment for chronic systolic heart failure. We will continue prednisone which was started at 30 mg da sirisha, and we will taper those every few days. Physical therapy to be provided under guidance of Dr. Carmona. I will see him tomorrow for followup. NELSY/MODL Voice ID: [id number] Report ID: [id number]
[2021-09-17] MEDS: TRAZODONE 50 MG TABLET PO SCH (20:21)
[2021-09-17] MEDS: ATORVASTATIN 40 MG TAB PO SCH (20:21)
[2021-09-18] MEDS: METOPROLOL XL 25 MG TAB PO SCH (08:00)
[2021-09-18] MEDS: CARBIDOPA/LEVODOPA 25/100 TAB PO SCH ×3 (08:12→20:48)
[2021-09-18] MEDS: FUROSEMIDE 40 MG TABLET PO SCH ×3 (08:12→16:54)
[2021-09-18] MEDS: SACUBITRIL/VALSARTAN 24/26 MG TAB PO SCH ×2 (08:12→20:45)
[2021-09-18] MEDS: POTASSIUM CL SA 10 MEQ TAB PO SCH (08:12)
[2021-09-18] MEDS: predniSONE 10 MG TAB PO SCH (08:14)
[2021-09-18] MEDS: JUVEN PACKET PO SCH ×2 (08:14→20:51)
[2021-09-18] MEDS: RIVAROXABAN 15 MG TABLET PO SCH (16:54)
[2021-09-18] MEDS: TRAZODONE 50 MG TABLET PO SCH (20:45)
[2021-09-18] MEDS: ATORVASTATIN 40 MG TAB PO SCH (20:45)
--- NOTE | 2021-09-18 22:33 | PN ---
Date of Progress Note: 09/18/2021 Subjective: The patient was seen this morning for followup. He was sleeping, easily arousable, not in any distress. Overall feels better. Feels like the right leg is no stronger than before. Objective: Vital Signs: Reviewed. HEENT: Unremarkable. Lungs: Clear to auscultation. Heart: Sounds normal. Abdomen: Soft. Bowel sounds normal. No guarding, rigidity, tenderness, distention. Extremities: No leg edema. Impression: 1.Hypertension. 2.Paroxysmal atrial fibrillation. 3.Parkinson disease. 4.Lumbar spondylosis. 5.Lumbar spinal stenosis. Plan: We will continue current medications. Continue physical therapy under guidance of Dr. Paula reddy. We will also go ahead and continue current anticoagulation and antihypertensive medication. I wi ll see him tomorrow for followup. NELSY/ZOHRA Voice ID: [id number] Report ID: [id number]
[2021-09-19] MEDS: FUROSEMIDE 40 MG TABLET PO SCH ×2 (07:45→16:39)
[2021-09-19] MEDS: CARBIDOPA/LEVODOPA 25/100 TAB PO SCH ×3 (07:46→20:30)
[2021-09-19] MEDS: SACUBITRIL/VALSARTAN 24/26 MG TAB PO SCH ×2 (07:46→20:30)
[2021-09-19] MEDS: JUVEN PACKET PO SCH ×2 (07:46→20:30)
[2021-09-19] MEDS: POTASSIUM CL SA 10 MEQ TAB PO SCH (07:46)
[2021-09-19] MEDS: METOPROLOL XL 25 MG TAB PO SCH (07:47)
[2021-09-19] MEDS: predniSONE 10 MG TAB PO SCH (07:47)
--- NOTE | 2021-09-19 12:20 | PN ---
Date of Progress Note: 09/19/2021 Subjective: The patient was seen this morning for followup. No new complaints or problems reported by him. Sleeping, easily arousable, not in distress. Objective: Vital Signs: Reviewed. HEENT: Unremarkable. Lungs: Clear to auscultation. Heart: Sounds normal. Abdomen: Soft. Bowel sounds normal. No guarding, rigidity, tenderness, or distention. Extremities: No leg edema. Neurological: Right leg weakness is still present compared to left leg. Power in right leg is 4 to 4+/5 and left lower extremity is 5/5. Impression: 1.Lumbar spinal stenosis. 2.Lumbar spondylosis with radiculopathy. 3.Paroxysmal atrial fibrillation. 4.Parkinson disease. 5.Chronic anticoagulation therapy. Plan: We will go ahead and continue current medications, continue physical therapy under guidance of Dr. Carmona. We will continue his current oral steroid therapy at current dose and anticoagulation therapy. I will see him tomorrow for followup. NELSY/MODL Voice ID: [id number] Report ID: [id number]
[2021-09-19] MEDS: RIVAROXABAN 15 MG TABLET PO SCH (16:40)
[2021-09-19] MEDS: ATORVASTATIN 40 MG TAB PO SCH (20:30)
[2021-09-19] MEDS: TRAZODONE 50 MG TABLET PO SCH (20:30)
[2021-09-20] MEDS: CARBIDOPA/LEVODOPA 25/100 TAB PO SCH ×3 (07:41→20:19)
[2021-09-20] MEDS: FUROSEMIDE 40 MG TABLET PO SCH ×2 (07:41→17:10)
[2021-09-20] MEDS: predniSONE 10 MG TAB PO SCH (07:42)
[2021-09-20] MEDS: SACUBITRIL/VALSARTAN 24/26 MG TAB PO SCH ×2 (07:42→20:19)
[2021-09-20] MEDS: JUVEN PACKET PO SCH ×2 (07:42→20:19)
[2021-09-20] MEDS: POTASSIUM CL SA 10 MEQ TAB PO SCH (07:42)
[2021-09-20] MEDS: METOPROLOL XL 25 MG TAB PO SCH (07:43)
[2021-09-20] MEDS: RIVAROXABAN 15 MG TABLET PO SCH (17:10)
--- NOTE | 2021-09-20 18:06 | R.PN ---
PROGRESS NOTES ENCOUNTER DATE AND TIME: 09/20/2021 18:00 (CDT) NAME TONY ARELLANO DATE OF : 1935 DATE OF ADMISSION: 09/16/2021 20:40 (CDT) Spinal stenosis, lumbar region (M48.06)Lumbar Spondylosis M47.816 CHIEF COMPLAINT: Lumbar spinal stenosis and debility SUBJECTIVE: Pt denied any Shortness of Breath. Pt denied any depression. CBC with differential is normal. Prealbumin 14.8, glucose 178. UA shows 20-50 bacteria. Ambulated a total of 250' with contact guard assistance using a rolling walker. Self-propelled wheel chair 250' with modified independence. VITAL SIGNS Temperature: 97.6 F SBP/DBP: 144/74 Pulse: 82 Resp: 14 MEDICATION ALLERGIES: Penicillin ENVIRONMENTAL ALLERGIES: - Substance Allergies None Known - Other Allergies None Known NURSING: - Shower allowing shower - Bladder care per protocol - Skin care per protocol PRECAUTIONS: - Weight Bearing Precaution WBAT right LE - Fall Precaution Bed alarm TABS alarm Wheel chair alarm - Cardiac Precaution Monitor blood pressure, heart rate, lower extremity edema, notify MD for shortness of breath or chest pain Monitor patient for excessive elevation of heart rate and blood pressure during therapy ACTIVITIES OOB only with supervision THERAPIES: - Orthotics/Prosthetics Orthotic Evaluation. Splinting/Casting. - Dietary and Nutrition Adequate Nutrition. Nutritional Education. Nutritional Supplements. - Occupational Therapy Cognitive Retraining. Patient needs Occupational Therapy for a daily minimum of 1.5 hours at least 5 out of 7 days, to improve Activities of Daily Living, including: Eating, Grooming, Bathing, Dressing, Toileting, Toilet Transfers, Community Reintegration, Higher functional activities, Adaptive Equipme nt, Splinting, Household Tasks, and Other activities as determined. Visual Perceptual Training. - Physical Therapy Patient needs Physical Therapy for a daily minimum of 1.5 hours at least 5 out of 7 days, to improve: Mobility, Strengthening, Transfers, Stretching, ROM, Endurance, Ability to manage stairs, Gait, and Balance. PHYSICAL EXAM - Gen Alert and awake Lying in bed No apparent distress Oriented to: person, time, and place - Skin No breakdown No abnormalities - Eyes Hematoma around right eye. - ENMT No abnormalities - Neck No abnormalities - CVS RRR - Chest No abnormalities - Resp No wheezing - Abd + bowel sounds - GI nondistended Deferred - No abnormalities - Ext No significant edema. - MSK 4+/5 weakness in right lower extremity - Neuro 4/5 strength right lower extremity. - Psych No abnormalities ASSESSMENT: Pt. 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 was independent/mod-I in Locomotion and Self-Care; and he had good Safety Awareness, Balance, Transfers Control, and Endurance.Currently, he has deficits of Locomotion, Safety Awareness, Balance, Transfers Control, Self-Care, and Endurance.Dwayne poe is now referred to [facility] for acute in-patient rehabilitation in order to maximize patient's functional independence in activities of daily living, strength, ROM, and mobil ity.- Rehab Goal Patient has realistic goal of being discharged at assistance level 6-Philomena to reside at Home with Pt self. MDM/PLAN: - Physical Therapy Gait dysfunction - to improve, our physical therapists will perform initial evaluation of pt's statu s upon admission and devise an individualized program for Gait Training, and Wheel Chair mobility Inability to transfer - to improve, our physical therapists will perform initial evaluation of pt's status upon admission and devise an individualized program for Bed mobility Need for home safety evaluation - to improve, our physical therapists will perform initial evaluatio n of pt's status upon admission and devise an individualized program for Home Evaluation Need in caregiver upon discharge - to improve, our physical therapists will perform initial evaluati on of pt's status upon admission and devise an individualized program for Caregiver Training New precaution - to improve, our physical therapists will perform initial evaluation of pt's status upon admission and devise an individualized program for Patient precaution education Edema - to improve, our physical therapists will perform initial evaluation of pt's status upon admis alissa and devise an individualized program for Elevation Training, and Lymphedema Therapy Poor balance - to improve, our physical therapists will perform initial evaluation of pt's status up on admission and devise an individualized program for Balance Training Poor endurance - to improve, our physical therapists will perform initial evaluation of pt's status upon admission and devise an individualized program for Endurance Training Weakness - to improve, our physical therapists will perform initial evaluation of pt's status upon a dmission and devise an individualized program for Aquatic Therapy, Neuromuscular Reeducation, and Str engthening Achieving independence - to improve, our physical therapists will perform initial evaluation of pt's status upon admission and devise an individualized program for Community Reintegration Activities - Occupational Therapy ADL deficits - to improve, our occupation therapists will perform initial evaluation of pt's status upon admission and devise an individualized program for Bathing, Bed mobility, Community Reintegratio n, Cooking, Dressing, Eating, Fine Motor Skills, Grooming, Homemaking, Kitchen Mobility, Laundry, Pat ient Education, Safety Awareness, Splinting - Positioning, Transfers(Toilet, Tub, Shower), and Wheel Chair Management Need for manager of care - to improve, our occupation therapists will perform initial evaluation of pt's status upon admission and devise an individualized program for Caregiver Training Weakness - to improve, our occupation therapists will perform initial evaluation of pt's status upon admission and devise an individualized program for Aquatic Therapy, Balance, Endurance, UE ROM, and UE strengthening - Other See attached MAR (Medication Administration Record) - Diet Type Continue Regular - Diet - Liquid Texture Continue Regular - Tube Feed Continue N/A - Bladder care per protocol - Cardiac Precaution Monitor blood pressure, heart rate, lower extremity edema, notify MD for shortness of breath or chest pain Monitor patient for excessive elevation of heart rate and blood pressure during therapy - Weight Bearing Precaution WBAT right LE - Fall Precaution Bed alarm TABS alarm Wheel chair alarm - Skin care per protocol - Diet - Solid Texture Continue Regular - Shower allowing shower FUNCTIONAL STATUS: UPDATED AT WEEKLY TEAM CONFERENCE - Bladder Same accident frequency: 7-Ind - No accidents in the past 7 days - Bowel Same accident frequency: 7-Ind - No accidents in the past 7 days - Walking Same score based on distance walked: 0(N/A) - Wheelchair Same score based on distance traveled: 0(N/A) FUNCTIONAL STATUS: - Self-Care A. Eating Ind B. Grooming Philomena C. Bathing modA D. Dressing - Upper Philomena E. Dressing - Lower modA F. Toileting Cam - Sphincter Control G. Bladder control Philomena H. Bowel control Philomena - Transfers Control I. Bed/Chair/Wheelchair Philomena J. Toilet Philomena K. Tub/Shower Cam - Locomotion L. Walk/Wheelchair (B) Cam M. Stairs maxA - Communication N. Comprehension (B) Philomena O. Expression (B) Philomena - Social Cognition P. Social Interaction Philomena Q. Problem Solving sup R. Memory Philomena - Endurance Good - Balance Good - Safety Awareness Fair QI SCORES: - Self-Care A. Eating 05-Setup or clean-up assistance B. Oral hygiene 05-Setup or clean-up assistance C. Toileting hygiene 03-Partial/moderate assistance E. Shower/bathe self 88-Not attempted due to medical condition or safety concerns F. Upper body dressing 05-Setup or clean-up assistance G. Lower body dressing 88-Not attempted due to medical condition or safety concerns H. Putting on/taking off footwear 88-Not attempted due to medical condition or safety concerns - Mobility A. Roll left and right 03-Partial/moderate assistance B. Sit to lying 03-Partial/moderate assistance C. Lying to sitting on side of bed 03-Partial/moderate assistance D. Sit to stand 03-Partial/moderate assistance E. Chair/jzd-pa-qrnbe transfer 03-Partial/moderate assistance F. Toilet transfer 88-Not attempted due to medical condition or safety concerns G. Car transfer 88-Not attempted due to medical condition or safety concerns I. Walk 10 feet 88-Not attempted due to medical condition or safety concerns J. Walk 50 feet with two turns 88-Not attempted due to medical condition or safety concerns K. Walk 150 feet 88-Not attempted due to medical condition or safety concerns L. Walking 10 feet on uneven surfaces 88-Not attempted due to medical condition or safety concerns M. 1 step (curb) 88-Not attempted due to medical condition or safety concerns N. 4 steps 88-Not attempted due to medical condition or safety concerns O. 12 steps 88-Not attempted due to medical condition or safety concerns P. Picking up object 88-Not attempted due to medical condition or safety concerns R. Wheel 50 feet with two turns 09-Not applicable S. Wheel 150 feet 09-Not applicable - Bladder and Bowel Bladder continence 0-Always continent Bowel continence 0-Always continent - Endurance Poor - Balance Poor - Safety Awareness Poor CURRENT FUNC. DEFICITS: Self-Care, Mobility, Endurance, Balance, and Safety Awareness SIGNATURE PANEL: ([facility] [place])
[2021-09-20] MEDS: TRAZODONE 50 MG TABLET PO SCH (20:19)
[2021-09-20] MEDS: ATORVASTATIN 40 MG TAB PO SCH (20:19)
--- NOTE | 2021-09-20 20:42 | PN ---
Date of Progress Note: 09/20/2021 Subjective: The patient was seen this morning for followup. No new complaints or problems reported by the patient. Lying in bed, not in any distress. Objective: Vital Signs: Reviewed. HEENT: Remarkable. Lungs: Clear to auscultation. Heart: Sounds normal. Abdomen: Soft. Bowel sounds normal. No guarding, rigidity, tenderness, or distention. Extremities: No leg edema. Neuro: Right leg weakness unchanged from yesterday. Impression: 1.Lumbar spinal stenosis. 2.Lumbar radiculopathy. 3.Atrial fibrillation. 4.Chronic systolic heart failure. Plan: Continue current medications. Continue current prednisone and physical therapy under guidance of Dr. Carmona and I will see him tomorrow for followup. NELSY/MODL Voice ID: [id number] Report ID: [id number]
[2021-09-21] MEDS: predniSONE 10 MG TAB PO SCH (07:41)
[2021-09-21] MEDS: FUROSEMIDE 40 MG TABLET PO SCH ×2 (07:41→16:56)
[2021-09-21] MEDS: CARBIDOPA/LEVODOPA 25/100 TAB PO SCH ×3 (07:41→20:28)
[2021-09-21] MEDS: SACUBITRIL/VALSARTAN 24/26 MG TAB PO SCH ×2 (07:41→20:28)
[2021-09-21] MEDS: POTASSIUM CL SA 10 MEQ TAB PO SCH (07:42)
[2021-09-21] MEDS: JUVEN PACKET PO SCH ×2 (07:42→20:28)
[2021-09-21] MEDS: METOPROLOL XL 25 MG TAB PO SCH (07:43)
--- NOTE | 2021-09-21 15:57 | R.PN ---
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 Pt denied any depression. CBC with differential is normal. Prealbumin 14.8, glucose 178. UA shows 20-50 bacteria. Covid-19 test is positive 09/21/21. He did transfers, therapeutic exercises and gait training with contact guard assistance to [facility]. Ambulated 250 feet x 3 with standby assistance using a rolling walker and 15 steps with contact guard assistance. Therapeutic exercises done with supervision. VITAL SIGNS Temperature: 97.5 F SBP/DBP: 128/66 Pulse: 83 Resp: 15 MEDICATION ALLERGIES: Penicillin ENVIRONMENTAL ALLERGIES: - Substance Allergies None Known - Other Allergies None Known NURSING: - Shower allowing shower - Bladder care per protocol - Skin care per protocol PRECAUTIONS: - Weight Bearing Precaution WBAT right LE - Fall Precaution Bed alarm TABS alarm Wheel chair alarm - Cardiac Precaution Monitor blood pressure, heart rate, lower extremity edema, notify MD for shortness of breath or chest pain Monitor patient for excessive elevation of heart rate and blood pressure during therapy ACTIVITIES OOB only with supervision THERAPIES: - Orthotics/Prosthetics Orthotic Evaluation. Splinting/Casting. - Dietary and Nutrition Adequate Nutrition. Nutritional Education. Nutritional Supplements. - Occupational Therapy Cognitive Retraining. Patient needs Occupational Therapy for a daily minimum of 1.5 hours at least 5 out of 7 days, to improve Activities of Daily Living, including: Eating, Grooming, Bathing, Dressing, Toileting, Toilet Transfers, Community Reintegration, Higher functional activities, Adaptive Equipme nt, Splinting, Household Tasks, and Other activities as determined. Visual Perceptual Training. - Physical Therapy Patient needs Physical Therapy for a daily minimum of 1.5 hours at least 5 out of 7 days, to improve: Mobility, Strengthening, Transfers, Stretching, ROM, Endurance, Ability to manage stairs, Gait, and Balance. PHYSICAL EXAM - Gen Alert and awake Lying in bed No apparent distress Oriented to: person, time, and place - Skin No breakdown No abnormalities - Eyes Hematoma around right eye. - ENMT No abnormalities - Neck No abnormalities - CVS RRR - Chest No abnormalities - Resp No wheezing - Abd + bowel sounds - GI nondistended Deferred - No abnormalities - Ext No significant edema. - MSK 4+/5 weakness in right lower extremity - Neuro 4/5 strength right lower extremity. 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 was independent/mod-I in Locomotion and Self-Care; and he had good Safety Awareness, Balance, Transfers Control, and Endurance.Currently, he has deficits of Locomotion, Safety Awareness, Balance, Transfers Control, Self-Care, and Endurance.Dwayne poe is now referred to [facility] for acute in-patient rehabilitation in order to maximize patient's functional independence in activities of daily living, strength, ROM, and mobil ity.- Rehab Goal Patient has realistic goal of being discharged at assistance level 6-Philomena to reside at Home with Pt self. MDM/PLAN: - Physical Therapy Gait dysfunction - to improve, our physical therapists will perform initial evaluation of pt's statu s upon admission and devise an individualized program for Gait Training, and Wheel Chair mobility Inability to transfer - to improve, our physical therapists will perform initial evaluation of pt's status upon admission and devise an individualized program for Bed mobility Need for home safety evaluation - to improve, our physical therapists will perform initial evaluatio n of pt's status upon admission and devise an individualized program for Home Evaluation Need in caregiver upon discharge - to improve, our physical therapists will perform initial evaluati on of pt's status upon admission and devise an individualized program for Caregiver Training New precaution - to improve, our physical therapists will perform initial evaluation of pt's status upon admission and devise an individualized program for Patient precaution education Edema - to improve, our physical therapists will perform initial evaluation of pt's status upon admi ssion and devise an individualized program for Elevation Training, and Lymphedema Therapy Poor balance - to improve, our physical therapists will perform initial evaluation of pt's status up on admission and devise an individualized program for Balance Training Poor endurance - to improve, our physical therapists will perform initial evaluation of pt's status upon admission and devise an individualized program for Endurance Training Weakness - to improve, our physical therapists will perform initial evaluation of pt's status upon a dmission and devise an individualized program for Aquatic Therapy, Neuromuscular Reeducation, and Str engthening Achieving independence - to improve, our physical therapists will perform initial evaluation of pt's status upon admission and devise an individualized program for Community Reintegration Activities - Occupational Therapy ADL deficits - to improve, our occupation therapists will perform initial evaluation of pt's status upon admission and devise an individualized program for Bathing, Bed mobility, Community Reintegratio n, Cooking, Dressing, Eating, Fine Motor Skills, Grooming, Homemaking, Kitchen Mobility, Laundry, Pat ient Education, Safety Awareness, Splinting - Positioning, Transfers(Toilet, Tub, Shower), and Wheel Chair Management Need for child caregiver - to improve, our occupation therapists will perform initial evaluation of pt's status upon admission and devise an individualized program for Caregiver Training Weakness - to improve, our occupation therapists will perform initial evaluation of pt's status upon admission and devise an individualized program for Aquatic Therapy, Balance, Endurance, UE ROM, and UE strengthening - Other See attached MAR (Medication Administration Record) - Diet Type Continue Regular - Diet - Liquid Texture Continue Regular - Tube Feed Continue N/A - Bladder care per protocol - Cardiac Precaution Monitor blood pressure, heart rate, lower extremity edema, notify MD for shortness of breath or ches t pain Monitor patient for excessive elevation of heart rate and blood pressure during therapy - Weight Bearing Precaution WBAT right LE - Fall Precaution Bed alarm TABS alarm Wheel chair alarm - Skin care per protocol - Diet - Solid Texture Continue Regular - Shower allowing shower FUNCTIONAL STATUS: UPDATED AT WEEKLY TEAM CONFERENCE - Bladder Same accident frequency: 7-Ind - No accidents in the past 7 days - Bowel Same accident frequency: 7-Ind - No accidents in the past 7 days - Walking Same score based on distance walked: 0(N/A) - Wheelchair Same score based on distance traveled: 0(N/A) FUNCTIONAL STATUS: - Self-Care A. Eating Ind B. Grooming Philomena C. Bathing modA D. Dressing - Upper Philomena E. Dressing - Lower modA F. Toileting Cam - Sphincter Control G. Bladder control Philomena H. Bowel control Philomena - Transfers Control I. Bed/Chair/Wheelchair Philomena J. Toilet Philomena K. Tub/Shower Cam - Locomotion L. Walk/Wheelchair (B) Cam M. Stairs maxA - Communication N. Comprehension (B) Philomena O. Expression (B) Philomena - Social Cognition P. Social Interaction Philomena Q. Problem Solving sup R. Memory Philomena - Endurance Good - Balance Good - Safety Awareness Fair QI SCORES: - Self-Care A. Eating 05-Setup or clean-up assistance B. Oral hygiene 05-Setup or clean-up assistance C. Toileting hygiene 03-Partial/moderate assistance E. Shower/bathe self 88-Not attempted due to medical condition or safety concerns F. Upper body dressing 05-Setup or clean-up assistance G. Lower body dressing 88-Not attempted due to medical condition or safety concerns H. Putting on/taking off footwear 88-Not attempted due to medical condition or safety concerns - Mobility A. Roll left and right 03-Partial/moderate assistance B. Sit to lying 03-Partial/moderate assistance C. Lying to sitting on side of bed 03-Partial/moderate assistance D. Sit to stand 03-Partial/moderate assistance E. Chair/izc-sq-tlwfi transfer 03-Partial/moderate assistance F. Toilet transfer 88-Not attempted due to medical condition or safety concerns G. Car transfer 88-Not attempted due to medical condition or safety concerns I. Walk 10 feet 88-Not attempted due to medical condition or safety concerns J. Walk 50 feet with two turns 88-Not attempted due to medical condition or safety concerns K. Walk 150 feet 88-Not attempted due to medical condition or safety concerns L. Walking 10 feet on uneven surfaces 88-Not attempted due to medical condition or safety concerns M. 1 step (curb) 88-Not attempted due to medical condition or safety concerns N. 4 steps 88-Not attempted due to medical condition or safety concerns O. 12 steps 88-Not attempted due to medical condition or safety concerns P. Picking up object 88-Not attempted due to medical condition or safety concerns R. Wheel 50 feet with two turns 09-Not applicable S. Wheel 150 feet 09-Not applicable - Bladder and Bowel Bladder continence 0-Always continent Bowel continence 0-Always continent - Endurance Poor - Balance Poor - Safety Awareness Poor CURRENT FUNC. DEFICITS: Self-Care, Mobility, Endurance, Balance, and Safety Awareness SIGNATURE PANEL: (CDT)
[2021-09-21] MEDS: RIVAROXABAN 15 MG TABLET PO SCH (16:56)
[2021-09-21] MEDS: ATORVASTATIN 40 MG TAB PO SCH (20:28)
[2021-09-21] MEDS: TRAZODONE 50 MG TABLET PO SCH (20:28)
--- NOTE | 2021-09-22 01:49 | PN ---
Date of Progress Note: 09/21/2021 Subjective: Patient was seen this morning for followup. No new complaints or problems reported by h im. Lying in bed, not in distress. The patient was on the floor and this morning, his routine COVID test was done, came back positive, so he is in isolation now. He does not have any COVID-related sy mptoms right now. When I saw him, he denied any complaints. Objective: Vital Signs: Reviewed. HEENT: Unremarkable. Lungs: Clear to auscultation. Heart: Sounds normal. Abdomen: Soft. Bowel sounds normal. No guarding, rigidity, tenderness, distention. Extremities: No leg edema. Impression: 1.COVID-19 infection. 2.Right leg weakness. 3.Lumbar radiculopathy. 4.Lumbar spinal stenosis. 5.Congestive heart failure, systolic. Plan: We will continue current medications. Continue current anticoagulation therapy. Physical the rapy under guidance of Dr. Carmona. The patient will remain in isolation for COVID-19 infection and we will continue to receive physical therapy under Dr. Carmona. We will monitor him for any compli cations related to COVID. NELSY/MODL Voice ID: [id number] Report ID: [id number]
[2021-09-22] MEDS: POTASSIUM CL SA 10 MEQ TAB PO SCH (07:57)
[2021-09-22] MEDS: CARBIDOPA/LEVODOPA 25/100 TAB PO SCH ×3 (07:58→21:08)
[2021-09-22] MEDS: predniSONE 10 MG TAB PO SCH (07:58)
[2021-09-22] MEDS: SACUBITRIL/VALSARTAN 24/26 MG TAB PO SCH ×2 (07:58→21:09)
[2021-09-22] MEDS: FUROSEMIDE 40 MG TABLET PO SCH ×2 (08:13→17:02)
--- NOTE | 2021-09-22 08:42 | RAD REPORT ---
EXAM DESCRIPTION: RAD - Chest Single View - 09/22/2021 6:51 am CLINICAL HISTORY: COVID Chest pain. COMPARISON: Chest Single View dated 09/14/2021; Chest Single View dated 05/15/2021; Chest Single View da loree 05/14/2021; Chest Pa And Lat (2 Views) dated 08/24/2020 FINDINGS: Portable technique limits examination quality. Mild increased lung markings in the left lung base appear unchanged. This may be an area of scarring or atelectasis. The lungs are mildly emphysematous. The heart is normal in size. Sternotomy wires pre sent.
[2021-09-22] MEDS: METOPROLOL XL 25 MG TAB PO SCH ×2 (12:00→15:09)
[2021-09-22] MEDS: JUVEN PACKET PO SCH ×2 (12:08→21:09)
[2021-09-22] MEDS: RIVAROXABAN 15 MG TABLET PO SCH (17:02)
--- NOTE | 2021-09-22 19:38 | R.PN ---
PROGRESS NOTES ENCOUNTER DATE AND TIME: 09/22/2021 19:33 (CDT) NAME TONY ARELLANO DATE OF : 1935 DATE OF ADMISSION: 09/16/2021 20:40 (CDT) Spinal stenosis, lumbar region (M48.06)Lumbar Spondylosis M47.816 CHIEF COMPLAINT: Lumbar spinal stenosis and debility SUBJECTIVE: Pt denied any Shortness of Breath. Pt denied any depression. CBC with differential is normal. Prealbumin 14.8, glucose 178. UA shows 20-50 bacteria. Covid-19 test is positive 09/21/21, but repeat testing in 09/22/21 is negative. Ambulated with CGA using a rolling walker. Bed mobility done with modified independence. VITAL SIGNS Temperature: 97.2 F SBP/DBP: 139/68 Pulse: 79 Resp: 16 MEDICATION ALLERGIES: Penicillin ENVIRONMENTAL ALLERGIES: - Substance Allergies None Known - Other Allergies None Known NURSING: - Shower allowing shower - Bladder care per protocol - Skin care per protocol PRECAUTIONS: - Weight Bearing Precaution WBAT right LE - Fall Precaution Bed alarm TABS alarm Wheel chair alarm - Cardiac Precaution Monitor blood pressure, heart rate, lower extremity edema, notify MD for shortness of breath or chest pain Monitor patient for excessive elevation of heart rate and blood pressure during therapy ACTIVITIES OOB only with supervision THERAPIES: - Orthotics/Prosthetics Orthotic Evaluation. Splinting/Casting. - Dietary and Nutrition Adequate Nutrition. Nutritional Education. Nutritional Supplements. - Occupational Therapy Cognitive Retraining. Patient needs Occupational Therapy for a daily minimum of 1.5 hours at least 5 out of 7 days, to improve Activities of Daily Living, including: Eating, Grooming, Bathing, Dressing, Toileting, Toilet Transfers, Community Reintegration, Higher functional activities, Adaptive Equipme nt, Splinting, Household Tasks, and Other activities as determined. Visual Perceptual Training. - Physical Therapy Patient needs Physical Therapy for a daily minimum of 1.5 hours at least 5 out of 7 days, to improve: Mobility, Strengthening, Transfers, Stretching, ROM, Endurance, Ability to manage stairs, Gait, and Balance. PHYSICAL EXAM - Gen Alert and awake Lying in bed No apparent distress Oriented to: person, time, and place - Skin No breakdown No abnormalities - Eyes Hematoma around right eye. - ENMT No abnormalities - Neck No abnormalities - CVS RRR - Chest No abnormalities - Resp No wheezing - Abd + bowel sounds - GI nondistended Deferred - No abnormalities - Ext No significant edema. - MSK 4+/5 weakness in right lower extremity - Neuro 4/5 strength right lower extremity. - Psych No abnormalities ASSESSMENT: PtAngi is a 86 yo white male.On 09/13/2021 he was admitted to [facility] with diagnosis Spina l stenosis, lumbar region (M48.06).His impairment category is Spinal Cord Dysfunction 04 - Other Non -traumatic Spinal Cord Dysfunction (04.130).Pre-morbidly, Pt. was independent/mod-I in Locomotion and Self-Care; and he had good Safety Awareness, Balance, Transfers Control, and Endurance.Currently, he has deficits of Locomotion, Safety Awareness, Balance, Transfers Control, Self-Care, and Endurance.Dwayne poe is now referred to [facility] for acute in-patient rehabilitation in order to maximize patient's functional independence in activities of daily living, strength, ROM, and mobil ity.- Rehab Goal Patient has realistic goal of being discharged at assistance level 6-Philomena to reside at Home with Pt self. MDM/PLAN: - Physical Therapy Gait dysfunction - to improve, our physical therapists will perform initial evaluation of pt's statu s upon admission and devise an individualized program for Gait Training, and Wheel Chair mobility Inability to transfer - to improve, our physical therapists will perform initial evaluation of pt's status upon admission and devise an individualized program for Bed mobility Need for home safety evaluation - to improve, our physical therapists will perform initial evaluatio n of pt's status upon admission and devise an individualized program for Home Evaluation Need in caregiver upon discharge - to improve, our physical therapists will perform initial evaluati on of pt's status upon admission and devise an individualized program for Caregiver Training New precaution - to improve, our physical therapists will perform initial evaluation of pt's status upon admission and devise an individualized program for Patient precaution education Edema - to improve, our physical therapists will perform initial evaluation of pt's status upon admi ssion and devise an individualized program for Elevation Training, and Lymphedema Therapy Poor balance - to improve, our physical therapists will perform initial evaluation of pt's status up on admission and devise an individualized program for Balance Training Poor endurance - to improve, our physical therapists will perform initial evaluation of pt's status upon admission and devise an individualized program for Endurance Training Weakness - to improve, our physical therapists will perform initial evaluation of pt's status upon a dmission and devise an individualized program for Aquatic Therapy, Neuromuscular Reeducation, and Str engthening Achieving independence - to improve, our physical therapists will perform initial evaluation of pt's status upon admission and devise an individualized program for Community Reintegration Activities - Occupational Therapy ADL deficits - to improve, our occupation therapists will perform initial evaluation of pt's status upon admission and devise an individualized program for Bathing, Bed mobility, Community Reintegratio n, Cooking, Dressing, Eating, Fine Motor Skills, Grooming, Homemaking, Kitchen Mobility, Laundry, Pat ient Education, Safety Awareness, Splinting - Positioning, Transfers(Toilet, Tub, Shower), and Wheel Chair Management Need for childbirth and infant care teacher - to improve, our occupation therapists will perform initial evaluation of pt's status upon admission and devise an individualized program for Caregiver Training Weakness - to improve, our occupation therapists will perform initial evaluation of pt's status upon admission and devise an individualized program for Aquatic Therapy, Balance, Endurance, UE ROM, and UE strengthening - Other See attached MAR (Medication Administration Record) - Diet Type Continue Regular - Diet - Liquid Texture Continue Regular - Tube Feed Continue N/A - Bladder care per protocol - Cardiac Precaution Monitor blood pressure, heart rate, lower extremity edema, notify MD for shortness of breath or ches t pain Monitor patient for excessive elevation of heart rate and blood pressure during therapy - Weight Bearing Precaution WBAT right LE - Fall Precaution Bed alarm TABS alarm Wheel chair alarm - Skin care per protocol - Diet - Solid Texture Continue Regular - Shower allowing shower FUNCTIONAL STATUS: UPDATED AT WEEKLY TEAM CONFERENCE - Bladder Same accident frequency: 7-Ind - No accidents in the past 7 days - Bowel Same accident frequency: 7-Ind - No accidents in the past 7 days - Walking Same score based on distance walked: 0(N/A) - Wheelchair Same score based on distance traveled: 0(N/A) FUNCTIONAL STATUS: - Self-Care A. Eating Ind B. Grooming Philomena C. Bathing modA D. Dressing - Upper Philomena E. Dressing - Lower modA F. Toileting Cam - Sphincter Control G. Bladder control Philomena H. Bowel control Philomena - Transfers Control I. Bed/Chair/Wheelchair [place] J. Toilet Philomena K. Tub/Shower Cam - Locomotion L. Walk/Wheelchair (B) Cam M. Stairs maxA - Communication N. Comprehension (B) Philomena O. Expression (B) Philomena - Social Cognition P. Social Interaction Philomena Q. Problem Solving sup R. Memory Philomena - Endurance Good - Balance Good - Safety Awareness Fair QI SCORES: - Self-Care A. Eating 05-Setup or clean-up assistance B. Oral hygiene 05-Setup or clean-up assistance C. Toileting hygiene 03-Partial/moderate assistance E. Shower/bathe self 88-Not attempted due to medical condition or safety concerns F. Upper body dressing 05-Setup or clean-up assistance G. Lower body dressing 88-Not attempted due to medical condition or safety concerns H. Putting on/taking off footwear 88-Not attempted due to medical condition or safety concerns - Mobility A. Roll left and right 03-Partial/moderate assistance B. Sit to lying 03-Partial/moderate assistance C. Lying to sitting on side of bed 03-Partial/moderate assistance D. Sit to stand 03-Partial/moderate assistance E. Chair/rrm-xi-tfehy transfer 03-Partial/moderate assistance F. Toilet transfer 88-Not attempted due to medical condition or safety concerns G. Car transfer 88-Not attempted due to medical condition or safety concerns I. Walk 10 feet 88-Not attempted due to medical condition or safety concerns J. Walk 50 feet with two turns 88-Not attempted due to medical condition or safety concerns K. Walk 150 feet 88-Not attempted due to medical condition or safety concerns L. Walking 10 feet on uneven surfaces 88-Not attempted due to medical condition or safety concerns M. 1 step (curb) 88-Not attempted due to medical condition or safety concerns N. 4 steps 88-Not attempted due to medical condition or safety concerns O. 12 steps 88-Not attempted due to medical condition or safety concerns P. Picking up object 88-Not attempted due to medical condition or safety concerns R. Wheel 50 feet with two turns 09-Not applicable S. Wheel 150 feet 09-Not applicable - Bladder and Bowel Bladder continence 0-Always continent Bowel continence 0-Always continent - Endurance Poor - Balance Poor - Safety Awareness Poor CURRENT FUNC. DEFICITS: Self-Care, Mobility, Endurance, Balance, and Safety Awareness SIGNATURE PANEL: (CDT)
[2021-09-22] MEDS: ATORVASTATIN 40 MG TAB PO SCH (21:08)
[2021-09-22] MEDS: TRAZODONE 50 MG TABLET PO SCH (21:08)
[2021-09-23 04:30] LABS: Absolute Lymphocytes (CBC) 1.8 K/uL (0.7-4.9); Hematocrit 41.4 % (39.6-49.0); Lymphocytes % 13.9 % (15.3-44.8); MCV 89.7 fL (80-100); MPV 8.4 fL (7.6-11.3); RBC Red Blood Cell Count 4.61 M/uL (4.33-5.43)
[2021-09-23 04:49] LABS: Albumin 3.1 g/dL (3.4-5.0); Magnesium 1.9 mg/dL (1.8-2.4); Potassium 4.2 mmol/L (3.5-5.1); Prealbumin 22.5 mg/dL (20-40)
[2021-09-23] MEDS: predniSONE 10 MG TAB PO SCH (08:09)
[2021-09-23] MEDS: FUROSEMIDE 40 MG TABLET PO SCH ×2 (08:09→16:57)
[2021-09-23] MEDS: POTASSIUM CL SA 10 MEQ TAB PO SCH (08:09)
[2021-09-23] MEDS: CARBIDOPA/LEVODOPA 25/100 TAB PO SCH ×3 (08:09→20:42)
[2021-09-23] MEDS: SACUBITRIL/VALSARTAN 24/26 MG TAB PO SCH ×2 (08:10→20:42)
[2021-09-23] MEDS: JUVEN PACKET PO SCH ×2 (09:35→20:44)
--- NOTE | 2021-09-23 10:05 | PN ---
Date of Progress Note: 09/22/2021 Subjective: The patient was seen this morning for followup. No new complaints or problems reported. The patient lying in bed, not in distress. No cough, congestion, shortness of breath. No diarrhea . Objective: Vital Signs: Reviewed. HEENT: Examination unremarkable. Lungs: Clear to auscultation. Heart: Sounds normal. Abdomen: Soft. Bowel sounds normal. No guarding, rigidity, tenderness, or distention. Extremities: No leg edema. [employer]: Right leg weakness remains unchanged. Impression: 1.Lumbar spondylosis with lumbar radiculopathy. 2.Lumbar spinal stenosis. 3.Congestive heart failure, chronic, systolic. 4.Chronic anticoagulation therapy. Plan: We will continue current prednisone 30 mg daily. We will get chest x-ray done today. The pat ient is on isolation for positive COVID. He does not have any symptoms of COVID. We will get a ches t x-ray today to look for any infiltrate. Meanwhile, we will continue current anticoagulation therap y, physical therapy under guidance of Dr. Carmona. Starting tomorrow we will consider reducing pred nisone dose. NELSY/MODL Voice ID: [id number] Report ID: [id number]
[2021-09-23] MEDS: METOPROLOL XL 25 MG TAB PO SCH (13:19)
[2021-09-23] MEDS: RIVAROXABAN 15 MG TABLET PO SCH (16:57)
--- NOTE | 2021-09-23 19:32 | R.PN ---
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 Pt denied any depression. WBC increased to 12.9 from 9.2. Prealbumin 14.8, glucose 250. UA shows 20-50 bacteria. Covid-19 test is positive 09/21/21, but repeat testing in 09/22/21 is negative. He is followed by PCP Dr. Hyatt. He transferred with SBA using a rolling walker. VITAL SIGNS Temperature: 97.6 F SBP/DBP: 126/58 Pulse: 80 Resp: 15 MEDICATION ALLERGIES: Penicillin ENVIRONMENTAL ALLERGIES: - Substance Allergies None Known - Other Allergies None Known NURSING: - Shower allowing shower - Bladder care per protocol - Skin care per protocol PRECAUTIONS: - Weight Bearing Precaution WBAT right LE - Fall Precaution Bed alarm TABS alarm Wheel chair alarm - Cardiac Precaution Monitor blood pressure, heart rate, lower extremity edema, notify MD for shortness of breath or chest pain Monitor patient for excessive elevation of heart rate and blood pressure during therapy ACTIVITIES OOB only with supervision THERAPIES: - Orthotics/Prosthetics Orthotic Evaluation. Splinting/Casting. - Dietary and Nutrition Adequate Nutrition. Nutritional Education. Nutritional Supplements. - Occupational Therapy Cognitive Retraining. Patient needs Occupational Therapy for a daily minimum of 1.5 hours at least 5 out of 7 days, to improve Activities of Daily Living, including: Eating, Grooming, Bathing, Dressing, Toileting, Toilet Transfers, Community Reintegration, Higher functional activities, Adaptive Equipme nt, Splinting, Household Tasks, and Other activities as determined. Visual Perceptual Training. - Physical Therapy Patient needs Physical Therapy for a daily minimum of 1.5 hours at least 5 out of 7 days, to improve: Mobility, Strengthening, Transfers, Stretching, ROM, Endurance, Ability to manage stairs, Gait, and Balance. PHYSICAL EXAM - Gen Alert and awake Lying in bed No apparent distress Oriented to: person, time, and place - Skin No breakdown No abnormalities - Eyes Hematoma around right eye. - ENMT No abnormalities - Neck No abnormalities - CVS RRR - Chest No abnormalities - Resp No wheezing - Abd + bowel sounds - GI nondistended Deferred - No abnormalities - Ext No significant edema. - MSK 4+/5 weakness in right lower extremity - Neuro 4/5 strength right lower extremity. 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 was independent/mod-I in Locomotion and Self-Care; and he had good Safety Awareness, Balance, Transfers Control, and Endurance.Currently, he has deficits of Locomotion, Safety Awareness, Balance, Transfers Control, Self-Care, and Endurance.Dwayne poe is now referred to [facility] for acute in-patient rehabilitation in order to maximize patient's functional independence in activities of daily living, strength, ROM, and mobil ity.- Rehab Goal Patient has realistic goal of being discharged at assistance level 6-Philomena to reside at Home with Pt self. MDM/PLAN: - Physical Therapy Gait dysfunction - to improve, our physical therapists will perform initial evaluation of pt's statu s upon admission and devise an individualized program for Gait Training, and Wheel Chair mobility Inability to transfer - to improve, our physical therapists will perform initial evaluation of pt's status upon admission and devise an individualized program for Bed mobility Need for home safety evaluation - to improve, our physical therapists will perform initial evaluatio n of pt's status upon admission and devise an individualized program for Home Evaluation Need in caregiver upon discharge - to improve, our physical therapists will perform initial evaluati on of pt's status upon admission and devise an individualized program for Caregiver Training New precaution - to improve, our physical therapists will perform initial evaluation of pt's status upon admission and devise an individualized program for Patient precaution education Edema - to improve, our physical therapists will perform initial evaluation of pt's status upon admi ssion and devise an individualized program for Elevation Training, and Lymphedema Therapy Poor balance - to improve, our physical therapists will perform initial evaluation of pt's status up on admission and devise an individualized program for Balance Training Poor endurance - to improve, our physical therapists will perform initial evaluation of pt's status upon admission and devise an individualized program for Endurance Training Weakness - to improve, our physical therapists will perform initial evaluation of pt's status upon a dmission and devise an individualized program for Aquatic Therapy, Neuromuscular Reeducation, and Str engthening Achieving independence - to improve, our physical therapists will perform initial evaluation of pt's status upon admission and devise an individualized program for Community Reintegration Activities - Occupational Therapy ADL deficits - to improve, our occupation therapists will perform initial evaluation of pt's status upon admission and devise an individualized program for Bathing, Bed mobility, Community Reintegratio n, Cooking, Dressing, Eating, Fine Motor Skills, Grooming, Homemaking, Kitchen Mobility, Laundry, Pat ient Education, Safety Awareness, Splinting - Positioning, Transfers(Toilet, Tub, Shower), and Wheel Chair Management Need for child care center assistant director - to improve, our occupation therapists will perform initial evaluation of pt's status upon admission and devise an individualized program for Caregiver Training Weakness - to improve, our occupation therapists will perform initial evaluation of pt's status upon admission and devise an individualized program for Aquatic Therapy, Balance, Endurance, UE ROM, and UE strengthening - Other See attached MAR (Medication Administration Record) - Diet Type Continue Regular - Diet - Liquid Texture Continue Regular - Tube Feed Continue N/A - Bladder care per protocol - Cardiac Precaution Monitor blood pressure, heart rate, lower extremity edema, notify MD for shortness of breath or ches t pain Monitor patient for excessive elevation of heart rate and blood pressure during therapy - Weight Bearing Precaution WBAT right LE - Fall Precaution Bed alarm TABS alarm Wheel chair alarm - Skin care per protocol - Diet - Solid Texture Continue Regular - Shower allowing shower FUNCTIONAL STATUS: UPDATED AT WEEKLY TEAM CONFERENCE - Bladder Same accident frequency: 7-Ind - No accidents in the past 7 days - Bowel Same accident frequency: 7-Ind - No accidents in the past 7 days - Walking Same score based on distance walked: 0(N/A) - Wheelchair Same score based on distance traveled: 0(N/A) FUNCTIONAL STATUS: - Self-Care A. Eating Ind B. Grooming Philomena C. Bathing modA D. Dressing - Upper Philomena E. Dressing - Lower modA F. Toileting Cam - Sphincter Control G. Bladder control Philomena H. Bowel control Philomena - Transfers Control I. Bed/Chair/Wheelchair Philomena J. Toilet Philomena K. Tub/Shower Cam - Locomotion L. Walk/Wheelchair (B) Cam M. Stairs maxA - Communication N. Comprehension (B) Philomena O. Expression (B) Philomena - Social Cognition P. Social Interaction Philomena Q. Problem Solving sup R. Memory Philomena - Endurance Good - Balance Good - Safety Awareness Fair QI SCORES: - Self-Care A. Eating 05-Setup or clean-up assistance B. Oral hygiene 05-Setup or clean-up assistance C. Toileting hygiene 03-Partial/moderate assistance E. Shower/bathe self 88-Not attempted due to medical condition or safety concerns F. Upper body dressing 05-Setup or clean-up assistance G. Lower body dressing 88-Not attempted due to medical condition or safety concerns H. Putting on/taking off footwear 88-Not attempted due to medical condition or safety concerns - Mobility A. Roll left and right 03-Partial/moderate assistance B. Sit to lying 03-Partial/moderate assistance C. Lying to sitting on side of bed 03-Partial/moderate assistance D. Sit to stand 03-Partial/moderate assistance E. Chair/yff-ah-sadtp transfer 03-Partial/moderate assistance F. Toilet transfer 88-Not attempted due to medical condition or safety concerns G. Car transfer 88-Not attempted due to medical condition or safety concerns I. Walk 10 feet 88-Not attempted due to medical condition or safety concerns J. Walk 50 feet with two turns 88-Not attempted due to medical condition or safety concerns K. Walk 150 feet 88-Not attempted due to medical condition or safety concerns L. Walking 10 feet on uneven surfaces 88-Not attempted due to medical condition or safety concerns M. 1 step (curb) 88-Not attempted due to medical condition or safety concerns N. 4 steps 88-Not attempted due to medical condition or safety concerns O. 12 steps 88-Not attempted due to medical condition or safety concerns P. Picking up object 88-Not attempted due to medical condition or safety concerns R. Wheel 50 feet with two turns 09-Not applicable S. Wheel 150 feet 09-Not applicable - Bladder and Bowel Bladder continence 0-Always continent Bowel continence 0-Always continent - Endurance Poor - Balance Poor - Safety Awareness Poor CURRENT FUNC. DEFICITS: Self-Care, Mobility, Endurance, Balance, and Safety Awareness SIGNATURE PANEL: (CDT)
[2021-09-23] MEDS: ATORVASTATIN 40 MG TAB PO SCH (20:42)
[2021-09-23] MEDS: TRAZODONE 50 MG TABLET PO SCH (20:42)
[2021-09-24] MEDS: FUROSEMIDE 40 MG TABLET PO SCH ×2 (07:01→16:55)
[2021-09-24] MEDS: SACUBITRIL/VALSARTAN 24/26 MG TAB PO SCH ×2 (07:02→21:16)
[2021-09-24] MEDS: METOPROLOL XL 25 MG TAB PO SCH (07:02)
[2021-09-24] MEDS: predniSONE 10 MG TAB PO SCH (07:54)
[2021-09-24] MEDS: CARBIDOPA/LEVODOPA 25/100 TAB PO SCH ×3 (07:54→21:16)
[2021-09-24] MEDS: POTASSIUM CL SA 10 MEQ TAB PO SCH (07:55)
[2021-09-24] MEDS: JUVEN PACKET PO SCH ×2 (07:55→21:16)
--- NOTE | 2021-09-24 08:36 | PN ---
Date of Progress Note: 09/23/2021 Subjective: The patient was seen this morning for followup. No new complaints or problems reported by patient, lying in bed, not in distress. Objective: Vital Signs: Reviewed. HEENT: Examination unremarkable. Lungs: Clear to auscultation. Heart: Sounds normal. Abdomen: Soft. Bowel sounds normal. No guarding, rigidity, tenderness, or distention. Extremities: No leg edema. Right lower extremity weakness remains unchanged from last visit. Laboratory Data: White count 12.9, hemoglobin 14.1, platelets 230. Sodium 136, potassium 4.2, chlor theo 104, bicarb 28, BUN 47, creatinine 1.25, glucose 250. Impression: 1.Lumbar spinal stenosis. 2.Lumbar radiculopathy. 3.Chronic systolic heart failure. 4.COVID-19 infection. Plan: Patient is to repeat COVID test that was done by rehab yesterday was negative. At this point, we will continue current medical management. The patient is on prednisone for his lumbar radiculopa thy, and he has received 30 mg daily for last 4 days or so. We will reduce dose now to 20 mg daily s tarting today. Continue current anticoagulation therapy and other current management for chronic systolic heart failure, and I will see him tomorrow for followup. NLESY/MODL Voice ID: [id number] Report ID: [id number]
--- NOTE | 2021-09-24 09:48 | P.RH.PN ---
Estimated Length of Stay: 12 Expected Discharge Date: 09/28/21 Discharge Disposition Plan: Home Family Support: Yes Alf Goal: Mobility, Transfers, Self Care Vital Signs: Last Vital Signs Temp 97.0 F 09/24/21 07:43 Pulse 82 09/24/21 07:43 Resp 16 09/24/21 07:43 BP 181/79 H 09/24/21 07:43 Pulse Ox 97 09/24/21 07:43 Laboratory: Laboratory Last Values WBC 12.90 K/uL (4.3-10.9) H D 09/23/21 04:11 RBC 4.61 M/uL (4.33-5.43) 09/23/21 04:11 Hgb 14.1 g/dL (13.6-17.9) 09/23/21 04:11 Hct 41.4 % (39.6-49.0) 09/23/21 04:11 MCV 89.7 fL (80-100) 09/23/21 04:11 MCH 30.6 pg (27.0-35.0) 09/23/21 04:11 MCHC 34.1 g/dL (32.0-36.0) 09/23/21 04:11 RDW 14.4 % (12.1-15.2) 09/23/21 04:11 Plt Count 234 K/uL (152-406) D 09/23/21 04:11 MPV 8.4 fL (7.6-11.3) 09/23/21 04:11 Neutrophils % 75.2 % (41.7-73.7) H 09/23/21 04:11 Lymphocytes % 13.9 % (15.3-44.8) L 09/23/21 04:11 Monocytes % 9.9 % (3.3-12.3) 09/23/21 04:11 Eosinophils % 0.6 % (0-4.4) 09/23/21 04:11 Basophils % 0.4 % (0-1.3) 09/23/21 04:11 Absolute Neutrophils 9.7 K/uL (1.8-8.0) H 09/23/21 04:11 Absolute Lymphocytes 1.8 K/uL (0.7-4.9) 09/23/21 04:11 Absolute Monocytes 1.3 K/uL (0.1-1.3) 09/23/21 04:11 Absolute Eosinophils 0.1 K/uL (0-0.5) 09/23/21 04:11 Absolute Basophils 0.1 K/uL (0-0.5) 09/23/21 04:11 Sodium 136 mmol/L (136-145) 09/23/21 04:11 Potassium 4.2 mmol/L (3.5-5.1) 09/23/21 04:11 Chloride 104 mmol/L (98-107) 09/23/21 04:11 Carbon Dioxide 28 mmol/L (21-32) 09/23/21 04:11 Anion Gap 8.2 mEq/L (5.0-15.0) 09/23/21 04:11 BUN 47 mg/dL (7-18) H 09/23/21 04:11 Creatinine 1.25 mg/dL (0.55-1.3) 09/23/21 04:11 Est GFR (CKD-EPI) 55 ml/min (=/>90) L 09/23/21 04:11 Glucose 250 mg/dL (74-106) H 09/23/21 04:11 Calcium 9.1 mg/dL (8.5-10.1) 09/23/21 04:11 Magnesium 1.9 mg/dL (1.8-2.4) 09/23/21 04:11 Albumin 3.1 g/dL (3.4-5.0) L 09/23/21 04:11 Prealbumin 22.5 mg/dL (20-40) 09/23/21 04:11 Urine Color Yellow (Yellow) 09/17/21 03:56 Urine Clarity Clear (Clear) 09/17/21 03:56 Urine pH 5.0 (5.0-7.0) 09/17/21 03:56 Ur Specific Franklin 1.015 (1.005-1.030) 09/17/21 03:56 Glucose (UA)(Auto) 2+ (Negative) H 09/17/21 03:56 Urine Ketones Negative (Negative) 09/17/21 03:56 Urine Blood 3+ (Negative) H 09/17/21 03:56 Urine Nitrite Negative (Negative) 09/17/21 03:56 Urine Bilirubin Negative (Negative) 09/17/21 03:56 Urine Urobilinogen 0.2 mg/dL (0.2-1.0) 09/17/21 03:56 Ur Leukocyte Esterase Negative (Negative) 09/17/21 03:56 Urine RBC 21-50 /HPF (None Seen) H 09/17/21 03:56 Urine Red Cell Clumps Cancelled 09/17/21 03:25 Urine Red Cell Clumps Cancelled 09/17/21 03:25 Urine WBC <5 /HPF (<5) 09/17/21 03:56 Urine WBC Clumps Cancelled 09/17/21 03:25 Urine WBC Clumps Cancelled 09/17/21 03:25 Ur Squamous Epith Cells <5 /HPF (None Seen) 09/17/21 03:56 U Non-Squamous Epi Cells Cancelled 09/17/21 03:25 U Non-Squamous Epi Cells Cancelled 09/17/21 03:25 Ur Transition Epith Cell Cancelled 09/17/21 03:25 Ur Transition Epith Cell Cancelled 09/17/21 03:25 Ur Renal Epithelial Cell Cancelled 09/17/21 03:25 Ur Renal Epithelial Cell Cancelled 09/17/21 03:25 Calcium Carbonate Cryst Cancelled 09/17/21 03:25 Calcium Carbonate Cryst Cancelled 09/17/21 03:25 Calcium Oxalate Crystal Cancelled 09/17/21 03:25 Calcium Oxalate Crystal Cancelled 09/17/21 03:25 Leucine Crystals Cancelled 09/17/21 03:25 Leucine Crystals Cancelled 09/17/21 03:25 Cystine Crystals Cancelled 09/17/21 03:25 Cystine Crystals Cancelled 09/17/21 03:25 Uric Acid Crystals Cancelled 09/17/21 03:25 Uric Acid Crystals Cancelled 09/17/21 03:25 Triple Phos Crystals Cancelled 09/17/21 03:25 Triple Phos Crystals Cancelled 09/17/21 03:25 Tyrosine Crystals Cancelled 09/17/21 03:25 Tyrosine Crystals Cancelled 09/17/21 03:25 Unidentified Crystals Cancelled 09/17/21 03:25 Unidentified Crystals Cancelled 09/17/21 03:25 Amorphous Crystals Cancelled 09/17/21 03:25 Amorphous Crystals Cancelled 09/17/21 03:25 Urine Bacteria 20-50 /HPF (<20) H 09/17/21 03:56 Hyaline Casts Cancelled 09/17/21 03:25 Hyaline Casts Cancelled 09/17/21 03:25 Granular Casts Cancelled 09/17/21 03:25 Granular Casts Cancelled 09/17/21 03:25 Waxy Casts Cancelled 09/17/21 03:25 Waxy Casts Cancelled 09/17/21 03:25 RBC Casts Cancelled 09/17/21 03:25 RBC Casts Cancelled 09/17/21 03:25 WBC Casts Cancelled 09/17/21 03:25 WBC Casts Cancelled 09/17/21 03:25 Urine Mucus 1+ /HPF (None Seen) 09/17/21 03:56 Urine Trichomonas Cancelled 09/17/21 03:25 Urine Trichomonas Cancelled 09/17/21 03:25 Ur Yeast w Hyphae Cancelled 09/17/21 03:25 Ur Yeast w Hyphae Cancelled 09/17/21 03:25 Urine Yeast (Budding) Cancelled 09/17/21 03:25 Urine Yeast (Budding) Cancelled 09/17/21 03:25 Urine Sperm Cancelled 09/17/21 03:25 Urine Sperm Cancelled 09/17/21 03:25 Ur Oval Fat Bodies Cancelled 09/17/21 03:25 Ur Oval Fat Bodies Cancelled 09/17/21 03:25 Urine Total Protein Negative (Negative) 09/17/21 03:56 Urine Ascorbic Acid Cancelled 09/17/21 03:25 Urine Ascorbic Acid Cancelled 09/17/21 03:25 Urine Fat Cancelled 09/17/21 03:25 Urine Fat Cancelled 09/17/21 03:25 SARS-CoV-2 Rap RNA(RT-PCR) Negative (NEGATIVE) 09/23/21 08:17 Weight: 165 lb Wound Present: Yes Closed Surgical Incision Present: No Negative Pressure Wound Therapy Present: No Physician Update: labs reviewed. Mod I for sit to stand, contact guard to standby for walking, 220' WC with SBA. Set up for grooming, bathing, dressing and toileting. Right knee buckled once. Summary: Patient's care plan and director industrial nursing goals have been reviewed and revised as necessary. Please see the Rehabilitation Signature page for all necessary signatures.
--- NOTE | 2021-09-24 10:21 | PN ---
Date of Progress Note: 09/24/2021 Subjective: The patient was seen this morning for followup. No new complaints or problems reported by the patient. He was sitting in wheelchair, eating breakfast. Denies any new complaints. He has some pain in his right lower back, upper gluteal region, and right leg weakness which he says is impr oving on a day-to-day basis with therapy and with medication which is prednisone. Objective: Vital Signs: Reviewed. HEENT: Unremarkable. Lungs: Clear to auscultation. Heart: Sounds normal. Abdomen: Soft. Bowel sounds normal. No guarding, rigidity, tenderness, distention. Extremities: No leg edema. Neuro: Weakness of right leg unchanged from yesterday. Impression: 1.Lumbar spinal stenosis. 2.Lumbar radiculopathy with right leg weakness. 3.Chronic systolic heart failure. 4.Chronic anticoagulation therapy. Plan: We will go ahead and continue current medications, continue current prednisone 20 mg daily. C ontinue physical therapy under guidance of Dr. Carmona. The patient has had 2 negative COVID tests after 1 positive test, so Rehab Floor is going to communicate with infection disease control and [facility] if his isolation can be discontinued. NELSY/MODL Voice ID: [id number] Report ID: [id number]
[2021-09-24] MEDS: RIVAROXABAN 15 MG TABLET PO SCH (16:54)
[2021-09-24] MEDS: GABAPENTIN 100 MG CAP PO SCH (21:16)
[2021-09-24] MEDS: ATORVASTATIN 40 MG TAB PO SCH (21:16)
[2021-09-24] MEDS: TRAZODONE 50 MG TABLET PO SCH (21:16)
[2021-09-25] MEDS: FUROSEMIDE 40 MG TABLET PO SCH ×2 (08:10→16:00)
[2021-09-25] MEDS: GABAPENTIN 100 MG CAP PO SCH ×2 (08:11→19:58)
[2021-09-25] MEDS: CARBIDOPA/LEVODOPA 25/100 TAB PO SCH ×3 (08:11→19:58)
[2021-09-25] MEDS: predniSONE 10 MG TAB PO SCH (08:11)
[2021-09-25] MEDS: POTASSIUM CL SA 10 MEQ TAB PO SCH (08:12)
[2021-09-25] MEDS: JUVEN PACKET PO SCH ×2 (08:30→19:58)
[2021-09-25] MEDS: SACUBITRIL/VALSARTAN 24/26 MG TAB PO SCH ×2 (09:26→19:58)
--- NOTE | 2021-09-25 10:59 | PN ---
Date of Progress Note: 09/25/2021 Subjective: The patient was seen this morning for followup. No new complaints or problems reported. Still continues to have right leg weakness but reports that with therapy that he feels like it is g etting slowly stronger. Objective: Vital Signs: Reviewed. HEENT: Examination unremarkable. Lungs: Clear to auscultation. Heart: Sounds normal. Abdomen: Soft. Bowel sounds normal. No guarding, rigidity, tenderness, or distention. Extremities: No leg edema. PHOTOENGRAVER: Right leg power is grade 4 to 4+/5. Impression: 1.Lumbar spinal stenosis. 2.Lumbar spondylosis with radiculopathy. 3.Chronic systolic heart failure. 4.Chronic anticoagulation therapy. 5.Parkinson's disease. Plan: We will continue current medication. Continue current physical therapy under guidance of Dr. Carmona. We will continue current prednisone. He is on 20 mg daily, and either tomorrow or day aft er tomorrow, we will reduce the dose to 10 mg daily. We will repeat blood work tomorrow morning. Th e patient is scheduled to go home on September 28, 2021. NELSY/MODL Voice ID: [id number] Report ID: [id number]
[2021-09-25] MEDS: METOPROLOL XL 25 MG TAB PO SCH (13:01)
[2021-09-25] MEDS: RIVAROXABAN 15 MG TABLET PO SCH (16:00)
[2021-09-25] MEDS: TRAZODONE 50 MG TABLET PO SCH (19:58)
[2021-09-25] MEDS: ATORVASTATIN 40 MG TAB PO SCH (19:58)
[2021-09-26] MEDS: SACUBITRIL/VALSARTAN 24/26 MG TAB PO SCH ×2 (08:30→20:00)
[2021-09-26] MEDS: CARBIDOPA/LEVODOPA 25/100 TAB PO SCH ×3 (08:30→20:00)
[2021-09-26] MEDS: FUROSEMIDE 40 MG TABLET PO SCH ×2 (08:30→16:12)
[2021-09-26 08:31] LABS: Magnesium 1.8 mg/dL (1.8-2.4); Potassium 3.8 mmol/L (3.5-5.1)
[2021-09-26] MEDS: GABAPENTIN 100 MG CAP PO SCH ×2 (08:31→20:00)
[2021-09-26] MEDS: predniSONE 10 MG TAB PO SCH (08:31)
[2021-09-26] MEDS: POTASSIUM CL SA 10 MEQ TAB PO SCH (08:31)
[2021-09-26 09:08] LABS: Absolute Lymphocytes (CBC) 1.5 K/uL (0.7-4.9); Lymphocytes % 14.2 % (15.3-44.8); MCV 90.4 fL (80-100); MPV 8.7 fL (7.6-11.3); RBC Red Blood Cell Count 4.43 M/uL (4.33-5.43)
[2021-09-26] MEDS: JUVEN PACKET PO SCH ×2 (10:19→20:00)
--- NOTE | 2021-09-26 11:52 | PN ---
Date of Progress Note: 09/26/2021 Subjective: The patient was seen this morning for followup. No new complaints or problems reported by the patient. Lying in bed, not in any distress. Objective: Vital Signs: Reviewed. HEENT: Unremarkable. Lungs: Clear to auscultation. Heart: Sounds normal. Abdomen: Soft. Bowel sounds normal. No guarding, rigidity, tenderness, or distention. Extremities: No leg edema. Laboratory Data: White count 10.2, hemoglobin 13.6, platelets 226. Sodium 135, potassium 3.8, chlor theo 102, bicarb 27, BUN 37, creatinine 1.31, glucose 285, magnesium 1.8. Impression: 1.Lumbar spinal stenosis. 2.Lumbar radiculopathy. 3.Chronic systolic heart failure. 4.Chronic anticoagulation therapy. 5.Chronic kidney disease, stage 3A. Plan: We will go ahead and continue current medications, continue current anticoagulation therapy as well as continue treatment for chronic systolic heart failure. We will continue prednisone 20 mg da sirisha, starting tomorrow, we will reduce dose to 10 mg daily. I will see him tomorrow for followup. NELSY/MODL Voice ID: [id number] Report ID: [id number]
[2021-09-26] MEDS: METOPROLOL XL 25 MG TAB PO SCH (12:40)
[2021-09-26] MEDS: RIVAROXABAN 15 MG TABLET PO SCH (16:11)
[2021-09-26] MEDS: ATORVASTATIN 40 MG TAB PO SCH (20:00)
[2021-09-26] MEDS: TRAZODONE 50 MG TABLET PO SCH (20:00)
[2021-09-27] MEDS: SACUBITRIL/VALSARTAN 24/26 MG TAB PO SCH ×2 (08:12→20:33)
[2021-09-27] MEDS: GABAPENTIN 100 MG CAP PO SCH ×2 (08:13→20:34)
[2021-09-27] MEDS: POTASSIUM CL SA 10 MEQ TAB PO SCH (08:13)
[2021-09-27] MEDS: predniSONE 10 MG TAB PO SCH (08:13)
[2021-09-27] MEDS: CARBIDOPA/LEVODOPA 25/100 TAB PO SCH ×3 (08:13→20:34)
[2021-09-27] MEDS: FUROSEMIDE 40 MG TABLET PO SCH ×2 (08:13→16:15)
[2021-09-27] MEDS: JUVEN PACKET PO SCH ×2 (11:42→20:35)
[2021-09-27] MEDS: METOPROLOL XL 25 MG TAB PO SCH (13:11)
[2021-09-27] MEDS: RIVAROXABAN 15 MG TABLET PO SCH (16:15)
[2021-09-27] MEDS ORDERED: METFORMIN HCL 500 MG TAB PO SCH (17:00)
--- NOTE | 2021-09-27 19:32 | R.PN ---
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 Pt denied any depression. WBC decreased to 10.2 from 12.9. Prealbumin 14.8, glucose 285, Safety And Health Manager 1.31, Ca 8.3. UA shows 20-50 bacte noe. Covid-19 test is positive 09/21/21, but repeat testing in 09/22/21 is negative. He is followed by PCP Dr. Hyatt. Wheelchair mobility 250' with modified independence. Ambulated 400' with RW and CGA. VITAL SIGNS Temperature: 97.2 F SBP/DBP: 139/78 Pulse: 74 Resp: 16 MEDICATION ALLERGIES: Penicillin ENVIRONMENTAL ALLERGIES: - Substance Allergies None Known - Other Allergies None Known NURSING: - Shower allowing shower - Bladder care per protocol - Skin care per protocol PRECAUTIONS: - Weight Bearing Precaution WBAT right LE - Fall Precaution Bed alarm TABS alarm Wheel chair alarm - Cardiac Precaution Monitor blood pressure, heart rate, lower extremity edema, notify MD for shortness of breath or chest pain Monitor patient for excessive elevation of heart rate and blood pressure during therapy ACTIVITIES OOB only with supervision THERAPIES: - Orthotics/Prosthetics Orthotic Evaluation. Splinting/Casting. - Dietary and Nutrition Adequate Nutrition. Nutritional Education. Nutritional Supplements. - Occupational Therapy Cognitive Retraining. Patient needs Occupational Therapy for a daily minimum of 1.5 hours at least 5 out of 7 days, to improve Activities of Daily Living, including: Eating, Grooming, Bathing, Dressing, Toileting, Toilet Transfers, Community Reintegration, Higher functional activities, Adaptive Equipme nt, Splinting, Household Tasks, and Other activities as determined. Visual Perceptual Training. - Physical Therapy Patient needs Physical Therapy for a daily minimum of 1.5 hours at least 5 out of 7 days, to improve: Mobility, Strengthening, Transfers, Stretching, ROM, Endurance, Ability to manage stairs, Gait, and Balance. PHYSICAL EXAM - Gen Alert and awake Lying in bed No apparent distress Oriented to: person, time, and place - Skin No breakdown No abnormalities - Eyes Hematoma around right eye. - ENMT No abnormalities - Neck No abnormalities - CVS RRR - Chest No abnormalities - Resp No wheezing - Abd + bowel sounds - GI nondistended Deferred - No abnormalities - Ext No significant edema. - MSK 4+/5 weakness in right lower extremity - Neuro 4/5 strength right lower extremity. 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 was independent/mod-I in Locomotion and Self-Care; and he had good Safety Awareness, Balance, Transfers Control, and Endurance.Currently, he has deficits of Locomotion, Safety Awareness, Balance, Transfers Control, Self-Care, and Endurance.Dwayne poe is now referred to [facility] for acute in-patient rehabilitation in order to maximize patient's functional independence in activities of daily living, strength, ROM, and mobil ity.- Rehab Goal Patient has realistic goal of being discharged at assistance level 6-Philomena to reside at Home with Pt self. MDM/PLAN: - Physical Therapy Gait dysfunction - to improve, our physical therapists will perform initial evaluation of pt's statu s upon admission and devise an individualized program for Gait Training, and Wheel Chair mobility Inability to transfer - to improve, our physical therapists will perform initial evaluation of pt's status upon admission and devise an individualized program for Bed mobility Need for home safety evaluation - to improve, our physical therapists will perform initial evaluatio n of pt's status upon admission and devise an individualized program for Home Evaluation Need in caregiver upon discharge - to improve, our physical therapists will perform initial evaluati on of pt's status upon admission and devise an individualized program for Caregiver Training New precaution - to improve, our physical therapists will perform initial evaluation of pt's status upon admission and devise an individualized program for Patient precaution education Edema - to improve, our physical therapists will perform initial evaluation of pt's status upon admi ssion and devise an individualized program for Elevation Training, and Lymphedema Therapy Poor balance - to improve, our physical therapists will perform initial evaluation of pt's status up on admission and devise an individualized program for Balance Training Poor endurance - to improve, our physical therapists will perform initial evaluation of pt's status upon admission and devise an individualized program for Endurance Training Weakness - to improve, our physical therapists will perform initial evaluation of pt's status upon a dmission and devise an individualized program for Aquatic Therapy, Neuromuscular Reeducation, and Str engthening Achieving independence - to improve, our physical therapists will perform initial evaluation of pt's status upon admission and devise an individualized program for Community Reintegration Activities - Occupational Therapy ADL deficits - to improve, our occupation therapists will perform initial evaluation of pt's status upon admission and devise an individualized program for Bathing, Bed mobility, Community Reintegratio n, Cooking, Dressing, Eating, Fine Motor Skills, Grooming, Homemaking, Kitchen Mobility, Laundry, Pat ient Education, Safety Awareness, Splinting - Positioning, Transfers(Toilet, Tub, Shower), and Wheel Chair Management Need for rn care transition - to improve, our occupation therapists will perform initial evaluation of pt's status upon admission and devise an individualized program for Caregiver Training Weakness - to improve, our occupation therapists will perform initial evaluation of pt's status upon admission and devise an individualized program for Aquatic Therapy, Balance, Endurance, UE ROM, and UE strengthening - Other See attached MAR (Medication Administration Record) - Diet Type Continue Regular - Diet - Liquid Texture Continue Regular - Tube Feed Continue N/A - Bladder care per protocol - Cardiac Precaution Monitor blood pressure, heart rate, lower extremity edema, notify MD for shortness of breath or ches t pain Monitor patient for excessive elevation of heart rate and blood pressure during therapy - Weight Bearing Precaution WBAT right LE - Fall Precaution Bed alarm TABS alarm Wheel chair alarm - Skin care per protocol - Diet - Solid Texture Continue Regular - Shower allowing shower FUNCTIONAL STATUS: UPDATED AT WEEKLY TEAM CONFERENCE - Bladder Same accident frequency: 7-Ind - No accidents in the past 7 days - Bowel Same accident frequency: 7-Ind - No accidents in the past 7 days - Walking Same score based on distance walked: 0(N/A) - Wheelchair Same score based on distance traveled: 0(N/A) FUNCTIONAL STATUS: - Self-Care A. Eating Ind B. Grooming Philomena C. Bathing modA D. Dressing - Upper Philomena E. Dressing - Lower modA F. Toileting Cam - Sphincter Control G. Bladder control Philomena H. Bowel control Philomena - Transfers Control I. Bed/Chair/Wheelchair Philomena J. Toilet Philomena K. Tub/Shower Cam - Locomotion L. Walk/Wheelchair (B) Cam M. Stairs maxA - Communication N. Comprehension (B) Philomena O. Expression (B) Philomena - Social Cognition P. Social Interaction Philomena Q. Problem Solving sup R. Memory Philomena - Endurance Good - Balance Good - Safety Awareness Fair QI SCORES: - Self-Care A. Eating 05-Setup or clean-up assistance B. Oral hygiene 05-Setup or clean-up assistance C. Toileting hygiene 03-Partial/moderate assistance E. Shower/bathe self 88-Not attempted due to medical condition or safety concerns F. Upper body dressing 05-Setup or clean-up assistance G. Lower body dressing 88-Not attempted due to medical condition or safety concerns H. Putting on/taking off footwear 88-Not attempted due to medical condition or safety concerns - Mobility A. Roll left and right 03-Partial/moderate assistance B. Sit to lying 03-Partial/moderate assistance C. Lying to sitting on side of bed 03-Partial/moderate assistance D. Sit to stand 03-Partial/moderate assistance E. Chair/fig-rk-tahqi transfer 03-Partial/moderate assistance F. Toilet transfer 88-Not attempted due to medical condition or safety concerns G. Car transfer 88-Not attempted due to medical condition or safety concerns I. Walk 10 feet 88-Not attempted due to medical condition or safety concerns J. Walk 50 feet with two turns 88-Not attempted due to medical condition or safety concerns K. Walk 150 feet 88-Not attempted due to medical condition or safety concerns L. Walking 10 feet on uneven surfaces 88-Not attempted due to medical condition or safety concerns M. 1 step (curb) 88-Not attempted due to medical condition or safety concerns N. 4 steps 88-Not attempted due to medical condition or safety concerns O. 12 steps 88-Not attempted due to medical condition or safety concerns P. Picking up object 88-Not attempted due to medical condition or safety concerns R. Wheel 50 feet with two turns 09-Not applicable S. Wheel 150 feet 09-Not applicable - Bladder and Bowel Bladder continence 0-Always continent Bowel continence 0-Always continent - Endurance Poor - Balance Poor - Safety Awareness Poor CURRENT FUNC. DEFICITS: Self-Care, Mobility, Endurance, Balance, and Safety Awareness SIGNATURE PANEL: (CDT)
[2021-09-27] MEDS: ATORVASTATIN 40 MG TAB PO SCH (20:33)
[2021-09-27] MEDS: TRAZODONE 50 MG TABLET PO SCH (20:34)
--- NOTE | 2021-09-27 22:03 | PN ---
Date of Progress Note: 09/27/2021 Subjective: The patient was seen this morning for followup. He was lying in bed, not in distress. Denies any new complaints. Objective: Vital Signs: Reviewed. HEENT: Unremarkable. Lungs: Clear to auscultation. Heart: Sounds normal. Abdomen: Soft. Bowel sounds normal. No guarding, rigidity, tenderness, distention. Extremities: No leg edema. Impression: 1.Lumbar radiculopathy. 2.Lumbar spinal stenosis. 3.Chronic systolic heart failure. 4.Chronic anticoagulation therapy. 5.Diabetes mellitus. Plan: We will go ahead reduce dose of prednisone to 10 mg daily and hopefully the patient's blood patterson gar should start coming down. He does not take any diabetes medication at home and we will monitor h is blood sugars once he is not taking any prednisone if we need to start him on diabetes medications. After that, we will consider that, but there is no need at this point. Physical therapy to be cont inued under guidance of Dr. Carmona. I will see him tomorrow for followup. He is scheduled to go h ome tomorrow. NELSY/MODL Voice ID: [id number] Report ID: [id number]
[2021-09-28 05:27] VITALS: O2SAT 93
[2021-09-28 06:43] VITALS: TEMP 98
[2021-09-28] MEDS: SACUBITRIL/VALSARTAN 24/26 MG TAB PO SCH (07:55)
[2021-09-28] MEDS: JUVEN PACKET PO SCH (07:55)
[2021-09-28] MEDS: FUROSEMIDE 40 MG TABLET PO SCH (07:55)
[2021-09-28] MEDS: predniSONE 10 MG TAB PO SCH (07:56)
[2021-09-28] MEDS: GABAPENTIN 100 MG CAP PO SCH (07:56)
[2021-09-28] MEDS: POTASSIUM CL SA 10 MEQ TAB PO SCH (07:56)
[2021-09-28] MEDS: CARBIDOPA/LEVODOPA 25/100 TAB PO SCH (07:56)
[2021-09-28 11:32] VITALS: BP 118/63
[2021-09-28] MEDS: METOPROLOL XL 25 MG TAB PO SCH (11:32)
--- NOTE | 2021-09-29 08:45 | DS ---
Date of Discharge: 09/28/2021 Disposition: Discharged to go home. Discharge Medications And Instructions: 1.Continue all prior home medications that you were taking prior to this hospital admission and list provided to the patient. 2.New medication; prednisone 10 mg, the patient to take 1 tablet by mouth daily for 4 days, then slade f tablet by mouth daily for 4 days, then stop, take it with food. 3.Follow up at my office next week on Monday or Monday. Call office for appointment. Laboratory Data: Upon admission on rehab floor on 09/17/2021; white count 9.2, hemoglobin 14.4, plat elets 166. Last CBC from 09/26/2021; white count 10.2, hemoglobin 13.6, platelets 226. Initial chem istry on 09/17/2021; sodium 139, potassium 3.9, chloride 107, bicarb 25, BUN 31, creatinine 1.21, glu cose 178. Last chemistry from 09/26/2021; sodium 135, potassium 3.8, chloride 102, bicarb 27, BUN 37 , creatinine 1.31, glucose 285. Hospital Course: This is an 86-year-old very pleasant male patient, admitted to the rehab floor afte r his admission to medical floor. Please see dictated H and P and discharge summary from medical susannah or for more details. The patient was admitted to rehab. Dr. Carmona was consulted from rehab floor , managed to provide the patient's physical therapy, occupational therapy. Overall, the patient's co ndition has improved. His right leg still has some weakness, but it has improved over the period of his stay on the rehab floor. He has pain in his lower back and right gluteal region, which also has improved over period of time. He was started on oral steroid therapy, which over period of this hosp italization, we have reduced it every few days and as of yesterday, he is on 10 mg prednisone daily, which we will continue and reduce it as mentioned in discharge summary. His other medical problems h ave remained stable. Final Diagnoses: 1.Lumbar spinal stenosis. 2.Lumbar radiculopathy with lumbar spondylosis. 3.Chronic systolic heart failure. 4.Hypertension. 5.Hyperlipidemia. 6.Paroxysmal atrial fibrillation. 7.Chronic anticoagulation therapy. 8.Osteoarthritis, multiple sites. NELSY/MODL Voice ID: [id number] Report ID: [id number]
== END 2021-09-28 12:30 | disposition home health service (06) | DRG 551 ==
LOC: 5TH 20:40
PROVIDERS: ADMIT Internal Medicine; ATTEND Internal Medicine
DX: M48.061 Spinal stenosis, lumbar region without neurogenic claudication (principal); U07.1 COVID-19; I50.22 Chronic systolic (congestive) heart failure; M47.26 Other spondylosis with radiculopathy, lumbar region; I11.0 Hypertensive heart disease with heart failure; E78.5 Hyperlipidemia, unspecified; I48.0 Paroxysmal atrial fibrillation; M15.9 Polyosteoarthritis, unspecified; G20 Parkinson's disease; Z79.01 Long term (current) use of anticoagulants; Z95.1 Presence of aortocoronary bypass graft
CPT/HCPCS: 36415; 71045; 80048; 81001; 82040; 83735; 84134; 85025; 87086; 87088; 97110; 97116; 97161; 97165; 97530; 97542; J7512; U0003

== ENCOUNTER 2021-12-24 21:41 | Inpatient (IN) | payer OTHER, MEDICARE ==
--- OUTSIDE RECORDS SUMMARY | 2021-12-24 21:48 | XMS REPORT | Continuity of Care Document ---
:1935 [facility] t Address [address] [place] [address] [place] [address] [place] [id number] Care Team Providers Name Role Phone Darrick Hyatt Primary Care Physician YENNY RAMIREZ Attending Clinician Unavailable MARIA TERESA BARTON Attending Clinician Unavailable Elder Pavon Attending Clinician Rusty SIMS, Mir BAngi Attending Clinician Kevyn Oliva Attending Clinician Unavailable YENNY RAMIREZ M.D. Attending Clinician Unavailable HANSEL BROWN M.D. Attending Clinician Unavailable ALONDRA NIEVES Attending Clinician Unavailable SYD MERRITT M.D. Attending Clinician Unavailable Syd Merritt Attending Clinician Brandin Harp M.D. Attending Clinician Unavailable BRENNON NIEVES Attending Clinician Unavailable Payers Payer Name Policy Type Policy Number Effective Date Expiration Date Karrie rubio MEDICARE PART A [id number] 1998 AND B 00:00:00 Problems Condition Condition [...] without without 00 angina angina pectoris pectoris Obstructiv Obstructiv Disease Active M ethodi e sleep e sleep 2 st apnea apnea 00:00: Hospita 00 l R41.3 - R41.3 - Diagnosis Active 2019-022019-12-09 Memoria OTHER OTHER 11:30:00 l AMNESIA AMNESIA 00:01: Terry R25.1 - R25.1 - 00 TREMOR, UN TREMOR, UN Active 12/07/2019 TODD [place] Pleural Pleural Disease Active [facility] plaque plaque 09-13 st 00:00: Hospita 00 l I10 - I10 - Diagnosis Active 2016-07-01 [facility] oria ESSENTIAL ESSENTIAL 06-30 12:19:00 l (PRIMARY) (PRIMARY) 00:01: Americo restrepo HYPERTENSI HYPERTENSI 00 Active 06/30/2016 TODD Stewart 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 [facility] (interstit (interstit 2 st ial lung ial lung 00:00: Hospit a disease) disease) 00 l Chronic Chronic Disease Active 2015-02 [facility] insomnia insomnia 03-09 st 00:00: Hospita 00 l DIABETES DIABETES Diagnosis Active 2015-10-07 Memoria Active 08-06 15:50:00 l 08/07/2015 00:00: Ravi mcmillan [address] Cough Cough Disease Active [facility] 07-13 st 00:00: Hospita 00 l SOB SOB Disease Active [facility] (shortness (shortness 07-13 st of breath) of breath) 00:00: Ho spita 00 l Wheezing Wheezing Disease Active Metho di 07-13 st 00:00: Hospita 00 l STERNAL STERNAL Diagnosis Active 2011-05-09 Memoria WOUND WOUND 05-06 12:47:00 l INFECTION INFECTION 00:00: Herm lauro Active 00 05/07/2011 [facility] ABSCESS ABSCESS Diagnosis Active 2011-05-07 Memoria Active 05-06 14:45:00 l 05/07/2011 00:00: Ravi mcmillan [address] Coronary Coronary Problem Active 2021-11-14 [facility] artery artery 2- 21:28:06 l bypass bypass 00:00: Terry grafts x 3 grafts x 3 00 (procedure (procedure ) ) Active 04/05/2011 Problem 11/14/2021 [facility], TODD Stewart, OPID Hammond 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 Active 2011-12-02 [facility] Coronary - Coronary - 08:17:06 l artery artery 00:00: Terry bypass bypass 00 grafts x 3 grafts x 3 Active 04/05/2011 Problem 12/02/2011 [facility] CARDIAC CARDIAC Diagnosis Active 2011-07-28 [facility] REHAB NEW REHAB NEW 02-06 14:54:00 l PT PT Active 11:11: Terry 02/06/2010 00 [facility] CARDIAC CARDIAC Diagnosis Active 2011-11-01 [facility] REHAB REHAB 02-06 13:34:00 l Active 11:11: Terry 02/07/2000 00 [facility] CABG CABG Problem Active [facility] ans [...] U T neuropathy neuropathy Ph ysici ans VA, old VA, old Problem Active [facility] ans Parkinson Parkinson Problem Active [facility] disease, disease, Physic i symptomati symptomati an s c c 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 of disease of eek eek coronary coronary artery artery without without angina [...] fibrillati fibrillati Ph ysici on on ans Impaired Impaired Problem Resolve 2021-11-14 Memoria cognition cognition d 21:28:06 l (finding) (finding) Herm lauro [facility] Amnesia Problem Active 2021-11-14 Me moria (finding) (finding) 21:28:06 l Active [place] Problem [facility] TODD [place] Angina Angina Problem Active 2021-11-14 Wilbert noe (disorder) (disorder) 21:28:06 l Active [place] Problem 11/14/2021 [facility] TODD Stewart TODD [place] Atrial Atrial Problem Active 2021-11-14 Mem oria fibrillati fibrillati 21:28:06 l on on [place] (disorder) (disorder) Active Problem 11/14/2021 [facility] Problem Active 2021-11-14 M emoria ve Hypertensi 21:28:06 l disorder, ve [place] systemic disorder, arterial systemic (disorder) arterial (disorder) Active Problem 11/14/2021 [facility] TODD Hammond Hyperlipid Hyperlipi Problem [facility] demia 21:28:06 l (disorder) (disorder) He rmann Active Problem 11/14/2021 [facility] Parkinson' Parkinson Problem Active 2021-11-14 Memoria s disease 's disease 21:28:06 l (disorder) (disorder) He rmann Active Problem 11/14/2021 [facility] TODD Genao Tremor Tremor Problem Active 2021-11-14 Wilbert noe (finding) (finding) 21:28:06 l Active Terry Problem 11/14/2021 [facility] TODD Genao Angina Angina Problem Active 2011-12-02 Wilbert noe Active 08:17:06 l Problem [place] 12/02/2011 [facility] Atrial Atrial Problem Active 2011-12-02 Wilbert noe fibrillati fibrillati 08:17:06 l on on Active Ravi n Problem 12/02/2011 [facility] Hyperlipid Hyperlipi Problem Active 2011-12-02 Memoria emia demia 08:17:06 l Active [place] Problem 12/02/2011 [facility] Ileostomy Ileostomy Problem Active 2011-12-02 Memoria - stoma - stoma 08:17:06 l Active [place] Problem 12/02/2011 [facility] Dementia Dementia Problem Active 2021-11-14 Memoria (disorder) (disorder) 21:28:06 l Active [place] Problem 11/14/2021 [facility] OTHER OTHER Diagnosis Active 2011-05-09 Mem oria POSTOP POSTOP 12:47:00 l INFECTION INFECTION Herm lauro Active [facility] Allergies, Adverse Reactions, Alerts Allergy Allergy Status Severity Reaction(s) Onset Inactive Treating Comm ents Source Name Type Date Date Clinician Penicill Allergy Active Swelling Other [facility] ins to 07-13 reaction( Health substanc 00:00: s): e 00 Anaphylax is Penicill Propensi Active Method i ins ty to 07-13 st adverse 00:00: Hospita reaction 00 l s to drug Penicill Allergy Active UT ins to drug Physici (finding ans ) penicill penicill Active Memori a ins ins l [place] Family History Family Member Diagnosis Comments Start Date Stop Date Source Unknown Family history of Family History [facility] Family Member Coronary Artery Disease Unknown Family history of Family History [facility] Family Member Lung Cancer Sibling Family history of [facility] myocardial infarction Father Family history of [facility] cerebrovascular accident (CVA) Natural Heart attack [facility] Natural Cancer [facility] Natural Stroke [facility] Natural Heart attack [facility] Social History Social Habit Start Date Stop Date Quantity Comments Source Exposure to Not sure [facility] SARS-CoV-2 (event) Social History 2021-08-05 2021-08-05 [place] ermann 20:37:38 20:37:38 Alcohol intake 2021-04-08 2021-04-08 Current [employer] 00:00:00 00:00:00 non-drinker of Hospital alcohol (finding) Tobacco use and 2017-08-24 2017-08-24 Smokeless tobacco Me [facility]odist exposure 00:00:00 00:00:00 non-user Hospital Sex Assigned At [birth year] M [facility] 00:00:00 00:00:00 Hospital Smoking Status Start Date Stop Date Source Social History [facility] [place] [place] Never smoked tobacco [employer] ospital Medications Ordered Filled Start Stop Current Ordering Indication Dosage Frequency Signature Comments Components Source Medication Medication Date Date Medication? Clinician (SIG) Name Name furosemide Yes 20 mg = 1 Me moria 20 mg oral 6-30 tab, PO, l tablet 19:47: BID, 0 Terry 00 Refill(s) Potassium No 1 TABLET Wilbert noe Chloride 6-30 BY MOUTH l (Eqv-K-Tab) 19:45: EVERY DAY H ermann 20 mEq oral 00 (DO NOT tablet, CRUSH, extended CHEW, OR release SPLIT. TAKE ONLY IF TAKING FUROSEMIDE THAT DAY) Entresto 24 Yes TAKE 1 Wilbert noe mg-26 mg 6-30 TABLET BY l oral tablet 19:45: MOUTH Debbie nn 00 TWICE A DAY atorvastati Yes TAKE 1 Wilbert noe n 40 mg 6-30 TABLET BY l oral tablet 19:45: MOUTH 1 Her segura 00 TIME EACH DAY. Pramipexole Yes 0.125 mg = Memoria dihydrochlo 3-30 1 tab, PO, l ride 0.125 20:27: TID, # 270 H ermann MG Oral 00 tab, 1 Tablet Refill(s), [Mirapex] Pharmacy: [id number], 179.07, cm, 05/05/21 15:01:00 CDT, Height, 85, kg, 05/05/21 15:01:00 CDT, Weight traZODone Yes 50mg QD Take 50 mg UT (Desyrel) 3-17 by mouth 1 Heal th 50 MG 12:51: (one) time tablet 10 each day. aspirin 81 Yes 81mg QD Take 81 mg U T MG EC 17 by mouth 1 Health tablet 12:51: (one) time 10 each day. spironolact 2022- No [id number] 25mg QD Take 1 UT one 317 03-18 tablet (25 Health (Aldactone) 00:00: 04:59 mg total) 25 MG 00 :00 by mouth 1 tablet (one) time each day. potassium 2022- No [id number] 20meq QD TAKE 1 UT chloride CR 12 03-13 TABLET (20 H ealth (K-Tab) 20 [...] 17 ) radio-isoto pe injection 18-45 millicurie carbidopa-l Yes 1{tbl} Q.[id number] Take 1 Methodi evodopa 04-08 [id number] tablet by s t 25-100 mg 10:00: 3D mouth 3 Hospi ta per 10 (three) l disintegrat times a ing tablet day. donepeziL Yes 10mg QD Take 10 mg Me thodi (ARICEPT) -[address] 10 MG 10:00: nightly. Hospita tablet 10 l traZODone Yes 50mg QD Take 50 mg Me thodi (DESYREL) 3-[address] 50 MG 10:00: nightly. Hospita tablet 10 l losartan 2021- No 25mg Take 25 mg Me thodi (COZAAR) 25 04-06 05- by mouth. st MG tablet 00:00: 04:59 Hospita 00 :00 l losartan 2021- No [id number] 25mg QD Take 1 UT (Cozaar) 25 3 05-01 tablet (25 H ealth MG tablet 00:00: 04:59 mg total) 00 :00 by mouth 1 (one) time each day. furosemide 2022- No 20mg Q.5D Take 20 mg Method[facility] (LASIX) 20 03-26- by mouth 2 st mg tablet 00:00: 05:59 (two) Hospit a 00 :00 times a l day. furosemide 2022- No [id number] 20mg Q.5D Take 1 UT (Lasix) 20 03-26 tablet (20 He alth MG tablet 00:00: 05:59 mg total) 00 :00 by mouth 2 (two) times a day. aspirin 81 Yes 81mg QD Take 81 mg U T MG EC 17 by mouth 1 Health tablet 15:48: (one) time 50 each day. traZODone Yes 50mg QD Take 50 mg UT (Desyrel) 17 by mouth 1 Heal th 50 MG 15:13: (one) time tablet 51 each day. metoprolol 2022- No [id number] 25mg QD Take 1 UT succinate 03-25 tablet (25 Hea lth XL 00:00: 05:59 mg total) (Toprol-XL) 00 :00 by mouth 1 25 MG 24 hr (one) time tablet each day. atorvastati 2022- No [id number] 40mg QD Take 1 UT n (Lipitor) 03-25-18 tablet (40 H ealth 40 MG 00:00: 05:59 mg total) tablet 00 :00 by mouth 1 (one) time each day. furosemide 2022- No [id number] 20mg Q.5D Take 1 UT (Lasix) 20 03-25-18 tablet (20 He alth MG tablet 00:00: 05:59 mg total) 00 :00 by mouth 2 (two) times a day. potassium 2022- No [id number] 20meq QD Take 1 UT chloride CR 03-25- tablet (20 H ealth (K-Tab) 20 00:00: 05:59 mEq total) MEQ ER 00 :00 by mouth 1 tablet (one) time each day. Do not crush, chew, or split. Take only if taking furosemide that day. Xarelto 15 2022- No [id number] 15mg Take 1 UT MG tablet 03-25-18 tablet (15 Hea lth 00:00: 05:59 mg total) 00 :00 by mouth 1 (one) time each day with dinner. metoprolol 2022- No [id number] 25mg QD Take 1 UT succinate 03-25-18 tablet (25 Hea lth XL 00:00: 05:59 mg total) (Toprol-XL) 00 :00 by mouth 1 25 MG 24 hr (one) time tablet each day. atorvastati 2022- No [id number] 40mg QD Take 1 UT n (Lipitor) 03-25-18 tablet (40 H ealth 40 MG 00:00: 05:59 mg total) tablet 00 :00 by mouth 1 (one) time each day. Xarelto 15 2022- No [id number] 15mg Take 1 UT MG tablet 03-25-18 tablet (15 Hea lth 00:00: 05:59 mg total) 00 :00 by mouth 1 (one) time each day with dinner. furosemide No [id number] 20mg Q.5D Take 1 UT (Lasix) 20 03-25-17 tablet (20 He alth MG tablet 00:00: 00:00 mg total) 00 :00 by mouth 2 (two) times a day. potassium 2021- No [id number] 20meq QD Take 1 UT chloride CR 03-25- tablet (20 H ealth (K-Tab) 20 00:00: 00:00 mEq total) MEQ ER 00 :00 by mouth 1 tablet (one) time each day. Do not crush, chew, or split. Take only if taking furosemide that day. atorvastati 2021- No [id number] 40mg QD Take 1 UT n (Lipitor) 2-25 03-17 tablet (40 H ealth 40 MG 00:00: 00:00 mg total) tablet 00 :00 by mouth 1 (one) time each day. Xarelto 15 2021- No [id number] 15mg Take 1 UT MG tablet 03-25- tablet (15 Hea lth 00:00: 00:00 mg total) 00 :00 by mouth 1 (one) time each day with dinner. metoprolol 2021- No [id number] 25mg QD Take 1 UT succinate 03-25- tablet (25 Hea lth XL 00:00: 00:00 mg total) (Toprol-XL) 00 :00 by mouth 1 25 MG 24 hr (one) time tablet each day. Xarelto 15 2021- No [id number] 15mg Take 1 UT MG tablet 03-25 tablet (15 Hea lth 00:00: 00:00 mg total) 00 :00 by mouth 1 (one) time each day with dinner. carbidopa-l 0 Yes TAKE BY UT evodopa 1-03 MOUTH 2 Health (Sinemet) 00:00: TABLETS 3 25-100 MG 00 TIMES A tablet DAY FOR 90 DAYS donepezil 0 Yes 10mg Take 10 mg UT (Aricept) -03 by mouth Health 10 MG 00:00: every tablet 00 night. carbidopa-l 0 Yes TAKE BY UT evodopa 1-03 MOUTH 2 Health (Sinemet) 00:00: TABLETS 3 25-100 MG 00 TIMES A tablet DAY FOR 90 DAYS donepezil 2021-0 Yes 10mg Take 10 mg UT (Aricept) -03 by mouth Health 10 MG 00:00: every tablet 00 night. Xarelto 15 2021- No 15mg Take 15 mg UT MG tablet 02-08 by mouth Healt h 00:00: 00:00 every 00 :00 night. metoprolol 2020-02- No 25mg QD Take 25 mg UT succinate 03-29 by mouth 1 Hea lth XL 00:00: 00:00 (one) time (Toprol-XL) 00 :00 each day. 25 MG 24 hr tablet Carbidopa 2020-0 Yes 2 tab, PO, Me moria 25 MG / 9-30 TID, # 540 l Levodopa 19:47: tab, 3 Terry 100 MG Oral 00 Refill(s), Tablet Pharmacy: [facility] #[id number], 175.26, cm, 11/05/20 14:41:00 CDT, Height, 85.455, kg, 11/05/20 14:41:00 CDT, Weight donepezil 2020-0 Yes 10 mg = 1 Mem oria 10 mg oral 9-30 tab, PO, l tablet 19:47: Bedtime, # Debbie nn 00 90 tab, 2 Refill(s), Pharmacy: [facility] #[id number], 175.26, cm, 11/05/20 14:41:00 CDT, Height, 85.455, kg, 11/05/20 14:41:00 CDT, Weight donepezil 2020-0 Yes 10 mg = 1 Mem oria 10 mg oral 1-21 tab, PO, l tablet 17:59: Bedtime, # Debbie nn 00 90 tab, 2 Refill(s), Pharmacy: [facility] #[id number], 180.34, cm, 02/27/20 11:47:00 [employer]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[employer], Height, 90.909, kg, 02/27/20 11:47:00 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, Weight Donepezil 2019-02 Yes 5 mg = 1 Wilbert noe hydrochlori 2-03 tab, PO, l de 5 MG 19:42: Bedtime, # Herm lauro Oral Tablet 00 30 tab, 3 [Aricept] Refill(s), Pharmacy: [facility] #[id number], 175.26, cm, 01/09/20 13:21:00 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, Height, 85, kg, 01/09/20 13:21:00 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, Weight Carbidopa 2019-02 Yes 2 tab, PO, Me moria 25 MG / 0-29 TID, # 540 l Levodopa 23:52: tab, 3 Terry 100 MG Oral 00 Refill(s), Tablet Pharmacy: [facility] #[id number], 177.8, cm, 12/05/19 11:00:00 CDT, Height, 90, kg, 12/05/19 11:00:00 CDT, Weight Carbidopa 2019-02 No 0 Memoria 25 MG / 0-29 Refill(s) l Levodopa 23:51: [place] 100 MG Oral 00 Tablet fenofibric 2019-02 Yes 0 Memoria acid 45 mg 0-29 Refill(s) l oral 23:51: [place] delayed 00 release capsule gabapentin 2019-02 Yes 0 Memoria 400 MG Oral 0-29 Refill(s) l Capsule 23:51: Terry 00 levothyroxi 2019-02 Yes 0 Memori a ne 88 mcg 0-29 Refill(s) l (0.088 mg) 23:51: Terry oral tablet 00 losartan 2019-02 Yes 0 Memoria 100 mg oral 0-29 Refill(s) l tablet 23:51: [place] 00 Metoprolol 2019-02 Yes 0 Memoria Succinate 0-29 Refill(s) l ER 25 mg 23:51: [place] oral 00 tablet, extended release rosuvastati 2019-02 Yes 0 Memori a n 5 mg oral 0-29 Refill(s) l tablet 23:51: [place] 00 0.5 ML 2019-02 No 0 Memoria [...] Delayed Release Release Particles Particles Gabapentin Gabapentin Yes Q0.3333D TAKE 1 UT 400 MG Oral 400 MG Oral 9-26 CAPSULE 3 Physici Capsule Capsule 00:00: TIMES ans 00 DAILY. Synthroid Synthroid Yes 1 QD TAKE 1 U T 75 MCG Oral 75 MCG Oral 9-26 TABLET Physici Tablet Tablet 00:00: DAILY. ans 00 fluticasone 2021- No 100ug QD 2 sprays Method[facility] (FLONASE 02-08 ([address] ALLERGY 00:00: 00:00 total) by [facility] hetal RELIEF) 50 00 :00 Each Nare l mcg/actuati route on nasal daily. spray XARELTO 15 Yes TAKE 1 Metho di mg tablet 9- TABLET BY [facility] furosemide 2021- No TAKE 1 Meth joan (LASIX) 20 903-[address] mg tablet 00:00: 00:00 MOUTH Hospit a 00 :00 EVERY DAY l metoprolol 2021- No TAKE 1 Meth joan succinate 8-13 03-[address] XL 00:00: 00:00 MOUTH Hospita (TOPROL-XL) 00 :00 EVERY DAY l 25 mg 24 hr tablet losartan 2021- No TAKE 1 Method i (COZAAR) 3-14 03-[address] 100 MG 00:00: 00:00 MOUTH Hospita tablet 00 :00 EVERY DAY l potassium 2021- No TAKE 1 Metho di chloride 10-[address] (K-DUR) 20 00:00: 00:00 MOUTH Hospi ta MEQ CR 00 :00 EVERY DAY l tablet choline Yes TAKE ONE Method i fenofibrate 9-[address] (TRILIPIX) 00:00: MOUTH Hospit a 45 mg 00 EVERY DAY l capsule Carbidopa-L Carbidopa-L Yes RAJA 2 Q0.3333D TAKE 2 UT evodopa evodopa 7-03 MEHANNA TABLETS BY Physici 25-100 MG 25-100 MG 00:00: M.D. MOUTH 3 ans Oral Tablet Oral Tablet 00 TIMES DAILY OneTouch OneTouch Yes Brandin QD USE 4 UT Verio In Verio In 7-18 Orlander STRIPS P hysici Vitro Strip Vitro Strip 00:00: M.D. DAILY DX ans 00 CODE E11.9 folic acid 2021- No TAKE BY Met shaver (FOLVITE) 1 5-15 03-[address] MG tablet 00:00: 00:00 TABLET Hospi ta 00 :00 DAILY l DIRECTED Fenofibric Fenofibric Yes YENNY 1 QD [...] Extended Release 24 Release 24 Hour Hour diphenhydrA [...] PO, Q12H, l tablet 16:15: 28 doses Terry 30 or times, Substituti on Allowed [place] Yes Agnieszka 2 tab, PO, Wilbert noe 7.5/325 4-06 Alawadi Q4H, PRN, l oral tablet 16:14: 40 tab, segura 41 Pain, Substituti on Allowed, Maintenanc e, TAB doxycycline No Agnieszka 100 mg, M emoria 20 mg oral 4-06 Alawadi PO, Q12H, l tablet 16:14: 28 doses Terry 35 or times, Substituti on Allowed [place] No Agnieszka 2 tab, PO, Wilbert noe 7.5/325 4-06 Alawadi Q4H, PRN, l oral tablet 15:59: 40 tab, Her segura 58 Pain, Substituti on Allowed, Maintenanc e, TAB doxycycline No Agnieszka 100 mg, M emoria 20 mg oral 4-06 Alawadi PO, Q12H, l tablet 15:59: 28 doses [place] 54 or times, Substituti on Allowed doxycycline No Agnieszka 100 mg, M emoria 20 mg oral - Alawadi PO, Q12H, l tablet 15:53: 28 doses Terry 03 or times, Substituti on Allowed Plavix No Ayana 75 mg, 1 Me moria 05-12 E Odom tab, l 14:00: Route: PO, Terry 00 Drug form: TAB, Daily, Start date: 05/13/11 9:00:00, Duration: 30 day, Stop date: 06/11/11 9:00:00 acetaminoph No Mian 15 mL, M emoria en-hydrocod 05-10 Robbin Route: PO, l one 325 15:55: [...] 05-10 Robbin microgram, l 15:55: [place] Route: [place] 00 IVP, Q5Min, PRN Pain Score 4-6, [...] l 15:55: [place] IVP, PRN, Debbie nn PRN Benzodiaze pine Reversal, Initial dose, Start date: 05/11/11 10:55:00, Duration: 30 day, Stop date: 06/10/11 10:54:00 naloxone No Mian 0.04 mg, Me moria 05-10 Robbin Route: l 15:55: [place] IVP, [place] 00 Q2MIN, PRN Narcotic Reversal, Start date: 05/11/11 10:55:00, Duration: 8 doses or times, Stop date: Limited # of times metoprolol No Mian 1 mg, Mem oria tartrate 05-10 Robbin Route: l 15:55: [place] IVP, Drug Debbie nn form: TAB, Q5Min, PRN Elevated BP, Start date: 05/11/11 10:55:00, Duration: 5 doses or times, Stop date: Limited # of times D5W 1/2NS + No Agnieszka 1,000 mL, Memoria KCL 20mEq/L 05-09 Alawadi Rate: 60 l 1000ml 22:48: ml/hr, Terry (Premix) Infuse 1,000 mL over: 16.7 hr, Route: IV, Dosing Weight 81.818 kg, Total Volume: 1,000, Start date: 05/10/11 17:48:00, Duration: 30 day, Stop date: 06/09/11 17:47:00 temazepam No Lamin 15 mg, 1 Mem oria 05-08 Elias cap, l 04:09: Sharpe Route: PO, Terry Drug form: CAP, Bedtime, PRN Insomnia, Start date: 05/08/11 23:09:00, Duration: 30 day, Stop date: 06/07/11 23:08:00 Protonix No Viktoriya Trudi 40 mg, 1 Memoria 4- tab, l 21:30: Route: PO, [place] 00 Drug form: ECTAB, Before Dinner, Start date: 05/08/11 16:30:00, Duration: 30 day, Stop date: 06/06/11 16:30:00 Sodium No Lamin 1,000 mL, Memor ia Chloride 05-07 Elias Rate: 75 l 0.9% IV 18:44: Sharpe ml/hr, [place] 1000 mL 00 Infuse over: 13.3 hr, Route: IV, kg, Total Volume: 1,000, Start date: 05/08/11 13:44:00, Duration: 30 day, Stop date: 06/07/11 13:43:00 heparin No Viktoriya Trudi 5,000 Mem oria - unit, 1 l 05:00: mL, Route: [place] 00 SUB-Q, Drug form: INJ, Q8H, Start date: 05/08/11 0:00:00, Duration: 30 day, Stop date: 06/06/11 16:00:00 vancomycin No Viktoriya Trudi 1 gm, Memoria 05-07 Route: l 03:00: IVPB, Drug Terry form: INJ, [id number], Start date: 05/07/11 22:00:00, Duration: 30 day, Stop date: 06/06/11 10:00:00 diphenhydrA No Silvio 25 mg, 1 Memoria MINE 05-07 Jcarlos cap, l 02:04: Esau Route: PO, Herm lauro 00 [place] Drug form: CAP, Bedtime, PRN Insomnia, Start date: 05/07/11 21:04:00, Duration: 30 day, Stop date: 06/06/11 21:03:00 Mucomyst No Michelle-Pancho 600 mg, 3 Memoria oral 05-07 [place] mL, Route: l solution 02:00: Esparza PO, Drug H ermann (mg) 00 Pu form: SOLN, Q12H, Start date: 05/07/11 21:00:00, Duration: 4 doses or times, Stop date: 05/09/11 9:00:00 [place] 2011-0 No 2 tab, PO, Memori a 7.5/325 3-31 Q4H, PRN, l oral tablet 23:28: as needed H ermann 16 for pain, Substituti on Allowed, Maintenanc e, TAB AMIODarone 2011-0 Yes 200 mg, 1 Me moria 200 mg oral 3-31 tab, PO, l tablet 23:19: BID, 60 Terry 22 tab, Substituti on Allowed, TAB aspirin 325 2011-0 Yes 325 mg, Mem oria mg tablet 3-31 PO, Daily, l 23:18: Substituti Terry 59 on Allowed, TAB clopidogrel 2012-0 Yes 75 mg, 1 Me moria 75 mg oral 3-31 tab, PO, l tablet 23:18: Daily, 30 Ravi n 46 tab, Substituti on Allowed, TAB docusate 2011-0 Yes 100 mg, 1 Wilbert noe sodium 100 3-31 cap, BID, l mg oral 23:18: Substituti Herm lauro capsule 32 on Allowed, CAP lisinopril 2011-0 Yes 2.5 mg, Wilbert noe 2.5 mg oral 3-31 Daily, l tablet 23:18: Substituti Debbie nn 08 on Allowed, TAB metoprolol 0 Yes 50 mg, PO, M emoria 50 mg oral 3-31 Daily, 30 l tablet, 23:17: tab, [place] extended 54 Substituti release on Allowed Crestor 10 Yes 10 mg, 1 Mem oria mg oral 3-31 tab, PO, l tablet 23:16: Daily, 30 Ravi n 57 tab, Substituti on Allowed, TAB 1/2NS 1,000 2011-0 No Agnieszka 1,000 mL, Memoria mL 3-31 Alawadi Rate: 75 l 19:20: ml/hr, Terry 00 Infuse over: 13.3 hr, Route: IV, Total Volume: 1,000, Start date: 05/07/11 14:20:00, Duration: 30 day, Stop date: 06/06/11 14:19:00 pneumococca 2011-0 No SYSTEM 0.5 ml, M emoria l 23-valent 2-28 SYSTEM Route: IM, l vaccine 15:00: Drug Form: Herm lauro 00 INJ, Start date: 04/05/11 9:00:00, Stop date: 04/05/11 9:00:00 Aspirin 81 Aspirin 81 Yes UT MG TABS MG TABS Physici ans Immunizations Ordered Filled Immunization Date Status Comments Sour e Immunization Name Name [id number] 2020-05-26 Completed Memor ial Terry [id number] 00:00:00 ER<sup>1</sup> [id number] 2020-04-25 Completed Memor ial [place] [id number] 00:00:00 ER [id number] 2020-04-04 Completed Memor ial Terry [id number] 00:00:00 ER FLUZONE HIGH-DOSE 2017-02-[address] [facility] 00:00:00 Hospital FLUZONE HIGH-DOSE 2016-01-[address] PF 00:00:00 Hospital Pneumococcal 2015-05-28 Completed [employer] Conjugate 13-Valent 00:00:00 Hospi alanis Influenza 2012-01-17 Completed [facility] 00:00:00 Vital Signs Vital Name Observation Time Observation Value Comments Source Systolic blood 2021-04-22 136 mm[Hg] [facility] pressure 17:51:00 Diastolic blood 2021-04-22 85 mm[Hg] [facility] pressure 17:51:00 Heart rate 2021-04-22 79 /min [facility] 17:51:00 Respiratory rate 2021-04-22 16 /min [facility] 17:51:00 Body height 2021-04-22 180.3 cm [facility] 17:51:00 Body weight 2021-04-22 82.01 kg [facility] 17:51:00 BMI 2021-04-22 25.22 kg/m2 [facility] 17:51:00 Oxygen saturation 2021-04-22 91 /min [facility] in Arterial blood 17:51:00 by Pulse oximetry Systolic blood 2021-03-25 173 mm[Hg] [facility] pressure 21:14:00 Diastolic blood 2021-03-25 69 mm[Hg] [facility] pressure 21:14:00 Heart rate 2021-03-25 79 /min [facility] 21:14:00 Respiratory rate 2021-03-25 16 /min [facility] 21:14:00 Body height 2021-03-25 180.3 cm [facility] 21:14:00 Body weight 2021-03-25 86.183 kg [facility] 21:14:00 BMI 2021-03-25 26.50 kg/m2 [facility] 21:14:00 Oxygen saturation 2021-03-25 95 /min [facility] in Arterial blood 21:14:00 by Pulse oximetry Systolic (mm Hg) 2021-08-05 [facility] rmann 19:29:00 Diastolic (mm Hg) 2021-08-05 [place] ermann 19:29:00 Heart Rate 2021-08-05 [facility] Ravi n 19:29:00 Respitory Rate 2021-08-05 [facility] Americo lauro 19:29:00 Height 2021-08-05 177.8 cm [facility] Ravi n 19:29:00 Weight 2021-08-05 [facility] Ravi n 19:29:00 BMI Calculated 2021-08-05 [facility] Herm lauro 19:29:00 Systolic (mm Hg) 2021-05-05 [facility] rmann 19:39:00 Diastolic (mm Hg) 2021-05-05 [place] ermann 19:39:00 Heart Rate 2021-05-05 [facility] Ravi n 19:39:00 Respitory Rate 2021-05-05 [facility] Americo lauro 19:39:00 Height 2021-05-05 [facility]07 [facility]05 [facility] BMI Calculated 2021-05-05 [facility] Herm lauro 19:39:00 Systolic blood 2021-04-08 113 mm[Hg] [facility] 16:00:00 Hospital Diastolic blood 2021-04-08 76 mm[Hg] [facility] 16:00:00 Hospital Heart rate 2021-04-08 73 /min [facility] 16:[facility] Body temperature 2021-04-08 36.83 Ale[facility] 16:00:00 [facility] Respiratory rate 2021-04-08 14 /min [facility] 16:[facility] Body height 2021-04-08 180.3 cm [facility] 16:[facility] Body weight 2021-04-08 82.645 kg [facility] 16:[facility] BMI 2021-04-08 25.41 kg/m2 [facility] 16:[facility]:00 [facility] Oxygen saturation 2021-04-08 99 /min [facility] in Arterial blood 16:00:00 Hospital by Pulse oximetry Systolic (mm Hg) 2020-11-05 [facility] rmann 19:31:00 Diastolic (mm Hg) 2020-11-05 [place] ermann 19:31:00 Heart Rate 2020-11-05 [facility] Ravi n 19:31:00 Respitory Rate 2020-11-05 [facility] lauro 19:31:00 Height 2020-11-05 175.26 cm [facility] Ravi n 19:31:00 Weight 2020-11-05 [facility] R[facility] n 19:31:00 BMI Calculated 2020-11-05 [facility] lauro 19:31:00 Systolic (mm Hg) 2020-06-05 [facility] rmann 19:24:00 Diastolic (mm Hg) 2020-06-05 [place] ermann 19:24:00 Heart Rate 2020-06-05 [facility] Ravi n 19:24:00 Respitory Rate 2020-06-05 [facility] lauro 19:24:00 Height 2020-06-05 180.34 cm [facility] Ravi n 19:24:00 Weight 2020-06-05 [facility] R[facility] n 19:24:00 BMI Calculated 2020-06-05 [facility] lauro 19:24:00 Systolic (mm Hg) 2020 [facility] rmann 17:47:00 Diastolic (mm Hg) 2020 [place] ermann 17:47:00 Heart Rate 2020 [facility] Ravi n 17:47:00 Respitory Rate 2020 [facility] lauro 17:47:00 Height 2020 180.34 cm [facility] Ravi n 17:47:00 Weight 2020 [facility] Ravi n 17:47:00 BMI Calculated 2020 [facility] lauro 17:47:00 Systolic (mm Hg) 2020-01-09 [facility] rmann 19:21:00 Diastolic (mm Hg) 2020-01-09 [place] ermann 19:21:00 Heart Rate 2020-01-09 [facility] R[facility] n 19:21:00 Respitory Rate 2020-01-09 [facility] lauro 19:21:00 Height 2020-01-09 175.26 cm [facility] Ravi n 19:21:00 Weight 2020-01-09 [facility] R[facility] n 19:21:00 BMI Calculated 2020-01-09 [facility] lauro 19:21:00 Systolic (mm Hg) 2019-12-05 [facility] rmann 15:47:00 Diastolic (mm Hg) 2019-12-05 [facility] ermann 15:47:00 Heart Rate 2019-12-05 [facility] Ravi n 15:47:00 Respitory Rate 2019-12-05 [facility] lauro 15:47:00 Height 2019-12-05 177.8 cm [facility] Ravi n 15:47:00 Weight 2019-12-05 [facility] 15:47:00 BMI Calculated 2019-12-05 [facility] lauro 15:47:00 BP Systolic 2018-11-01 121 mm[Hg] Location: LUE; [facility] 14:14:00 Position: Sitting BP Diastolic 2018-11-01 68 mm[Hg] Location: LUE; [facility] 14:14:00 Position: Sitting Height 2018-11-01 71 [in_us] [facility] 14:14:00 Weight 2018-11-01 193.4 [lb_av] [facility] 14:14:00 Body Mass Index 2018-11-01 26.97 kg/m2 [facility] Calculated 14:14:00 Heart Rate 2018-11-01 65 /min Location: L [facility] 14:14:00 Brachial Artery; O2 SAT 2018-11-01 99 % Source: [facility] 14:14:00 BP Systolic 2018-05-03 165 mm[Hg] Location: LUE; [facility] 13:55:00 Position: Sitting BP Diastolic 2018-05-03 80 mm[Hg] Location: [place]; [facility] 13:55:00 Position: Sitting Height 2018-05-03 71 [in_us] [facility] 13:55:00 Weight 2018-05-03 206.25 [lb_av] [facility] 13:55:00 Body Mass Index 2018-05-03 28.77 kg/m2 [facility] Calculated 13:55:00 Heart Rate 2018-05-03 73 /min Location: L [facility] 13:55:00 Radial; O2 SAT 2018-05-03 95 % Source: [facility] 13:55:00 BP Systolic 2018-03-16 126 mm[Hg] [facility] 09:21:00 BP Diastolic 2018-03-16 68 mm[Hg] [facility] 09:21:00 Height 2018-03-16 71 [in_us] [facility] 09:21:00 Weight 2018-03-16 202 [lb_av] [facility] 09:21:00 Body Mass Index 2018-03-16 28.17 kg/m2 [facility] Calculated 09:21:00 Heart Rate 2018-03-16 55 /min [facility] 09:21:00 BP Systolic 2017-11-16 119 mm[Hg] Location: LLE; [facility] 11:37:00 Position: Sitting BP Diastolic 2017-11-16 61 mm[Hg] Location: LLE; [facility] 11:37:00 Position: Sitting Height 2017-11-16 71 [in_us] [facility] 11:37:00 Weight 2017-11-16 196 [lb_av] [facility] 11:37:00 Body Mass Index 2017-11-16 27.34 kg/m2 [facility] Calculated 11:37:00 Temperature 2017-11-16 97.8 [degF] [facility] 11:37:00 Heart Rate 2017-11-16 51 /min [facility] 11:37:00 BP Systolic 2017-11-02 134 mm[Hg] Location: LUE; [facility] 15:00:00 Position: Sitting BP Diastolic 2017-11-02 74 mm[Hg] Location: LUE; [facility] 15:00:00 Position: Sitting Height 2017-11-02 71 [in_us] [facility] 15:00:00 Weight 2017-11-02 193.125 [lb_av] [facility] 15:00:00 Body Mass Index 2017-11-02 26.94 kg/m2 [facility] Calculated 15:00:00 Heart Rate 2017-11-02 75 /min Location: L [facility] 15:00:00 Radial; O2 SAT 2017-11-02 96 % Source: RA [facility] 15:00:00 BP Systolic 2017-09-28 147 mm[Hg] Location: LUE; [facility] 16:16:00 Position: Sitting BP Diastolic 2017-09-28 78 mm[Hg] Location: LUE; [facility] 16:16:00 Position: Sitting Height 2017-09-28 71 [in_us] [facility] 16:16:00 Weight 2017-09-28 192.25 [lb_av] [facility] 16:16:00 Body Mass Index 2017-09-28 26.81 kg/m2 [facility] Calculated 16:16:00 Temperature 2017-09-28 98.4 [degF] Method: Oral [facility] 16:16:00 Heart Rate 2017-09-28 51 /min Location: L [facility] 16:16:00 Brachial Artery; O2 SAT 2017-09-28 97 % Source: RA [facility] 16:16:00 Diastolic (mm Hg) 2011-05-13 [facility] H ermann 13:00:00 Systolic (mm Hg) 2011-05-13 [facility] He rmann 13:00:00 Respitory Rate 2011-05-13 [facility] lauro 13:00:00 Respitory Rate 2011-05-13 [facility] la[facility] 11:25:00 Systolic (mm Hg) 2011-05-13 [facility] rmann 11:25:00 Diastolic (mm Hg) 2011-05-13 [place] ermann 11:25:00 Temperature Oral 2011-05-13 98.2 F [facility] rmann (F) 09:38:00 Respitory Rate 2011-05-13 [facility] Herm lauro 09:09:00 Systolic (mm Hg) 2011-05-13 [facility] rmann 09:09:00 Diastolic (mm Hg) 2011-05-13 [place] ermann 09:09:00 Temperature Oral 2011-05-13 98.7 F [facility] rmann (F) 06:52:00 Temperature Oral 2011-05-13 98.4 F [facility] rmann (F) 02:12:00 Heart Rate 2011-05-07 [facility] Ravi n 23:25:00 Height 2011-05-07 180.34 cm [facility] 16:[facility] 2011-05-07 [facility] Procedures Procedure Date / Time Performed Performing Clinician [facility] e CT CHEST WO CONTRAST 2021-03-27 15:42:02 [facility]] CBC (INCLUDES 2018-11-01 00:00:00 [facility] DIFF/PLT) [QL] CMP W/EGFR 2018-11-01 00:00:00 [facility] [QL] CREATINE KINASE, 2018-11-01 00:00:00 [facility] TOTAL [QL] LIPID PANEL 2018-11-01 00:00:00 [facility] [QLH] TSH, 3RD 2018-11-01 00:00:00 [facility] GENERATION [QLH] CBC (INCLUDES 2018-05-03 00:00:00 [facility] DIFF/PLT) [QLH] CMP W/EGFR 2018-05-03 00:00:00 [facility] [QL[facility]] CREATINE KINASE, 2018-05-03 00:00:00 [facility] TOTAL [QL[facility]] LIPID PANEL 2018-05-03 00:00:00 [facility] [QL[facility]] TSH, 3RD 2018-05-03 00:00:00 [facility] GENERATION W/REFLEX TO FT4 [QLH] CBC (INCLUDES 2017-11-02 00:00:00 [facility] DIFF/PLT) [QLH] CMP W/EGFR 2017-11-02 00:00:00 [facility] [QL[facility]] CREATINE KINASE, 2017-11-02 00:00:00 [facility] TOTAL [QL[facility]] LIPID PANEL 2017-11-02 00:00:00 [facility] [QL[facility]] TSH, 3RD 2017-11-02 00:00:00 [facility] GENERATION W/REFLEX TO FT4 [QLH] LIPOPROTEIN (a) 2017-11-02 00:00:00 [facility] [[facility]] CBC (INCLUDES 2017-09-28 00:00:00 [facility] DIFF/PLT) [QLH] CMP W/EGFR 2017-09-28 00:00:00 [facility] [[facility]] TSH, 3RD 2017-09-28 00:00:00 [facility] GENERATION W/REFLEX TO FT4 [QLH] B TYPE NATRIURETIC 2017-09-28 00:00:00 [facility] PEPTIDE (BNP) [N] 2D Echo complete, 2017-09-28 00:00:00 [facility] with Doppler 54576 [QLH] CBC (INCLUDES 2017-09-18 00:00:00 [facility] DIFF/PLT) [QLH] CMP W/EGFR 2017-09-18 00:00:00 [facility] [QL[facility]] CREATINE KINASE, 2017-09-18 00:00:00 [facility] TOTAL [QL[facility]] LIPID PANEL 2017-09-18 00:00:00 [facility] [QL[facility]] TSH, 3RD 2017-09-18 00:00:00 [facility] GENERATION CABG [facility] Plan of Care Planned Activity Planned Date Details Comments Source Future Scheduled 2021-12-09 HEPATITIS B VACCINES [facility] 17:13:05 (1 of 3 - 3-dose Hospital series) [code = HEPATITIS B VACCINES (1 of 3 - 3-dose series)] Future Scheduled 2021-12-09 SHINGLES VACCINES (1 [facility] Test 17:13:05 of 2) [code = Hospital SHINGLES VACCINES (1 of 2)] Future Scheduled 2021-12-09 65+ PNEUMOCO[address] Methodi st Test 17:13:05 VACCINE (2 - PPSV23 Hospital if available, else PCV20) [code = 65+ PNEUMOCOCCAL VACCINE (2 - PPSV23 if available, else PCV20)] Future Scheduled 2021-12-09 COVID-19 VACCINE (4 Meth odist Test 17:13:05 - Booster for Pfizer Hospita l series) [code = COVID-19 VACCINE (4 - Booster for Pfizer series)] Future Scheduled 2021-12-09 INFLUENZA VACCINE Method ist Test 17:13:05 [code = INFLUENZA Hospital VACCINE] Diagnostic Test 2017-10-26 [N] 2D Echo [facility] Pending 00:00:00 complete, with Doppler 62662 [code = [N] 2D Echo complete, with Doppler 95820] Diagnostic Test 2017-10-26 [N] 2D Echo [facility] Pending 00:00:00 complete, with Doppler 72199 [code = [N] 2D Echo complete, with Doppler 33885] Future Scheduled [QLH] CBC (INCLUDES ONE WEEK [...] Date/Time Type Type Clinicians Facility Department ID 2021-04-22 Outpatient EZEKIEL, [facility] [id number] [place] 13:11:23 [facility] 2021-04-22 [id number] [place] 11:11:08 [facility] 2021-04-13 Outpatient [facility] [id number] [place] 16:05:55 [facility] 2021-03-25 Outpatient [facility] [id number] [place] 16:10:01 [facility] 2021-11-12 2021-11-12 Ambulatory nullFlavo MNA [id number] Memoria 13:15:00 13:15:00 Pre-Reg r Neurology 08 l [place] 2021-11-12 2021-11-12 Outpatient IE CASANDRA [id number] Memoria 08:15:00 08:15:00 08 maureen [place] 2021-11-12 2021-11-12 Outpatient YONAS Pavon [id number] 08:15:00 08:15:00 Elder 08 Nithin 2021-09-21 2021-09-21 Ambulatory nullFlavo MNA [id number] Memoria 18:45:00 18:45:00 Pre-Reg r Neurology 07 l Андрей [place] 2021-09-21 2021-09-21 Outpatient CASANDRA UGAJARDO [id number] Memoria 13:45:00 13:45:00 Ruiz Stewart 2021-09-21 2021-09-21 Outpatient YONAS Pavon [id number] 13:45:00 13:45:00 Elder 07 Nithin 2021-08-05 2021-08-06 Outpatient nullFlavo MNA [id number] Memoria 19:30:00 04:59:59 r Neurology 06 l Андрей [place] 2021-08-05 2021-08-05 Outpatient Savanah, MISCHER MISCHER [id number] 14:30:00 23:59:59 Elder 06 Nithin 2021-08-05 2021-08-05 Outpatient MHIE MHIE [id number] Memoria 14:30:00 14:30:00 06 maureen Stewart 2021-05-05 2021-05-06 Outpatient nullFlavo MNA [id number] Memoria 19:30:00 04:59:59 r Neurology 05 l Андрей [place] 2021-05-05 2021-05-05 Outpatient Savanah, MISCHER MHMISCHER [id number] 14:30:00 23:59:59 Elder 05 Nithin 2021-05-05 2021-05-05 Outpatient MHIE MHIE [id number] Memoria 14:30:00 14:30:00 05 maureen DriscollTerry 2021-04-22 2021-04-22 Office Ramirez, [facility] [id number] 1.2.673.686 [id number] [place] 13:00:00 13:11:42 Visit Yenny NIEVES 350.1.13.58 Health 9.2.7.2.686 [id number] 2 2021-04-08 2021-04-08 Office Rusty 1.2.840.1 [id number] Methodi 10:00:00 10:35:52 Visit Mir Shankar 36686.1.[address] 3.430.2.7 Hospit a .3.265045 l .8 2021-04-08 2021-04-08 Outpatient [facility] [id number] Reading 00:00:00 00:00:[address] 2021-04-08 2021-04-08 Travel 1.2.840.1 1.2.674.586 [id number] Methodi 00:00:00 00:00:[address] 3.430.2.7 0.2.7.3.698 Ho spita .3.646834 084.8 l .8 2021-03-27 2021-03-27 [facility] Rusty, 1.2.840.1 [id number] Methodi 09:17:03 23:59:00 Encounter Mir Nguyen. 15441.1.[address] 3.430.2.7 Hospit a .3.957416 l .8 2021-03-27 2021-03-27 Outpatient [facility] [id number] Reading 00:00:00 00:00:[address] 2021-03-27 2021-03-27 Travel 1.2.840.1 1.2.766.697 [id number] [id number] Methodi 00:00:00 00:00:[address] 3.430.2.7 0.2.7.3.698 Ho spita .3.815821 084.8 l .8 2021-03-25 2021-03-25 Office [facility], [facility] 6410 1.2.179.985 [id number] [place] 15:20:00 16:10:[address] 350.1.13.58 Health 9.2.7.2.686 [id number] 2 2021-03-24 2021-03-24 Travel 1.2.840.1 1.2.802.777 3145 [id number] Methodi 00:00:00 00:00:[address] 3.430.2.7 0.2.7.3.698 Ho spita .3.879960 084.8 l .8 2021-03-22 2021-03-22 Travel 1.2.840.1 1.2.437.243 8953 [id number] Methodi 00:00:00 00:00:[address] 3.430.2.7 0.2.7.3.698 Ho spita .3.790477 084.8 l .8 2021-03-18 2021-03-18 Clinical Rusty Mir B. 1.2.840.1 [id number] Methodi 14:30:00 14:36:34 Support Kevyn Oliva 56923.1.[address] 3.430.2.7 Hospit a .3.471744 l .8 2021-03-18 2021-03-18 Travel 1.2.840.1 1.2.504.117 8973 [id number] Methodi 00:00:00 00:00:[address] 3.430.2.7 0.2.7.3.698 Ho spita .3.032096 084.8 l .8 2021-03-18 2021-03-18 [facility] [id number] Reading 00:00:00 00:00:00 MIR [address] 2021-03-09 2021-03-09 Office Rusty 1.2.840.1 [id number] Methodi 10:15:00 10:34:16 Visit Mir PatrickAngi 42055.1.[address] 3.430.2.7 Hospit a .3.747767 l .8 2021-03-09 2021-03-09 Travel 1.2.840.1 1.2.289.042 0787 [id number] Methodi 00:00:00 00:00:[address] 3.430.2.7 0.2.7.3.698 Ho spita .3.953468 084.8 l .8 2021-03-09 2021-03-09 [facility] [id number] Reading 00:00:00 00:00:[address] 2020-11-05 2020-11-06 Outpatient nullFlavo MNA [id number] Memoria 19:30:00 04:59:59 r Neurology 04 l Valencialeah Stewart 2020-11-05 2020-11-05 Outpatient YONAS Pavon [id number] 14:30:00 23:59:59 Elder 04 Nithin 2020-11-05 2020-11-05 Outpatient MHIE MHIE [id number] Memoria 14:30:00 14:30:00 04 maureen Terry 2020-06-05 2020-06-06 Outpatient nullFlavo MNA [id number] Memoria 19:30:00 04:59:59 r Neurology 03 maureen Valencia Terry 2020-06-05 2020-06-05 [facility] [id number] 14:30:00 23:59:59 Elder 03 Nithin 2020-06-05 2020-06-05 Outpatient MHIE MHIE [id number] Memoria 14:30:00 14:30:00 03 maureen Terry 2020 2020-02-28 Outpatient nullFlavo MNA [id number] Memoria 17:45:00 05:59:59 r Neurology 02 maureen Андрей Stewart 2020 2020 [facility] [id number] 11:45:00 23:59:59 Elder 02 Nithin 2020 2020 Outpatient MHIE MHIE [id number] Memoria 11:45:00 11:45:00 02 maureen Stewart 2020-01-09 2020-01-10 Outpatient nullFlavo MNA [id number] Memoria 19:30:00 05:59:59 r Neurology 01 maureen Stewart 2020-01-09 2020-01-09 [facility] [id number] 13:30:00 23:59:59 Elder Nithin 2020-01-09 2020-01-09 Outpatient MHIE MHIE [id number] Memoria 13:30:00 13:30:00 01 maureen Stewart 2019-12-09 2019-12-10 Outpt Diag nullFlavo [facility] [id number] Memoria 17:20:00 05:59:00 Services r Outpatient 01 maureen Genao 2019-12-09 2019-12-09 Outpatient AARON PavonP OIP [id number] 11:20:00 23:59:00 Elder Nithin 2019-12-05 2019-12-06 Outpatient nullFlavo MNA [id number] Memoria 15:30:00 04:59:59 r Neurology 00 l Андрей Stewart 2019-12-05 2019-12-05 Outpatient KELLIE [facility] [id number] 10:30:00 23:59:59 Elder 00 Nithin 2019-12-05 2019-12-05 Outpatient MHIE MHIE [id number] Memoria 10:30:00 10:30:00 00 l Terry 2018-11-01 2018-11-01 Sondra RAMIREZ [facility] Cardiology [id number] [place] 14:00:00 14:00:00 t; Trey RAMON M.D. Medical ans FRANCISCO, Center M.D. 2018-07-18 2018-07-18 Sondra BROWN [facility] [id number] [place] 11:30:00 11:30:00 t; Tejas HAMM ans RAJA, M.D. 2018-05-03 2018-05-03 Sondra RAMIREZ [facility] Cardiology [id number] [place] 14:00:00 14:00:00 t; Donavon RAMON M.D. ans FRANCISCO, M.D. 2018-03-16 2018-03-16 Sondra BROWN [facility] Neurology [id number] [place] 10:00:00 10:00:00 t; Tejas HAMM ans RAJA, M.D. 2017-11-16 2017-11-16 Sondra BROWN [facility] Neurology [id number] [place] 11:30:00 11:30:00 t; Tejas HAMM ans RAJA, M.D. 2017-11-02 2017-11-02 Sondra RAMIREZ [facility] Cardiology [id number] [place] 15:40:00 15:40:00 t; Donavon RAMON M.D. ans FRANCISCO, M.D. 2017-10-26 2017-10-26 Sondra NIEVES [facility] Cardiology [id number] [place] 13:30:00 13:30:00 t; EZEQUIEL, ECHO1 Phy sici ECHO1 ans 2017-09-28 2017-09-28 [facility] [id number] [place] 15:20:00 15:20:00 t; Donavon RAMON M.D. ans FRANCISCO, M.D. 2017-08-11 2017-08-11 [facility] STEPHANIE, [facility] UTP [id number] [place] 11:00:00 11:00:00 t; Tejas HAMM ans RAJA, M.D. 2017-04-05 2017-04-05 [facility] STEPHANIE, [facility] Neurology [id number] [place] 14:30:00 14:30:00 t; Tejas HAMM ans RAJA, M.D. 2017-01-12 2017-01-12 [facility] YOEL, [facility] UTP [id number] [place] 14:00:00 14:00:00 t; Tejas VELARDE ans JOHN, M.D. 2016-12-07 2016-12-07 [facility] STEPHANIE, [facility] UTP [id number] [place] 14:30:00 14:30:00 t; Tejas HAMM ans RAJA, M.D. 2016-11-30 2016-11-30 [facility] STEPHANIE, [facility] UTP [id number] [place] 14:30:00 14:30:00 t; Tejas HAMM ans RAJA, M.D. 2016-08-08 2016-08-08 [facility] STEPHANIE, [facility] UTP [id number] [place] 15:00:00 15:00:00 t; Tejas HAMM ans RAJA, M.D. 2016-07-01 2016-07-02 Outpt Diag nullFlavo [facility] [id number] Memoria 17:10:00 04:59:00 Services r Outpatient 00 maureen Stewart 2016-07-01 2016-07-01 Outpatient Yoel [facility] [id number] 12:10:00 23:59:00 Syd R 00 2016-06-30 2016-06-30 [facility] HAFSARADHIKA, UTP UTP [id number] [place] 13:00:00 13:00:00 t; Tejas VELARDE ans JOHN, M.D. 2016-06-23 2016-06-23 Appointmen YOEL, UTP UTP [id number] [place] 13:30:00 13:30:00 t; Tejas VELARDE ans JOHN, M.D. 2016-03-31 2016-03-31 [facility] EZEKIEL, [facility] UTP [id number] [place] 14:00:00 14:00:00 t; Donavon RAMON M.D. ans FRANCISCO, M.D. 2016-01-08 2016-01-08 [facility] Katiuska, [facility] UTP [id number] [place] 14:15:00 14:15:00 t; Everton Ghotra i, M.D. ans Philip, M.D. 2015-12-03 2015-12-03 [facility] EZEKIEL, [facility] UTP [id number] [place] 15:20:00 15:20:00 t; Donavon RAMON M.D. ans FRANCISCO, M.D. 2015-08-24 2015-08-24 [facility] UTP [id number] [place] 15:45:00 15:45:00 t; Everton Ghotra i, M.D. ans Philip, M.D. 2015-07-30 2015-07-30 [facility] UTP [id number] [place] 13:40:00 13:40:00 t; Donavon RAMON M.D. ans FRANCISCO, M.D. 2015-03-26 2015-03-26 Sondra RAMIREZ, JAMES UTP [id number] [place] 14:20:00 14:20:00 t; Donavon RAMON M.D. ans FRANCISCO, M.D. 2015-03-26 2015-03-26 Sondra NIEVES, JAMES UTP [id number] [place] 13:00:00 13:00:00 t; BRENNON NIEVES [facility] 2011-11-01 2011-11-01 [facility] [id number] Memoria 13:34:00 13:34:00 r Medical 03 l [facility] 2011-09-28 2011-09-28 nullFlavo [facility] [id number] Memoria 08:00:00 08:00:00 r Medical 02 [facility] 2011-08-29 2011-08-29 TH nullFlavo [facility] [id number] Memoria 08:00:00 08:00:00 r Medical 01 [facility] 2011-07-28 2011-07-28 [place] nullFlavo [facility] [id number] Memoria 14:53:00 14:53:00 r Medical 00 [facility] 2011-05-07 2011-05-13 Inpatient nullFlavo [facility] [id number] Memoria 14:13:00 12:45:00 r Medical [facility] Results Test Description Test Time Test Comments Results Result Comments Source [QL] CBC (INCLUDES DIFF/PLT) 2019-04-01 09:31:01 Test Item Value Reference Range Interpretation Comme nts WBC (test code = 6690-2) 6.3 {K/CMM} 3.7-10.4 RBC; Below Low Threshold (test code = 789-8) 4.17 {M/CMM} 4.70-6.10 Hgb; Below Low Threshold (test code = 718-7) 13.3 g/dl 14.0-18.0 Hct; Below Low Threshold (test code = 10254-4) 39.4 % 42.0-54 .0 MCV; Above High Threshold (test code = 787-2) 94.5 fL 80.0-94. 0 MCH; Above High Threshold (test code = 785-6) 31.8 pg 27.0-31. 0 MCHC (test code = 786-4) 33.6 g/dl 32.0-36.0 RDW (test code = 788-0) 14.3 % 11.5-14.5 Platelet (test code = 72197-1) 225 {K/CMM} 133-450 Mean Platelet Volume (test code = 53090-0) 8.8 fL 7.4-10.4 [facility]] [id number] 09:31:01 Test Item Value Reference Range Interpretation Comments Segmented Neutrophils (test code 65.0 % 45.0-75.0 = 03472-0) Monocytes (test code = 46636-2) 9.7 % 2.0-12.0 Lymphocytes (test code = 83014-3) 21.9 % 20.0-40.0 Eosinophils (test code = 18484-9) 2.8 % 0.0-4.0 Basophils (test code = 706-2) 0.6 % 0.0-1.0 Segs-Bands # (test code = 4.1 {K/CMM} 1.5-8.1 24550-1) Lymphocytes # (test code = 1.4 {K/CMM} 1.0-5.5 25724-5) Monocytes # (test code = 03918-4) 0.6 {K/CMM} 0.0-0.8 Eosinophils # (test code = 0.2 {K/CMM} 0.0-0.5 16269-6) [facility]] CMP [id number] 09:31:01 Test Item Value Reference Range Interpretation Comments Sodium Level 141 {mEq/l} 135-145 (test code = 2951-2) Potassium Level 4.5 {mEq/l} 3.5-5.1 (test code = 2823-3) Chloride Level 109 {mEq/l} 95-109 (test code = 5-0) Carbon Dioxide 27 {mEq/l} 24-32 (test code = 2027-9) AGAP; Below Low 9.5 {mEq/l} 10.0-20.0 Threshold (test code = 28661-8) Glucose Lvl; 59 mg/dl 70-99 Adult reference range Below Low values reflect the Threshold (test clinical mauricio delinesof the code = 2345-7) [employer]. Creatinine Lvl; 1.50 mg/dl 0.50-1.40 Above High Threshold (test code = 2160-0) Blood Urea 23 mg/dl 7-22 Nitrogen; Above High Threshold (test code = 3094-0) BUN/Creatinine 15 6-25 Ratio (test code = 3097-3) Total Protein 7.8 g/dl 6.4-8.4 (test code = 2885-2) Albumin Lvl (test 4.2 g/dl 3.5-5.0 code = 1751-7) Globulin (test 3.6 g/dl 2.7-4.2 code = 01454-9) A/G Ratio (test 1.2 0.7-1.6 code = 1759-0) Calcium Level 9.0 mg/dl 8.5-10.5 Total (test code = 36775-6) ALT (test code = 12 u/l 0-65 1743-4) AST (test code = 19 u/l 0-37 79090-1) Alk Phos; Below 38 u/l 39-136 The pediatri c reference Low Threshold ranges for thi s test (test code = represent a 1783-0) CLSI-basedtrans ference of the CALIPER rishi abase of pediatric refer ence intervals to [employer] analyzer (Clinical Biochemistry 46 (2013): 7069-7777). [facility] has not internally validated these reference ranges and therefore they should be used only in th e context of a thoroughcl inical assessment. Bili Total (test 0.7 mg/dl 0.2-1.3 code = 1975-2) eGFR (test code = 42 The eGFR i s calculated 74235-0) {ML/MIN/1.7} using the CKD-E PI formula. In [...] be multiplied by t he estimated BMI. [facility]] CREATINE KINASE, [id number] 09:31:01 Test Item Value Reference Range Interpretation Comments Creatine Kinase (test code = 2157-6) 166 u/l 12-191 [facility]] LIPID [id number] 09:31:01 Test Item Value Reference Range Interpretation Comments Chol (test code = 2093-3) 144 mg/dl <=199 Trig; Above High Threshold (test 163 mg/dl <=149 code = 2571-8) HDL Cholesterol; Below Low 31 mg/dl >=61 Threshold (test code = 2085-9) CHD Risk (test code = 70313-1) 4.65 4.00-7.30 LDL (test code = 31550-9) 80 mg/dl <=99 VLDL (test code = VLDL) 33 [facility]] TSH, 3RD [id number] 09:31:01 Test Item Value Reference Range Interpretation Comments TSH; Above High Threshold 4.950 {uIU/ml} 0.360-3.740 (test code = 03160-4) [facility]] CBC (INCLUDES DIFF/PLT)2018-05-02 08:15:01 Test Item Value Reference Range Interpretation Comments WBC (test code = 6690-2) 5.9 {K/CMM} 3.7-10.4 RBC; Below Low Threshold (test 4.09 {M/CMM} 4.70-6.10 code = 789-8) Hgb; Below Low Threshold (test 13.2 g/dl 14.0-18.0 code = 718-7) Hct; Below Low Threshold (test 39.3 % 42.0-54.0 code = 84212-9) MCV; Above High Threshold (test 96.2 fL 80.0-94.0 code = 787-2) MCH; Above High Threshold (test 32.4 pg 27.0-31.0 code = 785-6) MCHC (test code = 786-4) 33.7 g/dl 32.0-36.0 RDW; Above High Threshold (test 14.8 % 11.5-14.5 code = 788-0) Platelet (test code = 74916-2) 219 {K/CMM} 133-450 Mean Platelet Volume (test code 9.1 fL 7.4-10.4 = 78776-8) [facility]] [id number] 08:15:01 Test Item Value Reference Range Interpretation Comments Segmented Neutrophils (test code 66.8 % 45.0-75.0 = 39776-4) Monocytes (test code = 10477-2) 9.7 % 2.0-12.0 Lymphocytes; Below Low Threshold 18.3 % 20.0-40.0 (test code = 12203-0) Eosinophils; Above High Threshold 4.4 % 0.0-4.0 (test code = 07272-9) Basophils (test code = 706-2) 0.8 % 0.0-1.0 Segs-Bands # (test code = 4.0 {K/CMM} 1.5-8.1 41819-3) Lymphocytes # (test code = 1.1 {K/CMM} 1.0-5.5 52953-7) Monocytes # (test code = 56152-7) 0.6 {K/CMM} 0.0-0.8 Eosinophils # (test code = 0.3 {K/CMM} 0.0-0.5 30071-7) [facility]] CMP [id number] 08:15:01 Test Item Value Reference Range Interpretation Comments Sodium Level 139 {mEq/l} 135-145 (test code = 2951-2) Potassium Level 4.2 {mEq/l} 3.5-5.1 (test code = 2823-3) Chloride Level 103 {mEq/l} 95-109 (test code = 2075-0) Carbon Dioxide 27 {mEq/l} 24-32 (test code = 8-9) AGAP (test code = 13.2 {mEq/l} 10.0-20.0 87849-8) Glucose Lvl; 145 mg/dl 70-99 Adult reference range Above High values reflect the Threshold (test clinical mauricio delinesof the code = 2345-7) [employer]. Creatinine Lvl 1.40 mg/dl 0.50-1.40 (test code = 2160-0) Blood Urea 24 mg/dl 7-22 Nitrogen; Above High Threshold (test code = 3094-0) BUN/Creatinine 17 6-25 Ratio (test code = 3097-3) Total Protein 7.7 g/dl 6.4-8.4 (test code = 2885-2) Albumin Lvl (test 4.4 g/dl 3.5-5.0 code = 1751-7) Globulin (test 3.3 g/dl 2.7-4.2 code = 81895-0) A/G Ratio (test 1.3 0.7-1.6 code = 1759-0) Calcium Level 8.8 mg/dl 8.5-10.5 Total (test code = 17690-3) ALT (test code = 16 u/l 0-65 1743-4) AST (test code = 14 u/l 0-37 44288-1) Bili Total (test 0.4 mg/dl 0.2-1.3 code = 1975-2) Alk Phos (test 41 u/l 39-136 code = 1783-0) eGFR (test code = 45 The eGFR i s calculated 58676-3) {ML/MIN/1.7} using the CKD-E PI formula. In [...] be multiplied by t he estimated BMI. [facility]] CREATINE KINASE, [id number] 08:15:01 Test Item Value Reference Range Interpretation Comments Creatine Kinase; Above High Threshold 203 u/l 12-191 (test code = 2157-6) [facility]] LIPID [id number] 08:15:01 Test Item Value Reference Range Interpretation Comments Chol (test code = 2093-3) 165 mg/dl <=199 Trig (test code = 2571-8) 119 mg/dl <=149 HDL Cholesterol; Below Low 38 mg/dl >=61 Threshold (test code = 5-9) CHD Risk (test code = 24696-1) 4.34 4.00-7.30 LDL; Above High Threshold (test 103 mg/dl <=99 code = 76574-8) VLDL (test code = VLDL) 24 [facility]] TSH, 3RD [id number] 08:15:01 Test Item Value Reference Range Interpretation Comments TSH; Above High Threshold 25.000 {uIU/ml} 0.360-3.740 (test code = 84444-0) [facility]] LIPOPROTEIN (a)2018-05-02 08:15:01 Test Item Value Reference [...] Lp(a ) across ethnicities.Per formed At: [facility] [address] [id number] ra Tamara SIMS Ph:[phone] [facility]] CMP [id number] 10:32:01 Test Item Value Reference Range Interpretation Comments Sodium Level 139 {mEq/l} 135-145 (test code = 2951-2) Potassium Level 4.3 {mEq/l} 3.5-5.1 (test code = 2823-3) Chloride Level 106 {mEq/l} 95-109 (test code = 5-0) Carbon Dioxide; 22 {mEq/l} 24-32 Below Low Threshold (test code = 2027-9) AGAP (test code = 15.3 {mEq/l} 10.0-20.0 68984-1) Glucose Lvl; 108 mg/dl 70-99 Adult reference range Above High values reflect the Threshold (test clinical mauricio delinesof the code = 2345-7) [employer]. Creatinine Lvl; 1.60 mg/dl 0.50-1.40 Above High Threshold (test code = 2160-0) Blood Urea 29 mg/dl 7-22 Nitrogen; Above High Threshold (test code = 3094-0) BUN/Creatinine 18 6-25 Ratio (test code = 3097-3) Total Protein 7.7 g/dl 6.4-8.4 (test code = 2885-2) Albumin Lvl (test 4.3 g/dl 3.5-5.0 code = 1751-7) Globulin (test 3.4 g/dl 2.7-4.2 code = 80626-5) A/G Ratio (test 1.3 0.7-1.6 code = 1759-0) Calcium Level 9.1 mg/dl 8.5-10.5 Total (test code = 99653-9) ALT (test code = 22 u/l 0-65 1743-4) AST (test code = 14 u/l 0-37 19002-9) Alk Phos; Below 34 u/l 39-136 Low Threshold (test code = 1783-0) Bili Total (test 0.5 mg/dl 0.2-1.3 code = 1974-) eGFR (test code = 39 The eGFR i s calculated 87513-1) {ML/MIN/1.7} using the CKD-E PI formula. In [...] be multiplied by t he estimated BMI. [facility]] TSH, 3RD GENERATION W/REFLEX TO [id number] 10:32:01 Test Item Value Reference Range Interpretation Comments TSH; Above High Threshold 11.300 {uIU/ml} 0.360-3.740 (test code = 56470-8) [facility]] CBC (INCLUDES DIFF/PLT)2017-10-26 10:32:01 Test Item Value Reference Range Interpretation Comments WBC (test code = 6690-2) 5.6 {K/CMM} 3.7-10.4 RBC; Below Low Threshold (test 4.30 {M/CMM} 4.70-6.10 code = 789-8) Hgb; Below Low Threshold (test 13.5 g/dl 14.0-18.0 code = 718-7) Hct; Below Low Threshold (test 39.6 % 42.0-54.0 code = 46479-2) MCV (test code = 787-2) 92.2 fL 80.0-94.0 MCH; Above High Threshold (test 31.3 pg 27.0-31.0 code = 785-6) MCHC (test code = 786-4) 34.0 g/dl 32.0-36.0 RDW; Above High Threshold (test 15.2 % 11.5-14.5 code = 788-0) Platelet (test code = 73658-3) 243 {K/CMM} 133-450 Mean Platelet Volume (test code 9.1 fL 7.4-10.4 = 38040-9) [facility]] [id number] 10:32:01 Test Item Value Reference Range Interpretation Comments Segmented Neutrophils (test code 61.6 % 45.0-75.0 = 60616-3) Monocytes (test code = 82138-7) 9.9 % 2.0-12.0 Lymphocytes (test code = 55455-4) 24.5 % 20.0-40.0 Eosinophils (test code = 11003-7) 3.5 % 0.0-4.0 Basophils (test code = 706-2) 0.5 % 0.0-1.0 Segs-Bands # (test code = 3.5 {K/CMM} 1.5-8.1 35327-8) Lymphocytes # (test code = 1.4 {K/CMM} 1.0-5.5 87382-8) Monocytes # (test code = 49673-0) 0.6 {K/CMM} 0.0-0.8 Eosinophils # (test code = 0.2 {K/CMM} 0.0-0.5 53818-1) [facility]] T4, [id number] 10:32:01 Test Item Value Reference Range Interpretation Comments T4 Free; Below Low Threshold (test 0.63 ng/dl 0.76-1.46 code = 3024-7) [facility]] B TYPE NATRIURETIC PEPTIDE (BNP)2017-10-26 10:32:01 Test Item Value Reference Range Interpretation Comments Natriuretic Peptide; 184 pg/ml <=100 Elevate d results are Above High Threshold in line with (test code = 06824-1) increa sing severity ofcongestive he art failure. Minor elevations betw een 100 and 300may be s een with Myocardial Ischemia, Sodiu m retaining drugs ,and compensated/maria de jesus ated heart failure. [facility]] CBC (INCLUDES DIFF/PLT)2017-09-19 10:06:01 Test Item Value Reference Range Interpretation Comments WBC (test code = 6690-2) 6.5 {K/CMM} 3.7-10.4 RBC; Below Low Threshold (test 4.28 {M/CMM} 4.70-6.10 code = 789-8) Hgb; Below Low Threshold (test 13.3 g/dl 14.0-18.0 code = 718-7) Hct; Below Low Threshold (test 39.6 % 42.0-54.0 code = 86997-4) MCV (test code = 787-2) 92.5 fL 80.0-94.0 MCH; Above High Threshold (test 31.1 pg 27.0-31.0 code = 785-6) MCHC (test code = 786-4) 33.6 g/dl 32.0-36.0 RDW; Above High Threshold (test 15.4 % 11.5-14.5 code = 788-0) Platelet (test code = 23997-6) 273 {K/CMM} 133-450 Mean Platelet Volume (test code 8.8 fL 7.4-10.4 = 93440-2) [facility]] [id number] 10:06:01 Test Item Value Reference Range Interpretation Comments Segmented Neutrophils (test code 60.9 % 45.0-75.0 = 70094-6) Monocytes (test code = 96069-7) 8.9 % 2.0-12.0 Lymphocytes (test code = 59234-1) 27.4 % 20.0-40.0 Eosinophils (test code = 59173-0) 2.4 % 0.0-4.0 Basophils (test code = 706-2) 0.4 % 0.0-1.0 Segs-Bands # (test code = 4.0 {K/CMM} 1.5-8.1 71786-4) Lymphocytes # (test code = 1.8 {K/CMM} 1.0-5.5 29514-1) Monocytes # (test code = 24393-3) 0.6 {K/CMM} 0.0-0.8 Eosinophils # (test code = 0.2 {K/CMM} 0.0-0.5 18509-2) [facility]] CMP [id number] 10:06:01 Test Item Value Reference Range Interpretation Comments Sodium Level 139 {mEq/l} 135-145 (test code = 2951-2) Potassium Level 4.5 {mEq/l} 3.5-5.1 (test code = 2823-3) Chloride Level 107 {mEq/l} 95-109 (test code = 5-0) Carbon Dioxide 25 {mEq/l} 24-32 (test code = 8-9) AGAP (test code = 11.5 {mEq/l} 10.0-20.0 56511-3) Glucose Lvl; 107 mg/dl 70-99 Adult reference range Above High values reflect the Threshold (test clinical mauricio delinesof the code = 2345-7) [employer]. Creatinine Lvl; 1.80 mg/dl 0.50-1.40 Above High Threshold (test code = 2160-0) Blood Urea 26 mg/dl 7-22 Nitrogen; Above High Threshold (test code = 3094-0) BUN/Creatinine 14 6-25 Ratio (test code = 3097-3) Total Protein 8.1 g/dl 6.4-8.4 (test code = 2885-2) Albumin Lvl (test 4.3 g/dl 3.5-5.0 code = 1751-7) Globulin (test 3.8 g/dl 2.7-4.2 code = 42385-9) A/G Ratio (test 1.1 0.7-1.6 code = 1759-0) Calcium Level 9.3 mg/dl 8.5-10.5 Total (test code = 92501-2) ALT (test code = 20 u/l 0-65 1743-4) AST (test code = 17 u/l 0-37 41927-7) Alk Phos (test 40 u/l 39-136 code = 1783-0) Bili Total (test 0.6 mg/dl 0.2-1.3 code = 1974-) eGFR (test code = 34 The eGFR i s calculated 31603-1) {ML/MIN/1.7} using the CKD-E PI formula. In [...] be multiplied by t he estimated BMI. [facility]] CREATINE KINASE, [id number] 10:06:01 Test Item Value Reference Range Interpretation Comments Creatine Kinase; Above High Threshold 253 u/l 12-191 (test code = 2157-6) [facility]] LIPID [id number] 10:06:01 Test Item Value Reference Range Interpretation Comments Chol (test code = 3-3) 170 mg/dl <=199 Trig (test code = 2571-8) 148 mg/dl <=149 HDL Cholesterol; Below Low 38 mg/dl >=61 Threshold (test code = 5-9) CHD Risk (test code = 90945-9) 4.47 4.00-7.30 LDL; Above High Threshold (test 102 mg/dl <=99 code = 29618-1) VLDL (test code = VLDL) 30 [facility]] TSH, 3RD [id number] 10:06:01 Test Item Value Reference Range Interpretation Comments TSH; Above High Threshold 7.270 {uIU/ml} 0.360-3.740 (test code = 46067-5) [facility] GLUCOSE [id number] 11:05:00 Test Item Value Reference Range Interpretation Comments Gluc POC Lifscn (test code = Gluc POC 140 70-99 H Lifscn) [facility] GLUCOSE [id number] 11:05:00 Test Item Value Reference Range Interpretation Comments Comment1 (test code = Comment1) Not[facility]WgcfixrAWISKHFEB4711-75-87 10:00:00 Test Item Value Reference Range Interpretation Comments Magnesium Lvl (test code = Magnesium 2.1 1.8-2.4 N Lvl) [facility] HospitalFfyiwiqCQAFEAIHL3296-83-86 10:00:00 Test Item Value Reference Range Interpretation Comments AGAP (test code = AGAP) 15.1 10.0-20.0 N [facility] HospitalMhawzjgCCLFSYXNG5207-78-36 10:00:00 Test Item Value Reference Range Interpretation Comments Calcium Lvl (test code = Calcium Lvl) 7.9 8.5-10.5 L [facility] HospitalBldjnqaQKPALWWHC3607-09-54 10:00:00 Test Item Value Reference Range Interpretation Comments Chloride Lvl (test code = Chloride Lvl) 105 95-109 N [facility] HospitalEbeqbcgDXKYIKFFD9923-82-18 10:00:00 Test Item Value Reference Range Interpretation Comments CO2 (test code = CO2) 21 24-32 L [facility] HospitalUfxdjvyZEZPYVJPP6433-88-20 10:00:00 Test Item Value Reference Range Interpretation Comments Creatinine Lvl (test code = Creatinine 1.1 0.5-1.4 N Lvl) [facility] HospitalTlhcybsFGVNLVEAK1909-73-21 10:00:00 Test Item Value Reference Range Interpretation Comments BUN (test code = BUN) 11 7-22 N [facility] HospitalJvhzcphUGDNFWRVC9483-09-10 10:00:00 Test Item Value Reference Range Interpretation Comments Glucose Lvl (test code = Glucose Lvl) 102 70-99 H [facility] HospitalMwntlewIPEEBVDSK7579-67-90 10:00:00 Test Item Value Reference Range Interpretation Comments Potassium Lvl (test code = Potassium 4.1 3.5-5.1 N Lvl) [facility] HospitalLnoqxszRYPUURNMO6626-44-18 10:00:00 Test Item Value Reference Range Interpretation Comments Sodium Lvl (test code = Sodium Lvl) 137 135-[address] [facility] HospitalDixkafmAOYYILVOUO2776-13-04 10:00:00 Test Item Value Reference Range Interpretation Comments RDW (test code = RDW) 15.8 11.5-14.[address] [facility] HospitalCllwtstHTPZRGYCDM6510-14-34 10:00:00 Test Item Value Reference Range Interpretation Comments MPV (test code = MPV) 7.3 7.4-10.[address] [facility] HospitalRuirrcnEQIKZJHTFD2982-79-86 10:00:00 Test Item Value Reference Range Interpretation Comments Platelet (test code = Platelet) 321 133-[address] [facility] [facility] HospitalFanhsqrLOXMKVLRNL8689-12-42 10:00:00 Test Item Value Reference Range Interpretation Comments Hgb (test code = Hgb) 9.3 14.0-18.[address] [facility] HospitalYiifgjyTKWYXXKDOA4247-63-41 10:00:00 Test Item Value Reference Range Interpretation Comments Hct (test code = Hct) 27.6 42.0-54.[address] [facility] HospitalVcnarleUYOIHESRHV6482-55-20 10:00:00 Test Item Value Reference Range Interpretation Comments RBC (test code = RBC) 3.19 4.70-6.[address] [facility] HospitalXwigrpaMQEMFSYONZ7526-81-22 10:00:00 Test Item Value Reference Range Interpretation Comments MCV (test code = MCV) 86.6 80.0-94.[address] [facility] [facility] HospitalHpnbjlbZYPMWUOFMF2599-75-17 10:00:00 Test Item Value Reference Range Interpretation Comments MCHC (test code = MCHC) 33.6 32.0-36.[address] [facility] [facility] HospitalTcdjcofEGSXZELMIX2652-18-15 10:00:00 Test Item Value Reference Range Interpretation Comments MCH (test code = MCH) 29.1 pg 27.0-31.[address] [facility] HospitalDvojymxPRYANEAJYB6789-66-28 10:00:00 Test Item Value Reference Range Interpretation Comments WBC (test code = WBC) 4.8 3.7-10.4 N [facility]po[facility]EBQHGWFEI8831-11-22 10:00:00 Test Item Value Reference Range Interpretation Comments PTT (test code = PTT) 37.3 s 22.9-35.8 H [facility]MpeolkrHMTXOVDJRI1694-65-25 10:00:00 Test Item Value Reference Range Interpretation Comments PT (test code = PT) 15.1 s 12.0-14.7 H [facility]TxhapsqDRMPCTFRUP2364-17-13 10:00:00 Test Item Value Reference Range Interpretation Comments INR (test code = INR) 1.19 0.85-1.17 H [facility] GLUCOSE NFLYQKU9439-17-59 03:20:00 Test Item Value Reference Range Interpretation Comments Comment1 (test code = Comment1) Notify RN/ [facility] GLUCOSE [id number] 03:20:00 Test Item Value Reference Range Interpretation Comments Gluc POC Lifscn (test code = Gluc POC 176 70-99 H Lifscn) [facility] GLUCOSE LUAYTMW0527-16-04 22:41:00 Test Item Value Reference Range Interpretation Comments Comment1 (test code = Comment1) Notify RN/ [facility] GLUCOSE WCZWUJB2792-28-43 22:41:00 Test Item Value Reference Range Interpretation Comments Gluc POC Lifscn (test code = Gluc POC 179 70-99 H Lifscn) [facility]2012-04-05 20:14:00 Test Item Value Reference Range Interpretation Comments pH BF Type (test code Pleural (05/12/2011 N = pH BF Type) 15:14:00) [facility]2012-04-05 20:14:00 Test Item Value Reference Range Interpretation Comments pH BF (test code = pH BF) 8.34 [facility]2012-04-05 20:14:00 Test Item Value Reference Range Interpretation Comments Prot BF Type (test Pleural *NA*(05/12/2011 code = Prot BF Type) 15:14:00) [facility]2012-04-05 20:14:00 Test Item Value Reference Range Interpretation Comments Protein BF (test code = Protein BF) 4.3 [facility]2012-04-05 20:14:00 Test Item Value Reference Range Interpretation Comments LDH BF Type (test Pleural (05/12/2011 N code = LDH BF Type) 15:14:00) [facility] OWDIRD7967-20-06 20:14:00 Test Item Value Reference Range Interpretation Comments LDH BF (test code = LDH BF) 618 [facility]2012-04-05 20:14:00 Test Item Value Reference Range Interpretation Comments Meso BF (test code = xxxxxxx (05/12/2011 N Meso BF) 15:14:00) [facility]2012-04-05 20:14:00 Test Item Value Reference Range Interpretation Comments CellCnt BF Type (test Pleural (05/12/2011 N code = CellCnt BF Type) 15:14:00) [facility]2012-04-05 20:14:00 Test Item Value Reference Range Interpretation Comments Supernat BF (test code = Yellow A Supernat BF) *ABN*(05/12/2011 15:14:00) [facility]2012-04-05 20:14:00 Test Item Value Reference Range Interpretation Comments Color BF (test code = Yellow (05/12/2011 N Color BF) 15:14:00) [facility]2012-04-05 20:14:00 Test Item Value Reference Range Interpretation Comments Clarity BF (test code = Clear (05/12/2011 N Clarity BF) 15:14:00) [facility]2012-04-05 20:14:00 Test Item Value Reference Range Interpretation Comments Macrophage BF (test code = Macrophage 6 BF) [facility]2012-04-05 20:14:00 Test Item Value Reference Range Interpretation Comments Lymph BF (test code = Lymph BF) 42 [facility]2012-04-05 20:14:00 Test Item Value Reference Range Interpretation Comments RBC BF (test code = RBC BF) 1050 [facility]2012-04-05 20:14:00 Test Item Value Reference Range Interpretation Comments Segs BF (test code = Segs BF) 52 [facility]2012-04-05 20:14:00 Test Item Value Reference Range Interpretation Comments WBC BF (test code = WBC BF) [address] [facility], TxVsyibdbPzfmvjrfqjdm5130-76-76 17:00:00 Test Item Value Reference Range Interpretation Comments Culture: Aspirate/Body Fluid/Tissue (test code = Culture: Aspirate/Body Fluid/Tissue) [facility] HospitalYxsevosKWEGBUTHM6249-23-67 09:20:00 Test Item Value Reference Range Interpretation Comments Glucose Lvl (test code = Glucose Lvl) 97 70-99 N [facility] HospitalIjpyqjkVWMKRSHFE4180-82-91 09:20:00 Test Item Value Reference Range Interpretation Comments Calcium Lvl (test code = Calcium Lvl) 7.5 8.5-10.5 L [facility] HospitalJbbilnmQOZWERKWD4713-07-16 09:20:00 Test Item Value Reference Range Interpretation Comments CO2 (test code = CO2) 19 24-32 L [facility] HospitalCtqbauzXHQYLPDHL9158-54-31 09:20:00 Test Item Value Reference Range Interpretation Comments Chloride Lvl (test code = Chloride Lvl) 106 95-109 N [facility] HospitalRznktvaOGBDDHTWE0684-18-13 09:20:00 Test Item Value Reference Range Interpretation Comments Potassium Lvl (test code = Potassium 4.3 3.5-5.1 N Lvl) [facility] HospitalNykqhuzYBLWZICUI2298-91-70 09:20:00 Test Item Value Reference Range Interpretation Comments Sodium Lvl (test code = Sodium Lvl) 139 135-145 N [facility] HospitalTekqbakBCBGWMWEB0941-90-08 09:20:00 Test Item Value Reference Range Interpretation Comments Creatinine Lvl (test code = Creatinine 0.9 0.5-1.4 N Lvl) [facility] HospitalJsnmmwfJASIUJCRH4357-85-07 09:20:00 Test Item Value Reference Range Interpretation Comments BUN (test code = BUN) 14 7-22 N [facility] HospitalNpylqbcLQXKAQYVF1858-28-02 09:20:00 Test Item Value Reference Range Interpretation Comments AGAP (test code = AGAP) 18.3 10.0-20.0 N [id number] 09:20:00 Test Item Value Reference Range Interpretation Comments LDH (test code = LDH) 153 98-192 N [facility] [id number] 09:20:00 Test Item Value Reference Range Interpretation Comments Total Protein (test code = Total 6.3 6.4-8.4 L Protein) [id number] 09:20:00 Test Item Value Reference Range Interpretation Comments Basophils # (test code 0.0 See_Comment N [Aut omated message] The = Basophils #) system which generated this result tra nsmitted reference range : <=0.2. The reference r michael was not used to int erpret this result as normal/abnormal . [facility] H[id number] 09:20:00 Test Item Value Reference Range Interpretation Comments Eosinophils # (test code 0.1 See_Comment N [A utomated message] The = Eosinophils #) system whic h generated this result tra nsmitted reference range : <=0.5. The reference r michael was not used to int erpret this result as normal/abnormal . [facility] HospitalPvdpzuxMYDLCWZSFC5596-12-37 09:20:00 Test Item Value Reference Range Interpretation Comments Monocytes # (test code 0.5 See_Comment N [Aut omated message] The = Monocytes #) system which generated this result tra nsmitted reference range : <=0.8. The reference r michael was not used to int erpret this result as normal/abnormal . [facility] [facility] HospitalNaupkuxXVNLDRWIXY9086-64-29 09:20:00 Test Item Value Reference Range Interpretation Comments Segs (test code = Segs) 71.0 45.0-75.[address] [facility] HospitalHqqglcxMHLVUNCFTH7369-41-94 09:20:00 Test Item Value Reference Range Interpretation Comments Lymphocytes (test code = Lymphocytes) 17.7 20.0-40.[address] HospitalToetrxmRZOKJAPMJD0949-64-43 09:20:00 Test Item Value Reference Range Interpretation Comments Basophils (test code = 0.5 See_Comment N [Aut omated message] The Basophils) system which ge nerated this result tra nsmitted reference range : <=1.0. The reference r michael was not used to int erpret this result as normal/abnormal . [facility] HospitalCefsmzjBOVHNWNSMN1909-70-05 09:20:00 Test Item Value Reference Range Interpretation Comments Eosinophils (test code = 1.6 See_Comment N [A utomated message] The Eosinophils) system which ge nerated this result tra nsmitted reference range : <=4.0. The reference r michael was not used to int erpret this result as normal/abnormal . [facility] HospitalPhsrjxaQEIONWAGTF5808-53-51 09:20:00 Test Item Value Reference Range Interpretation Comments Monocytes (test code = Monocytes) 9.2 2.0-12.[address] [facility] HospitalEvjtfykYGBNQGQQET8768-10-96 09:20:00 Test Item Value Reference Range Interpretation Comments Lymphocytes # (test code = Lymphocytes 0.9 1.0-5.5 L #) [facility] HospitalLsmhacpNCTZRCONER4150-47-75 09:20:00 Test Item Value Reference Range Interpretation Comments Segs-Bands # (test code = Segs-Bands #) 3.8 1.5-8.[address] [facility] HospitalOsxksceDBFUWPHZAJ5884-84-31 09:20:00 Test Item Value Reference Range Interpretation Comments MCV (test code = MCV) 86.1 80.0-94.[address] [facility] HospitalNpxtnpvIMSCJDWVGS6860-29-79 09:20:00 Test Item Value Reference Range Interpretation Comments MCHC (test code = MCHC) 33.5 32.0-36.[address] [facility] HospitalQxwqyhdIENTHFGDXN0844-73-82 09:20:00 Test Item Value Reference Range Interpretation Comments MCH (test code = MCH) 28.8 pg 27.0-31.[address] [facility] HospitalWeqoregZDEFONBCWB4326-75-09 09:20:00 Test Item Value Reference Range Interpretation Comments Platelet (test code = Platelet) 354 133-[address] [facility] HospitalKeewtnbGLBYAJMJNP9418-60-26 09:20:00 Test Item Value Reference Range Interpretation Comments RDW (test code = RDW) 16.1 11.5-14.[address] [facility] HospitalElyzldqVWTWPCCYVL0706-00-94 09:20:00 Test Item Value Reference Range Interpretation Comments MPV (test code = MPV) 7.5 7.4-10.[address] [facility] HospitalVbvtsysPIDDDJLVXF0911-91-00 09:20:00 Test Item Value Reference Range Interpretation Comments Hct (test code = Hct) 27.5 42.0-54.[address] HospitalTdohbtgYYMDSZGYPH5991-73-47 09:20:00 Test Item Value Reference Range Interpretation Comments WBC (test code = WBC) 5.3 3.7-10.[address] [facility] HospitalJhtzhimCLKXVLAHYL3414-13-25 09:20:00 Test Item Value Reference Range Interpretation Comments Hgb (test code = Hgb) 9.2 14.0-18.[address] HospitalUdbonkkLRUYRCEGLO1058-90-91 09:20:00 Test Item Value Reference Range Interpretation Comments RBC (test code = RBC) 3.19 4.70-6.[address] [facility] [facility] HospitalEjpbylnXGMLHJFJQG8453-11-18 08:57:00 Test Item Value Reference Range Interpretation Comments PTT (test code = PTT) 31.2 s 22.9-35.[address] [facility] HospitalYdymlfgQQBUKTXSIA1327-02-68 08:57:00 Test Item Value Reference Range Interpretation Comments PT (test code = PT) 15.6 s 12.0-14.[address] [facility] HospitalJskgbgyNPSKYXCVCR2146-72-42 08:57:00 Test Item Value Reference Range Interpretation Comments INR (test code = INR) 1.24 0.85-1.17 H [facility]WeechckYDJSPFGOE8106-62-62 07:31:00 Test Item Value Reference Range Interpretation Comments Phosphorus (test code = Phosphorus) 3.5 2.5-4.5 N [facility] HospitalQhdjjelBFAZTZXOD5678-40-51 07:31:00 Test Item Value Reference Range Interpretation Comments Magnesium Lvl (test code = Magnesium 2.2 1.8-2.4 N Lvl) [facility] HospitalElcjnzrLPVDRSHEJ0317-80-74 07:31:00 Test Item Value Reference Range Interpretation Comments Chloride Lvl (test code = Chloride Lvl) 103 95-109 N [facility] HospitalAkvawavUQYKWGHLK5780-90-74 07:31:00 Test Item Value Reference Range Interpretation Comments Potassium Lvl (test code = Potassium 5.0 3.5-5.1 N Lvl) [facility] HospitalJpfskmdVVEQMEBIW7723-88-82 07:31:00 Test Item Value Reference Range Interpretation Comments Calcium Lvl (test code = Calcium Lvl) 8.2 8.5-10.5 L [facility] HospitalLppiymnWDONRSEKO2878-33-28 07:31:00 Test Item Value Reference Range Interpretation Comments CO2 (test code = CO2) 19 24-32 L [facility] HospitalHovobuxSQHSYQGEH1382-91-15 07:31:00 Test Item Value Reference Range Interpretation Comments BUN (test code = BUN) 13 7-22 N [facility] HospitalCwlcajaSORPAQCOZ3954-02-31 07:31:00 Test Item Value Reference Range Interpretation Comments Glucose Lvl (test code = Glucose Lvl) 92 70-99 N [facility] HospitalWxvvdctEFOGXEEFQ8877-96-12 07:31:00 Test Item Value Reference Range Interpretation Comments Creatinine Lvl (test code = Creatinine 0.8 0.5-1.4 N Lvl) [facility] HospitalHcfnyjpOMEOSMGHY7612-91-11 07:31:00 Test Item Value Reference Range Interpretation Comments Sodium Lvl (test code = Sodium Lvl) 138 135-145 N [facility] HospitalOccslqzFOBMAISJK9370-87-68 07:31:00 Test Item Value Reference Range Interpretation Comments AGAP (test code = AGAP) 21.0 10.0-20.[address] [facility] HospitalAmgmzvrGDFRCPIURR0161-29-12 07:31:00 Test Item Value Reference Range Interpretation Comments Basophils # (test code 0.0 See_Comment N [Aut omated message] The = Basophils #) system which generated this result tra nsmitted reference range : <=0.2. The reference r michael was not used to int erpret this result as normal/abnormal . [facility] HospitalSdkvgneEFGCLHXHEL8297-81-78 07:31:00 Test Item Value Reference Range Interpretation Comments Monocytes # (test code 0.5 See_Comment N [Aut omated message] The = Monocytes #) system which generated this result tra nsmitted reference range : <=0.8. The reference r michael was not used to int erpret this result as normal/abnormal . [facility] HospitalMyjtottVZNOTBVGDM7351-83-72 07:31:00 Test Item Value Reference Range Interpretation Comments Eosinophils # (test code 0.2 See_Comment N [A utomated message] The = Eosinophils #) system whic h generated this result tra nsmitted reference range : <=0.5. The reference r michael was not used to int erpret this result as normal/abnormal . [facility] HospitalEipktxmPAYWWRTLWD9789-00-58 07:31:00 Test Item Value Reference Range Interpretation Comments Lymphocytes # (test code = Lymphocytes 1.5 1.0-5.5 N #) [facility] HospitalRevbaunIEROEBTYIP3265-61-57 07:31:00 Test Item Value Reference Range Interpretation Comments Segs-Bands # (test code = Segs-Bands #) 4.3 1.5-8.[address] [facility] HospitalMkhbpdyOAMZRBKTKI6487-19-42 07:31:00 Test Item Value Reference Range Interpretation Comments Eosinophils (test code = 2.5 See_Comment N [A utomated message] The Eosinophils) system which ge nerated this result tra nsmitted reference range : <=4.0. The reference r michael was not used to int erpret this result as normal/abnormal . [facility] HospitalWtklrrrPEBVAIQWDN4924-57-70 07:31:00 Test Item Value Reference Range Interpretation Comments Basophils (test code = 0.5 See_Comment N [Aut omated message] The Basophils) system which ge nerated this result tra nsmitted reference range : <=1.0. The reference r michael was not used to int erpret this result as normal/abnormal . [facility] HospitalCbidlsqERKXRHFVQC5745-19-49 07:31:00 Test Item Value Reference Range Interpretation Comments Lymphocytes (test code = Lymphocytes) 22.8 20.0-40.[address] [facility] HospitalRuctqvbOZKXMQCOYH4246-83-42 07:31:00 Test Item Value Reference Range Interpretation Comments Monocytes (test code = Monocytes) 8.1 2.0-12.[address] [facility] HospitalLwwwbzbZMYQOXPETY8948-65-94 07:31:00 Test Item Value Reference Range Interpretation Comments Segs (test code = Segs) 66.1 45.0-75.[address] [facility] HospitalSehncdlWZXJCOYMCA9899-12-75 07:31:00 Test Item Value Reference Range Interpretation Comments MCH (test code = MCH) 29.2 pg 27.0-31.[address] [facility] HospitalXaebjlePRVVIPXFRV9587-00-62 07:31:00 Test Item Value Reference Range Interpretation Comments MPV (test code = MPV) 7.9 7.4-10.[address] [facility] HospitalFacjlpyZMKFWTIREE7316-24-83 07:31:00 Test Item Value Reference Range Interpretation Comments MCHC (test code = MCHC) 33.3 32.0-36.[address] [facility] HospitalXswqdexLACPHPTYPQ4396-32-21 07:31:00 Test Item Value Reference Range Interpretation Comments RDW (test code = RDW) 16.1 11.5-14.[address] [facility] HospitalNseslwfDVHXFYFWNP7930-07-66 07:31:00 Test Item Value Reference Range Interpretation Comments Platelet (test code = Platelet) 439 133-[address] [facility] HospitalKdpncfwFXXEXXOTZS5872-07-90 07:31:00 Test Item Value Reference Range Interpretation Comments Hct (test code = Hct) 31.9 42.0-54.[address] [facility] HospitalVrnvtzlHFJDFWMDOT6428-20-63 07:31:00 Test Item Value Reference Range Interpretation Comments MCV (test code = MCV) 87.6 80.0-94.0 N [facility]CxkyigeLGSGYNASJZ3173-40-87 07:31:00 Test Item Value Reference Range Interpretation Comments WBC (test code = WBC) 6.6 3.7-10.4 N [facility] HospitalLcmjqvoQVLTMVRIPH3252-41-30 07:31:00 Test Item Value Reference Range Interpretation Comments RBC (test code = RBC) 3.65 4.70-6.10 L [facility] HospitalXewzjjrDEZNPYBNII1984-78-10 07:31:00 Test Item Value Reference Range Interpretation Comments Hgb (test code = Hgb) 10.6 14.0-18.0 L [facility] burrp! HXPWIJS3154-71-25 07:00:00 Test Item Value Reference Range Interpretation Comments ABO/Rh (test code = ABO/Rh) A POS [facility] burrp! [id number] 07:00:00 Test Item Value Reference Range Interpretation Comments Antibody Scrn (test Positive (05/11/2011 N code = Antibody Scrn) 02:00:00) [facility] burrp! [id number] 21:57:00 Test Item Value Reference Range Interpretation Comments Platelet product (test Product available N code = Platelet (05/10/2011 16:57:00) product) [facility] burrp! [id number] 21:57:00 Test Item Value Reference Range Interpretation Comments RBC product (test code Product available N = RBC product) (05/10/2011 16:57:00) [facility] HospitalWsbhcroSLCUMFYFWV0426-20-85 21:16:00 Test Item Value Reference Range Interpretation Comments UA Urobilinogen (test code *NA*(05/10/2011 0.1-1.0 = UA Urobilinogen) 16:16:00) [facility] HospitalSdpqrypTBPXACWIZW2446-69-27 21:16:00 Test Item Value Reference Range Interpretation Comments UA Sq Epi (test code = UA Sq Epi) None [facility] EmnnuijLMGSHQKRQO4885-09-20 21:16:00 Test Item Value Reference Range Interpretation Comments UA Turbidity (test code = Clear (05/10/2011 N UA Turbidity) 16:16:00) [facility] HospitalZdzbnugJHAUVDKPHQ4090-31-90 21:16:00 Test Item Value Reference Range Interpretation Comments UA Bacteria (test code Occasional /HPF = UA Bacteria) *NA*(05/10/2011 16:16:00) [facility] FallsUhueqtcBTWQAQCKNR6158-96-06 21:16:00 Test Item Value Reference Range Interpretation Comments UA RBC (test code = no gt See_Comment N [Automa loree message] The UA RBC) system which ge nerated this result transmit loree reference range : <=2. The reference range was not used to interpr et this result as devin l/abnormal. [facility] FallsZftzzfzQMTTWGCHLG5602-80-20 21:16:00 Test Item Value Reference Range Interpretation Comments UA WBC (test code = 1 See_Comment N [Automa loree message] The UA WBC) system which ge nerated this result transmit loree reference range : <=5. The reference range was not used to interpr et this result as devin l/abnormal. [facility] FallsMsxsvrqOSZEPIUBVA4039-28-65 21:16:00 Test Item Value Reference Range Interpretation Comments UA Bili (test code = Negative *NA*(05/10/2011 UA Bili) 16:16:00) [facility] FallsEpaougpILKYGCCYHI4033-02-20 21:16:00 Test Item Value Reference Range Interpretation Comments UA Ketones (test code Negative mg/dL = UA Ketones) *NA*(05/10/2011 16:16:00) [facility] FallsCttsunwCSVZHOMDBJ3241-26-07 21:16:00 Test Item Value Reference Range Interpretation Comments UA Nitrite (test code Negative (05/10/2011 N = UA Nitrite) 16:16:00) [facility] FallsQdnizpfRHGYQCJDYF7362-18-95 21:16:00 Test Item Value Reference Range Interpretation Comments UA Blood (test code = Negative (05/10/2011 N UA Blood) 16:16:00) [facility] FallsLibbwaqVRQWJZTTKB9810-72-59 21:16:00 Test Item Value Reference Range Interpretation Comments UA Color (test code = Yellow *NA*(05/10/2011 UA Color) 16:16:00) [facility] FallsTkiurgcQJDKBSXUYF9959-64-63 21:16:00 Test Item Value Reference Range Interpretation Comments UA Glucose (test code Negative mg/dL = UA Glucose) *NA*(05/10/2011 16:16:00) [facility] FallsRxnyekrRTBKEJCHDJ5364-69-93 21:16:00 Test Item Value Reference Range Interpretation Comments UA Mucus (test code = Few /LPF UA Mucus) *NA*(05/10/2011 16:16:00) [facility]KosnphzIGLFPQCSPS3035-88-57 21:16:00 Test Item Value Reference Range Interpretation Comments UA Leuk Est (test Negative (05/10/2011 N code = UA Leuk Est) 16:16:00) [facility] FallsUnfcfdwAYGVSLRHGU3250-82-05 21:16:00 Test Item Value Reference Range Interpretation Comments UA pH (test code = UA pH) 6.5 5.0-8.0 N [facility] PasoSecqsjaVMNYSEJCUO6627-49-88 21:16:00 Test Item Value Reference Range Interpretation Comments UA Spec Grav (test code = UA Spec Grav) 1.014 N [facility] PasoYellvqlBZRCHSUPMC0434-99-02 21:16:00 Test Item Value Reference Range Interpretation Comments UA Protein (test code Negative mg/dL N = UA Protein) (05/10/2011 16:16:00) [facility] CenterAbvjhnlSevughofgbpe2244-95-86 20:28:00 Test Item Value Reference Range Interpretation Comments Culture: Anaerobic (test code = Culture: Anaerobic) [facility] CenterBreizedLmjrrzribrlq9014-66-58 20:28:00 Test Item Value Reference Range Interpretation Comments Culture: Aspirate/Body Fluid/Tissue (test code = Culture: Aspirate/Body Fluid/Tissue) [facility] HospitalYsxlmzxYTZAEUCQZ7778-25-54 13:43:00 Test Item Value Reference Range Interpretation Comments Vanco Tr TND (test code = Vanco Tr TND) 1000 [facility] HospitalYulemobCPYYBUUOF4214-42-50 13:43:00 Test Item Value Reference Range Interpretation Comments Vanco Tr (test code = Vanco Tr) 11.[address] HospitalHliuxxmQVOHRPCPSE8441-99-94 05:51:00 Test Item Value Reference Range Interpretation Comments Basophils # (test code 0.0 See_Comment N [Aut omated message] The = Basophils #) system which generated this result tra nsmitted reference range : <=0.2. The reference r michael was not used to int erpret this result as normal/abnormal . [facility] HospitalYqlavtrOMOYZXVDGV9450-82-43 05:51:00 Test Item Value Reference Range Interpretation Comments Eosinophils # (test code 0.2 See_Comment N [A utomated message] The = Eosinophils #) system whic h generated this result tra nsmitted reference range : <=0.5. The reference r michael was not used to int erpret this result as normal/abnormal . [facility] HospitalZjphhcwCCOSHESQXM2075-80-53 05:51:00 Test Item Value Reference Range Interpretation Comments Monocytes # (test code 0.5 See_Comment N [Aut omated message] The = Monocytes #) system which generated this result tra nsmitted reference range : <=0.8. The reference r michael was not used to int erpret this result as normal/abnormal . [facility] HospitalFwwiznyPPHFKCPARW4043-96-61 05:51:00 Test Item Value Reference Range Interpretation Comments Lymphocytes # (test code = Lymphocytes 0.9 1.0-5.5 L #) [facility] HospitalPwbbscoPNXLMSCYAX6193-08-46 05:51:00 Test Item Value Reference Range Interpretation Comments Monocytes (test code = Monocytes) 8.3 2.0-12.[address] HospitalWtpyxzpUGRTQJKFFE3030-12-43 05:51:00 Test Item Value Reference Range Interpretation Comments Lymphocytes (test code = Lymphocytes) 15.3 20.0-40.[address] HospitalEwrxkasVMOCOFMWJP9503-72-35 05:51:00 Test Item Value Reference Range Interpretation Comments Segs-Bands # (test code = Segs-Bands #) 4.3 1.5-8.[address] HospitalLvtolhiHNQQVUEANY2005-49-96 05:51:00 Test Item Value Reference Range Interpretation Comments Basophils (test code = 0.6 See_Comment N [Aut omated message] The Basophils) system which ge nerated this result tra nsmitted reference range : <=1.0. The reference r michael was not used to int erpret this result as normal/abnormal . [facility] HospitalGqmzubxXDKQLSRQOJ2154-34-23 05:51:00 Test Item Value Reference Range Interpretation Comments Eosinophils (test code = 2.7 See_Comment N [A utomated message] The Eosinophils) system which ge nerated this result tra nsmitted reference range : <=4.0. The reference r michael was not used to int erpret this result as normal/abnormal . [facility] HospitalFhzfndwFZZVIRHCPN1005-24-31 05:51:00 Test Item Value Reference Range Interpretation Comments Segs (test code = Segs) 73.1 45.0-75.0 N [facility] CenterQumqtahJxnbqygvibtk4884-21-45 19:05:00 Test Item Value Reference Range Interpretation Comments Culture: Wound/Abscess w/Gram Stain (test code = Culture: Wound/Abscess w/Gram Stain) [facility] CenterPruvwwpIggxyjxynnbx6710-74-57 05:21:00 Test Item Value Reference Range Interpretation Comments Culture: MRSA (test code = Culture: MRSA) [facility] HospitalLyvgxisJICNODIIWL4065-32-48 10:12:00 Test Item Value Reference Range Interpretation Comments PT (test code = PT) 15.9 s 12.0-14.[address] [facility] HospitalUuvtyevNOTMZPUCDE1695-50-28 10:12:00 Test Item Value Reference Range Interpretation Comments INR (test code = INR) 1.27 0.85-1.[address] HospitalUwldxqrUSGETOOMCS3646-73-73 10:12:00 Test Item Value Reference Range Interpretation Comments PTT (test code = PTT) 36.8 s 22.9-35.8 H [facility] CenterQjiutgrFmfnwpkbdhmd8009-91-19 04:11:00 Test Item Value Reference Range Interpretation Comments Culture: Urine (test code = Culture: Urine) [facility] CenterKixcpdoBzsgbywrbqfy5105-44-78 03:45:00 Test Item Value Reference Range Interpretation Comments Culture: Blood (test code = Culture: Blood) [facility] CampusZtinledIkhkuzkqzzon1974-80-09 03:40:00 Test Item Value Reference Range Interpretation Comments Culture: Blood (test code = Culture: Blood) [facility] burrp! [id number] 23:55:00 Test Item Value Reference Range Interpretation Comments Antibody Scrn (test Positive (05/07/2011 N code = Antibody Scrn) 18:55:00) [place] [id number] 23:55:00 Test Item Value Reference Range Interpretation Comments AB Int (test code = AB Int) Anti-E [facility] burrp! SBTMWAP2506-30-49 23:55:00 Test Item Value Reference Range Interpretation Comments BB Note (test code = Result Note N BB Note) 11(05/07/2011 18:55:00) [facility] burrp! [id number] 23:55:00 Test Item Value Reference Range Interpretation Comments ABO/Rh (test code = ABO/Rh) A POS [facility] [place] [place] - [id number] 19:15:00 Test Item Value Reference Range Interpretation Comments MRSA by PCR (test Negative 1(05/07/2011 N code = MRSA by PCR) 14:15:00) [facility] [place], TxCbdjefgUALAFJKDTN1397-86-35 17:17:00 Test Item Value Reference Range Interpretation Comments CDC-HIV 1/2 Ab (test Negative *NA*(05/07/2011 code = CDC-HIV 1/2 12:17:00) Ab) [facility]NfmquepYTXLWNAHH3805-61-36 17:15:00 Test Item Value Reference Range Interpretation Comments Magnesium Lvl (test code = Magnesium 1.9 1.8-2.4 N Lvl) [facility] HospitalLrifzdxNIQSUHAGP0481-60-05 17:15:00 Test Item Value Reference Range Interpretation Comments Phosphorus (test code = Phosphorus) 3.2 2.5-4.[address] [facility] [place] [place]
[2021-12-24] MEDS ORDERED: NALOXONE 0.4 MG/ML VIAL ONE (22:27)
--- NOTE | 2021-12-24 22:32 | RAD REPORT ---
EXAM DESCRIPTION: CT - Head Brain Wo Cont - 12/24/2021 10:26 pm CLINICAL HISTORY: Mental status change, unknown cause COMPARISON: Head Brain Wo Cont dated 07/24/2020; HEAD BRAIN W O CONTRAST dated 02/18/2011 TECHNIQUE: All CT scans are performed using dose optimization technique as appropriate and may inclu de automated exposure control or mA/KV adjustment according to patient size. FINDINGS: No intracranial hemorrhage, hydrocephalus or extra-axial fluid collection.No areas of brai n edema or evidence of midline shift. Chronic small vessel ischemic changes. The paranasal sinuses and mastoids are clear. The calvarium is intact. IMPRESSION: No acute intracranial abnormality.
--- NOTE | 2021-12-24 22:34 | RAD REPORT ---
EXAM DESCRIPTION: RAD - Chest Single View - 12/24/2021 10:24 pm CLINICAL HISTORY: AMS COMPARISON: Chest Single View dated 09/22/2021; Chest Single View dated 09/14/2021; Chest Single View d ated 05/15/2021; Chest Single View dated 05/14/2021 FINDINGS: Lines: None. Lungs: Increased coarsening of the interstitial markings. Pleural: No significant pleural effusions or pneumothorax. Cardiac: Cardiomegaly. Sternotomy. Mediastinum: Within normal limits. Bones: No acute fractures. Other: None IMPRESSION: No definite acute process. No consolidative pneumonia or edema. Nonspecific coarsening o f the interstitial markings.
[2021-12-24] MEDS ORDERED: NA CHLORIDE 0.9% 500 ML ONE ×2 (23:02→23:37)
[2021-12-24 23:11] LABS: Absolute Lymphocytes (CBC) 1.3 K/uL (0.7-4.9); MCV 92.1 fL (80-100); MPV 8.8 fL (7.6-11.3); RBC Red Blood Cell Count 4.45 M/uL (4.33-5.43)
[2021-12-24 23:12] LABS: Urine Blood 2+ (Negative); Urine Glucose Negative (Negative); Urine Protein 2+ (Negative); Urine pH 5.5 (5.0-7.0)
[2021-12-24 23:18] LABS: Urine Bacteria <20 /HPF (<20); Urine Mucus Slight /HPF (None Seen); Urine RBC >50 /HPF (None Seen); Urine WBC Clump Few /HPF (None Seen)
[2021-12-24 23:21] LABS: Barbiturates NEGATIVE (NEGATIVE); Benzodiazepines NEGATIVE (NEGATIVE); Cocaine NEGATIVE (NEGATIVE); METHAMPHETAM NEGATIVE (NEGATIVE); Methadone NEGATIVE (NEGATIVE); Opiates NEGATIVE (NEGATIVE); Phencyclidine NEGATIVE (NEGATIVE); THC Cannibis NEGATIVE (NEGATIVE)
[2021-12-24 23:31] LABS: Albumin 3.6 g/dL (3.4-5.0); Bilirubin Total 1.1 mg/dL (0.2-1.0); Magnesium 1.7 mg/dL (1.8-2.4); Potassium 3.8 mmol/L (3.5-5.1); Troponin High Sensitivity 25.6 pg/mL (<58.9)
[2021-12-24] MEDS ORDERED: CIPROFLOXACIN 400mg IV 400 MG/200 ML BAG IV ONE (23:38)
--- NOTE | 2021-12-24 23:40 | ER ---
Nurse's Notes [facility] Name: Brodie Hernadez Age: 86 yrs Sex: Male : 1935 Arrival Date: 12/24/2021 Time: 21:49 Bed 2 Private MD: Diagnosis: Severe sepsis with septic shock;UTI/ Urinary tract infection, site not specified;Acute encephalopathy Presentation: 12/24 21:49 Chief complaint: EMS states: "We got called out for AMS. The family stated that he may tw5 have taken an ellict substance, but they dont know what. His pupils were 1 mm in size. He has not been acting abnormal and has been answering questions appropriately.". Chief complaint: Patient states: "I am here because I couldn't' get off the couch. I am feeling pretty alright for 86.". Coronavirus screen: Vaccine status: Patient reports being unvaccinated. Ebola Screen: Patient negative for fever greater than or equal to 101.5 degrees Fahrenheit, and additional compatible Ebola Virus Disease symptoms Patient denies exposure to infectious person. Patient denies travel to an Ebola-affected area in the 21 days before illness onset. Initial Sepsis Screen: Does the patient meet any 2 criteria? No. Patient's initial sepsis screen is negative. Does the patient have a suspected source of infection? No. Patient's initial sepsis screen is negative. Risk Assessment: Do you want to hurt yourself or someone else? Patient reports no desire to harm self or others. Onset of symptoms is unknown. 21:49 Method Of Arrival: EMS: [facility] tw5 21:49 Acuity: VLADIMIR 3 tw5 Triage Assessment: 21:53 General: Appears in no apparent distress. Behavior is calm, cooperative, appropriate tw5 for age. Pain: Denies pain. Neuro: Level of Consciousness is awake, alert, obeys commands, Oriented to person, place, time, situation. Historical: - Allergies: 21:53 PENICILLINS; tw5 - Home Meds: 21:53 carbidopa-levodopa 25-100 mg Oral tab 2 tabs 3 times per day [Active]; metoprolol tw5 succinate 25 mg Oral Tb24 1 tab once daily [Active]; furosemide 20 mg Oral tab 1 tab 2 times per day [Active]; Xarelto 15 mg Oral tab 1 tab once daily [Active]; trazodone 50 mg Oral tab 1 tab once daily [Active]; atorvastatin 40 mg Oral tab 1 tab once daily [Active]; donepezil 10 mg Oral tab 1 tab once daily [Active]; Entresto 24-26 mg Oral tab 1 tab 2 times per day [Active]; pramipexole 0.125 mg Oral tab 1 tab 3 times per day [Active]; - PMHx: 21:53 asbestosis; Congestive heart failure; Hypertension; CAD; Atrial Fib; Parkinson's tw5 disease; ulcerative colitis; - Immunization history:: Flu vaccine is not up to date. It has been more than one year since last vaccine. - Social history:: Smoking status: unknown Patient uses street drugs. Screenin:55 Abuse screen: Denies threats or abuse. Denies injuries from another. Nutritional tw5 screening: No deficits noted. Tuberculosis screening: No symptoms or risk factors identified. Fall Risk Fall in past 12 months (25 points). Ambulatory Aid- None/Bed Rest/Nurse Assist (0 pts). Mental Status- Overestimates/Forgets Limitations (15 pts.). Assessment: 21:55 General: "I guess my family has a point. I am having trouble remembering everything I tw5 did today.". 21:56 Pain: Denies pain. Neuro: Level of Consciousness is awake, alert, obeys commands, tw5 Oriented to person, place, time, situation, Appropriate for age. Cardiovascular: Respiratory: Airway is patent Trachea midline Respiratory effort is even, unlabored. 22:49 General: [phone]- Baron Son. tw5 22:53 General: Son states " I got a call from his friend that he could hardly get out of his tw5 wheelchair or the couch. He seemed really concerned. He was also drooling in his wheelchair and he could hardly keep his eyes open.". 23:03 General: Appears in no apparent distress. Behavior is drowsy. tw5 23:45 GI: Colostomy site is intact. tw5 12/25 00:10 General: Patient states that he is having difficulty with urination. He does have tw5 increased strength returning since first arrival.. 02:05 Reassessment: No changes from previously documented assessment. Patient and/or family tw5 updated on plan of care and expected duration. Pain level reassessed. Vital Signs: 12/24 21:49 BP 98 / 51; Pulse 87; Resp 18; Temp 97; Pulse Ox 94% on R/A; Weight 80.29 kg; tw5 23:03 BP 85 / 53; Pulse 84; Resp 18; Pulse Ox 100% on R/A; tw5 23:03 BP 87 / 41; tw5 23:45 BP 94 / 51; Pulse 78; Resp 22; Pulse Ox 99% on R/A; tw5 12/25 00:10 BP 136 / 90; Pulse 94; Pulse Ox 99% on R/A; tw5 02:05 BP 132 / 50; Pulse 88; Resp 18; Pulse Ox 100% on R/A; tw5 12/24 23:03 provided notifed of BP tw5 ED Course: 21:49 Patient arrived in ED. tw5 21:49 Tamra Wyman MD is Attending Physician. sd2 21:53 Triage completed. tw5 21:53 Arm band placed on left wrist. tw5 21:55 Placed in gown. Bed in low position. Call light in reach. Side rails up X2. Client tw5 placed on continuous cardiac and pulse oximetry monitoring. NIBP monitoring applied. Door closed. Noise minimized. Moved to private room. Warm blanket given. Verbal reassurance given. 22:26 XRAY Chest (1 view) In Process Unspecified. EDMS 22:28 CT Head Brain wo Cont In Process Unspecified. EDMS 22:47 Initial lab(s) drawn, by me, sent to lab. Urine collected: clean catch specimen, clear, tw5 Amount Voided: 100mL. Inserted saline lock: 20 gauge in right forearm, using aseptic technique. Blood collected. 22:53 AMMONIA Sent. tw5 22:53 Ethanol Sent. tw5 22:53 BNP Sent. tw5 22:53 Troponin High Sensitivity Sent. tw5 22:53 Magnesium Sent. tw5 22:53 CMP Sent. tw5 22:53 CBC with Diff Sent. tw5 22:53 Urine Microscopic Only Sent. tw5 22:53 Urine Drug Screen Sent. tw5 23:33 Shital Mejia is Primary Nurse. tw5 23:36 Urine Culture Sent. tw5 23:38 Sonia Hyatt MD is Hospitalizing Provider. sd2 23:46 Assisted with urinal. tw5 12/25 00:53 SARS RAPID Sent. 02:00 Assisted with urinal. aa9 Administered Medications: 12/24 22:47 Drug: NARcan (naloxone) 0.4 mg Route: IVP; Site: right forearm; 12/25 00:10 Follow up: Response: No adverse reaction 12/24 23:03 Drug: NS 0.9% 500 ml Route: IV; Rate: bolus; Site: right forearm; 23:45 Drug: NS 0.9% 500 ml Route: IV; Rate: bolus; Site: right forearm; 12/25 00:10 Drug: Ciprofloxacin 400 mg Volume: 200 ml; Route: IVPB; Infused Over: 60 mins; Site: tw5 right antecubital; Medication: 12/24 21:55 VIS not applicable for this client. Outcome: 23:39 Decision to Hospitalize by Provider. sd2 12/25 02:09 Admitted to Med/surg room 406, Report called to attempted to call report. Was told [facility] nurse is currently busy and will have to call back. 02:30 Admitted to Med/surg Report called to Attempted to call report again. Was told the [facility] nurse is still busy changing a patient. Julienne ROGERS is suppose to call back. 03:57 Patient left the ED. mw2 Signatures: Dispatcher [employer] EDMO He Lockhart mw2 Shital Mejia tw5 Tamra Wyman MD MD sd2 Nemo Taylor RN RN aa9 Corrections: (The following items were deleted from the chart) 12/24 21:55 21:53 Home Meds: spironolactone 25 mg Oral tab 1 tab once daily; 22:56 22:53 General: Son states " I got a call from his friend that he could hardly get out tw5 of his wheelchair or the couch. He seemed really concerned.".
--- NOTE | 2021-12-24 23:40 | EDPHYS ---
Physician Documentation [facility] Name: Brodie Hernadez Age: 86 yrs Sex: Male : 1935 Arrival Date: 12/24/2021 Time: 21:49 Bed 2 Private MD: ED Physician Tamra Wyman HPI: 12/24 21:59 This 86 yrs old Male presents to ER via EMS with complaints of AMS. sd2 21:59 86 yo M presents via EMS with CC of AMS. Family reported concern that patient was sd2 acting differently. Pt reports he had trouble getting up and cannot recall what all happened today but denies any current complaints. Family reported concern that the patient may have taken an illicit substance today of unknown type. Pt denies this. Denies any areas of pain or discomfort and states he currently feels well.. Historical: - Allergies: 21:53 PENICILLINS; tw5 - Home Meds: 21:53 carbidopa-levodopa 25-100 mg Oral tab 2 tabs 3 times per day [Active]; metoprolol tw5 succinate 25 mg Oral Tb24 1 tab once daily [Active]; furosemide 20 mg Oral tab 1 tab 2 times per day [Active]; Xarelto 15 mg Oral tab 1 tab once daily [Active]; trazodone 50 mg Oral tab 1 tab once daily [Active]; atorvastatin 40 mg Oral tab 1 tab once daily [Active]; donepezil 10 mg Oral tab 1 tab once daily [Active]; Entresto 24-26 mg Oral tab 1 tab 2 times per day [Active]; pramipexole 0.125 mg Oral tab 1 tab 3 times per day [Active]; - PMHx: 21:53 asbestosis; Congestive heart failure; Hypertension; CAD; Atrial Fib; Parkinson's tw5 disease; ulcerative colitis; - Immunization history:: Flu vaccine is not up to date. It has been more than one year since last vaccine. - Social history:: Smoking status: unknown Patient uses street drugs. ROS: 21:59 Constitutional: Negative for fever, chills, and weight loss, Eyes: Negative for injury, sd2 pain, redness, and discharge, Cardiovascular: Negative for chest pain, palpitations, and edema, Respiratory: Negative for shortness of breath, cough, wheezing. Abdomen/GI: Negative for abdominal pain, nausea, vomiting, diarrhea. MS/Extremity: Negative for injury and deformity, Skin: Negative for injury, rash, and discoloration, Neuro: Negative for headache, numbness and tingling. Positive for AMS. Exam: 21:59 Constitutional: This is a well developed, well nourished patient who is awake, alert, sd2 and in no acute distress. Head/Face: Normocephalic, atraumatic. Eyes: EOMI, normal conjunctiva bilaterally Chest/axilla: Normal chest wall appearance and motion. Nontender with no deformity. Cardiovascular: Regular rate and rhythm with a normal S1 and S2. No gallops, murmurs, or rubs. 2+ distal pulses. Respiratory: Lungs have equal breath sounds bilaterally, clear to auscultation and percussion. No rales, rhonchi or wheezes noted. No increased work of breathing, no retractions or nasal flaring. Abdomen/GI: Soft, non-tender, with normal bowel sounds. No guarding or rebound. No evidence of tenderness throughout. Skin: Warm, dry with normal turgor. Normal color with no rashes, no lesions, and no evidence of cellulitis. MS/ Extremity: Pulses equal, no cyanosis. Neurovascular intact. Full, normal range of motion. Ambulatory without difficulty. Neuro: Awake and alert, GCS 15, oriented to person, place, time, and situation. Cranial nerves II-XII grossly intact. Motor strength 5/5 in all extremities. Sensory grossly intact. Cerebellar exam normal. Psych: Awake, alert, with orientation to person, place and time. Behavior, mood, and affect are within normal limits. 12/25 06:46 ECG was reviewed by the Attending Physician. Atrial fibrillation, rate 78, RBBB sd2 present, no STEMI criteria Vital Signs: 12/24 21:49 BP 98 / 51; Pulse 87; Resp 18; Temp 97; Pulse Ox 94% on R/A; Weight 80.29 kg; tw5 23:03 BP 85 / 53; Pulse 84; Resp 18; Pulse Ox 100% on R/A; tw5 23:03 BP 87 / 41; tw5 23:45 BP 94 / 51; Pulse 78; Resp 22; Pulse Ox 99% on R/A; tw5 12/25 00:10 BP 136 / 90; Pulse 94; Pulse Ox 99% on R/A; tw5 02:05 BP 132 / 50; Pulse 88; Resp 18; Pulse Ox 100% on R/A; tw5 12/24 23:03 provided notifed of BP tw5 MDM: 21:49 Patient medically screened. sd2 22:00 Differential Diagnosis Dehydration, electrolyte abnormality, UTI, PNA, anemia among sd2 others. Data reviewed: vital signs, nurses notes, EMS record. 23:38 ED course: Discussed case with Dr. Hyatt. Will admit patient to his service and continue sd2 to monitor BP closely to see if pressors are needed. Due to patient's CHF and elevated BNP, ful 30 mL/kg bolus not given initially. Will give fluids very cautiously and monitor respiratory status.. 12/25 03:20 ED course: Source of infection initially identified at 2320. Full sepsis bundle sd2 initiated aside from 30 mL/kg bolus due to patient's underlying CHF and elevated BNP already. . 12/24 21:58 Order name: CBC with Diff; Complete Time: 23:24 sd2 12/24 21:58 Order name: CMP; Complete Time: 23:36 sd2 12/24 21:58 Order name: Magnesium; Complete Time: 23:36 sd2 12/24 21:58 Order name: Troponin High Sensitivity; Complete Time: 23:36 sd2 12/24 21:58 Order name: BNP; Complete Time: 23:36 sd2 12/24 21:58 Order name: AMMONIA; Complete Time: 23:36 sd2 12/24 21:58 Order name: Ethanol; Complete Time: 23:36 sd2 12/24 21:58 Order name: Urine Microscopic Only; Complete Time: 23:24 sd2 12/24 21:58 Order name: Urine Drug Screen; Complete Time: 23:24 sd2 12/24 23:12 Order name: Urine Dipstick-Ancillary; Complete Time: 23:24 EDMS 12/24 23:24 Order name: Urine Culture EDNJ 12/24 23:26 Order name: Blood Culture Adult (2) sd2 12/24 23:42 Order name: Lactate w/ 2H reflex if indic.; Complete Time: 03:19 bb 12/24 23:47 Order name: Basic Metabolic Panel EDNJ 12/24 21:58 Order name: EKG - Nurse/Tech; Complete Time: 22:21 sd2 12/24 21:58 Order name: XRAY Chest (1 view); Complete Time: 22:47 sd2 12/24 21:58 Order name: Urine Dipstick-Ancillary (obtain specimen); Complete Time: 22:53 sd2 12/24 21:58 Order name: CT Head Brain wo Cont; Complete Time: 22:47 sd2 12/24 23:47 Order name: Heart Healthy EDMS 12/24 23:47 Order name: Basic Metabolic Panel; Complete Time: 03:19 EDMS 12/24 23:47 Order name: CBC with Automated Diff EDMS 12/24 23:47 Order name: CBC with Automated Diff; Complete Time: 03:19 EDMS 12/25 00:50 Order name: SARS RAPID mw2 12/25 01:49 Order name: SARS-COV-2 Antigen Rapid; Complete Time: 03:19 EDMS Administered Medications: 12/24 22:47 Drug: NARcan (naloxone) 0.4 mg Route: IVP; Site: right forearm; tw5 12/25 00:10 Follow up: Response: No adverse reaction tw5 12/24 23:03 Drug: NS 0.9% 500 ml Route: IV; Rate: bolus; Site: right forearm; tw 23:45 Drug: NS 0.9% 500 ml Route: IV; Rate: bolus; Site: right forearm; tw5 12/25 00:10 Drug: Ciprofloxacin 400 mg Volume: 200 ml; Route: IVPB; Infused Over: 60 mins; Site: tw5 right antecubital; Disposition Summary: 12/24/21 23:39 Hospitalization Ordered Hospitalization Status: Inpatient Admission sd2 Provider: Sonia Hyatt Condition: Fair sd2 Problem: new sd2 Symptoms: have worsened sd2 Bed/Room Type: Standard sd2 Location: Telemetry/MedSurg (Inpatient)(12/25/21 00:42) bb Room Assignment: 406(12/25/21 02:02) cg Diagnosis - Severe sepsis with septic shock sd2 - UTI/ Urinary tract infection, site not specified sd2 - Acute encephalopathy sd2 Forms: - Medication Reconciliation Form sd2 - SBAR form sd2 Signatures: Dispatcher [employer] Skye Pacheco RN RN bb Garcia, Cindy, RN RN cg Wood, Tiffany 5 Tamra Wyman MD MD sd2 Corrections: (The following items were deleted from the chart) 12/24 21:55 21:53 Home Meds: spironolactone 25 mg Oral tab 1 tab once daily; tw5 tw5 23:47 23:39 Intensive Care Unit sd2 cg 23:47 23:39 sd2 cg 12/25 00:42 12/24 23:[address] [facility] ER HOLD cg 12/25 00:42 12/24 23:47 ERHOLD- cg 12/25 02:02 00:42 bb
[2021-12-24] MEDS ORDERED: ONDANSETRON 4 MG/2 ML VIAL IV PRN (23:42)
[2021-12-24] MEDS ORDERED: ACETAMINOPHEN 500 MG TAB PO PRN (23:42)
[2021-12-25 01:49] LABS: SARS-CoV-2 Antigen Rapid Res Negative (Negative)
[2021-12-25 02:18] LABS: Absolute Lymphocytes (CBC) 1.1 K/uL (0.7-4.9); Hematocrit 39.2 % (39.6-49.0); Lymphocytes % 22.1 % (15.3-44.8); MPV 8.8 fL (7.6-11.3); RBC Red Blood Cell Count 4.26 M/uL (4.33-5.43)
[2021-12-25 02:25] LABS: Potassium 3.6 mmol/L (3.5-5.1)
[2021-12-25 03:49] VITALS: BMI 24.7
[2021-12-25] MEDS: NA CHLORIDE 0.9% 1,000 ML IV SCH ×3 (05:06→16:26)
[2021-12-25] MEDS: ASPIRIN 81 MG CHEWABLE TABLET PO SCH (09:14)
[2021-12-25] MEDS: CARBIDOPA/LEVODOPA 25/100 TAB PO SCH ×3 (09:14→20:43)
[2021-12-25] MEDS: CIPROFLOXACIN 400mg IV 400 MG/200 ML BAG IV SCH ×2 (09:14→20:41)
[2021-12-25] MEDS ORDERED: NA CHLORIDE 0.9% 250 ML IV ONE (11:45)
[2021-12-25] MEDS ORDERED: INFLUENZA VACCINE (for 6+ mo) 0.5 ML DOSE IMVAC ONE (12:00)
--- NOTE | 2021-12-25 14:03 | HP ---
Date of Admission: 12/25/2021 Chief Complaint: Altered mental status. History Of Present Illness: This is an 86-year-old male patient, who lives at home, was brought into emergency room with altered mental status. The patient reported that his legs just felt very weak y esterday that is why he came to emergency room and after I saw the patient this morning, the patient' s son saw me in the hospital and provided me with the details and informed me that they have a securi ty camera monitoring the patient's home and they have been noticing some suspicious activity where santi arndt would come in and out of his house and they would bring something in the bag and this is not a n ew problem and this has been happening lately or for some time. Actually, the patient has been unfor tunately writing multiple cheques to people that he does not even know. The patient's son says that he has contacted local police authority and unfortunately they cannot do anything at this point. In any case yesterday, the patient's son noted that there was some similar activity going on that there were couple of people going in and out of his house with something inside the bag and after that when the patient's brother went to check on him, he found out that the patient was sitting in the chair, appearing altered and very weak and at that time, ambulance was called and he was brought into the em ergency room. The patient was in septic shock in the emergency room and he was treated and admitted to the hospital. Allergies: TO PENICILLIN. Medications: According to office record; he is on aspirin 81 mg daily, Xarelto 15 mg daily in the ev ening, Entresto 24/26 mg 1 tablet 2 times a day, trazodone 50 mg takes half to 1 tablet at bedtime, a torvastatin 40 mg daily, carbidopa/levodopa 25/100 mg takes 2 tablets 3 times a day, furosemide 20 mg 2 times a day, metoprolol succinate 25 mg daily, potassium chloride 20 mEq daily. Review of Systems: Constitutional: As mentioned above. Genitourinary: Upon further questioning, the patient reports that for last 2 days he has noted that he did notice some trouble voiding, but denies any dysuria or hematuria. Past Medical History: Significant for Parkinson disease, stroke, postherpetic neuralgia, hypothyroid ism, type 2 diabetes mellitus, hypertension, hyperlipidemia, paroxysmal atrial fibrillation, chronic kidney disease, coronary artery disease, history of chronic systolic heart failure. Past Surgical History: Cataract surgery, coronary artery bypass surgery, appendectomy, and colectomy and has a colostomy bag in the right lower quadrant region. Family History: Father , had lung cancer. Mother with unknown type of cancer. Brother and sister with [facility]. Social History: Negative for smoking and he denies any alcohol use. When I questioned him when was the last time he had any alcohol, he told me long time ago. Physical Examination: Vital Signs: When he first came to emergency room; temperature 97, pulse 87, respiratory rate 18, bl ood pressure 98/51, oxygen saturation 94%. Height 5 feet 10 inches, weight 172 pounds. General: Awake, alert, oriented, not in distress. HEENT: Head atraumatic, normocephalic. Conjunctivae nonerythematous. Sclerae white. Mouth, no thr ush or edema noted. Ears/Nose, no mass, lesion, discharge noted. Neck: Supple. No JVD, lymph nodes, bruit, thyromegaly noted. Lungs: Bilateral good equal air entry. Clear to auscultation. No rhonchi. No rales. Heart: Normal heart sounds, no murmur or gallop. Abdomen: Presence of colostomy in the right lower quadrant, otherwise abdomen is soft. Bowel sounds normal. No guarding, rigidity, tenderness, distention. Extremities: No leg edema. No calf tenderness. Skin: No rash, ulcer, cellulitis. Lymphatics: No lymph node enlargement in neck, supraclavicular, infraclavicular region. Neuro: No focal neurological deficit. Chest: Unremarkable. External Genitalia: Deferred. Rectal: Deferred. Laboratory Data: Yesterday; white count 6.1, hemoglobin 13.5, platelets 178. Today; white count 5.2 , hemoglobin 12.9, platelets 162. Yesterday; sodium 138, potassium 3.8, chloride 105, bicarb 26, BUN 28, creatinine 1.43, glucose 151, magnesium 1.7. Liver function tests unremarkable. ProBNP 2288. Serum ammonia level less than 15, lactic acid level 1.3. This morning; sodium 140, potassium 3.6, ch loride 106, bicarb 25, BUN 24, creatinine 1.23, glucose 164. Urinalysis; 2+ blood, nitrite negative, 2+ esterase, RBC more than 50, WBC more than 50, bacteria less than 20, protein 2+. Toxicologies; u rine toxicology screen was negative, serum alcohol level 12. Chest x-ray, no definite acute findings on the chest x-ray. CAT scan of the brain was negative for any acute intracranial changes. Impression: 1.Septic shock. 2.Urinary tract infection. 3.Chronic systolic heart failure. 4.Coronary artery disease. 5.Hypothyroidism. 6.Diabetes mellitus, type 2. 7.Parkinson disease. 8.Paroxysmal atrial fibrillation. 9.Hypertension. 10.Hyperlipidemia. 11.Chronic kidney disease, stage 3A. Plan: We will go ahead and admit the patient to hospital for further evaluation and management of th is problem. The patient is appropriate for inpatient and is expected to spend 2 midnights in the [facility] pital. The patient came in with septic shock. He was given IV fluid, IV antibiotics in the emergenc y room. This morning, he feels a lot better as he reports. We will continue current IV fluid and IV antibiotic which is Cipro, follow up on blood culture and urine culture. Home medications will be c ontinued for Parkinson disease. We will continue his carbidopa/levodopa. For his congestive heart f ailure, we will continue his Entresto per order at appropriate time. Depending on the blood pressure , we will make that decision. For his atrial fibrillation, he is on Xarelto 15 mg daily and we will continue that. No need for any further intervention for diabetes management at this time. For hyper lipidemia, we will continue his statin therapy which is atorvastatin. Details and plan of treatment discussed with the patient and I will see him t omorrow for followup. NELSY/MODL Voice ID: [id number]
[2021-12-25] MEDS: RIVAROXABAN 15 MG TABLET PO SCH (16:26)
[2021-12-25] MEDS: ATORVASTATIN 40 MG TAB PO SCH (20:43)
[2021-12-25] MEDS: TRAZODONE 50 MG TABLET PO SCH (20:43)
[2021-12-26] MEDS: CARBIDOPA/LEVODOPA 25/100 TAB PO SCH ×3 (08:17→20:31)
[2021-12-26] MEDS: CIPROFLOXACIN 400mg IV 400 MG/200 ML BAG IV SCH ×2 (08:17→20:30)
[2021-12-26] MEDS: ASPIRIN 81 MG CHEWABLE TABLET PO SCH (08:17)
[2021-12-26] MEDS: NA CHLORIDE 0.9% 1,000 ML IV SCH ×3 (08:18→20:31)
[2021-12-26] MEDS: RIVAROXABAN 15 MG TABLET PO SCH (16:36)
--- NOTE | 2021-12-26 17:45 | PN ---
Date of Progress Note: 12/26/2021 Subjective: The patient was seen this morning for followup. When I saw him, he was sitting at [facility], eating breakfast, feeling much better. Denies any complaints this morning. Objective: Vital Signs: Reviewed. HEENT: Examination unremarkable. Lungs: Clear to auscultation. Heart: Sounds normal. Abdomen: Soft. Bowel sounds normal. No guarding, rigidity, tenderness, or distention. Extremities: No leg edema. Impression: 1.Septic shock. 2.Urinary tract infection. 3.Chronic systolic heart failure. 4.Coronary artery disease. Plan: Blood culture and urine culture are pending. We will continue current empiric antibiotic. I did discuss with the patient regarding detection of alcohol on his specimen when he came into emergen cy room and he tells me that he does not drink any alcohol and has not had any alcohol in a long time . I will see him tomorrow for followup. Once we see the culture results, then our plan is to discha rge him to go home with appropriate culture specific antibiotics. NELSY/MODL Voice ID: [id number] Report ID: [id number]
[2021-12-26] MEDS: TRAZODONE 50 MG TABLET PO SCH (20:31)
[2021-12-26] MEDS: ATORVASTATIN 40 MG TAB PO SCH (20:31)
[2021-12-27 00:52] VITALS: O2SAT 95
[2021-12-27] MEDS: ASPIRIN 81 MG CHEWABLE TABLET PO SCH (09:02)
[2021-12-27] MEDS: CIPROFLOXACIN 400mg IV 400 MG/200 ML BAG IV SCH (09:02)
[2021-12-27] MEDS: CARBIDOPA/LEVODOPA 25/100 TAB PO SCH ×2 (09:02→13:17)
[2021-12-27 12:39] VITALS: BP 129/57; TEMP 97.9
--- NOTE | 2021-12-27 15:36 | EKG ---
Test Date: 2021-12-24 Test Time: 22:18:38 International Accountant: MISSY MEASUREMENT RESULTS: Intervals: Rate: 78 OR: QRSD: 178 QT: 486 QTc: 554 [place]: P: OR: QRS: 94 T: -37 INTERPRETIVE STATEMENTS: Atrial fibrillation Rightward axis Nonspecific intraventricular block Cannot rule out Inferior infarct, age undetermined Abnormal ECG Compared to ECG 09/15/2021 08:55:44 Right-axis deviation now present Right bundle-branch block no longer present Myocardial infarct finding still present Electronically Signed On 12-27-21 15:31:33 STEM CUTTER by Dell Phelan
--- NOTE | 2021-12-27 23:36 | DS ---
Date of Discharge: 12/27/2021 Disposition: Discharged to go home. Physical Examination: HEENT: Unremarkable. Lungs: Clear to auscultation. Heart: Sounds normal. Abdomen: Soft. Bowel sounds normal. No guarding, rigidity, tenderness, distention. Extremities: No leg edema. Discharge Medications And Instructions: 1.Continue all prior home medications. 2.Levaquin 250 mg daily for 1 week. 3.Follow up at my office next week. Hospital Course: This is an 86-year-old very pleasant male patient admitted to the hospital with alt ered mental status. The patient was evaluated in the emergency room and was admitted to the hospital with septic shock and urinary tract infection. His urine toxicology screen was negative. Chest x-r ay was negative for any acute intracranial changes. CAT scan of the head was negative for any acute intracranial changes. His serum alcohol level was 12 and patient denies using any alcohol. After he came into ER, he was given IV fluid. He did have low blood pressure and required IV fluid boluses. Overall, his condition was stabilized. He was given IV antibiotic, which was Cipro and blood cultur e has remained negative. Urine culture as of today, final report is still pending, but it is growing Staphylococcus, definite identification sensitivity result is pending. The patient is medically sta ble, has improved significantly. Has not had any fever, no hypotension, feeling good, has good appet ite and feels like he is back to his normal usual self, so we will go ahead and discharge him to [facility] with above-mentioned medication instructions and we will follow up on the final culture results o n outpatient basis. Final Diagnoses: 1.Septic shock. 2.Urinary tract infection. 3.Chronic systolic heart failure. 4.Coronary artery disease. 5.Hypothyroidism. 6.Type 2 diabetes mellitus. 7.Parkinson disease. 8.Paroxysmal atrial fibrillation. 9.Hypertension. 10.Hyperlipidemia. 11.Chronic kidney disease, stage IIIA. Laboratory Data: Upon admission, white count 6.1, hemoglobin 13.5, platelets 178. Day after admissi on white count 5.2, hemoglobin 12.9, platelets 162. Upon admission, sodium 138, potassium 3.8, chlor theo 105, bicarb 26, BUN 28, creatinine 1.43, glucose 151. Liver function tests unremarkable. Ammoni a level less than 15. Day after admission; BUN 24, creatinine 1.23. NELSY/MODL Voice ID: [id number] Report ID: [id number]
== END 2021-12-27 16:14 | disposition home or self-care (01) | DRG 871 ==
LOC: ER 21:41 → ERHOLD 12-25 00:05 → 4TH 12-25 02:06
PROVIDERS: ADMIT Internal Medicine; ATTEND Internal Medicine
DX: A41.02 Sepsis due to Methicillin resistant Staphylococcus aureus (principal); R65.21 Severe sepsis with septic shock; N39.0 Urinary tract infection, site not specified; I13.0 Hypertensive heart and chronic kidney disease with heart failure and stage 1 through stage 4 chronic kidney disease, or unspecified chronic kidney disease; I50.22 Chronic systolic (congestive) heart failure; N18.31 Chronic kidney disease, stage 3a; E11.22 Type 2 diabetes mellitus with diabetic chronic kidney disease; E03.9 Hypothyroidism, unspecified; E78.5 Hyperlipidemia, unspecified; I48.0 Paroxysmal atrial fibrillation; G20 Parkinson's disease; I25.10 Atherosclerotic heart disease of native coronary artery without angina pectoris; Z23 Encounter for immunization; Z88.0 Allergy status to penicillin; Z95.1 Presence of aortocoronary bypass graft; Z79.01 Long term (current) use of anticoagulants; Z90.49 Acquired absence of other specified parts of digestive tract; Z79.82 Long term (current) use of aspirin; Z86.73 Personal history of transient ischemic attack (TIA), and cerebral infarction without residual deficits; Z79.899 Other long term (current) drug therapy; Z20.822 Contact with and (suspected) exposure to COVID-19
CPT/HCPCS: 36415; 70450; 71045; 80048; 80053; 80307; 80320; 81003; 81015; 82140; 83605; 83735; 83880; 84484; 85025; 87040; 87077; 87086; 87088; 87186; 87811; 90471; 93005; 99291; J0744; J2310; J7030; J7040; J7050; Q2035

== ENCOUNTER 2023-01-09 11:49 | Observation (INO) | payer OTHER, MEDICARE ==
--- OUTSIDE RECORDS SUMMARY | 2023-01-09 11:59 | XMS REPORT | Continuity of Care Document ---
:1935 Author Organization [facility] t Address [address] [place] [address] Care Team Providers Name Role Phone Provider, Unknown Primary Care Physician Unavailable YENNY RAMIREZ Attending Clinician Unavailable MARIA TERESA BARTON Attending Clinician Unavailable Elder Pavon Attending Clinician Annemarie SIMS, Lawrence B. Attending Clinician Kevyn Oliva Attending Clinician Unavailable YENNY RAMIREZ M.D. Attending Clinician Unavailable HANSEL BROWN M.D. Attending Clinician Unavailable WALESKA NIEVES1 Attending Clinician Unavailable SYD MERRITT M.D. Attending Clinician Unavailable Syd Merritt Attending Clinician Brandin Harp M.D. 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 2-17 Health disease disease 00:00: without without 00 angina angina pectoris pectoris Obstructiv Obstructiv Disease Active M ethodi e sleep e sleep 2- st apnea apnea 00:00: Hospita 00 l R41.3 - R41.3 - Diagnosis Active 2019-022019-12-09 Memoria OTHER OTHER 0 11:30:00 l AMNESIA AMNESIA 00:01: Terry R25.1 - R25.1 - 00 TREMOR, UN TREMOR, UN Active 12/07/2019 TODD [place] Pleural Pleural Disease Active Method[facility] plaque plaque 8 st 00:00: Hospita 00 l I10 - I10 - Diagnosis Active 2016-07-01 [facility] oria ESSENTIAL ESSENTIAL 06-30 12:19:00 l (PRIMARY) (PRIMARY) 00:01: Americo restrepo HYPERTENSI HYPERTENSI 00 Active 06/30/2016 TODD Stewart 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 [facility] (interstit (interstit 2-01 st ial lung ial lung 00:00: Hospit a disease) disease) 00 l Chronic Chronic Disease Active 2015-02 [facility] insomnia insomnia 03-09 st 00:00: Hospita 00 l DIABETES DIABETES Diagnosis Active 2015-10-07 Memoria Active 08-06 15:50:00 l 08/07/2015 00:00: Ravi mcmillan [address] Cough Cough Disease Active [facility] 07-13 st 00:00: Hospita 00 l SOB SOB Disease Active [facility] (shortness (shortness 07-13 st of breath) of breath) 00:00: Ho spita 00 l Wheezing Wheezing Disease Active Metho di 07-13 st 00:00: Hospita 00 l STERNAL STERNAL Diagnosis Active 2011-05-09 Memoria WOUND WOUND 3 12:47:00 l INFECTION INFECTION 00:00: Americo lauro Active 00 05/07/2011 [facility] ABSCESS ABSCESS Diagnosis Active 2011-05-07 Memoria Active 05-06 14:45:00 l 05/07/2011 00:00: Ravi mcmillan [address] 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 Active 2011-12-02 [facility] Coronary - Coronary 04-05 08:17:06 l artery artery 00:00: [place] bypass bypass 00 grafts x 3 grafts x 3 Active 04/05/2011 Problem 12/02/2011 [facility] Coronary Coronary Problem Active 2022-05-07 [facility] artery artery 04-05 12:53:32 l bypass bypass 00:00: Terry grafts x 3 grafts x 3 00 (procedure (procedure ) ) Active 04/05/2011 Problem 05/07/2022 Vikram Jerry, TODD Stewart, Roberto Garvey [facility] CARDIAC CARDIAC Diagnosis Active 2011-07-28 [facility] REHAB NEW REHAB NEW 02-06 14:54:00 l PT PT Active 11:11: Terry 02/06/2010 00 [facility] CARDIAC CARDIAC Diagnosis Active 2011-11-01 [facility] REHAB REHAB 02-06 13:34:00 l Active 11:11: [place] 02/07/2000 00 [facility] CABG CABG Problem Active [facility] Physici ans [...] U T neuropathy neuropathy Ph ysici ans [place], old [place], old Problem Active [facility] Physici ans Parkinson Parkinson Problem Active UT disease, disease, Physic i symptomati symptomati an s c c 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 of disease of [place] coronary coronary artery artery without without angina [...] (finding) (finding) Herm lauro Resolved Problem 11/14/2021 Vikram Neuro Angina Angina Problem Active 2011-12-02 Wilbert noe Active 08:17:06 l Problem [place] 12/02/2011 [facility] Atrial Atrial Problem Active 2011-12-02 Wilbert noe fibrillati fibrillati 08:17:06 l on on Active Terry Problem 12/02/2011 [facility] Hyperlipid Hyperlipi Problem Active 2011-12-02 Memoria emia demia 08:17:06 l Active Terry Problem 12/02/2011 [facility] Ileostomy Ileostomy Problem Active 2011-12-02 Memoria - stoma - stoma 08:17:06 l Active Terry Problem 12/02/2011 [facility] Amnesia Amnesia Problem Active 2022-05-07 Me moria (finding) (finding) 12:53:32 l Active [place] Problem 05/07/2022 Vikram Jerry Roberto Garvey [facility] Angina Angina Problem Active 2022-05-07 Wilbert noe (disorder) (disorder) 12:53:32 l Active [place] Problem 05/07/2022 Vikram Jerry TODD Stewart Roberto Garvey [facility] Atrial Atrial Problem Active 2022-05-07 Wilbert noe fibrillati fibrillati 12:53:32 l on on Terry (disorder) (disorder) Active Problem 05/07/2022 [facility], TODD Stewart[facility] Dementia Dementia Problem Active 2022-05-07 Memoria (disorder) (disorder) 12:53:32 l Active [place] Problem 05/07/2022 [facility] Hypertensi Hypertens Problem Active 2022-05-07 Memoria ve laci 12:53:32 l disorder, disorder, Herm lauro systemic systemic arterial arterial (disorder) (disorder) Active Problem 05/07/2022 [facility] EidRosemount[facility] Hyperlipid Hyperlipi Problem Active 2022-05-07 Memoria emia demia 12:53:32 l (disorder) (disorder) He rmann Active Problem 05/07/2022 [facility], TODD Stewart,[facility] EidRosemount[facility] Parkinson' Parkinson Problem Active 2022-05-07 Memoria s disease 's disease 12:53:32 l (disorder) (disorder) He rmann Active Problem 05/07/2022 [facility] Tremor Tremor Problem Active 2022-05-07 Wilbert neo (finding) (finding) 12:53:32 l Active [place] Problem 05/07/2022 [facility] OTHER OTHER Diagnosis Active 2011-05-09 Mem oria POSTOP POSTOP 12:47:00 l INFECTION INFECTION Herm lauro Active [facility] Allergies, Adverse Reactions, Alerts Allergy Allergy Status [...] penicill Active Memori a ins ins l [place] Family History Family Member Diagnosis Comments Start Date Stop Date Source Unknown Family history of Family History [facility] Family Member Coronary Artery Disease Unknown Family history of Family History [facility] Family Member Lung Cancer Sibling Family history of [facility] myocardial infarction Father Family history of [facility] cerebrovascular accident (CVA) Natural Heart attack Zoroastrian brother [facility] Natural Cancer [facility] Natural Stroke [facility] Natural Heart attack [facility] Social History Social Habit Start Date Stop Date Quantity Comments Source Sexual orientation 2021-04-01 Heterosexual Meth odist 10:42:19 (finding) Hospital Exposure to Not sure [facility] SARS-CoV-2 (event) History of Social 2021-04-08 2021-04-[address] function 00:00:00 00:00:00 Hospital Alcohol intake 2021-04-08 2021-04-08 Current non-drinker M ethodist 00:00:00 00:00:00 of alcohol Hospital (finding) Tobacco use and 2017-08-24 2017-08-24 Smokeless tobacco Me thodist exposure 00:00:00 00:00:00 non-user Hospital Sex Assigned At [birth year] M [facility]astrian 00:00:00 00:00:00 Hospital Smoking Status Start Date Stop Date Source Tobacco smoking status [facility] Never smoked tobacco [facility] Medications Ordered Filled Start Stop Current Ordering Indication Dosage Frequency Signature Comments Components Source Medication Medication Date Date Medication? Clinician (SIG) Name Name carbidopa-l Yes 2 tab, PO, Memoria evodopa 25 7-26 TID, # 540 l mg-100 mg 21:00: tab, 3 Ravi n oral tablet 00 Refill(s), Pharmacy: [id number], 177.8, cm, 08/05/21 14:58:00 CDT, Height, 77.273, kg, 08/05/21 14:58:00 CDT, Weight donepezil Yes = 1 tab, Wilbert noe 10 mg oral 7-05 PO, l tablet 13:27: Bedtime, # Debbie nn 00 90 tab, 2 Refill(s), Pharmacy: [facility] [id number], 177.8, cm, 08/05/21 14:58:00 CDT, Height, 77.273, kg, 08/05/21 14:58:00 CDT, Weight furosemide 2022-0 Yes 20 mg = 1 Me moria 20 mg oral 6-30 tab, PO, l tablet 19:47: BID, 0 [place] 00 Refill(s) Entresto 24 Yes TAKE 1 Wilbert noe mg-26 mg 6-30 TABLET BY l oral tablet 19:45: MOUTH Debbie nn 00 TWICE A DAY atorvastati Yes TAKE 1 Wilbert noe n 40 mg 6-30 TABLET BY l oral tablet 19:45: MOUTH 1 Her segura 00 TIME EACH DAY. Potassium No 1 TABLET Wilbert noe Chloride 6-30 BY MOUTH l (Eqv-K-Tab) 19:45: EVERY DAY H ermann 20 mEq oral 00 (DO NOT tablet, CRUSH, extended CHEW, OR release SPLIT. TAKE ONLY IF TAKING FUROSEMIDE THAT DAY) Pramipexole Yes 0.125 mg = Memoria dihydrochlo 3-30 1 tab, PO, l ride 0.125 20:27: TID, # 270 H ermann MG Oral 00 tab, 1 Tablet Refill(s), [Mirapex] Pharmacy: [id number], 179.07, cm, 05/05/21 15:01:00 CDT, Height, 85, kg, 05/05/21 15:01:00 CDT, Weight Mirapex Yes 0.125 mg = Wilbert noe 0.125 mg 3-30 1 tab, PO, l oral tablet 20:27: TID, # 270 Terry 00 tab, 1 Refill(s), Pharmacy: [id number], 179.07, cm, 05/05/21 15:01:00 CDT, Height, 85, kg, 05/05/21 15:01:00 CDT, Weight traZODone Yes 50mg QD Take 50 mg UT (Desyrel) 3-17 by mouth 1 Heal th 50 MG 12:51: (one) time tablet 10 each day. aspirin 81 Yes 81mg QD Take 81 mg U T MG EC 3-17 by mouth 1 Health tablet 12:51: (one) time 10 each day. spironolact 3- No [id number] 25mg QD Take 1 UT one 3-17 03-18 tablet (25 Health (Aldactone) 00:00: 04:59 mg total) 25 MG 00 :00 by mouth 1 tablet (one) time each day. potassium 2022- No [id number] 20meq QD TAKE 1 UT chloride CR [...] pe injection 18-45 millicurie carbidopa-l Yes 1{tbl} Q.[id number] Take 1 [facility]i evodopa 3-03 [id number] tablet by s t 25-100 mg 10:00: 3D mouth 3 Hospi ta per 10 (three) l disintegrat times a ing tablet day. donepeziL Yes 10mg QD Take 10 mg Me thodi (ARICEPT) 3-[address] 10 MG 10:00: nightly. Hospita tablet 10 l traZODone 0 Yes 50mg QD Take 50 mg Me thodi (DESYREL) 3-[address] 50 MG 10:00: nightly. Hospita tablet 10 l carbidopa-l Yes 1{tbl} Q.[id number] Take 1 Method[facility] evodopa 3-03 [id number] tablet by s t 25-100 mg 10:00: 3D mouth 3 Hospi ta per 10 (three) l disintegrat times a ing tablet day. donepeziL 0 Yes 10mg QD Take 10 mg Me thodi (ARICEPT) 3-[address] 10 MG 10:00: nightly. Hospita tablet 10 l traZODone 0 Yes 50mg QD Take 50 mg Me thodi (DESYREL) 3-[address] 50 MG 10:00: nightly. Hospita tablet 10 l losartan 2021- No 25mg Take 25 mg Me thodi (COZAAR) 25 04-[address] MG tablet 00:00: 04:59 Hospita 00 :00 l losartan 2021- No [id number] 25mg QD Take 1 UT (Cozaar) 25 04-06 tablet (25 H ealth MG tablet 00:00: 04:59 mg total) 00 :00 by mouth 1 (one) time each day. furosemide 2022- No 20mg Q.5D Take 20 mg Methodi (LASIX) 20 03-26- by mouth 2 st mg tablet 00:00: 05:59 (two) Hospit a 00 :00 times a l day. furosemide 2022- No 20mg Q.5D Take 20 mg [facility] (LASIX) 20 03-26- by mouth 2 st mg tablet 00:00: 05:59 (two) Hospit a 00 :00 times a l day. furosemide 2022- No [id number] 20mg Q.5D Take 1 UT (Lasix) 20 03-26- tablet (20 He alth MG tablet 00:00: 05:59 mg total) 00 :00 by mouth 2 (two) times a day. aspirin 81 Yes 81mg QD Take 81 mg U T MG EC 2-17 by mouth 1 Health tablet 15:48: (one) time 50 each day. traZODone Yes 50mg QD Take 50 mg UT (Desyrel) 2-17 by mouth 1 Heal th 50 MG 15:13: (one) time tablet 51 each day. metoprolol 2022- No [id number] 25mg QD Take 1 UT succinate 03-25- tablet (25 Hea lth XL 00:00: 05:59 mg total) (Toprol-XL) 00 :00 by mouth 1 25 MG 24 hr (one) time tablet each day. atorvastati 2022- No [id number] 40mg QD Take 1 UT n (Lipitor) 2-25 03-18 tablet (40 H ealth 40 MG 00:00: 05:59 mg total) tablet 00 :00 by mouth 1 (one) time each day. furosemide 2022- No [id number] 20mg Q.5D Take 1 UT (Lasix) 20 03-25-18 tablet (20 He alth MG tablet 00:00: 05:59 mg total) 00 :00 by mouth 2 (two) times a day. potassium 2022- No [id number] 20meq QD Take 1 UT chloride CR 03-25-18 tablet (20 H ealth (K-Tab) 20 00:00: 05:59 mEq total) MEQ ER 00 :00 by mouth 1 tablet (one) time each day. Do not crush, chew, or split. Take only if taking furosemide that day. Xarelto 15 2022- No [id number] 15mg Take 1 UT MG tablet 03-25-18 tablet (15 Hea lth 00:00: 05:59 mg total) 00 :00 by mouth 1 (one) time each day with dinner. metoprolol 2022- No [id number] 25mg QD Take 1 UT succinate 03-25-18 tablet (25 Hea lth XL 00:00: 05:59 mg total) (Toprol-XL) 00 :00 by mouth 1 25 MG 24 hr (one) time tablet each day. atorvastati 2022- No [id number] 40mg QD Take 1 UT n (Lipitor) 03-25-18 tablet (40 H ealth 40 MG 00:00: 05:59 mg total) tablet 00 :00 by mouth 1 (one) time each day. Xarelto 15 2022- No [id number] 15mg Take 1 UT MG tablet 03-25-18 tablet (15 Hea lth 00:00: 05:59 mg total) 00 :00 by mouth 1 (one) time each day with dinner. potassium 2021- No [id number] 20meq QD Take 1 UT chloride CR 03-25-17 tablet (20 H ealth (K-Tab) 20 00:00: 00:00 mEq total) MEQ ER 00 :00 by mouth 1 tablet (one) time each day. Do not crush, chew, or split. Take only if taking furosemide that day. atorvastati 2021- No [id number] 40mg QD Take 1 UT n (Lipitor) 03-25 tablet (40 H ealth 40 MG 00:00: 00:00 mg total) tablet 00 :00 by mouth 1 (one) time each day. Xarelto 15 2021- No [id number] 15mg Take 1 UT MG tablet 03-25 tablet (15 Hea lth 00:00: 00:00 mg total) 00 :00 by mouth 1 (one) time each day with dinner. metoprolol 2021- No [id number] 25mg QD Take 1 UT succinate 03-25 tablet (25 Hea lth XL 00:00: 00:00 mg total) (Toprol-XL) 00 :00 by mouth 1 25 MG 24 hr (one) time tablet each day. Xarelto 15 2021- No [id number] 15mg Take 1 UT MG tablet 03-25 tablet (15 Hea lth 00:00: 00:00 mg total) 00 :00 by mouth 1 (one) time each day with dinner. furosemide 2021- No [id number] 20mg Q.5D Take 1 UT (Lasix) 20 03-25 tablet (20 He alth MG tablet 00:00: 00:00 mg total) 00 :00 by mouth 2 (two) times a day. carbidopa-l 0 Yes TAKE BY UT evodopa 1-03 MOUTH 2 Health (Sinemet) 00:00: TABLETS 3 25-100 MG 00 TIMES A tablet DAY FOR 90 DAYS donepezil 2021-0 Yes 10mg Take 10 mg UT (Aricept) 1-03 by mouth Health 10 MG 00:00: every tablet 00 night. carbidopa-l 2021-0 Yes TAKE BY UT evodopa 1-03 MOUTH 2 Health (Sinemet) 00:00: TABLETS 3 25-100 MG 00 TIMES A tablet DAY FOR 90 DAYS donepezil 2021-0 Yes 10mg Take 10 mg UT (Aricept) 1-03 by mouth Health 10 MG 00:00: every tablet 00 night. Xarelto 15 2021- No 15mg Take 15 mg UT MG tablet 1-03 02-17 by mouth Healt h 00:00: 00:00 every 00 :00 night. metoprolol 2020-02- No 25mg QD Take 25 mg UT succinate 03-29 by mouth 1 Hea lth XL 00:00: 00:00 (one) time (Toprol-XL) 00 :00 each day. 25 MG 24 hr tablet Carbidopa 0 Yes 2 tab, PO, Me moria 25 MG / 9-30 TID, # 540 l Levodopa 19:47: tab, 3 Terry 100 MG Oral 00 Refill(s), Tablet Pharmacy: [id number], 175.26, cm, 11/05/20 14:41:00 CDT, Height, 85.455, kg, 11/05/20 14:41:00 CDT, Weight donepezil Yes 10 mg = 1 Mem oria 10 mg oral 9-30 tab, PO, l tablet 19:47: Bedtime, # Debbie nn 00 90 tab, 2 Refill(s), Pharmacy: [facility] #[id number], 175.26, cm, 11/05/20 14:41:00 CDT, Height, 85.455, kg, 11/05/20 14:41:00 CDT, Weight donepezil Yes 10 mg = 1 Mem oria 10 mg oral 1-21 tab, PO, l tablet 17:59: Bedtime, # Debbie nn 00 90 tab, 2 Refill(s), Pharmacy: [id number], 180.34, cm, 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, 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, 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, kg, 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, Weight Donepezil 2019-02 Yes 5 mg = 1 Wilbert noe hydrochlori 2-03 tab, PO, l de 5 MG 19:42: Bedtime, # Herm lauro Oral Tablet 00 30 tab, 3 [Aricept] Refill(s), Pharmacy: [facility] #[id number], 175.26, cm, 01/09/20 13:21: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, Height, 85, kg, 01/09/20 13:21: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, 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 Carbidopa 2019-02 Yes 2 tab, PO, Me moria 25 MG / 0-29 TID, # 540 l Levodopa 23:52: tab, 3 [place] 100 MG Oral 00 Refill(s), Tablet Pharmacy: [id number], 177.8, cm, 12/05/19 11:00:00 CDT, Height, 90, kg, 12/05/19 11:00:00 CDT, Weight Carbidopa 2019-02 No 0 Memoria 25 MG / 0-29 Refill(s) l Levodopa 23:51: [place] 100 MG Oral 00 Tablet gabapentin 2019-02 Yes 0 Memoria 400 MG Oral 0-29 Refill(s) l Capsule 23:51: Terry 00 losartan 2019-02 Yes 0 Memoria 100 mg oral 0-29 Refill(s) l tablet 23:51: [place] rosuvastati 2019-02 Yes 0 Memori a n 5 mg oral 0-29 Refill(s) l tablet 23:51: Terry 00 0.5 ML 2019-02 No 0 Memoria Varicella 0-29 Refill(s) l zoster 23:51: Terry virus 00 glycoprotei n E, recombinant 0.1 MG/ML Injection [Shingrix] rivaroxaban 2019-02 Yes 0 Memori a 15 MG Oral 0-29 Refill(s) l Tablet 23:51: Terry [Xarelto] 00 fenofibric 2019-02 Yes 0 Memoria acid 45 mg 0-29 Refill(s) l oral 23:51: Terry delayed 00 release capsule levothyroxi 2019-02 Yes 0 Memori a ne 88 mcg 0-29 Refill(s) l (0.088 mg) 23:51: Terry oral tablet 00 Metoprolol 2019-02 Yes 0 Memoria Succinate 0-29 Refill(s) l ER 25 mg 23:51: [place] oral 00 tablet, extended release Xarelto 15 2019-02 Yes 0 Memoria mg oral 0-29 Refill(s) l tablet 23:51: [place] 00 DULoxetine DULoxetine Yes 1 QD TAKE [...] mcg st ALLERGY 00:00: 00:00 total) by Hosp hetal RELIEF) 50 00 :00 Each Nare l mcg/actuati route on nasal daily. spray XARELTO 15 Yes TAKE 1 Metho di mg tablet - TABLET BY [facility] 00:[facility] 00 BEDTIME l XARELTO 15 Yes TAKE 1 Metho di mg tablet - TABLET BY st 00:00: [facility]OUTH AT [facility] 00 BEDTIME l furosemide 2021- No TAKE 1 Meth joan (LASIX) 20 10-[address] mg tablet 00:00: 00:00 MOUTH Hospit a 00 :00 EVERY DAY l metoprolol 2021- No TAKE 1 Meth joan succinate 813 03-[address] XL 00:00: 00:00 MOUTH Hospita (TOPROL-XL) 00 :00 EVERY DAY l 25 mg 24 hr tablet losartan 2021- No TAKE 1 Method i (COZAAR) 3-14 03-[address] 100 MG 00:00: 00:00 MOUTH Hospita tablet 00 :00 EVERY DAY l potassium 2021- No TAKE 1 Metho di chloride 9-18 03-[address] (K-DUR) 20 00:00: 00:00 MOUTH Hospi ta MEQ CR 00 :00 EVERY DAY l tablet choline Yes TAKE ONE Method i fenofibrate 9-[address] (TRILIPIX) 00:00: MOUTH Hospit a 45 mg 00 EVERY DAY l capsule choline Yes TAKE ONE Method i fenofibrate [...] TAKE BY Met shaver (FOLVITE) 1 5-15 02- MOUTH 1 st MG tablet 00:00: 00:00 [...] 4-06 Alawadi PO, l oral 16:37: Bedtime, [place] capsule 22 PRN, 14 doses or times, Insomnia, Substituti on Allowed, CAP doxycycline Yes Agnieszka 100 mg, M emoria 20 mg oral 4-06 Alawadi PO, Q12H, l tablet 16:15: 28 doses [place] 30 or times, Substituti on Allowed [place] Yes Agnieszka 2 tab, PO, Wilbert noe 7.5/325 4-06 Alawadi Q4H, PRN, l oral tablet 16:14: 40 tab, Her segura 41 Pain, Substituti on Allowed, Maintenanc e, TAB doxycycline No Agnieszka 100 mg, M emoria 20 mg oral 4-06 Alawadi PO, Q12H, l tablet 16:14: 28 doses [place] 35 or times, Substituti on Allowed [place] No Agnieszka 2 tab, PO, Wilbert noe [...] 05-10 Robbin Route: l 15:55: [place] IVP, [place] 00 Q5Min, PRN Pain Score 4-6, Start date: 05/11/11 10:55:00, Duration: 5 doses or times, Stop date: Limited # of times fentanyl No Mian 25 Memori a 05-10 Robbin microgram, l 15:55: [place] Route: [place] 00 IVP, Q5Min, PRN Pain Score 4-6, [...] 05-10 Robbin Route: l 15:55: [place] IVP, [place] 00 Q2MIN, PRN Narcotic Reversal, Start date: 05/11/11 10:55:00, Duration: 8 doses or times, Stop date: Limited # of times metoprolol No Mian 1 mg, Mem oria tartrate 05-10 Robbin Route: l 15:55: [place] IVP, Drug Dbebie nn 00 form: TAB, Q5Min, PRN Elevated BP, Start date: 05/11/11 10:55:00, Duration: 5 doses or times, Stop date: Limited # of times D5W 1/2NS + No Agnieszka 1,000 mL, Memoria KCL 20mEq/L 05-09 Alawadi Rate: 60 l 1000ml 22:48: ml/hr, [place] (Premix) 00 Infuse 1,000 mL over: 16.7 hr, Route: IV, Dosing Weight 81.818 kg, Total Volume: 1,000, Start date: 05/10/11 17:48:00, Duration: 30 day, Stop date: 06/09/11 17:47:00 temazepam No Lamin 15 mg, 1 Mem oria 02 Elias cap, l 04:09: Sharpe Route: PO, [...] 4-01 unit, 1 l 05:00: mL, Route: Terry 00 SUB-Q, Drug form: INJ, Q8H, Start date: 05/08/11 0:00:00, Duration: 30 day, Stop date: 06/06/11 16:00:00 vancomycin No Viktoriya Trudi 1 gm, Memoria 05-07 Route: l 03:00: IVPB, Drug Terry 00 form: INJ, [id number], Start date: 05/07/11 22:00:00, Duration: 30 day, Stop date: 06/06/11 10:00:00 diphenhydrA 2011- No Silvio 25 mg, 1 Memoria MINE 05-07 Jcarlos cap, l 02:04: Esau Route: PO, Herm lauro 00 [place]ley Drug form: CAP, Bedtime, PRN Insomnia, Start date: 05/07/11 21:04:00, Duration: 30 day, Stop date: 06/06/11 21:03:00 Mucomyst 2011- No Michelle-Pancho 600 mg, 3 Memoria oral 05-07 [place] mL, Route: l solution 02:00: Esparza PO, Drug H ermann (mg) 00 Pu form: SOLN, Q12H, Start date: 05/07/11 21:00:00, Duration: 4 doses or times, Stop date: 05/09/11 9:00:00 [place] 2011-0 No 2 tab, PO, Memori a 7.5/325 3-31 Q4H, PRN, l oral tablet 23:28: as needed H ermann 16 for pain, Substituti on Allowed, Maintenanc e, TAB AMIODarone 2011-0 Yes 200 mg, 1 Me moria 200 mg oral 3-31 tab, PO, l tablet 23:19: BID, 60 [place] 22 tab, Substituti on Allowed, TAB aspirin 325 2011-0 Yes 325 mg, Mem oria mg tablet 3-31 PO, Daily, l 23:18: Substituti [place] 59 on Allowed, TAB clopidogrel 2012-0 Yes [...] Debbie nn 08 on Allowed, TAB metoprolol Yes 50 mg, PO, M emoria 50 mg oral 3-31 Daily, 30 l tablet, 23:17: tab, [place] extended 54 Substituti release on Allowed metoprolol Yes 50 mg, PO, M emoria 50 mg oral 3-31 Daily, 30 l tablet, 23:17: tab, Terry extended 54 Substituti release on Allowed Crestor 10 Yes 10 mg, 1 Mem oria mg oral 3-31 tab, PO, l tablet 23:16: Daily, 30 Ravi n 57 tab, Substituti on Allowed, TAB 1/2NS 1,000 2011- No Agnieszka 1,000 mL, Memoria mL 31 Alawadi Rate: 75 l 19:20: ml/hr, Terry [...] MG TABS Physici ans Immunizations Ordered Filled Date Status Comments Source Immunization Name Immunization Name FLUZONE HIGH-DOSE 2017-02-08 Completed [facility] 00:00:00 [facility] FLUZONE HIGH-DOSE 2016-01-07 Completed [facility] 00:00:00 [facility] Pneumococcal 2015-05-28 Completed [facility]00 [facility] Influenza 2012-01-17 Completed [facility] 00:00:00 Pneumococcal Unknown Completed [facility] FLUZONE HIGH-DOSE Unknown Completed [facility] FLUZONE HIGH-DOSE Unknown Completed [facility] [id number] Unknown Completed [facility] Terry CALHOUNT-[id number] ER<sup>1</sup> [id number] Unknown Completed Memor ial Terry CALHOUNT-[id number] ER [id number] Unknown Completed Memor floyd Stewart [id number] Vital Signs Vital Name Observation Time Observation Value Comments Source Systolic blood 2021-04-22 136 mm[Hg] [facility] pressure 17:51:00 Diastolic blood 2021-04-22 85 mm[Hg] [facility] pressure 17:51:00 Heart rate 2021-04-22 79 /min [facility] 17:51:00 Respiratory rate 2021-04-22 16 /min [facility] 17:51:00 Body height 2021-04-22 180.3 cm [facility] 17:51:00 Body weight 2021-04-22 82.01 kg [facility] 17:51:00 BMI 2021-04-22 25.22 kg/m2 [facility] 17:51:00 Oxygen saturation 2021-04-22 91 /min [facility] in Arterial blood 17:51:00 by Pulse oximetry Systolic blood 2021-03-25 173 mm[Hg] [facility] pressure 21:14:00 Diastolic blood 2021-03-25 69 mm[Hg] [facility] pressure 21:14:00 Heart rate 2021-03-25 79 /min [facility] 21:14:00 Respiratory rate 2021-03-25 16 /min [facility] 21:14:00 Body height 2021-03-25 180.3 cm [facility] 21:14:00 Body weight 2021-03-25 86.183 kg [facility] 21:14:00 BMI 2021-03-25 26.50 kg/m2 [facility] 21:14:00 Oxygen saturation 2021-03-25 95 /min [facility] in Arterial blood 21:14:00 by Pulse oximetry Systolic (mm Hg) 2021-08-05 [facility] rmann 19:29:00 Diastolic (mm Hg) 2021-08-05 [facility] ermann 19:29:00 [facility] Respitory Rate 2021-08-05 [facility] Herm lauro 19:29:00 Height 2021-08-05 177.8 cm [facility]05 [facility] BMI Calculated 2021-08-05 [facility] lauro 19:29:00 Systolic (mm Hg) 2021-05-05 [facility] rmann 19:39:00 Diastolic (mm Hg) 2021-05-05 [facility] ermann 19:39:00 Heart Rate 2021-05-05 [facility] 19:39:00 Respitory Rate 2021-05-05 [facility] lauro 19:39:00 Height 2021-05-05 179.07 cm [facility] 19:39:00 Weight 2021-05-05 [facility] 19:39:00 BMI Calculated 2021-05-05 [facility] Herm lauro 19:39:00 Systolic blood 2021-04-08 113 mm[Hg] [facility] 16:00:00 Hospital Diastolic blood 2021-04-08 76 mm[Hg] [facility] 16:00:00 Hospital Heart rate 2021-04-08 73 /min [facility] 16:[facility] Body temperature 2021-04-08 36.83 Aleida [facility] 16:00:00 [facility] Respiratory rate 2021-04-08 14 /min [facility] 16:[facility] Body height 2021-04-08 180.3 cm [facility] 16:[facility] Body weight 2021-04-08 82.645 kg [facility] 16:[facility]:00 [facility] BMI 2021-04-08 25.41 kg/m2 [facility] 16:[facility]:00 [facility] Oxygen saturation 2021-04-08 99 /min [facility] in Arterial blood 16:00:00 Hospital by Pulse oximetry Systolic (mm Hg) 2020-11-05 [facility] rmann 19:31:00 Diastolic (mm Hg) 2020-11-05 [facility] ermann 19:31:00 Heart Rate 2020-11-05 [facility] 19:31:00 Respitory Rate 2020-11-05 [facility] Herm lauro 19:31:00 Height 2020-11-05 175.26 cm [facility] 19:31:00 Weight 2020-11-05 [facility] 19:31:00 BMI Calculated 2020-11-05 [facility] la[facility] 19:31:00 Systolic (mm Hg) 2020-06-05 [facility] rmann 19:24:00 Diastolic (mm Hg) 2020-06-05 [facility] ermann 19:24:00 Heart Rate 2020-06-05 [facility] 19:24:00 Respitory Rate 2020-06-05 [facility] lauro 19:24:00 Height 2020-06-05 180.34 cm [facility] 19:24:00 Weight 2020-06-05 [facility] 19:24:00 BMI Calculated 2020-06-05 [facility] lauro 19:24:00 Systolic (mm Hg) 2020 [facility] [...] BP Systolic 2018-11-01 121 mm[Hg] Location: LUE; [facility] 14:14:00 Position: Sitting BP Diastolic 2018-11-01 68 mm[Hg] Location: LUE; [facility] 14:14:00 Position: Sitting Height 2018-11-01 71 [in_us] [facility] 14:14:00 Weight 2018-11-01 193.4 [lb_av] [facility] 14:14:00 Body Mass Index 2018-11-01 26.97 kg/m2 [facility] Calculated 14:14:00 Heart Rate 2018-11-01 65 /min Location: L [facility] 14:14:00 Brachial Artery; O2 SAT 2018-11-01 99 % Source: RA [facility] 14:14:00 BP Systolic 2018-05-03 165 mm[Hg] Location: LUE; [facility] 13:55:00 Position: Sitting BP Diastolic 2018-05-03 80 mm[Hg] Location: LUE; [facility] 13:55:00 Position: Sitting Height 2018-05-03 71 [in_us] [facility] 13:55:00 Weight 2018-05-03 206.25 [lb_av] [facility] 13:55:00 Body Mass Index 2018-05-03 28.77 kg/m2 [facility] Calculated 13:55:00 Heart Rate 2018-05-03 73 /min Location: L [facility] 13:55:00 Radial; O2 SAT 2018-05-03 95 % Source: RA [facility] 13:55:00 BP Systolic 2018-03-16 126 [...] BP Diastolic 2017-11-16 61 mm[Hg] Location: LLE; [facility] 11:37:00 Position: Sitting Height 2017-11-16 71 [in_us] [facility] 11:37:00 Weight 2017-11-16 196 [lb_av] [facility] 11:37:00 Body Mass Index 2017-11-16 27.34 kg/m2 [facility] Cal[facility] 11:37:00 Temperature 2017-11-16 97.8 [degF] [facility] 11:37:00 Heart Rate 2017-11-16 51 /min [facility] 11:37:00 BP Systolic 2017-11-02 134 mm[Hg] Location: LUE; [facility] 15:00:00 Position: Sitting BP Diastolic 2017-11-02 74 mm[Hg] Location: LUE; [facility] 15:00:00 Position: Sitting Height 2017-11-02 71 [in_us] [facility] 15:00:00 Weight 2017-11-02 193.125 [lb_av] [facility] 15:00:00 Body Mass Index 2017-11-02 26.94 kg/m2 [facility] Calculated 15:00:00 Heart Rate 2017-11-02 75 /min Location: L [facility] 15:00:00 Radial; O2 SAT 2017-11-02 96 % Source: RA [facility] 15:00:00 BP Systolic 2017-09-28 147 mm[Hg] Location: LUE; [facility] 16:16:00 Position: Sitting BP Diastolic 2017-09-28 78 mm[Hg] Location: LUE; [facility] 16:16:00 Position: Sitting Height 2017-09-28 71 [in_us] [facility] 16:16:00 Weight 2017-09-28 192.25 [lb_av] [facility] 16:16:00 Body Mass Index 2017-09-28 26.81 kg/m2 [facility] Calculated 16:16:00 Temperature 2017-09-28 98.4 [degF] Method: Oral [facility] 16:16:00 Heart Rate 2017-09-28 51 /min Location: L [facility] 16:16:00 Brachial Artery; O2 SAT 2017-09-28 97 % Source: RA [facility] 16:16:00 Diastolic (mm Hg) 2011-05-13 [facility] 13:00:00 Systolic (mm Hg) 2011-05-13 [facility] 13:00:00 Respitory Rate 2011-05-13 [facility] lauro 13:00:00 Respitory Rate 2011-05-13 [facility] 11:25:00 Systolic (mm Hg) 2011-05-13 [facility] 11:25:00 Diastolic (mm Hg) 2011-05-13 [facility] 11:25:00 Temperature Oral 2011-05-13 98.2 F [facility] (F) 09:38:00 Respitory Rate 2011-05-13 [facility] lauro 09:09:00 Systolic (mm Hg) 2011-05-13 [facility] Mike rmann 09:09:00 Diastolic (mm Hg) 2011-05-13 [facility] Dolores ermann 09:09:00 Temperature Oral 2011-05-13 98.7 F Malgorzata Mckeon rmann (F) 06:52:00 Temperature Oral 2011-05-13 98.4 F [facility] Mike rmann (F) 02:12:00 Heart Rate 2011-05-07 [facility] Ravi n 23:25:00 Height 2011-05-07 180.34 cm [facility] Ravi n 16:50:00 Weight 2011-05-07 [facility] Ravi n 16:50:00 Procedures Procedure Date / Time Performed Performing Clinician Sourc e CT CHEST WO CONTRAST 2021-03-27 15:42:02 Lawrence Sharpe [facility] [PENDING SALE TO [facility]] CBC (INCLUDES 2018-11-01 00:00:00 [facility] DIFF/PLT) [QL[facility]] CMP W/EGFR 2018-11-01 00:00:00 [facility] [[facility]] CREATINE KINASE, 2018-11-01 00:00:00 [facility] TOTAL [[facility]] LIPID PANEL 2018-11-01 00:00:00 [facility] [QL] TSH, 3RD 2018-11-01 00:00:00 [facility] GENERATION [[facility]] CBC (INCLUDES 2018-05-03 00:00:00 [facility] DIFF/PLT) [QL[facility]] CMP W/EGFR 2018-05-03 00:00:00 [facility] [[facility]] CREATINE KINASE, 2018-05-03 00:00:00 [facility] TOTAL [[facility]] LIPID PANEL 2018-05-03 00:00:00 [facility] [[facility]] TSH, 3RD 2018-05-03 00:00:00 [facility] GENERATION W/REFLEX TO FT4 [QL] CBC (INCLUDES 2017-11-02 00:00:00 [facility] [...] 2017-09-28 00:00:00 [facility] with Doppler 97557 [QL[facility]] CBC (INCLUDES 2017-09-18 00:00:00 [facility] DIFF/PLT) [QL[facility]] CMP W/EGFR 2017-09-18 00:00:00 [facility] [[facility]] CREATINE KINASE, 2017-09-18 00:00:00 [facility] TOTAL [[facility]] LIPID PANEL 2017-09-18 00:00:00 [facility] [[facility]] TSH, 3RD 2017-09-18 00:00:00 [facility] GENERATION CABG [facility] Plan of Care Planned Activity Planned Date Details Comments Source Future Scheduled 2023-01-09 SHINGLES VACCINES (1 Met hodist Test 11:54:53 of 2) [code = Hospital SHINGLES VACCINES (1 of 2)] Future Scheduled 2023-01-09 65+ PNEUMOCOCC[address] Methodi st Test 11:54:53 VACCINE (2 - PPSV23 Hospital or PCV20) [code = 65+ PNEUMOCOCCAL VACCINE (2 - PPSV23 or PCV20)] Future Scheduled 2023-01-09 COVID-19 VACCINE (4 Meth odist Test 11:54:53 - season) Hospital [code = COVID-19 VACCINE (4 - season)] Future Scheduled 2023-01-09 INFLUENZA VACCINE Method ist Test 11:54:53 (#1) [code = Hospital INFLUENZA VACCINE (#1)] Future Scheduled 2021-12-09 HEPATITIS B VACCINES Met [...] Physician s Pending 00:00:00 complete, with Doppler 57271 [code = [N] 2D Echo complete, with Doppler 08375] Diagnostic Test 2017-10-26 [N] 2D Echo [facility] Pending 00:00:00 complete, with Doppler 76178 [code = [N] 2D Echo complete, with Doppler 20104] Future Scheduled [QLH] CBC (INCLUDES ONE WEEK [...] Date/Time Type Type Clinicians Facility Department ID 2022-06-20 Outpatient [facility] [id number] [place] 16:02:48 [id number] [facility] 2021-04-22 Outpatient RAMIREZ, [facility] [id number] [place] 13:11:23 [facility] 2021-04-22 Outpatient ORALIA, [facility] [id number] [place] 11:11:08 [facility] 2021-04-13 Outpatient [facility] [id number] [place] 16:05:55 [facility] 2021-03-25 Outpatient [facility] [id number] [place] 16:10:01 [facility] 2022-05-03 2022-05-05 Outside MHIE MNA [id number] Mem[facility] 21:13:56 04:59:59 Medical Neurology 00 l Records Андрей Ballwin 2022-05-03 2022-05-04 Outpatient MHMISCHER MHMISCHER [id number] 16:13:56 23:59:59 00 2021-11-12 2021-11-12 Ambulatory nullFlavo MNA [id number] [facility] 13:15:00 13:15:00 Pre-Reg r Neurology 08 l Андрей Terry 2021-11-12 2021-11-12 Outpatient MHIE MHIE [id number] [facility] 08:15:00 08:15:00 08 l Terry 2021-11-12 2021-11-12 Outpatient MARLIN PavonMISCHER MHMISCHER [id number] 08:15:00 08:15:00 Elder Bharti Weller 2021-09-21 2021-09-21 Ambulatory nullFlavo MNA [id number] [facility] 18:45:00 18:45:00 Pre-Reg r Neurology 07 l Андрей Stewart 2021-09-21 2021-09-21 Outpatient MHIE MHIE [id number] [facility] 13:45:00 13:45:00 07 maureen Stewart 2021-09-21 2021-09-21 Outpatient MARLIN PavonMISCHER MHMISCHER [id number] 13:45:00 13:45:00 Elder 07 Nithin 2021-08-05 2021-08-06 Outpatient nullFlavo MNA [id number] [facility] 19:30:00 04:59:59 r Neurology 06 l Андрей Ballwin 2021-08-05 2021-08-05 [facility] [id number] 14:30:00 23:59:59 Elder 06 Nithin 2021-08-05 2021-08-05 Outpatient MHIE MHIE [id number] [facility] 14:30:00 14:30:00 06 maureen Ballwin 2021-05-05 2021-05-06 Outpatient nullFlavo MNA [id number] [facility] 19:30:00 04:59:59 r Neurology 05 l [place] Terry 2021-05-05 2021-05-05 [facility] [id number] 14:30:00 23:59:59 Elder 05 Nithin 2021-05-05 2021-05-05 Outpatient MHIE MHIE [id number] [facility] 14:30:00 14:30:00 05 maureen Ballwin 2021-04-22 2021-04-22 Office JAMES Ramirez [id number] 1.2.411.694 [id number] [place] 13:00:00 13:11:42 Visit Yenny CAMEJO 350.1.13.58 Health 9.2.7.2.686 [id number] 2 2021-04-08 2021-04-08 Office Annemarie 1.2.840.1 [id number] Methodi 10:00:00 10:35:52 Visit Lawrence Shankar [address]83.1.[address] 3.430.2.7 Hospit a .3.883688 l .8 2021-04-08 2021-04-08 Travel 1.2.840.1 1.2.981.583 [id number] Methodi 00:00:00 00:00:[address] 3.430.2.7 0.2.7.3.698 Ho spita .3.879772 084.8 l .8 2021-03-27 2021-03-27 [facility] Annemarie 1.2.840.1 [id number] Methodi 09:17:03 23:59:00 Esperanza Shankar [address].1.[address] 3.430.2.7 Hospit a .3.679726 l .8 2021-03-27 2021-03-27 Travel 1.2.840.1 1.2.530.053 [id number] Methodi 00:00:00 00:00:[address] 3.430.2.7 0.2.7.3.698 Ho spita .3.872020 084.8 l .8 2021-03-25 2021-03-25 Office [facility] 6410 1.2.382.866 [id number] [place] 15:20:00 16:10:[address] 350.1.13.58 Health 9.2.7.2.686 [id number] 2 2021-03-24 2021-03-24 Travel 1.2.840.1 1.2.977.098 1147 [id number] Methodi 00:00:00 00:00:[address] 3.430.2.7 0.2.7.3.698 Ho spita .3.530767 084.8 l .8 2021-03-22 2021-03-22 Travel 1.2.840.1 1.2.495.964 7096 601318 Methodi 00:00:00 00:00:[address] 3.430.2.7 0.2.7.3.698 Ho spita .3.729126 084.8 l .8 2021-03-18 2021-03-18 [facility] Lawrence Sharpe 1.2.840.1 [id number] Methodi 14:30:00 14:36:34 Support Kevyn Oliva 90913.1.[address] 3.430.2.7 Hospit a .3.251579 l .8 2021-03-18 2021-03-18 Travel 1.2.840.1 1.2.290.522 1459 [id number] Methodi 00:00:00 00:00:[address] 3.430.2.7 0.2.7.3.698 Ho spita .3.689994 084.8 l .8 2021-03-09 2021-03-09 Office Sharpe, 1.2.840.1 [id number] Methodi 10:15:00 10:34:16 Visit Lawrence Shankar 24506.1.[address] 3.430.2.7 Hospit a .3.781523 l .8 2021-03-09 2021-03-09 Travel 1.2.840.1 1.2.000.371 8310 [id number] Methodi 00:00:00 00:00:[address] 3.430.2.7 0.2.7.3.698 Ho spita .3.501719 084.8 l .8 2020-11-05 2020-11-06 Outpatient nullFlavo MNA [id number] Mem[facility] 19:30:00 04:59:59 r Neurology 04 maureen Stewart 2020-11-05 2020-11-05 [id number] 14:30:00 23:59:59 Elder Weller 2020-11-05 2020-11-05 Outpatient CASANDRA GUAJARDO [id number] Memoria 14:30:00 14:30:00 Bryan Stewart 2020-06-05 2020-06-06 Outpatient nullFlavo MNA [id number] Memoria 19:30:00 04:59:59 r Neurology 03 maureen Stewart 2020-06-05 2020-06-05 [facility] [id number] 14:30:00 23:59:59 Elder 03 Nithin 2020-06-05 2020-06-05 Outpatient MHIE MHIE [id number] Memoria 14:30:00 14:30:00 03 maureen Terry 2020 2020-02-28 Outpatient nullFlavo MNA [id number] Mem[facility] 17:45:00 05:59:59 r Neurology 02 maureen Stewart 2020 2020 [facility] [id number] 11:45:00 23:59:59 Elder 02 Nithin 2020 2020 Outpatient MHIE MHIE [id number] Memoria 11:45:00 11:45:00 02 muareen Stewart 2020-01-09 2020-01-10 Outpatient nullFlavo MNA [id number] Memoria 19:30:00 05:59:59 r Neurology 01 maureen Stewart 2020-01-09 2020-01-09 Outpatient KELL[facility]AT[facility]HA [facility] [id number] 13:30:00 23:59:59 Elder 01 Nithin 2020-01-09 2020-01-09 Outpatient MHIE MHIE [id number] Memoria 13:30:00 13:30:00 01 maureen Stewart 2019-12-09 2019-12-10 Outpt Diag nullFlavo [facility] [id number] Memoria 17:20:00 05:59:00 Services r Outpatient 01 maureen Stewart [place] 2019-12-09 2019-12-09 Outpatient AARON PavonP MHOIP [id number] 11:20:00 23:59:00 Elder 01 Nithin 2019-12-05 2019-12-06 Outpatient nullFlavo MNA [id number] Memoria 15:30:00 04:59:59 r Neurology 00 maureen Stewart 2019-12-05 2019-12-05 Outpatient KELLIE PavonSCHER MISCHER [id number] 10:30:00 23:59:59 Elder 00 Nithin 2019-12-05 2019-12-05 Outpatient MHIE MHIE [id number] Memoria 10:30:00 10:30:00 00 maureen Stewart 2018-11-01 2018-11-01 Appointmen EZEKIEL, [facility] Cardiology [id number] [place] 14:00:00 14:00:00 t; Trey RAMON M.D. Medical ans FRANCISCO, Center M.D. 2018-07-18 2018-07-18 Appointaugusto BROWN, [facility] [id number] [place] 11:30:00 11:30:00 t; Tejas HAMM ans RAJA, M.D. 2018-05-03 2018-05-03 Appointaugusto RAMIREZ, [facility] Cardiology [id number] [place] 14:00:00 14:00:00 t; Donavon RAMON M.D. ans FRANCISCO, M.D. 2018-03-16 2018-03-16 [facility] [id number] [place] 10:00:00 10:00:00 t; Tejas HAMM ans RAJA, M.D. 2017-11-16 2017-11-16 [facility] Neu[facility] [id number] [place] 11:30:00 11:30:00 t; Tejas HAMM ans RAJA, M.D. 2017-11-02 2017-11-02 [facility] [id number] [place] 15:40:00 15:40:00 t; Donavon RAMON M.D. ans FRANCISCO, M.D. 2017-10-26 2017-10-26 [facility] [id number] [place] 13:30:00 13:30:00 t; WALESKA NIEVES1 Donavon alan ECHO1 maria e 2017-09-28 2017-09-28 [facility] Cardiology [id number] [place] 15:20:00 15:20:00 t; Donavon RAMON M.D. ans FRANCISCO, M.D. 2017-08-11 2017-08-11 Sondra BROWN, [facility] [id number] [place] 11:00:00 11:00:00 t; Tejas HAMM ans RAJA, M.D. 2017-04-05 2017-04-05 [facility]IE[facility] [id number] [place] 14:30:00 14:30:00 t; Tejas HAMM ans RAJA, M.D. 2017-01-12 2017-01-12 [facility] YOEL, [facility] UTP [id number] [place] 14:00:00 14:00:00 t; Tejas VELARDE ans JOHN, M.D. 2016-12-07 2016-12-07 [facility] STEPHANIE, [facility] UTP [id number] [place] 14:30:00 14:30:00 t; Tejas HAMM ans RAJA, M.D. 2016-11-30 2016-11-30 [facility] STEPHANIE, [facility] UTP [id number] [place] 14:30:00 14:30:00 t; Tejas HAMM ans RAJA, M.D. 2016-08-08 2016-08-08 [facility] STEPHANIE, [facility] UTP [id number] [place] 15:00:00 15:00:00 t; Tejas HAMM ans RAJA, M.D. 2016-07-01 2016-07-02 Outpt Diag nullFlavo [facility] [id number] Memoria 17:10:00 04:59:00 Services r Outpatient 00 l Imaging Terry Stewart 2016-07-01 2016-07-[address] [facility] [id number] 12:10:00 23:59:00 Syd R 00 2016-06-30 2016-06-30 [facility] YOEL, [facility] UTP [id number] [place] 13:00:00 13:00:00 t; Tejas VELARDE ans JOHN, M.D. 2016-06-23 2016-06-23 Appointaugusto MERRITT, [facility] UTP [id number] [place] 13:30:00 13:30:00 t; Tejas VELARDE ans JOHN, M.D. 2016-03-31 2016-03-31 [facility] EZEKIEL [facility] UTP [id number] [place] 14:00:00 14:00:00 t; Donavon RAMON M.D. ans FRANCISCO, M.D. 2016-01-08 2016-01-08 Appointaugusto Harp, UTP UTP [id number] [place] 14:15:00 14:15:00 t; Everton Ghotra i, M.D. ans Philip, M.D. 2015-12-03 2015-12-03 Appointaugusto RAMIREZ, UTP UTP [id number] [place] 15:20:00 15:20:00 t; Donavon RAMON M.D. ans FRANCISCO, M.D. 2015-08-24 2015-08-24 Appointaugusto Harp, UTP UTP [id number] [place] 15:45:00 15:45:00 t; Everton Ghotra i, M.D. ans Philip, M.D. 2015-07-30 2015-07-30 Appointaugusto RAMIREZ, UTP UTP [id number] [place] 13:40:00 13:40:00 t; Donavon RAMON M.D. ans FRANCISCO, M.D. 2015-03-26 2015-03-26 Appointaugusto RAMIREZ, UTP UTP [id number] [place] 14:20:00 14:20:00 t; Donavon RAMON M.D. ans FRANCISCO, M.D. 2015-03-26 2015-03-26 Sondra NIEVES, UTP UTP [id number] [place] 13:00:00 13:00:00 t; BRENNON NIEVES [facility] 2011-11-01 2011-11-01 TH nullFlavo [facility] [id number] Memoria 13:34:00 13:34:00 r Medical 03 [facility] 2011-09-28 2011-09-28 TH nullFlavo [facility] [place] [id number] Memoria 08:00:00 08:00:00 r Medical 02 [facility] 2011-08-29 2011-08-29 TH nullFlavo [facility] [place] [id number] Memoria 08:00:00 08:00:00 r Medical 01 [facility] 2011-07-28 2011-07-28 OR nullFlavo [facility] [place] [id number] Memoria 14:53:00 14:53:00 [facility] 2011-05-07 2011-05-13 Inpatient nullFlavo [facility] [id number] Memoria 14:13:00 12:45:00 [facility] 02 [facility] Results Test Description Test Time Test Comments Results Result Comments Source [PENDING SALE TO [facility]] CBC (INCLUDES DIFF/PLT) 2019-04-01 09:31:01 Test Item Value Reference Range Interpretation Comme nts WBC (test code = 6690-2) 6.3 {K/CMM} 3.7-10.4 RBC; Below Low Threshold (test code = 789-8) 4.17 {M/CMM} 4.70-6.10 Hgb; Below Low Threshold (test code = 718-7) 13.3 g/dl 14.0-18.0 Hct; Below Low Threshold (test code = 75019-7) 39.4 % 42.0-54 .0 MCV; Above High Threshold (test code = 787-2) 94.5 fL 80.0-94. 0 MCH; Above High Threshold (test code = 785-6) 31.8 pg 27.0-31. 0 MCHC (test code = 786-4) 33.6 g/dl 32.0-36.0 RDW (test code = 788-0) 14.3 % 11.5-14.5 Platelet (test code = 34871-0) 225 {K/CMM} 133-450 Mean Platelet Volume (test code = 86074-3) 8.8 fL 7.4-10.4 [facility]] [id number] 09:31:01 Test Item Value Reference Range Interpretation Comments Segmented Neutrophils (test code 65.0 % 45.0-75.0 = 67855-1) Monocytes (test code = 66141-7) 9.7 % 2.0-12.0 Lymphocytes (test code = 26586-9) 21.9 % 20.0-40.0 Eosinophils (test code = 45904-3) 2.8 % 0.0-4.0 Basophils (test code = 706-2) 0.6 % 0.0-1.0 Segs-Bands # (test code = 4.1 {K/CMM} 1.5-8.1 08145-9) Lymphocytes # (test code = 1.4 {K/CMM} 1.0-5.5 03206-0) Monocytes # (test code = 57098-7) 0.6 {K/CMM} 0.0-0.8 Eosinophils # (test code = 0.2 {K/CMM} 0.0-0.5 85828-6) [facility]ENDING S[facility]] CMP [id number] 09:31:01 Test Item Value Reference Range Interpretation Comments Sodium Level 141 {mEq/l} 135-145 (test code = 2951-2) Potassium Level 4.5 {mEq/l} 3.5-5.1 (test code = 2823-3) Chloride Level 109 {mEq/l} 95-109 (test code = 5-0) Carbon Dioxide 27 {mEq/l} 24-32 (test code = 2027-9) AGAP; Below Low 9.5 {mEq/l} 10.0-20.0 Threshold (test code = 11582-4) Glucose Lvl; 59 mg/dl 70-99 Adult reference range Below Low values reflect the Threshold (test clinical mauricio delinesof the code = 2345-7) [place]. Creatinine Lvl; 1.50 mg/dl 0.50-1.40 Above High Threshold (test code = 2160-0) Blood Urea 23 mg/dl 7-22 Nitrogen; Above High Threshold (test code = 3094-0) BUN/Creatinine 15 6-25 Ratio (test code = 3097-3) Total Protein 7.8 g/dl 6.4-8.4 (test code = 2885-2) Albumin Lvl (test 4.2 g/dl 3.5-5.0 code = 1751-7) Globulin (test 3.6 g/dl 2.7-4.2 code = 33272-0) A/G Ratio (test 1.2 0.7-1.6 code = 1759-0) Calcium Level 9.0 mg/dl 8.5-10.5 Total (test code = 02299-5) ALT (test code = 12 u/l 0-65 1743-4) AST (test code = 19 u/l 0-37 72768-4) Alk Phos; Below 38 u/l 39-136 The pediatri c reference Low Threshold ranges for thi s test (test code = represent a 1783-0) CLSI-basedtrans ference of the CALIPER rishi abase of pediatric refer ence intervals to [facility] [place] analyzer (Clinical Biochemistry 46 (2013): 4516-0451). [facility] [employer] [facility] has not internally validated these reference ranges and therefore they should be used only in th e context of a thoroughcl inical assessment. Bili Total (test 0.7 mg/dl 0.2-1.3 code = 1975-2) eGFR (test code = 42 The eGFR i s calculated 17420-6) {ML/MIN/1.7} using the CKD-E PI formula. In [...] be multiplied by t he estimated BMI. [facility][QL] CREATINE KINASE, [id number] 09:31:01 Test Item Value Reference Range Interpretation Comments Creatine Kinase (test code = 2157-6) 166 u/l 12-191 [facility][QL] LIPID [id number] 09:31:01 Test Item Value Reference Range Interpretation Comments Chol (test code = 2093-3) 144 mg/dl <=199 Trig; Above High Threshold (test 163 mg/dl <=149 code = 2571-8) HDL Cholesterol; Below Low 31 mg/dl >=61 Threshold (test code = 2085-9) CHD Risk (test code = 62775-9) 4.65 4.00-7.30 LDL (test code = 63079-4) 80 mg/dl <=99 VLDL (test code = VLDL) 33 [facility][PENDING S[facility]] TSH, 3RD [id number] 09:31:01 Test Item Value Reference Range Interpretation Comments TSH; Above High Threshold 4.950 {uIU/ml} 0.360-3.740 (test code = 29426-8) [facility]ENDING [facility]] CBC (INCLUDES DIFF/PLT)2018-05-02 08:15:01 Test Item Value Reference Range Interpretation Comments WBC (test code = 6690-2) 5.9 {K/CMM} 3.7-10.4 RBC; Below Low Threshold (test 4.09 {M/CMM} 4.70-6.10 code = 789-8) Hgb; Below Low Threshold (test 13.2 g/dl 14.0-18.0 code = 718-7) Hct; Below Low Threshold (test 39.3 % 42.0-54.0 code = 33991-4) MCV; Above High Threshold (test 96.2 fL 80.0-94.0 code = 787-2) MCH; Above High Threshold (test 32.4 pg 27.0-31.0 code = 785-6) MCHC (test code = 786-4) 33.7 g/dl 32.0-36.0 RDW; Above High Threshold (test 14.8 % 11.5-14.5 code = 788-0) Platelet (test code = 29876-6) 219 {K/CMM} 133-450 Mean Platelet Volume (test code 9.1 fL 7.4-10.4 = 98118-2) [facility][PENDING [facility]] [id number] 08:15:01 Test Item Value Reference Range Interpretation Comments Segmented Neutrophils (test code 66.8 % 45.0-75.0 = 35334-3) Monocytes (test code = 70053-2) 9.7 % 2.0-12.0 Lymphocytes; Below Low Threshold 18.3 % 20.0-40.0 (test code = 63230-7) Eosinophils; Above High Threshold 4.4 % 0.0-4.0 (test code = 09975-8) Basophils (test code = 706-2) 0.8 % 0.0-1.0 Segs-Bands # (test code = 4.0 {K/CMM} 1.5-8.1 73277-8) Lymphocytes # (test code = 1.1 {K/CMM} 1.0-5.5 35375-9) Monocytes # (test code = 95967-0) 0.6 {K/CMM} 0.0-0.8 Eosinophils # (test code = 0.3 {K/CMM} 0.0-0.5 60767-2) [facility]END[facility] S[facility] TO [facility]] CMP [id number] 08:15:01 Test Item Value Reference Range Interpretation Comments Sodium Level 139 {mEq/l} 135-145 (test code = 2951-2) Potassium Level 4.2 {mEq/l} 3.5-5.1 (test code = 2823-3) Chloride Level 103 {mEq/l} 95-109 (test code = 2075-0) Carbon Dioxide 27 {mEq/l} 24-32 (test code = 2027-9) AGAP (test code = 13.2 {mEq/l} 10.0-20.0 97432-7) Glucose Lvl; 145 mg/dl 70-99 Adult reference range Above High values reflect the Threshold (test clinical mauricio delinesof the code = 2345-7) [employer]. Creatinine Lvl 1.40 mg/dl 0.50-1.40 (test code = 2160-0) Blood Urea 24 mg/dl 7-22 Nitrogen; Above High Threshold (test code = 3094-0) BUN/Creatinine 17 6-25 Ratio (test code = 3097-3) Total Protein 7.7 g/dl 6.4-8.4 (test code = 2885-2) Albumin Lvl (test 4.4 g/dl 3.5-5.0 code = 1751-7) Globulin (test 3.3 g/dl 2.7-4.2 code = 66405-0) A/G Ratio (test 1.3 0.7-1.6 code = 1759-0) Calcium Level 8.8 mg/dl 8.5-10.5 Total (test code = 09694-5) ALT (test code = 16 u/l 0-65 7803-4) AST (test code = 14 u/l 0-37 10285-5) Bili Total (test 0.4 mg/dl 0.2-1.3 code = 1975-2) Alk Phos (test 41 u/l 39-136 code = 1783-0) eGFR (test code = 45 The eGFR i s calculated 30697-2) {ML/MIN/1.7} using the CKD-E PI formula. In [...] be multiplied by t he estimated BMI. [facility][QL] CREATINE KINASE, [id number] 08:15:01 Test Item Value Reference Range Interpretation Comments Creatine Kinase; Above High Threshold 203 u/l 12-191 (test code = 2157-6) [facility]ENDING S[facility]] LIPID [id number] 08:15:01 Test Item Value Reference Range Interpretation Comments Chol (test code = 2093-3) 165 mg/dl <=199 Trig (test code = 2571-8) 119 mg/dl <=149 HDL Cholesterol; Below Low 38 mg/dl >=61 Threshold (test code = 2085-9) CHD Risk (test code = 24850-6) 4.34 4.00-7.30 LDL; Above High Threshold (test 103 mg/dl <=99 code = 24983-8) VLDL (test code = VLDL) 24 [facility][QL] TSH, 3RD [id number] 08:15:01 Test Item Value Reference Range Interpretation Comments TSH; Above High Threshold 25.000 {uIU/ml} 0.360-3.740 (test code = 39877-4) [facility]END[facility]] LIPOPROTEIN (a)2018-05-02 08:15:01 Test Item Value Reference [...] Lp(a ) across ethnicities.Per formed At: [facility] [id number] [place], [place] [id number] ra Tamara SIMS Ph:[phone] [facility]ENDING [facility]] CMP [id number] 10:32:01 Test Item Value Reference Range Interpretation Comments Sodium Level 139 {mEq/l} 135-145 (test code = 2951-2) Potassium Level 4.3 {mEq/l} 3.5-5.1 (test code = 2823-3) Chloride Level 106 {mEq/l} 95-109 (test code = 2075-0) Carbon Dioxide; 22 {mEq/l} 24-32 Below Low Threshold (test code = 2027-9) AGAP (test code = 15.3 {mEq/l} 10.0-20.0 19855-3) Glucose Lvl; 108 mg/dl 70-99 Adult reference range Above High values reflect the Threshold (test clinical mauricio delinesof the code = 2345-7) [employer]. Creatinine Lvl; 1.60 mg/dl 0.50-1.40 Above High Threshold (test code = 2160-0) Blood Urea 29 mg/dl 7-22 Nitrogen; Above High Threshold (test code = 3094-0) BUN/Creatinine 18 6-25 Ratio (test code = 3097-3) Total Protein 7.7 g/dl 6.4-8.4 (test code = 2885-2) Albumin Lvl (test 4.3 g/dl 3.5-5.0 code = 1751-7) Globulin (test 3.4 g/dl 2.7-4.2 code = 88515-1) A/G Ratio (test 1.3 0.7-1.6 code = 1759-0) Calcium Level 9.1 mg/dl 8.5-10.5 Total (test code = 79504-1) ALT (test code = 22 u/l 0-65 1743-4) AST (test code = 14 u/l 0-37 40939-1) Alk Phos; Below 34 u/l 39-136 Low Threshold (test code = 1783-0) Bili Total (test 0.5 mg/dl 0.2-1.3 code = 1974-) eGFR (test code = 39 The eGFR i s calculated 18301-9) {ML/MIN/1.7} using the CKD-E PI formula. In [...] be multiplied by t he estimated BMI. [facility]ENDING [facility]] TSH, 3RD GENERATION W/REFLEX TO [id number] 10:32:01 Test Item Value Reference Range Interpretation Comments TSH; Above High Threshold 11.300 {uIU/ml} 0.360-3.740 (test code = 77718-8) [facility]END[facility]] CBC (INCLUDES DIFF/PLT)2017-10-26 10:32:01 Test Item Value Reference Range Interpretation Comments WBC (test code = 6690-2) 5.6 {K/CMM} 3.7-10.4 RBC; Below Low Threshold (test 4.30 {M/CMM} 4.70-6.10 code = 789-8) Hgb; Below Low Threshold (test 13.5 g/dl 14.0-18.0 code = 718-7) Hct; Below Low Threshold (test 39.6 % 42.0-54.0 code = 99052-9) MCV (test code = 787-2) 92.2 fL 80.0-94.0 MCH; Above High Threshold (test 31.3 pg 27.0-31.0 code = 785-6) MCHC (test code = 786-4) 34.0 g/dl 32.0-36.0 RDW; Above High Threshold (test 15.2 % 11.5-14.5 code = 788-0) Platelet (test code = 82719-2) 243 {K/CMM} 133-450 Mean Platelet Volume (test code 9.1 fL 7.4-10.4 = 08888-2) [facility][PENDING S[facility]] [id number] 10:32:01 Test Item Value Reference Range Interpretation Comments Segmented Neutrophils (test code 61.6 % 45.0-75.0 = 76433-8) Monocytes (test code = 01292-6) 9.9 % 2.0-12.0 Lymphocytes (test code = 60629-0) 24.5 % 20.0-40.0 Eosinophils (test code = 98649-5) 3.5 % 0.0-4.0 Basophils (test code = 706-2) 0.5 % 0.0-1.0 Segs-Bands # (test code = 3.5 {K/CMM} 1.5-8.1 88085-9) Lymphocytes # (test code = 1.4 {K/CMM} 1.0-5.5 35759-5) Monocytes # (test code = 06241-2) 0.6 {K/CMM} 0.0-0.8 Eosinophils # (test code = 0.2 {K/CMM} 0.0-0.5 96540-5) [facility]ENDING [facility]] T4, [id number] 10:32:01 Test Item Value Reference Range Interpretation Comments T4 Free; Below Low Threshold (test 0.63 ng/dl 0.76-1.46 code = 3024-7) [facility]ENDING [facility]] B TYPE NATRIURETIC PEPTIDE (BNP)2017-10-26 10:32:01 Test Item Value Reference Range Interpretation Comments Natriuretic Peptide; 184 pg/ml <=100 Elevate d results are Above High Threshold in line with (test code = 21421-0) increa sing severity ofcongestive he art failure. Minor elevations betw een 100 and 300may be s een with Myocardial Ischemia, Sodiu m retaining drugs ,and compensated/maria de jesus ated heart failure. [facility][PENDING [facility]] CBC (INCLUDES DIFF/PLT)2017-09-19 10:06:01 Test Item Value Reference Range Interpretation Comments WBC (test code = 6690-2) 6.5 {K/CMM} 3.7-10.4 RBC; Below Low Threshold (test 4.28 {M/CMM} 4.70-6.10 code = 789-8) Hgb; Below Low Threshold (test 13.3 g/dl 14.0-18.0 code = 718-7) Hct; Below Low Threshold (test 39.6 % 42.0-54.0 code = 85078-2) MCV (test code = 787-2) 92.5 fL 80.0-94.0 MCH; Above High Threshold (test 31.1 pg 27.0-31.0 code = 785-6) MCHC (test code = 786-4) 33.6 g/dl 32.0-36.0 RDW; Above High Threshold (test 15.4 % 11.5-14.5 code = 788-0) Platelet (test code = 44692-2) 273 {K/CMM} 133-450 Mean Platelet Volume (test code 8.8 fL 7.4-10.4 = 61957-0) [facility]ENDING [facility]] Gjieqlhghyhn1766-87-15 10:06:01 Test Item Value Reference Range Interpretation Comments Segmented Neutrophils (test code 60.9 % 45.0-75.0 = 87901-6) Monocytes (test code = 78316-7) 8.9 % 2.0-12.0 Lymphocytes (test code = 50292-6) 27.4 % 20.0-40.0 Eosinophils (test code = 89912-3) 2.4 % 0.0-4.0 Basophils (test code = 706-2) 0.4 % 0.0-1.0 Segs-Bands # (test code = 4.0 {K/CMM} 1.5-8.1 43477-5) Lymphocytes # (test code = 1.8 {K/CMM} 1.0-5.5 65275-3) Monocytes # (test code = 89383-6) 0.6 {K/CMM} 0.0-0.8 Eosinophils # (test code = 0.2 {K/CMM} 0.0-0.5 94083-1) [facility][PENDING [facility]] CMP [id number] 10:06:01 Test Item Value Reference Range Interpretation Comments Sodium Level 139 {mEq/l} 135-145 (test code = 2951-2) Potassium Level 4.5 {mEq/l} 3.5-5.1 (test code = 2823-3) Chloride Level 107 {mEq/l} 95-109 (test code = 2075-0) Carbon Dioxide 25 {mEq/l} 24-32 (test code = 8-9) AGAP (test code = 11.5 {mEq/l} 10.0-20.0 75928-2) Glucose Lvl; 107 mg/dl 70-99 Adult reference range Above High values reflect the Threshold (test clinical mauricio delinesof the code = 2345-7) [employer]. Creatinine Lvl; 1.80 mg/dl 0.50-1.40 Above High Threshold (test code = 2160-0) Blood Urea 26 mg/dl 7-22 Nitrogen; Above High Threshold (test code = 3094-0) BUN/Creatinine 14 6-25 Ratio (test code = 3097-3) Total Protein 8.1 g/dl 6.4-8.4 (test code = 2885-2) Albumin Lvl (test 4.3 g/dl 3.5-5.0 code = 1751-7) Globulin (test 3.8 g/dl 2.7-4.2 code = 88036-3) A/G Ratio (test 1.1 0.7-1.6 code = 1759-0) Calcium Level 9.3 mg/dl 8.5-10.5 Total (test code = 45497-2) ALT (test code = 20 u/l 0-65 1743-4) AST (test code = 17 u/l 0-37 71224-5) Alk Phos (test 40 u/l 39-136 code = 1783-0) Bili Total (test 0.6 mg/dl 0.2-1.3 code = 1975-2) eGFR (test code = 34 The eGFR i s calculated 43209-7) {ML/MIN/1.7} using the CKD-E PI formula. In [...] be multiplied by t he estimated BMI. [facility][PENDING S[facility]] CREATINE KINASE, [id number] 10:06:01 Test Item Value Reference Range Interpretation Comments Creatine Kinase; Above High Threshold 253 u/l 12-191 (test code = 2157-6) [facility][PENDING S[facility]] LIPID [id number] 10:06:01 Test Item Value Reference Range Interpretation Comments Chol (test code = 2093-3) 170 mg/dl <=199 Trig (test code = 2571-8) 148 mg/dl <=149 HDL Cholesterol; Below Low 38 mg/dl >=61 Threshold (test code = 2085-9) CHD Risk (test code = 59818-8) 4.47 4.00-7.30 LDL; Above High Threshold (test 102 mg/dl <=99 code = 73634-9) VLDL (test code = VLDL) 30 [facility][PENDING [facility]] TSH, 3RD [id number] 10:06:01 Test Item Value Reference Range Interpretation Comments TSH; Above High Threshold 7.270 {uIU/ml} 0.360-3.740 (test code = 52885-2) [facility] [id number] 11:05:00 Test Item Value Reference Range Interpretation Comments Gluc POC Lifscn (test code = Gluc POC 140 70-99 H Lifscn) [facility] GLUCOSE [id number] 11:05:00 Test Item Value Reference Range Interpretation Comments Comment1 (test code = Comment1) Notify RN[facility]ZnufysgCFCTMUYTQ9127-11-88 10:00:00 Test Item Value Reference Range Interpretation Comments Magnesium Lvl (test code = Magnesium 2.1 1.8-2.4 N Lvl) [facility] HospitalImjvxyxHWIGPWCTL8926-20-13 10:00:00 Test Item Value Reference Range Interpretation Comments AGAP (test code = AGAP) 15.1 10.0-20.0 N [facility] HospitalFefctntMEAKUGJLA7920-85-35 10:00:00 Test Item Value Reference Range Interpretation Comments Calcium Lvl (test code = Calcium Lvl) 7.9 8.5-10.5 L [facility] HospitalIzjxgkvHEXQATDDM4114-25-27 10:00:00 Test Item Value Reference Range Interpretation Comments Chloride Lvl (test code = Chloride Lvl) 105 95-109 N [facility] HospitalPbpvnlxLSGMSSBES0379-00-66 10:00:00 Test Item Value Reference Range Interpretation Comments CO2 (test code = CO2) 21 24-32 L [facility] HospitalJswvxqgPWDQXACCN3107-39-10 10:00:00 Test Item Value Reference Range Interpretation Comments Creatinine Lvl (test code = Creatinine 1.1 0.5-1.4 N Lvl) [facility] HospitalOleykpmXMQYUSRLE2572-83-01 10:00:00 Test Item Value Reference Range Interpretation Comments BUN (test code = BUN) 11 7-22 N [facility] HospitalApptvzxVOFOOFEJW5955-07-32 10:00:00 Test Item Value Reference Range Interpretation Comments Glucose Lvl (test code = Glucose Lvl) 102 70-99 H [facility] HospitalDhtumuqIECJEZPBY8380-13-07 10:00:00 Test Item Value Reference Range Interpretation Comments Potassium Lvl (test code = Potassium 4.1 3.5-5.1 N Lvl) [facility] HospitalUzwdgdcZWQPHZSNS8535-35-55 10:00:00 Test Item Value Reference Range Interpretation Comments Sodium Lvl (test code = Sodium Lvl) 137 135-145 [facility]vgJDDFLBKJWZ9426-48-96 10:00:00 Test Item Value Reference Range Interpretation Comments RDW (test code = RDW) 15.8 11.5-14.5 [facility]QqgwuulHYTQNBMKCK9208-83-13 10:00:00 Test Item Value Reference Range Interpretation Comments MPV (test code = MPV) 7.3 7.4-10.4 L [facility] HospitalEhemzwoCJGPGUKBYB5334-45-44 10:00:00 Test Item Value Reference Range Interpretation Comments Platelet (test code = Platelet) 321 133-450 N [facility] HospitalXxmnqigZWFXFNKGCU1291-41-55 10:00:00 Test Item Value Reference Range Interpretation Comments Hgb (test code = Hgb) 9.3 14.0-18.0 L [facility] HospitalJzrgdaeTOPYPTEFRX4819-34-81 10:00:00 Test Item Value Reference Range Interpretation Comments Hct (test code = Hct) 27.6 42.0-54.0 L [facility] HospitalTtgfxmhKBCMKRXYDJ4490-05-28 10:00:00 Test Item Value Reference Range Interpretation Comments RBC (test code = RBC) 3.19 4.70-6.10 L [facility] HospitalEleeybtEMPSNFZUGT4411-62-85 10:00:00 Test Item Value Reference Range Interpretation Comments MCV (test code = MCV) 86.6 80.0-94.0 N [facility] HospitalYtwzkmjLHVPBMTYNS4316-95-15 10:00:00 Test Item Value Reference Range Interpretation Comments MCHC (test code = MCHC) 33.6 32.0-36.0 N [facility] HospitalXonwpigUVLQTTIXEJ1232-91-79 10:00:00 Test Item Value Reference Range Interpretation Comments MCH (test code = MCH) 29.1 pg 27.0-31.0 N [facility] HospitalZbikoqdMGDWUJOCVQ2634-57-59 10:00:00 Test Item Value Reference Range Interpretation Comments WBC (test code = WBC) 4.8 3.7-10.4 N [facility] HospitalKpruztpNMYGFOTCNV8039-77-95 10:00:00 Test Item Value Reference Range Interpretation Comments PTT (test code = PTT) 37.3 s 22.9-35.8 H [facility] HospitalThgwovcIUXAXDCHBF7877-35-28 10:00:00 Test Item Value Reference Range Interpretation Comments PT (test code = PT) 15.1 s 12.0-14.7 H [facility] HospitalNzokgnoEHFQBUMCSK0066-95-06 10:00:00 Test Item Value Reference Range Interpretation Comments INR (test code = INR) 1.19 0.85-1.17 H [facility] GLUCOSE ZNSMDFW3431-79-60 03:20:00 Test Item Value Reference Range Interpretation Comments Comment1 (test code = Comment1) Notify RN/ [facility] GLUCOSE BEASYCP8349-85-59 03:20:00 Test Item Value Reference Range Interpretation Comments Gluc POC Lifscn (test code = Gluc POC 176 70-99 H Lifscn) [facility] GLUCOSE ADCTCKZ9461-50-12 22:41:00 Test Item Value Reference Range Interpretation Comments Comment1 (test code = Comment1) Notify RN/ [facility] GLUCOSE HGQLXKX3900-21-82 22:41:00 Test Item Value Reference Range Interpretation Comments Gluc POC Lifscn (test code = Gluc POC 179 70-99 H Lifscn) [facility]2012-04-05 20:14:00 Test Item Value Reference Range Interpretation Comments pH BF Type (test code Pleural (05/12/2011 N = pH BF Type) 15:14:00) [facility]2012-04-05 20:14:00 Test Item Value Reference Range Interpretation Comments pH BF (test code = pH BF) 8.34 [facility]2012-04-05 20:14:00 Test Item Value Reference Range Interpretation Comments Prot BF Type (test Pleural *NA*(05/12/2011 code = Prot BF Type) 15:14:00) [facility]2012-04-05 20:14:00 Test Item Value Reference Range Interpretation Comments Protein BF (test code = Protein BF) 4.3 [facility]2012-04-05 20:14:00 Test Item Value Reference Range Interpretation Comments LDH BF Type (test Pleural (05/12/2011 N code = LDH BF Type) 15:14:00) [facility]2012-04-05 20:14:00 Test Item Value Reference Range Interpretation Comments LDH BF (test code = LDH BF) 618 [facility]2012-04-05 20:14:00 Test Item Value Reference Range Interpretation Comments Meso BF (test code = xxxxxxx (05/12/2011 N Meso BF) 15:14:00) [facility]2012-04-05 20:14:00 Test Item Value Reference Range Interpretation Comments CellCnt BF Type (test Pleural (05/12/2011 N code = CellCnt BF Type) 15:14:00) [facility]2012-04-05 20:14:00 Test Item Value Reference Range Interpretation Comments Supernat BF (test code = Yellow A Supernat BF) *ABN*(05/12/2011 15:14:00) [facility]2012-04-05 20:14:00 Test Item Value Reference Range Interpretation Comments Color BF (test code = Yellow (05/12/2011 N Color BF) 15:14:00) [facility]2012-04-05 20:14:00 Test Item Value Reference Range Interpretation Comments Clarity BF (test code = Clear (05/12/2011 N Clarity BF) 15:14:00) [facility]2012-04-05 20:14:00 Test Item Value Reference Range Interpretation Comments Macrophage BF (test code = Macrophage 6 BF) [facility]2012-04-05 20:14:00 Test Item Value Reference Range Interpretation Comments Lymph BF (test code = Lymph BF) 42 [facility]2012-04-05 20:14:00 Test Item Value Reference Range Interpretation Comments RBC BF (test code = RBC BF) 1050 [facility]2012-04-05 20:14:00 Test Item Value Reference Range Interpretation Comments Segs BF (test code = Segs BF) 52 [facility]2012-04-05 20:14:00 Test Item Value Reference Range Interpretation Comments WBC BF (test code = WBC BF) 21 [facility] HospitalLehynunYthiaoowhawb0699-17-78 17:00:00 Test Item Value Reference Range Interpretation Comments Culture: Aspirate/Body Fluid/Tissue (test code = Culture: Aspirate/Body Fluid/Tissue) [facility] HospitalSmualkbZOBOAAMUP1409-95-98 09:20:00 Test Item Value Reference Range Interpretation Comments Glucose Lvl (test code = Glucose Lvl) 97 70-99 N [facility]JidppimNZDOQEPTJ4251-92-98 09:20:00 Test Item Value Reference Range Interpretation Comments Calcium Lvl (test code = Calcium Lvl) 7.5 8.5-10.5 L [facility] HospitalFvxmvsbIQJIAMPSJ0631-30-55 09:20:00 Test Item Value Reference Range Interpretation Comments CO2 (test code = CO2) 19 24-32 L [facility] HospitalScsdgvhJNNRISTHB1621-09-48 09:20:00 Test Item Value Reference Range Interpretation Comments Chloride Lvl (test code = Chloride Lvl) 106 95-109 N [facility] HospitalDjosxktPOKMOLUBZ6865-02-46 09:20:00 Test Item Value Reference Range Interpretation Comments Potassium Lvl (test code = Potassium 4.3 3.5-5.1 N Lvl) [facility] HospitalUrltmbkPYAQUOQSW8649-95-08 09:20:00 Test Item Value Reference Range Interpretation Comments Sodium Lvl (test code = Sodium Lvl) 139 135-145 N [facility] HospitalLlgapwtCWMJYKHNE8999-14-38 09:20:00 Test Item Value Reference Range Interpretation Comments Creatinine Lvl (test code = Creatinine 0.9 0.5-1.4 N Lvl) [facility] HospitalShyymjsFFNFKGJYA5511-85-68 09:20:00 Test Item Value Reference Range Interpretation Comments BUN (test code = BUN) 14 7-22 N [facility] HospitalYqhrotdKHRPCFLJN0110-72-01 09:20:00 Test Item Value Reference Range Interpretation Comments AGAP (test code = AGAP) 18.3 10.0-20.0 N [facility] HospitalAblcqzhRWGNQHPBI6526-30-18 09:20:00 Test Item Value Reference Range Interpretation Comments LDH (test code = LDH) 153 98-192 N [facility] HospitalMdccjrcOTYCZCMOS2111-45-80 09:20:00 Test Item Value Reference Range Interpretation Comments Total Protein (test code = Total 6.3 6.4-8.4 L Protein) [facility]RffnfcdQPUBATBMHK8640-63-43 09:20:00 Test Item Value Reference Range Interpretation Comments Basophils # (test code = Basophils #) 0.0 <=0.2 N [facility] HospitalWmoodtrQVTKHLJZPK7963-60-37 09:20:00 Test Item Value Reference Range Interpretation Comments Eosinophils # (test code = Eosinophils 0.1 <=0.5 N #) [facility] HospitalOwxfxnwYBEHSSHSKS4644-81-08 09:20:00 Test Item Value Reference Range Interpretation Comments Monocytes # (test code = Monocytes #) 0.5 <=0.8 N [facility] HospitalSujdilaJMZFNZTENH2053-51-56 09:20:00 Test Item Value Reference Range Interpretation Comments Segs (test code = Segs) 71.0 45.0-75.0 N [facility] HospitalDllzgbpRMDAQLFXIC4320-96-48 09:20:00 Test Item Value Reference Range Interpretation Comments Lymphocytes (test code = Lymphocytes) 17.7 20.0-40.0 L [facility] HospitalFyevhlaMTITVVYOZP6938-19-83 09:20:00 Test Item Value Reference Range Interpretation Comments Basophils (test code = Basophils) 0.5 <=1.0 N [facility] HospitalXwbmfdmKLRPJWARJZ3158-50-87 09:20:00 Test Item Value Reference Range Interpretation Comments Eosinophils (test code = Eosinophils) 1.6 <=4.0 N [facility] HospitalAwfdzoqIHLGXPEFUH0385-61-57 09:20:00 Test Item Value Reference Range Interpretation Comments Monocytes (test code = Monocytes) 9.2 2.0-12.0 N [facility] HospitalOxofyjaFCVMCYYYWQ3619-15-06 09:20:00 Test Item Value Reference Range Interpretation Comments Lymphocytes # (test code = Lymphocytes 0.9 1.0-5.5 L #) [facility] HospitalZuakdbfNXJDOSMCAV5745-27-36 09:20:00 Test Item Value Reference Range Interpretation Comments Segs-Bands # (test code = Segs-Bands #) 3.8 1.5-8.1 N [facility] HospitalSldivglRMFUOCPVXM2961-50-48 09:20:00 Test Item Value Reference Range Interpretation Comments MCV (test code = MCV) 86.1 80.0-94.0 N [facility] HospitalXbiynsyRXEPIABDBN6748-19-94 09:20:00 Test Item Value Reference Range Interpretation Comments MCHC (test code = MCHC) 33.5 32.0-36.0 N [facility] HospitalGkfebegKCXXZPTSTI8640-57-60 09:20:00 Test Item Value Reference Range Interpretation Comments MCH (test code = MCH) 28.8 pg 27.0-31.0 N [facility] HospitalGdeowqrUFEENDWCDY7164-29-98 09:20:00 Test Item Value Reference Range Interpretation Comments Platelet (test code = Platelet) 354 133-450 N [facility] HospitalVtqswvzMPPKTFMFJD5755-29-41 09:20:00 Test Item Value Reference Range Interpretation Comments RDW (test code = RDW) 16.1 11.5-14.5 H [facility] HospitalClocqmpVHHTUQAASX2010-86-24 09:20:00 Test Item Value Reference Range Interpretation Comments MPV (test code = MPV) 7.5 7.4-10.4 N [facility] HospitalMmolzxqKCCLXIRLIV2098-31-31 09:20:00 Test Item Value Reference Range Interpretation Comments Hct (test code = Hct) 27.5 42.0-54.0 L [facility] HospitalWwzpmlsEZERQWTPHK1268-27-26 09:20:00 Test Item Value Reference Range Interpretation Comments WBC (test code = WBC) 5.3 3.7-10.4 N [facility] HospitalIjlsyzuLDZLTZIMXW8566-31-01 09:20:00 Test Item Value Reference Range Interpretation Comments Hgb (test code = Hgb) 9.2 14.0-18.0 L [facility] HospitalHksddidEWPSUCWSYP3737-35-67 09:20:00 Test Item Value Reference Range Interpretation Comments RBC (test code = RBC) 3.19 4.70-6.10 L [facility] HospitalIwxkpvsBKCNRDMMMS2294-40-27 08:57:00 Test Item Value Reference Range Interpretation Comments PTT (test code = PTT) 31.2 s 22.9-35.8 N [facility] HospitalCdctfhmHGYSFYRYGH2365-70-98 08:57:00 Test Item Value Reference Range Interpretation Comments PT (test code = PT) 15.6 s 12.0-14.7 [facility] H[id number] 08:57:00 Test Item Value Reference Range Interpretation Comments INR (test code = INR) 1.24 0.85-1.17 [facility]BrrtociWBEPDECFD2732-65-11 07:31:00 Test Item Value Reference Range Interpretation Comments Phosphorus (test code = Phosphorus) 3.5 2.5-4.5 N [facility] HospitalZxfdgawLXRRPVFID9849-95-75 07:31:00 Test Item Value Reference Range Interpretation Comments Magnesium Lvl (test code = Magnesium 2.2 1.8-2.4 N Lvl) [facility] [id number] 07:31:00 Test Item Value Reference Range Interpretation Comments Chloride Lvl (test code = Chloride Lvl) 103 95-109 N [facility] HospitalSbpvojeIQBMCLLCQ1608-35-99 07:31:00 Test Item Value Reference Range Interpretation Comments Potassium Lvl (test code = Potassium 5.0 3.5-5.1 N Lvl) [facility]MppatgvKDTUVNQVV9352-37-48 07:31:00 Test Item Value Reference Range Interpretation Comments Calcium Lvl (test code = Calcium Lvl) 8.2 8.5-10.5 L [facility] HospitalFdhnozlWZALPKDFY1607-95-27 07:31:00 Test Item Value Reference Range Interpretation Comments CO2 (test code = CO2) 19 24-32 L [facility] HospitalPcyskdiKSMUYYDBE6981-09-99 07:31:00 Test Item Value Reference Range Interpretation Comments BUN (test code = BUN) 13 7-22 N [facility] HospitalEwskozbMAJDAEENH1247-45-86 07:31:00 Test Item Value Reference Range Interpretation Comments Glucose Lvl (test code = Glucose Lvl) 92 70-99 N [facility] HospitalIeqcnluOMUXVZKYX2304-40-48 07:31:00 Test Item Value Reference Range Interpretation Comments Creatinine Lvl (test code = Creatinine 0.8 0.5-1.4 N Lvl) [facility] HospitalHtncxrbJLGKTBFNQ6698-68-25 07:31:00 Test Item Value Reference Range Interpretation Comments Sodium Lvl (test code = Sodium Lvl) 138 135-145 N [facility] HospitalPprrlsdULNVUEYCP0324-25-78 07:31:00 Test Item Value Reference Range Interpretation Comments AGAP (test code = AGAP) 21.0 10.0-20.0 H [facility]OjqhuyhKHJQDVHBNS9872-32-48 07:31:00 Test Item Value Reference Range Interpretation Comments Basophils # (test code = Basophils #) 0.0 <=0.2 N [facility] HospitalTxionnwSNRWSHHEOI8541-66-98 07:31:00 Test Item Value Reference Range Interpretation Comments Monocytes # (test code = Monocytes #) 0.5 <=0.8 N [facility] HospitalKlulsliUEIUYUXLZY1396-16-28 07:31:00 Test Item Value Reference Range Interpretation Comments Eosinophils # (test code = Eosinophils 0.2 <=0.5 N #) [facility] HospitalUyumqzoKJQIRMJVIF3175-07-27 07:31:00 Test Item Value Reference Range Interpretation Comments Lymphocytes # (test code = Lymphocytes 1.5 1.0-5.5 N #) [facility] HospitalEtiidghMAHLULOXQA5659-76-44 07:31:00 Test Item Value Reference Range Interpretation Comments Segs-Bands # (test code = Segs-Bands #) 4.3 1.5-8.1 N [facility] HospitalEofrhygYLAIFKAJMV6728-43-30 07:31:00 Test Item Value Reference Range Interpretation Comments Eosinophils (test code = Eosinophils) 2.5 <=4.0 N [facility] HospitalQublghnJJMUJAGNAH7175-53-20 07:31:00 Test Item Value Reference Range Interpretation Comments Basophils (test code = Basophils) 0.5 <=1.0 N [facility] HospitalNehxmhoAURFDVTKJL1021-08-41 07:31:00 Test Item Value Reference Range Interpretation Comments Lymphocytes (test code = Lymphocytes) 22.8 20.0-40.0 N [facility] HospitalLpwkbowVLCFGOXKSV2492-41-83 07:31:00 Test Item Value Reference Range Interpretation Comments Monocytes (test code = Monocytes) 8.1 2.0-12.0 N [facility] HospitalQovmfzpATTAWAKIEL3985-00-14 07:31:00 Test Item Value Reference Range Interpretation Comments Segs (test code = Segs) 66.1 45.0-75.0 N [facility] HospitalIliddzeLTNKWVRXTI6335-82-24 07:31:00 Test Item Value Reference Range Interpretation Comments MCH (test code = MCH) 29.2 pg 27.0-31.0 N [facility] HospitalUgkigygZJPCECTQBI6106-45-85 07:31:00 Test Item Value Reference Range Interpretation Comments MPV (test code = MPV) 7.9 7.4-10.4 N [facility] HospitalXvtimnzNNYGPDDLXM9461-59-48 07:31:00 Test Item Value Reference Range Interpretation Comments MCHC (test code = MCHC) 33.3 32.0-36.0 N [facility] HospitalJlbclnfRKZANKSZHZ7726-72-02 07:31:00 Test Item Value Reference Range Interpretation Comments RDW (test code = RDW) 16.1 11.5-14.5 H [facility] HospitalGzjswkyRZFBDCBTHL7893-77-60 07:31:00 Test Item Value Reference Range Interpretation Comments Platelet (test code = Platelet) 439 133-450 N [facility] HospitalAssceriSLYAYXDPIZ7776-23-15 07:31:00 Test Item Value Reference Range Interpretation Comments Hct (test code = Hct) 31.9 42.0-54.0 L [facility] HospitalSkjrjofEGOTASNDNX9100-62-53 07:31:00 Test Item Value Reference Range Interpretation Comments MCV (test code = MCV) 87.6 80.0-94.0 N [facility] HospitalTtidmmiMRLLKPNRSX8043-29-81 07:31:00 Test Item Value Reference Range Interpretation Comments WBC (test code = WBC) 6.6 3.7-10.4 N [facility] HospitalTcocutxSDCBDCRPZV7267-36-69 07:31:00 Test Item Value Reference Range Interpretation Comments RBC (test code = RBC) 3.65 4.70-6.10 L [facility] HospitalXsymhojWBJMNOXRYN3948-10-62 07:31:00 Test Item Value Reference Range Interpretation Comments Hgb (test code = Hgb) 10.6 14.0-18.0 L [facility] ECWLNER4427-67-08 07:00:00 Test Item Value Reference Range Interpretation Comments ABO/Rh (test code = ABO/Rh) A POS [facility] SystemBe[facility] [employer] BOKSXAY2938-67-09 07:00:00 Test Item Value Reference Range Interpretation Comments Antibody Scrn (test Positive (05/11/2011 N code = Antibody Scrn) 02:00:00) [facility] VXSKEPJ3940-84-99 21:57:00 Test Item Value Reference Range Interpretation Comments Platelet product (test Product available N code = Platelet (05/10/2011 16:57:00) product) [facility] RBJUFTM4868-15-06 21:57:00 Test Item Value Reference Range Interpretation Comments RBC product (test code Product available N = RBC product) (05/10/2011 16:57:00) [facility] HospitalHrcxdzjQDFFFQCUVG0699-16-90 21:16:00 Test Item Value Reference Range Interpretation Comments UA Urobilinogen (test code *NA*(05/10/2011 0.1-1.0 = UA Urobilinogen) 16:16:00) [facility] HospitalJmnjipiUWOINRFIHO1013-68-65 21:16:00 Test Item Value Reference Range Interpretation Comments UA Sq Epi (test code = UA Sq Epi) None Seen [facility] HospitalSmxcctjEVMITLXTGI2017-83-88 21:16:00 Test Item Value Reference Range Interpretation Comments UA Turbidity (test code = Clear (05/10/2011 N UA Turbidity) 16:16:00) [facility] HospitalQjyegmdGDOCKQZHIR1238-07-77 21:16:00 Test Item Value Reference Range Interpretation Comments UA Bacteria (test code Occasional /HPF = UA Bacteria) *NA*(05/10/2011 16:16:00) [facility] HospitalJfqaxgeIJJPRSJQEJ2981-83-26 21:16:00 Test Item Value Reference Range Interpretation Comments UA RBC (test code = UA RBC) no gt <=2 N [facility]XhbihckNTKWTXUCQT8446-08-43 21:16:00 Test Item Value Reference Range Interpretation Comments UA WBC (test code = UA WBC) 1 <=5 N [facility] HospitalOxngvtrDTWHVFAYEZ5847-80-53 21:16:00 Test Item Value Reference Range Interpretation Comments UA Bili (test code = Negative *NA*(05/10/2011 UA Bili) 16:16:00) [facility] HospitalIpjbgkzLEDVRYNBCS8060-84-10 21:16:00 Test Item Value Reference Range Interpretation Comments UA Ketones (test code Negative mg/dL = UA Ketones) *NA*(05/10/2011 16:16:00) [facility] HospitalVkqtbpcDWIQEECDVL5200-03-97 21:16:00 Test Item Value Reference Range Interpretation Comments UA Nitrite (test code Negative (05/10/2011 N = UA Nitrite) 16:16:00) [facility] HospitalFeujejuESJLHKVHGT0975-98-48 21:16:00 Test Item Value Reference Range Interpretation Comments UA Blood (test code = Negative (05/10/2011 N UA Blood) 16:16:00) [facility] HospitalZlclwlnKEBUTPLIDG3878-83-18 21:16:00 Test Item Value Reference Range Interpretation Comments UA Color (test code = Yellow *NA*(05/10/2011 UA Color) 16:16:00) [facility] HospitalUlwwqjoHXCEJPFLUV6715-95-38 21:16:00 Test Item Value Reference Range Interpretation Comments UA Glucose (test code Negative mg/dL = UA Glucose) *NA*(05/10/2011 16:16:00) [facility] HospitalFfommkbEVXHWAFUVX2671-22-60 21:16:00 Test Item Value Reference Range Interpretation Comments UA Mucus (test code = Few /LPF UA Mucus) *NA*(05/10/2011 16:16:00) [facility] HospitalEeubzpsMZYXPJSOKK9221-04-77 21:16:00 Test Item Value Reference Range Interpretation Comments UA Leuk Est (test Negative (05/10/2011 N code = UA Leuk Est) 16:16:00) [facility] HospitalFhspbbpVFOMQDPETB4547-87-55 21:16:00 Test Item Value Reference Range Interpretation Comments UA pH (test code = UA pH) 6.5 5.0-8.0 N [facility] HospitalDnpnibfMRFCSPFGRO2407-49-75 21:16:00 Test Item Value Reference Range Interpretation Comments UA Spec Grav (test code = UA Spec Grav) 1.[address] [facility] HospitalEeaptukPYKEBUYFUC0649-97-12 21:16:00 Test Item Value Reference Range Interpretation Comments UA Protein (test code Negative mg/dL N = UA Protein) (05/10/2011 16:16:00) [facility]HaabrzfIavtyoqjbjlo7015-40-80 20:28:00 Test Item Value Reference Range Interpretation Comments Culture: Anaerobic (test code = Culture: Anaerobic) [facility]bergNjgmzvaLkqfpafbxion6046-27-44 20:28:00 Test Item Value Reference Range Interpretation Comments Culture: Aspirate/Body Fluid/Tissue (test code = Culture: Aspirate/Body Fluid/Tissue) [facility] HospitalZdzxurbABXDVTBNE8778-08-46 13:43:00 Test Item Value Reference Range Interpretation Comments Kevino Tr TND (test code = Vanco Tr TND) 1000 [facility] HospitalIyixmggPOJUFCTHO0589-56-38 13:43:00 Test Item Value Reference Range Interpretation Comments Vanco Tr (test code = Vanco Tr) 11.5 [facility] HospitalYiawuqpSTZYFRQTEG0266-13-10 05:51:00 Test Item Value Reference Range Interpretation Comments Basophils # (test code = Basophils #) 0.0 <=0.2 N [facility] HospitalRrjrptmGNUFZAIPDC2890-77-14 05:51:00 Test Item Value Reference Range Interpretation Comments Eosinophils # (test code = Eosinophils 0.2 <=0.5 N #) [facility] HospitalPkdhgddCRRCTODOBK4578-56-63 05:51:00 Test Item Value Reference Range Interpretation Comments Monocytes # (test code = Monocytes #) 0.5 <=0.8 N [facility] HospitalZmhbrlqPFBTNIGYDD2073-03-46 05:51:00 Test Item Value Reference Range Interpretation Comments Lymphocytes # (test code = Lymphocytes 0.9 1.0-5.5 L #) [facility] HospitalBglqeqkVPCCTCAKCL6666-42-18 05:51:00 Test Item Value Reference Range Interpretation Comments Monocytes (test code = Monocytes) 8.3 2.0-12.0 N [facility] HospitalJxxvsnlJVPKMGAFUA6586-92-97 05:51:00 Test Item Value Reference Range Interpretation Comments Lymphocytes (test code = Lymphocytes) 15.3 20.0-40.0 L [facility] HospitalSfyuegkXGNNTYIJGN4599-37-48 05:51:00 Test Item Value Reference Range Interpretation Comments Segs-Bands # (test code = Segs-Bands #) 4.3 1.5-8.1 N [facility] HospitalMucfujoSTQFBJTHQS5267-54-29 05:51:00 Test Item Value Reference Range Interpretation Comments Basophils (test code = Basophils) 0.6 <=1.0 N [facility] HospitalVpzsuwgFELHWVFBVP9179-21-89 05:51:00 Test Item Value Reference Range Interpretation Comments Eosinophils (test code = Eosinophils) 2.7 <=4.0 N [facility] HospitalBidzeszTNWNCJMLZY7153-13-67 05:51:00 Test Item Value Reference Range Interpretation Comments Segs (test code = Segs) 73.1 45.0-75.0 N [facility]bergRbdjphgWopqqcjnkuot7697-42-12 19:05:00 Test Item Value Reference Range Interpretation Comments Culture: Wound/Abscess w/Gram Stain (test code = Culture: Wound/Abscess w/Gram Stain) [facility] KlebergOaujpsoHglezzfjeyyl6397-73-64 05:21:00 Test Item Value Reference Range Interpretation Comments Culture: MRSA (test code = Culture: MRSA) [facility] HospitalPuvphaoUTGTPHSVTP2160-81-91 10:12:00 Test Item Value Reference Range Interpretation Comments PT (test code = PT) 15.9 s 12.0-14.7 H [facility] HospitalHijabuhKQKJVCWVNK7250-97-50 10:12:00 Test Item Value Reference Range Interpretation Comments INR (test code = INR) 1.27 0.85-1.17 H [facility] HospitalKsjydjbYIZLZTDOPN7416-03-06 10:12:00 Test Item Value Reference Range Interpretation Comments PTT (test code = PTT) 36.8 s 22.9-35.8 H [facility] KlebergYawkmbeDwynsnkdmgzn8007-68-41 04:11:00 Test Item Value Reference Range Interpretation Comments Culture: Urine (test code = Culture: Urine) [facility] KlebergUztljlbFczophrlaegk6647-89-78 03:45:00 Test Item Value Reference Range Interpretation Comments Culture: Blood (test code = Culture: Blood) [facility] KlebergNzqodooAlejzintyejf7135-87-06 03:40:00 Test Item Value Reference Range Interpretation Comments Culture: Blood (test code = Culture: Blood) [facility] KWVNDND5060-93-13 23:55:00 Test Item Value Reference Range Interpretation Comments Antibody Scrn (test Positive (05/07/2011 N code = Antibody Scrn) 18:55:00) [facility] [employer] LDANWJC7127-94-79 23:55:00 Test Item Value Reference Range Interpretation Comments AB Int (test code = AB Int) Anti-E [facility] [employer] MHOXWYV3572-26-17 23:55:00 Test Item Value Reference Range Interpretation Comments BB Note (test code = Result Note N BB Note) 11(05/07/2011 18:55:00) [facility] [employer] NMKKNWQ4506-02-05 23:55:00 Test Item Value Reference Range Interpretation Comments ABO/Rh (test code = ABO/Rh) A POS [facility] [employer] - QJDXOLUL0310-28-58 19:15:00 Test Item Value Reference Range Interpretation Comments MRSA by PCR (test Negative 1(05/07/2011 N code = MRSA by PCR) 14:15:00) [facility] KmppvgzTRZVNOTFDV7399-78-27 17:17:00 Test Item Value Reference Range Interpretation Comments CDC-HIV 1/2 Ab (test Negative *NA*(05/07/2011 code = CDC-HIV 1/2 12:17:00) Ab) [facility] YzjognbCETWXPTNU5957-23-57 17:15:00 Test Item Value Reference Range Interpretation Comments Magnesium Lvl (test code = Magnesium 1.9 1.8-2.4 N Lvl) [facility] ZjgjufwLOWZWGOBE2483-22-81 17:15:00 Test Item Value Reference Range Interpretation Comments Phosphorus (test code = Phosphorus) 3.2 2.5-4.[address] [facility]
--- NOTE | 2023-01-09 13:21 | RAD REPORT ---
EXAM DESCRIPTION: CT - Head Brain Wo Cont - 01/09/2023 1:13 pm CLINICAL HISTORY: WEAKNESS Headache, drowsiness COMPARISON: Head Brain Wo Cont dated 12/24/2021; Head Brain Wo Cont dated 07/24/2020; Urinary Bladder dated 12/16/2022 TECHNIQUE: All CT scans are performed using dose optimization technique as appropriate and may inclu de automated exposure control or mA/KV adjustment according to patient size. FINDINGS: No intracranial hemorrhage, hydrocephalus or extra-axial fluid collection.Advanced general ized brain atrophy is present with mild periventricular and deep white matter chronic microvascular i schemic changes.No areas of brain edema or evidence of midline shift. Vertebral atherosclerosis. The paranasal sinuses and mastoids are clear. The calvarium is intact. IMPRESSION: No acute intracranial abnormality.
[2023-01-09 14:25] LABS: Absolute Lymphocytes (CBC) 1.2 K/uL (0.7-4.9); Hematocrit 38.1 % (39.6-49.0); Lymphocytes % 13.7 % (15.3-44.8); MCV 88.6 fL (80-100); MPV 8.7 fL (7.6-11.3); Platelets 287 thou/uL (152-406)
[2023-01-09 14:35] LABS: AST/SGOT 14 U/L (15-37); Alkaline Phosphatase 74 U/L (45-117); BUN Blood Urea Nitrogen 52 mg/dL (7-18); Bicarbonate 23 mEq/L (21-32); Bilirubin Direct 0.2 mg/dL (0-0.2); Bilirubin Indirect, Calculated 0.6 mg/dL (0.2-0.8); Bilirubin Total 0.8 mg/dL (0.2-1.0); Glomerular Filtration Rate 29 ml/min (=/>90); Glucose Level 162 mg/dL (74-106); Magnesium 2.3 mg/dL (1.6-2.4); Potassium 4.3 mEq/L (3.5-5.1); Protein, Total 7.9 g/dL (6.4-8.2); Sodium Level 135 mEq/L (136-145)
[2023-01-09 14:38] LABS: Protime INR 1.65
[2023-01-09 14:41] LABS: ALT/SGPT < 10 U/L (16-61)
--- NOTE | 2023-01-09 16:21 | RAD REPORT ---
EXAM DESCRIPTION: RAD - Pelvis - 01/09/2023 4:12 pm CLINICAL HISTORY: TRAUMA COMPARISON: Hip Right 2 View dated 01/09/2023 FINDINGS: Moderate degenerative changes present in both hips. No fracture, dislocation or AVN patter n observed. Moderate lumbar degenerative changes.
--- NOTE | 2023-01-09 16:23 | RAD REPORT ---
EXAM DESCRIPTION: RAD - Hip Right 2 View - 01/09/2023 4:12 pm CLINICAL HISTORY: SMASH INJURY COMPARISON: No comparisons FINDINGS: Moderate osteoarthritis of the right hip. No fracture or dislocation seen.
[2023-01-09 16:40] LABS: Specific Gravity 1.009 (1.005-1.030); Urine Bacteria <20 /HPF (<20); Urine Bilirubin NEGATIVE (Negative); Urine Blood 3+ (OVER) (Negative); Urine Clarity Extremely Turbid (Clear); Urine Color Dark-Brown (Yellow); Urine Crystals Unidentified Many /HPF (None Seen); Urine Glucose NEGATIVE (Negative); Urine Protein 1+ (Negative); Urine RBC >50 /HPF (None Seen); Urine Urobilinogen Normal (Normal); Urine WBC Clump Moderate /HPF (None Seen); Urine pH 5.5 (5.0-7.0)
--- NOTE | 2023-01-09 17:12 | ER ---
Nurse's Notes [facility] Name: Brodie Hernadez Age: 87 yrs Sex: Male : 1935 Arrival Date: 01/09/2023 Time: 11:49 Bed 19 Private MD: Diagnosis: Dehydration, GHULAM, hematuria Presentation: 01/09 12:03 Chief complaint: EMS states: Called to patient's home for right leg weakness. Pt denies cm10 pain. Pt A\T\Ox4. Coronavirus screen: Vaccine status: Patient reports receiving the 2nd dose of the covid vaccine. Client denies travel out of the [place] in the last 14 days. Ebola Screen: Patient denies travel to an Ebola-affected area in the 21 days before illness onset. No symptoms or risks identified at this time. 12:03 Method Of Arrival: EMS cm10 12:05 Initial Sepsis Screen: Does the patient meet any 2 criteria? No. Patient's initial cm10 sepsis screen is negative. Does the patient have a suspected source of infection? No. Patient's initial sepsis screen is negative. Risk Assessment: Do you want to hurt yourself or someone else? Patient reports no desire to harm self or others. Onset of symptoms was January 09, 2023. 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 - Social history:: Smoking status: unknown. Screenin:56 [facility] ED Fall Risk Assessment (Adult) History of falling in the last 3 months, mb9 including since admission Yes- fall prone (multiple falls) (3 pts) Confusion or Disorientation No (0 pts) Intoxicated or Sedated No (0 pts) Impaired Gait Yes (1 pt) Mobility Assist Device Used Yes (1 pt) Altered Elimination No (0 pt) Score/Fall Risk Level 3 or more points = High Risk Oriented to surroundings, Maintained a safe environment, Educated pt \T\ family on fall prevention, incl call for assistance when getting out of bed. Abuse screen: Denies threats or abuse. Nutritional screening: No deficits noted. Tuberculosis screening: No symptoms or risk factors identified. Assessment: 14:51 Reassessment: pt brought back to ER room. mb9 14:54 General: Appears in no apparent distress. Behavior is calm, cooperative. Pain: Denies mb9 pain. Neuro: [place] Agitation-Sedation Scale (RASS): 0 - Alert and Calm Level of Consciousness is awake, alert, obeys commands, Oriented to person, place, time, situation, Appropriate for age. Cardiovascular: Patient's skin is warm and dry. Respiratory: Airway is patent Respiratory effort is even, unlabored, Respiratory pattern is regular, symmetrical. GI: Abdomen is round non-distended, Colostomy site is clean and dry. Ostomy appliance is intact. Bowel sounds present X 4 quads. Abd is soft and non tender X 4 quads. : Reports hematuria. EENT: No signs and/or symptoms were reported regarding the EENT system. Derm: Skin is pink, warm \T\ dry. Musculoskeletal: Range of motion: limited in right leg Reports weakness in right leg. 16:22 : Urine is alonzo blood. mb9 17:00 Reassessment: Patient appears in no apparent distress at this time. No changes from mb9 previously documented assessment. Patient and/or family updated on plan of care and expected duration. Pain level reassessed. Patient is alert, oriented x 3, equal unlabored respirations, skin warm/dry/pink. 19:26 General: family at bedside, pt altered . as6 20:01 General: Joaquín (son) [phone]. as6 Vital Signs: 14:52 BP 113 / 92; Pulse 55; Resp 16; Temp 97.5; Pulse Ox 96% on R/A; Weight 90.72 kg; Height mb9 5 ft. 11 in. ; 17:00 BP 121 / 73; Pulse 62; Resp 16; Pulse Ox 100% on R/A; mb9 19:28 BP 107 / 55; Pulse 57; Resp 18 S; Pulse Ox 100% on R/A; as6 14:52 Body Mass Index 27.89 (90.72 kg, 180.34 cm) mb9 ED Course: 12:01 Patient arrived in ED. cm10 12:02 Vandaan Whitfield MD is Attending Physician. sp3 12:05 Triage completed. cm10 13:15 CT Head Brain wo Cont In Process Unspecified. EDMS 14:04 Basic Metabolic Panel Sent. bc6 14:04 CBC with Diff Sent. bc6 14:04 Hepatic Function Sent. bc6 14:04 Magnesium Sent. bc6 14:04 Protime (+inr) Sent. bc6 14:04 Ptt, Activated Sent. bc6 14:04 Inserted saline lock: 20 gauge in left forearm, using aseptic technique. Blood bc6 collected. 14:51 Katrin Chapin, RN is Primary Nurse. mb9 14:52 Arm band placed on. mb9 14:55 Placed in gown. Bed in low position. Call light in reach. Side rails up X 1. Client mb9 placed on continuous cardiac and pulse oximetry monitoring. NIBP monitoring applied. 14:56 No provider procedures requiring assistance completed. mb9 16:14 Hip Right 2 View In Process Unspecified. EDMS 16:15 Pelvis XRAY In Process Unspecified. EDMS 16:23 UAM Sent. mb9 17:11 Sonia Hyatt MD is Hospitalizing Provider. sp3 19:05 Report given to SUE [place]. mb9 19:27 Provided Education on: need for admit. as6 20:00 Patient admitted, IV remains in place. as6 Administered Medications: 17:25 Drug: NS 0.9% IV 1000 ml IV at 75 ml/hr continuous Route: IV; Rate: 75 ml/hr; Site: mb9 left forearm; Medication: 14:56 VIS not applicable for this client. mb9 Outcome: 17:11 Decision to Hospitalize by Provider. sp3 19:26 Condition: stable as6 20:00 Admitted to ER Hold. Please see [facility] for further documentation. as6 20:00 Instructed on the need for admit, 01/10 14:44 Patient left the ED. rs5 Signatures: Dispatcher [employer] EDMS Vandana Whitfield MD MD sp3 Fer Cochran RN RN as6 Katrin Chapin, RN RN mb9 Jag Gilbert RN RN rs5 Fang Parada Clarissa RN RN cm10 Corrections: (The following items were deleted from the chart) 01/09 15:11 14:54 GI: Abdomen is round non-distended, Bowel sounds present X 4 quads. Abd is soft mb9 and non tender X 4 quads. mb9
--- NOTE | 2023-01-09 17:12 | EDPHYS ---
Physician Documentation [facility] Name: Brodie Hernadez Age: 87 yrs Sex: Male : 1935 Arrival Date: 01/09/2023 Time: 11:49 Bed 19 Private MD: ED Physician Vandana Whitfield HPI: 01/09 15:52 This 87 yrs old Male presents to ER via EMS with complaints of Weakness - right leg. sp3 15:52 87-year-old male with history of atrial fibrillation, hypertension, CAD, Parkinson's, sp3 asbestosis now presents to the ED with right lower extremity weakness for about a week. Yesterday he also had a fall out of his wheelchair but denies any significant injury from this. He states that he can move his right lower leg but it is just hard for him to do so due to weakness but without pain. He denies headache, other neurological symptoms, speech difficulty, vision changes, memory changes, sensory changes, or any other signs or symptoms on ROS at this time.. 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 - Social history:: Smoking status: unknown. ROS: 15:53 Constitutional: Negative for fever, chills, and weight loss, Eyes: Negative for injury, sp3 pain, redness, and discharge, ENT: Negative for injury, pain, and discharge, Neck: Negative for injury, pain, and swelling, Cardiovascular: Negative for chest pain, palpitations, and edema, Respiratory: Negative for shortness of breath, cough, wheezing, and pleuritic chest pain, Abdomen/GI: Negative for abdominal pain, nausea, vomiting, diarrhea, and constipation, Back: Negative for injury and pain, MS/Extremity: Negative for injury and deformity, Skin: Negative for injury, rash, and discoloration, Psych: Negative for depression, anxiety, suicide ideation, homicidal ideation, and hallucinations, Allergy/Immunology: Negative for hives, rash, and allergies, Endocrine: Negative for neck swelling, polydipsia, polyuria, polyphagia, and marked weight changes, Hematologic/Lymphatic: Negative for swollen nodes, abnormal bleeding, and unusual bruising, 15:53 All other systems are negative, Exam: 15:54 Constitutional: This is a well developed, well nourished patient who is awake, alert, sp3 and in no acute distress. Head/Face: Normocephalic, atraumatic. Eyes: Pupils equal round and reactive to light, extra-ocular motions intact. Lids and lashes normal. Conjunctiva and sclera are non-icteric and not injected. Cornea within normal limits. Periorbital areas with no swelling, redness, or edema. ENT: Nares patent. No nasal discharge, no septal abnormalities noted. External auditory canals are clear. Oropharynx with no redness, swelling, or masses, exudates, or evidence of obstruction, uvula midline. Mucous membranes moist. Neck: Trachea midline, no thyromegaly or masses palpated, and no cervical lymphadenopathy. Supple, full range of motion without nuchal rigidity, or vertebral point tenderness. No Meningismus. Chest/axilla: Normal chest wall appearance and motion. Nontender with no deformity. No lesions are appreciated. Cardiovascular: Regular rate and rhythm with a normal S1 and S2. No gallops, murmurs, or rubs. Normal PMI, no JVD. No pulse deficits. Respiratory: Lungs have equal breath sounds bilaterally, clear to auscultation and percussion. No rales, rhonchi or wheezes noted. No increased work of breathing, no retractions or nasal flaring. Abdomen/GI: Soft, non-tender, with normal bowel sounds. No distension or tympany. No guarding or rebound. No evidence of tenderness throughout. Back: No spinal tenderness. No costovertebral tenderness. Full range of motion. Skin: Warm, dry with normal turgor. Normal color with no rashes, no lesions, and no evidence of cellulitis. Psych: Awake, alert, with orientation to person, place and time. Behavior, mood, and affect are within normal limits. 15:54 Musculoskeletal/extremity: Clinically no fracture noted. Distal neurovascular exam is normal. Patient is able to move all innervations although it is slower and with decreased power. 4/5 strength noted.. 15:55 ECG was reviewed by the Attending Physician. EKG demonstrates atrial fibrillation at 60 sp3 bpm with normal intervals except right bundle branch block and nonspecific diffuse ST/T changes without evidence of acute ischemia. Vital Signs: 14:52 BP 113 / 92; Pulse 55; Resp 16; Temp 97.5; Pulse Ox 96% on R/A; Weight 90.72 kg; Height mb9 5 ft. 11 in. ; 17:00 BP 121 / 73; Pulse 62; Resp 16; Pulse Ox 100% on R/A; mb9 19:28 BP 107 / 55; Pulse 57; Resp 18 S; Pulse Ox 100% on R/A; as6 14:52 Body Mass Index 27.89 (90.72 kg, 180.34 cm) mb9 MDM: 12:18 Patient medically screened. sp3 15:55 Data reviewed: vital signs, nurses notes, lab test result(s), EKG, radiologic studies. sp3 15:55 ED course: 87-year-old male with right lower extremity weakness isolated in nature. CT sp3 scan of the head is negative, laboratory values are within normal limits except for his elevated creatinine which is baseline. Objectively there are no focal deficits. X-rays of the hip and pelvis are pending. Patient's family states that the last time this happened he had a urinary tract infection so we will also check a UA. Disposition pending work-up and patient course.. 17:10 ED course: Discussed case with Dr. Hyatt his PCP. Baseline creatinine is 1.3 patient's sp3 creatinine is now 2.1. Likely culprit is prerenal azotemia. UA demonstrates red and white cells but no bacteria. We will hold on any antibiotics for now. Hydration will be started at 75 mL/h of normal saline and patient will be put in observation status.. 01/09 13:03 Order name: Basic Metabolic Panel; Complete Time: 14:42 sp3 01/09 13:03 Order name: CBC with Diff; Complete Time: 14:42 sp3 01/09 13:03 Order name: Hepatic Function; Complete Time: 14:42 sp3 01/09 13:03 Order name: Magnesium; Complete Time: 14:42 sp3 01/09 13:03 Order name: Protime (+inr); Complete Time: 14:42 sp3 01/09 13:03 Order name: Ptt, Activated; Complete Time: 14:42 sp3 01/09 14:55 Order name: UAM; Complete Time: 16:59 sp3 01/09 16:43 Order name: Urine Culture EDMS 01/09 18:56 Order name: Basic Metabolic Panel EDMS 01/09 18:56 Order name: Basic Metabolic Panel EDMS 01/09 18:56 Order name: CBC with Automated Diff EDMS 01/09 18:56 Order name: CBC with Automated Diff EDMS 01/09 13:03 Order name: CT Head Brain wo Cont; Complete Time: 14:42 sp3 01/09 14:56 Order name: Pelvis XRAY; Complete Time: 16:21 sp3 01/09 16:14 Order name: Hip Right 2 View; Complete Time: 16:24 EDMS 01/10 11:47 Order name: MRI EDMS 01/09 13:03 Order name: EKG; Complete Time: 13:03 sp3 01/09 13:03 Order name: EKG - Nurse/Tech; Complete Time: 14:15 sp3 01/09 13:03 Order name: IV Saline Lock; Complete Time: 14:03 sp3 01/09 13:03 Order name: Labs collected and sent; Complete Time: 14:03 sp3 Administered Medications: 17:25 Drug: NS 0.9% IV 1000 ml IV at 75 ml/hr continuous Route: IV; Rate: 75 ml/hr; Site: mb9 left forearm; Disposition Summary: 01/09/23 17:11 Hospitalization Ordered Notes: Hospitalization Status: Observation sp3 Provider: Sonia Hyatt Condition: Stable sp3 Problem: an acute exacerbation sp3 Symptoms: have worsened sp3 Bed/Room Type: Standard sp3 Location: [facility] ER HOLD(01/10/23 04:13) as6 Room Assignment: ERHOLD-(01/10/23 04:13) as6 Diagnosis - Dehydration, GHULAM, hematuria sp3 Forms: - Medication Reconciliation Form sp3 - SBAR form sp3 - Leadership Thank You Letter sp3 Signatures: Dispatcher [employer] Vandana Botello MD MD sp3 Fer Cochran RN RN as6 Katrin Chapin RN RN mb9 Isamar Dennis RN RN cm10 Corrections: (The following items were deleted from the chart) 16:14 14:56 Hip Right 1 View+RAD.RAD.BRZ ordered. EDOK EDOK 01/10 04:13 01/09 17:11 Telemetry/MedSurg (observation) sp3 as6 12/05 04:13 12/04 17:11 sp3 as6
[2023-01-09] MEDS ORDERED: NA CHLORIDE 0.9% 1,000 ML ONE (17:32)
[2023-01-09] MEDS ORDERED: ACETAMINOPHEN 500 MG TAB PO PRN (18:52)
[2023-01-09] MEDS: NA CHLORIDE 0.9% 1,000 ML IV SCH (19:00)
[2023-01-09 22:19] VITALS: BMI 27.8
[2023-01-10 03:41] LABS: Absolute Lymphocytes (CBC) 1.3 K/uL (0.7-4.9); Hematocrit 35.2 % (39.6-49.0); MCV 88.9 fL (80-100); MPV 8.7 fL (7.6-11.3); Platelets 266 thou/uL (152-406); RBC Red Blood Cell Count 3.97 M/uL (4.33-5.43)
[2023-01-10] MEDS: NA CHLORIDE 0.9% 1,000 ML IV SCH (08:20)
[2023-01-10 09:48] VITALS: O2SAT 98
--- NOTE | 2023-01-10 11:46 | RAD REPORT ---
EXAM DESCRIPTION: MRI - Lumbar Spine Juan - 01/10/2023 10:56 am CLINICAL HISTORY: back pain, R leg weakness COMPARISON: Lumbar Spine [facility] dated 09/15/2021 TECHNIQUE: Multiplanar multisequence MRI of the lumbar spine performed, withoutintravenous gadoliniu m contrast. FINDINGS: Preserved lumbar lordosis without spondylolisthesis. Vertebral body heights are well main tained. No suspicious marrow signal. No paraspinal masses or edema. Conus terminates at the appropriate level. Cauda equina roots are unremarkable, with no clumping or t hickening. T12-L1: No significant findings. L1-L2: Mild broad-based disc bulge. Bilateral mild facet arthropathy. No significant canal stenosis a part from minimal effacement the ventral CSF space. Mild bilateral neural foraminal narrowing more pr onounced on the left. L2-L3: Mild broad-based disc bulge. Bilateral facet arthropathy and ligamentum flavum buckling. No si gnificant canal stenosis apart from mild effacement of the ventral and dorsal CSF space. Mild right n eural foraminal narrowing. L3-L4 level: Stable broad-based disc bulge with superimposed right subarticular and foraminal disc pr otrusions. Bilateral facet arthropathy and ligamentum flavum buckling. Overall mild central canal j carlos nosis. Bilateral mild neural foraminal narrowing. Disc protrusions approximating the exiting right L3 nerve root. L4-L5 level: [id number] central canal stenosis secondary to broad-based posterior disc bulge, p ronounced facet arthropathy and ligamentum flavum buckling. Bilateral neural foraminal narrowing, up to moderate, worse on the left. L5-S1 level: Bilateral facet arthropathy and ligamentum flavum buckling, with some asymmetric narrowi ng of the right lateral recess. Mild bilateral neural foraminal narrowing. Overall, the findings are stable. IMPRESSION: Stable multilevel spondylotic lumbar spine changes, with up to moderate central canal st enosis at L4-5 and mild stenosis at L3-4. Variable degrees of neural foraminal narrowing, up to moder ate on the left at L4-5. Overall, the findings appear stable compared to the September 2021 exam.
[2023-01-10] MEDS ORDERED: TAMSULOSIN 0.4 MG SR CAP PO ONE (11:48)
--- NOTE | 2023-01-10 13:29 | EKG ---
Test Date: 2023-01-09 Test Time: 14:12:17 Top Loader: CARLOS MEASUREMENT RESULTS: Intervals: Rate: 57 AR: QRSD: 180 QT: 486 QTc: 473 [place]: P: AR: QRS: 95 T: -86 INTERPRETIVE STATEMENTS: Atrial fibrillation Right bundle branch block T wave abnormality, consider inferior ischemia or digitalis effect Abnormal ECG Compared to ECG 12/24/2021 22:18:38 Right bundle-branch block now present T-wave abnormality now present Possible ischemia now present Right-axis deviation no longer present Myocardial infarct finding no longer present Electronically Signed On 01-10-23 13:26:44 VERIFIER by Dell Phelan
[2023-01-10 13:40] VITALS: BP 117/86; TEMP 98.1
--- NOTE | 2023-01-10 23:05 | SS ---
Date of Discharge: 01/10/2023 Chief Complaint: Right leg weakness and blood in urine. History Of Present Illness: This is an 87-year-old very pleasant male patient who has history of rec urrent gross hematuria who has been on chronic anticoagulation therapy using Xarelto for a long time, came into office last week with this problem of gross hematuria and at that time, decision was made to discontinue his Xarelto and to start him on Eliquis 2.5 mg 2 times a day along with empiric antibi otics for possible urinary tract infection and urine culture was done, which results came back negati ve for any growth. Meanwhile, he comes to emergency room yesterday with weakness of the right leg wi th some lower back pain and gross hematuria again. Denies any fever, chills. No fall. No injury. After he was evaluated in the emergency room, he was admitted to the hospital and I saw him this morn ing for this admission and he was feeling much better. His leg weakness has completely resolved and he is able to ambulate without any difficulty. He still continues to have gross hematuria and his ur ine is tea-colored. Physical Examination: Vital Signs: Temperature 98.1, pulse 67, respiratory rate 16, blood pressure 119/49, oxygen saturati on 98%. General: Awake, alert, oriented, not in distress. HEENT: Head atraumatic, normocephalic. Conjunctivae nonerythematous. Sclerae white. Mouth, no thr ush or edema noted. Ears/Nose, no mass, lesion, discharge noted. Neck: Supple. No JVD, lymph nodes, bruit, thyromegaly noted. Lungs: Bilateral good equal air entry. Clear to auscultation. No rhonchi. No rales. Heart: Normal heart sounds, no murmur or gallop. Abdomen: Patient has colostomy present in the right lower quadrant of abdomen, otherwise abdomen is soft, bowel sounds normal. No guarding, rigidity, tenderness, or distention. Extremities: No leg edema. No calf tenderness. Skin: Patient has pink colored macular rash in right groin area. Lymphatics: No lymph node enlargement in neck, supraclavicular, infraclavicular region. Neuro: No focal neurological deficit. Chest: Unremarkable. External Genitalia: Deferred. Rectal: Deferred. Laboratory Data: White count 8.9, hemoglobin 12.3, platelets 287 yesterday and today white count 7.6 , hemoglobin 11.8, platelets 266. His chemistry yesterday, sodium 135, potassium 4.3, chloride 106, bicarb 23, BUN 52, creatinine 2.13, glucose 162. Liver function test is unremarkable today. Sodium 135, potassium 4, chloride 106, bicarb 24, BUN 46, creatinine 1.69, glucose 105. Urinalysis more terrence n 500 leukocytes, more than 50 rbc's, more than 50 wbc's. MRI of the lumbar spine shows lumbar spond ylosis and lumbar spinal stenosis. Hospital Course: After patient was evaluated, admitted to hospital. He was given IV fluids for acut e kidney injury and his renal function has improved and we did get MRI of the lumbar spine and after that, patient was released to go home. Overall, his leg weakness problem has resolved. I have discu ssed with the patient and informed him when I saw him this morning that I would like for him to stop his furosemide, potassium, and Eliquis completely and patient to have a followup at my office next we ek and was advised to bring all his medication bottles. Patient was also instructed to start taking nystatin cream, apply to right groin area 2 times a day for the rash. Final Diagnoses: 1.Lumbar radiculopathy. 2.Lumbar spinal stenosis. 3.Dermatophytosis. 4.Gross hematuria. 5.Chronic anticoagulation therapy. 6.Hypothyroidism. 7.Type 2 diabetes mellitus. 8.Parkinson disease. 9.Hypertension. 10.Hyperlipidemia. 11.Paroxysmal atrial fibrillation. NELSY/MODL Voice ID: [id number] Report ID: [id number]
== END 2023-01-10 14:40 | disposition home or self-care (01) ==
LOC: ER 11:49 → ERHOLD 18:54
PROVIDERS: ADMIT Internal Medicine; ATTEND Internal Medicine
DX: M54.16 Radiculopathy, lumbar region (principal); M48.061 Spinal stenosis, lumbar region without neurogenic claudication; M54.50 Low back pain, unspecified; N17.9 Acute kidney failure, unspecified; E86.0 Dehydration; I48.11 Longstanding persistent atrial fibrillation; R31.9 Hematuria, unspecified; B35.9 Dermatophytosis, unspecified; E03.9 Hypothyroidism, unspecified; E11.9 Type 2 diabetes mellitus without complications; G20.A1 Parkinson's disease without dyskinesia, without mention of fluctuations; I10 Essential (primary) hypertension; E78.5 Hyperlipidemia, unspecified; Z79.01 Long term (current) use of anticoagulants
CPT/HCPCS: 93005; 87088; 85025 ×2; 81001; 87086; 80048 ×2; 36415; 83735; 85610; 80076; 85730; 70450; 72170; 73502; 72148; 99285; J7030; G0378 ×3

== ENCOUNTER → 2023-01-26 | Emergency (ER) | payer OTHER, MEDICARE ==
[~2023-01-26] MED LIST: CEPHALEXIN 250 MG CAP ONE; SMZ./TMP. 800/160 MG TABLET ONE
[2023-01-26 13:04] LABS: Absolute Lymphocytes (CBC) 1.3 K/uL (0.7-4.9); Hematocrit 36.3 % (39.6-49.0); Lymphocytes % 20.1 % (15.3-44.8); MCV 88.1 fL (80-100); MPV 8.6 fL (7.6-11.3); Platelets 227 thou/uL (152-406); RBC Red Blood Cell Count 4.11 M/uL (4.33-5.43)
[2023-01-26 13:10] LABS: Protime INR 1.2
[2023-01-26 13:25] LABS: AST/SGOT 12 U/L (15-37); Albumin 3.7 g/dL (3.4-5.0); Alkaline Phosphatase 79 U/L (45-117); BUN Blood Urea Nitrogen 42 mg/dL (7-18); Bicarbonate 23 mEq/L (21-32); Bilirubin Total 0.7 mg/dL (0.2-1.0); Creatine Phosphokinase 109 U/L (39-308); Glomerular Filtration Rate 41 ml/min (=/>90); Glucose Level 112 mg/dL (74-106); Potassium 4.4 mEq/L (3.5-5.1); Protein, Total 7.6 g/dL (6.4-8.2); Sodium Level 135 mEq/L (136-145)
[2023-01-26 13:26] LABS: ALT/SGPT < 10 U/L (16-61)
[2023-01-26 13:31] LABS: Specific Gravity 1.019 (1.005-1.030); Urine Bacteria <20 /HPF (<20); Urine Bilirubin NEGATIVE (Negative); Urine Blood 3+ (OVER) (Negative); Urine Clarity Extremely Turbid (Clear); Urine Color Yellow (Yellow); Urine Glucose NEGATIVE (Negative); Urine Mucus Slight /HPF (None Seen); Urine Protein 2+ (Negative); Urine RBC >50 /HPF (None Seen); Urine Urobilinogen Normal (Normal)
--- NOTE | 2023-01-26 14:06 | EDPHYS ---
Physician Documentation [facility] Name: Brodie Hernadez Age: 87 yrs Sex: Male : 1935 Arrival Date: 01/26/2023 Time: 11:18 Bed 18 Private MD: ED Physician Trell Sanabria HPI: 01/26 12:21 This 87 yrs old Male presents to ER via EMS with complaints of sent by PCP ec2 for dark urine. 12:22 Patient arrives today for evaluation of dark-colored urine. Patient reports no fevers ec2 or chills, no obvious blood in the urine, no flank pain. Reports no issues with p.o. intake or fluid intake.. Historical: - Allergies: 11:34 PENICILLINS; bp - Home Meds: 11:34 atorvastatin 40 mg Oral tab 1 tab once daily [Active]; carbidopa-levodopa 25-100 mg bp Oral tab 2 tabs 3 times per day [Active]; Xarelto 15 mg Oral tab 1 tab once daily [Active]; trazodone 50 mg Oral tab 1 tab once daily [Active]; spironolactone 25 mg Oral tab 1 tab once daily [Active]; pramipexole 0.125 mg Oral tab 1 tab 3 times per day [Active]; metoprolol succinate 25 mg Oral Tb24 1 tab once daily [Active]; furosemide 20 mg Oral tab 1 tab 2 times per day [Active]; Entresto 24-26 mg Oral tab 1 tab 2 times per day [Active]; donepezil 10 mg Oral tab 1 tab once daily [Active]; - PMHx: 11:34 Atrial Fib; CAD; asbestosis; Congestive heart failure; Hypertension; ulcerative bp colitis; Parkinson's disease; Cerebrovascular accident; - Immunization history:: Adult Immunizations up to date. - Social history:: Smoking status: unknown. ROS: 12:22 Constitutional: as per hpi ec2 Exam: 12:22 Constitutional: GEN: NAD Head: atraumatic Eyes: EOMI Ears: External ears are ec2 normal. CV: regular rate LUNGS: no respiratory distress ABD: non-distended, soft, nontender, no guarding, not rigid SKIN: no evidence of rashes MSK: no evidence of trauma NEURO: moves all extremities equally Vital Signs: 11:32 BP 103 / 78; Pulse 59; Resp 16; Temp 98; Pulse Ox 100% ; bp 13:30 BP 108 / 55; Pulse 57; Resp 18; Pulse Ox 97% ; bp 14:20 BP 119 / 90; Pulse 72; Resp 16; Pulse Ox 99% ; bp MDM: 12:07 Patient medically screened. ec2 12:22 Data reviewed: vital signs. ED course: Patient arrives today for evaluation of ec2 discolored urine. Examination remarkable for well-appearing nontoxic individual is otherwise in no acute distress with a reassuring abdominal examination. Will obtain UA, lab work, give the patient crystalloid. Currently considering processes such as dehydration, rhabdomyolysis, UTI.. 13:34 ED course: CBC is reassuring. Metabolic profile with some renal dysfunction with a ec2 creatinine of 1.59 and GFR 41. Coagulation profile is unremarkable. CPK is within normal ranges. Pending urine studies. . 14:05 ED course: Urine with leuk esterase present and WBCs, ultimately I will treat for ec2 urinary tract infection, patient does not show signs and symptoms of urinary obstruction, does not have abdominal pain to indicate further workup for ureteral stone or kidney stone pathology, patient has been urinating without issue. I will discharge home with antibiotics and have him follow-up with urology as well. Return precautions given.. 12 12:07 Order name: CBC with Diff; Complete Time: 13:34 ec2 01/26 12:07 Order name: CMP; Complete Time: 13:34 ec2 01/26 12:07 Order name: UAM; Complete Time: 13:38 ec2 01/26 12:07 Order name: Creatine Phosphokinase; Complete Time: 13:34 ec2 01/26 12:21 Order name: PT-INR; Complete Time: 13:34 ec2 01/26 12:21 Order name: Ptt, Activated; Complete Time: 13:34 ec2 01/26 13:39 Order name: Urine Culture EDMS Administered Medications: 12:30 Drug: NS 0.9% IV 1000 ml IV at 1 bolus Per protocol; 1000 mL bolus Route: IV; Rate: 1 bp bolus; Site: right forearm; 14:20 Follow up: IV Status: Completed infusion; IV Intake: 1000ml bp 14:20 Drug: Trimethoprim-Sulfamethoxazole PO (160 mg-800 mg (DS) 1 tablet PO once Route: PO; bp 14:20 Follow up: Response: No adverse reaction bp Disposition Summary: 01/26/23 14:06 Discharge Ordered Notes: Location: Home ec2 Condition: Stable ec2 Diagnosis - UTI/ Urinary tract infection, site not specified ec2 Followup: ec2 - With: Girish Ceja MD - When: - Reason: Recheck today's complaints Discharge Instructions: - Discharge Summary Sheet ec2 Forms: - Medication Reconciliation Form ec2 - Thank You Letter ec2 - Antibiotic Education ec2 - Prescription Opioid Use ec2 - Patient Portal Instructions ec2 - Leadership Thank You Letter ec2 Prescriptions: - Bactrim DS 800-160 mg Oral Tablet - take 1 tablet ORAL route every 12 hours for 7 days; 14 tablet; Refills: 0, ec2 Product Selection Permitted Signatures: Dispatcher [employer] Tawanda Duran, SUE RN Trell Bell MD MD ec2
--- NOTE | 2023-01-26 14:06 | ER ---
Nurse's Notes [facility] Name: Brodie Hernadez Age: 87 yrs Sex: Male : 1935 Arrival Date: 01/26/2023 Time: 11:18 Bed 18 Private MD: Diagnosis: UTI/ Urinary tract infection, site not specified Presentation: 01/26 11:32 Chief complaint: EMS states: SENT BY PCP AFTER PHONE CALL STATING HE HAD "DARK URINE". bp Coronavirus screen: At this time, the client does not indicate any symptoms associated with coronavirus-19. Ebola Screen: No symptoms or risks identified at this time. Initial Sepsis Screen: Does the patient meet any 2 criteria? No. Patient's initial sepsis screen is negative. Does the patient have a suspected source of infection? No. Patient's initial sepsis screen is negative. Risk Assessment: Do you want to hurt yourself or someone else? Patient reports no desire to harm self or others. Onset of symptoms is unknown. 11:32 Method Of Arrival: EMS: [facility] bp 11:32 Acuity: VLADIMIR 3 bp Triage Assessment: 11:34 General: Appears in no apparent distress. comfortable, Behavior is calm, cooperative, bp appropriate for age. Pain: Denies pain. Historical: - Allergies: 11:34 PENICILLINS; bp - Home Meds: 11:34 atorvastatin 40 mg Oral tab 1 tab once daily [Active]; carbidopa-levodopa 25-100 mg bp Oral tab 2 tabs 3 times per day [Active]; Xarelto 15 mg Oral tab 1 tab once daily [Active]; trazodone 50 mg Oral tab 1 tab once daily [Active]; spironolactone 25 mg Oral tab 1 tab once daily [Active]; pramipexole 0.125 mg Oral tab 1 tab 3 times per day [Active]; metoprolol succinate 25 mg Oral Tb24 1 tab once daily [Active]; furosemide 20 mg Oral tab 1 tab 2 times per day [Active]; Entresto 24-26 mg Oral tab 1 tab 2 times per day [Active]; donepezil 10 mg Oral tab 1 tab once daily [Active]; - PMHx: 11:34 Atrial Fib; CAD; asbestosis; Congestive heart failure; Hypertension; ulcerative bp colitis; Parkinson's disease; Cerebrovascular accident; - Immunization history:: Adult Immunizations up to date. - Social history:: Smoking status: unknown. Screenin:36 [facility] ED Fall Risk Assessment (Adult) History of falling in the last 3 months, bp including since admission No falls in past 3 months (0 pts). Abuse screen: Denies threats or abuse. Denies injuries from another. Nutritional screening: No deficits noted. Tuberculosis screening: No symptoms or risk factors identified. Assessment: 11:45 General: SEE TRIAGE NOTE. bp 13:32 Reassessment: Patient appears in no apparent distress at this time. No changes from bp previously documented assessment. Patient is alert, oriented x 3, equal unlabored respirations, skin warm/dry/pink. 14:20 Reassessment: DC ON HOLD FOR FAMILY TRANSPORT. bp Vital Signs: 11:32 BP 103 / 78; Pulse 59; Resp 16; Temp 98; Pulse Ox 100% ; bp 13:30 BP 108 / 55; Pulse 57; Resp 18; Pulse Ox 97% ; bp 14:20 BP 119 / 90; Pulse 72; Resp 16; Pulse Ox 99% ; bp ED Course: 11:22 Patient arrived in ED. ra3 11:25 Trell Sanabria MD is Attending Physician. ec2 11:32 Tawanda Wen, SUE is Primary Nurse. bp 11:33 Triage completed. bp 11:34 Arm band placed on. bp 11:36 Patient has correct armband on for positive identification. Bed in low position. Call bp light in reach. Side rails up X2. 12:30 Inserted saline lock: 22 gauge in right forearm, using aseptic technique. Blood bp collected. 14:06 Girish Ceja MD is Referral Physician. ec2 14:21 No provider procedures requiring assistance completed. IV discontinued, intact, bp bleeding controlled, No redness/swelling at site. Pressure dressing applied. Administered Medications: 12:30 Drug: NS 0.9% IV 1000 ml IV at 1 bolus Per protocol; 1000 mL bolus Route: IV; Rate: 1 bp bolus; Site: right forearm; 14:20 Follow up: IV Status: Completed infusion; IV Intake: 1000ml bp 14:20 Drug: Trimethoprim-Sulfamethoxazole PO (160 mg-800 mg (DS) 1 tablet PO once Route: PO; bp 14:20 Follow up: Response: No adverse reaction bp Medication: 14:22 VIS not applicable for this client. bp Intake: 14:20 IV: 1000ml; Total: 1000ml. bp Outcome: 14:06 Discharge ordered by . ec2 14:21 Discharged to home via wheelchair, with family, bp 14:21 Condition: stable 14:21 Discharge instructions given to patient, Instructed on discharge instructions, follow up and referral plans. medication usage, Demonstrated understanding of instructions, follow-up care, medications, Prescriptions given X 1, 15:00 Patient left the ED. bp Signatures: Tawanda Wen RN RN bp Trell Sanabria MD MD ec2 Jennifer Ness ra3
[2023-01-26 15:35] VITALS: BP 119/90; TEMP 98; O2SAT 99
== END ==
LOC: ER 11:18
DX: N39.0 Urinary tract infection, site not specified (principal); I10 Essential (primary) hypertension; I48.91 Unspecified atrial fibrillation; I50.9 Heart failure, unspecified; G20.A1 Parkinson's disease without dyskinesia, without mention of fluctuations; Z88.0 Allergy status to penicillin; Z86.73 Personal history of transient ischemic attack (TIA), and cerebral infarction without residual deficits; Z79.01 Long term (current) use of anticoagulants
CPT/HCPCS: 36415; 80053; 81001; 82550; 85025; 85610; 85730; 87086; 87088; 96360; 96361; 99284